=== PATIENT | female | born 1950 | race Caucasian/White ===

== ENCOUNTER 2017-08-01 18:20 | Emergency (ER) | payer MEDICARE, OTHER ==
[2017-08-01 18:26] VITALS: BP 157/78
[2017-08-01] MEDS ORDERED: Albuterol/Ipratropium NEB.SOL* Albuterol 2.5 MG/Ipratropium 0.5 MG 3 ML INH ONE (18:34)
--- NOTE | 2017-08-01 18:34 | UC ---
Respiratory Complaint HPI - HPI Summary HPI Summary: 67 year old female presents with complains of severe cough and wheezing. - History of Current Complaint Chief Complaint: UCRespiratory Stated Complaint: URI Time Seen by Provider: 08/01/17 18:30 Hx Obtained From: Patient Onset/Duration: Sudden Onset Severity Initially: Moderate Severity Currently: Moderate Pain Scale Used: 0-10 Numeric - 5 - Allergies/Home Medications Allergies/Adverse Reactions: Allergies Allergy/AdvReac Type Severity Reaction Status Date / Time No Known Allergies Allergy Verified 08/01/17 18:26 Home Medications: Home Medications Calcium Carbonate-Cholecalcife [Calcium 1000 + D 1000-800 mg-Unit] 1 tab PO DAILY 08/01/17 [History Confirmed 08/01/17] PMH/Surg Hx/FS Hx/Imm Hx Previously Healthy: Yes - Surgical History Surgical History: Yes Surgery Procedure, Year, and Place: TUBAL LIGATION,PARATHYROID - Social History Alcohol Use: None Substance Use Type: None Smoking Status (MU): Former Smoker Have You Smoked in the Last Year: Yes When Did the Patient Quit Smoking/Using Tobacco: 1 month Review of Systems Constitutional: Negative Skin: Negative Eyes: Negative ENT: Negative, Sore Throat, Nasal Discharge, Sinus Congestion, Sinus Pain/ Tenderness Respiratory: Shortness Of Breath, Cough Cardiovascular: Negative Gastrointestinal: Negative Genitourinary: Negative Motor: Negative Neurovascular: Negative Musculoskeletal: Negative Neurological: Negative Psychological: Negative All Other Systems Reviewed And Are Negative: Yes Physical Exam Triage Information Reviewed: Yes Vital Signs: Initial Vital Signs Temp 37.4 C 08/01/17 18:23 Pulse 86 08/01/17 18:23 Resp 18 08/01/17 18:23 BP 157/78 08/01/17 18:23 Pulse Ox 100 08/01/17 18:23 Eye Exam: Normal ENT: Positive: Pharyngeal erythema, Nasal congestion, Nasal drainage Dental Exam: Normal Neck exam: Normal Neck: Positive: 1 Respiratory: Positive: Rhonchi, Wheezing Cardiovascular Exam: Normal Abdominal Exam: Normal Musculoskeletal Exam: Normal Neurological Exam: Normal Psychological Exam: Normal Skin Exam: Normal UC Diagnostic Evaluation - Laboratory O2 Sat by Pulse Oximetry: 100 Respiratory Course/Dx - Differential Dx/Diagnosis Provider Diagnoses: bronchitis Discharge - Discharge Plan Condition: Stable Disposition: HOME Prescriptions: Albuterol HFA INHALER* [Ventolin HFA Inhaler*] 1 puff INH Q6H PRN #1 mdi PRN Reason: Wheezing Azithromyxin OBEY (NF) [Z-Obey (Zithromax) 250 mg tabs #6] 2 tab PO .TODAY, THEN 1 DAILY #6 tab guaiFENesin/CODIEN 100MG-10MG* [Robitussin AC 100Mg-10Mg*] 5 ml PO Q8H PRN #120 ml MDD 15 ML PRN Reason: Cough predniSONE TAB* [Deltasone TAB*] 40 mg PO DAILY #10 tab Patient Education Materials: Acute Bronchitis (ED) Referrals: Anne Villarreal MD [Primary Care Provider] -
[2017-08-01] MEDS ORDERED: predniSONE TAB* 20 MG PO ONE (18:35)
--- NOTE | 2017-08-01 19:41 | RAD ---
Indication: Cough. 2 views of the chest including dual energy PA views demonstrate no mediastinal shift. Heart is normal size and configuration. Lung trevino demonstrate no pleural fluid, pneumonia or pneumothorax. IMPRESSION: No active cardiopulmonary disease is noted.
== END 2017-08-01 19:43 | disposition home or self-care (01) ==
LOC: UCEAST 18:20
DX: J40 Bronchitis, not specified as acute or chronic (principal); Z87.891 Personal history of nicotine dependence
CPT/HCPCS: 71020; 99212; A9270-GY; G0463; J7512

== ENCOUNTER 2017-10-01 13:45 | Inpatient (IN) | payer MEDICARE, OTHER ==
--- NOTE | 2017-10-01 15:10 | RAD ---
INDICATION: Traumatic fracture right hip COMPARISON: September 24, 2017 TECHNIQUE: An AP view of the pelvis and AP views of the hip in neutral and abducted position were obtained FINDINGS: Bones: There is a subtrochanteric fracture of the right femur. The fracture is primarily transverse with comminution. The femurs abducted and rotated Joint spaces: The hip joint spaces are preserved. There is no evidence of dislocation. SI joints/symphysis: The SI joints and symphysis are intact. Other: None IMPRESSION: SUBTROCHANTERIC FRACTURE RIGHT FEMUR
--- NOTE | 2017-10-01 15:12 | RAD ---
INDICATION: Right fracture right femur COMPARISON: Right hip same date TECHNIQUE: AP and lateral views were obtained. FINDINGS: There is a transverse fracture involving the subtrochanteric region of the right femur. There is comminution. There are vertical fracture lines which extend into the intratrochanteric region and proximal right femoral diaphysis. No other fractures are evident. IMPRESSION: PROXIMAL RIGHT FEMORAL FRACTURE DESCRIBED
--- NOTE | 2017-10-01 15:16 | ED ---
Lower Extremity - HPI Summary HPI Summary: 67 female presents to ED BIBA accompanied by daughters with complaints of right hip pain that began after a fall that she sustained just [employer]. Patient states she was taking her dog outside when he got excited and pulled patient down causing the hip pain. Patient states she has been in excruciating pain since unable to move or bear weight. Patient admits to having osteoarthritis. Also has "abnormalities in her blood that PCP is working her up for". PMHx also significant for parathyroidism, HTN and asthma. Otherwise healthy. Describes the pain to be throbbing. Did not hit head, no LOC and no other injuries or complaints at this time. Patient was given 8mg of morphine on the ambulance for pain had some relief. Admits her upper leg feels numb. Not on anticoagulants. Last ate at 9:30am with coffee last drink before 12pm today. - History of Current Complaint Chief Complaint: EDExtremityLower Stated Complaint: FALL, RIGHT HIP PAIN Time Seen by Provider: 10/01/17 14:03 Hx Obtained From: Patient, Family/Heavy Machinery Operator - daughters Hx Last Menstrual Period: post menopausal Onset of Pain: Immediate, Post Accident Onset/Duration: Still Present Severity Initially: Severe Severity Currently: Severe Pain Intensity: 5 Pain Scale Used: 0-10 Numeric Timing: Constant Location: Is Discrete @ - right hip/upper leg Character Of Pain: Sharp, Aching, Throbbing Associated Signs And Symptoms: Negative: Negative Aggravating Factor(s): Standing, Ambulation, Movement Alleviating Factor(s): Rest, Nothing - morphine on ambulanc Able to Bear Weight: No - Allergies/Home Medications Allergies/Adverse Reactions: Allergies Allergy/AdvReac Type Severity Reaction Status Date / Time No Known Allergies Allergy Verified 09/28/17 14:25 Home Medications: Home Medications Albuterol inh POWDER (NF) [Proair Respiclick] 1 puff INH Q4HR PRN 10/01/17 [ History Confirmed 10/01/17] Calcium Carbonate [Calcium 600] 1,200 mg PO DAILY 10/01/17 [History Confirmed ] Cholecalciferol TAB* [Vitamin D TAB*] 1,000 unit PO DAILY 10/01/17 [History Confirmed 10/01/17] DULoxetine CAP* [Cymbalta CAP*] 60 mg PO DAILY 10/01/17 [History Confirmed ] Montelukast Sodium TAB* [Singulair TAB*] 10 mg PO DAILY 10/01/17 [History Confirmed 10/01/17] PMH/Surg Hx/FS Hx/Imm Hx Endocrine/Hematology History: Reports: Hx Thyroid Disease Denies: Hx Diabetes Cardiovascular History: Reports: Hx Hypertension Denies: Hx Pacemaker/ICD Respiratory History: Reports: Hx Asthma, Hx Chronic Obstructive Pulmonary Disease (COPD) GI History: Denies: Hx Ulcer Musculoskeletal History: Reports: Hx Osteoporosis Sensory History: Denies: Hx Hearing Aid Psychiatric History: Reports: Hx Panic Disorder - GETS ANXIETY AT TIMES - Cancer History Hx Chemotherapy: No Hx Radiation Therapy: No - Surgical History Surgery Procedure, Year, and Place: TUBAL LIGATION,PARATHYROID - Immunization History Immunizations Up to Date: Yes Infectious Disease History: No Infectious Disease History: Denies: Hx Hepatitis, Hx Human Immunodeficiency Virus (HIV), Hx of Known/ Suspected MRSA, Hx Shingles, Hx Tuberculosis, Hx Known/Suspected VRE, Hx Known/ Suspected VRSA, Traveled Outside the [place] in Last 30 Days - Family History Known Family History: Positive: None - Social History Alcohol Use: None Substance Use Type: Reports: None Hx Tobacco Use: Yes Smoking Status (MU): Former Smoker Have You Smoked in the Last Year: Yes Review of Systems Constitutional: Negative Cardiovascular: Negative Respiratory: Negative Positive: Arthralgia, Myalgia - right hip , Decreased ROM All Other Systems Reviewed And Are Negative: Yes Physical Exam Triage Information Reviewed: Yes Vital Signs On Initial Exam: Initial Vitals BP 137/73 10/01/17 13:56 Vital Signs Reviewed: Yes Appearance: Positive: Well-Appearing, Well-Nourished, Pain Distress - moderate, severe Skin: Positive: Warm, Skin Color Reflects Adequate Perfusion, Dry. Negative: Cold, Numb, Diaphoretic, Pale, Erythema @ Head/Face: Positive: Normal Head/Face Inspection Eyes: Positive: Conjunctiva Clear ENT: Positive: Pharynx normal Neck: Positive: Supple, Nontender Respiratory/Lung Sounds: Positive: Clear to Auscultation, Breath Sounds Present. Negative: Rales, Rhonchi, Wheezes Cardiovascular: Positive: Normal, RRR, Pulses are Symmetrical in both Upper and Lower Extremities - 2+ pedal left 1+ and faint on right pedal, difficult to find. Negative: Murmur, Rub Musculoskeletal: Positive: Limited @ - right LE due to pain and injury, Abnormal @ - obvious deformity of right hip/LE, Pain @ - right hip/LE, Other - rest of MSK exam normal. Negative: Edema Left, Edema Right Neurological: Positive: Normal, Sensory/Motor Intact, Alert, Oriented to Person Place, Time, NV Bundle Intact Distally, Unable to Assess Gait - [place] Coma Scale Coma Scale Total: 15 Diagnostics - Vital Signs Vital Signs Temp Pulse Resp BP Pulse Ox 10/01/17 14:00 84 141/71 98 10/01/17 13:57 98 F 70 18 137/73 93 10/01/17 13:56 137/73 - Laboratory Result Diagrams: 10/01/17 15:26 10/01/17 15:26 Lab Statement: Any lab studies that have been ordered have been reviewed, and results considered in the medical decision making process. - Radiology femur Xray Interpretation: Positive (See Comments) - PROXIMAL RIGHT FEMORAL FRACTURE DESCRIBED Radiology Interpretation Completed By: Radiologist - and myself hip Xray Interpretation: Positive (See Comments) - SUBTROCHANTERIC FRACTURE RIGHT FEMUR Radiology Interpretation Completed By: Radiologist - and myself chest Xray Interpretation: Positive (See Comments) - MODERATE INTERSTITIAL CONGESTION Radiology Interpretation Completed By: Radiologist - and myself - EKG EKG Cardiac Rate: NL EKG Rhythm: Sinus Rhythm ST Segment: Normal Ectopy: None EKG Interpretation: NSR at 87bpm no STEMI EKG Comparison: No Significant Change Lower Extremity Course/Dx - Course Course Of Treatment: given norflex to help with muscle spasms, patient given 8mg morphine on ambulance and had some relief. complaints of spasms during exam. Possible neurovasc compromise, although does have faint pedal pulse and gross sensation. Labs, xrays and EKG obtained. Xray shows proximal femur subtrochanteric fracture or right LE. Dr Tamayo called at 3:30pm will consult in ED. Hospitalist service Betito VELOZ and Dr Mustafa also consulted who will admit patient to [facility]. All post-op labs obtained. Given pain medication. No other concerns at this time. - Diagnoses Differential Diagnosis/HQI/PQRI: Positive: Fracture (Closed), Sprain, Strain Provider Diagnoses: Fracture of femur, right, closed - Physician Notifications Discussed Care Of Patient With: Dr Tamayo, Dr Mustafa, Betito CHILDREN'S NURSERY ASSISTANT Time Discussed With Above Provider: 15:30 Instructed by Provider To: Admit As Inpatient Discharge - Discharge Plan Condition: Stable Disposition: ADMITTED TO [facility]
[2017-10-01] MEDS ORDERED: Orphenadrine Citrate IV* 30 MG/ML 2 ML VIAL IV ONE (15:18)
[2017-10-01 15:46] LABS: Hematocrit 21 % (35-47); Hemoglobin 6.9 g/dl (12.0-16.0); Mean Corpuscular HGB Conc 33 g/dl (31-36); Mean Corpuscular Hemoglobin 29 pg (27-31); Mean Corpuscular Volume 89 fL (80-97); Mean Platelet Volume 7 um3 (7.4-10.4); Red Blood Count 2.38 10^6/ul (4.0-5.4); Red Cell Distribution Width 19 % (10.5-15); White Blood Count 28.6 10^3/ul (3.5-10.8)
[2017-10-01 15:47] LABS: Comments Flag Yes
[2017-10-01 15:49] LABS: Add Diff/Slide Review? Manual Diff Added
[2017-10-01 15:53] LABS: Albumin 3.3 g/dL (3.2-5.2); BUN/Creatinine Ratio 13.9 (8-20); C Reactive Protein 2.81 mg/L (< 5.00); Calcium 10.1 mg/dL (8.6-10.3); EGFR African American 65.5 (>60); EGFR Non-African American 50.9 (>60); Globulin 6.5 g/dL (2-4); Total Bilirubin 0.4 mg/dL (0.2-1.0); Total Protein 9.8 g/dL (6.4-8.9)
[2017-10-01] MEDS ORDERED: Ondansetron INJ* 2 MG/ML VIAL IV PRN (16:27)
[2017-10-01] MEDS ORDERED: Morphine INJ* 2 MG/ML 1 ML SYRINGE (TWO MG - NEW SYRINGE VERSION) IV PRN (16:27)
[2017-10-01] MEDS ORDERED: Acetaminophen TAB* 325 MG PO PRN (16:27)
[2017-10-01] MEDS ORDERED: Albuterol 2.5 MG/3 ML NEB.SOL* (0.083%) INH PRN (16:32)
[2017-10-01 16:50] LABS: Add Path Review? NO; Hypochromasia 2+; Immature Granulocytes 1 % (0-9); Microcytosis 2+; Neutrophil % 17 % (38-83); Reactive Lymph % 10 % (0-6)
--- NOTE | 2017-10-01 16:57 | RAD ---
INDICATION: Fall. Hip fracture. COMPARISON: Right hip October 01, 2017 TECHNIQUE: Noncontrast axial source images were obtained from the hemidiaphragms to the symphysis pubis. This examination was ordered using a renal stone protocol which is performed without oral or intravenous contrast and therefore has inherent limitations when used to evaluate other intra-abdominal or intrapelvic pathology. Consider conventional contrast enhanced imaging if clinically indicated. Lung bases: The lung bases are clear. Liver: The liver is normal in size. Noncontrast imaging shows no evidence of a hepatic mass or ductal dilatation. Gallbladder: There are no calcified gallstones. There is no evidence of wall thickening or pericholecystic fluid.. Spleen: The spleen is normal in size. The noncontrast CT appearance is normal. Pancreas: Noncontrast imaging shows no pancreatic mass or ductal dilitation. Adrenal glands: No masses are identified. Kidneys/Bladder: There is no evidence of nephrolithiasis or CT evidence of hydronephrosis. Noncontrast imaging shows no evidence of a renal mass. 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 Adenopathy: There is no evidence of intraperitoneal or retroperitoneal adenopathy. Evaluation is limited without oral contrast. Fluid collections: There are no free or localized fluid collections. Vessels: The aorta and iliac vessels are normal in caliber. There are no significant atherosclerotic changes. The IVC appears normal Pelvic organs: The uterus and adnexa appear normal GI tract: Evaluation of the bowel is limited without oral contrast. The stomach, small bowel, and lower GI tract appear grossly normal. There are no obstructive findings. The appendix is visualized and appears normal. Soft tissues: No soft tissue abnormalities of the extraperitoneal abdomen or pelvis are identified. Osseous structures: There is a comminuted intratrochanteric fracture of the right femur. The fracture is transverse and is comminuted. There is mild varus angulation. There are no additional acute osseous findings. IMPRESSION: NONCONTRAST IMAGING SHOWS NO ACUTE INTRA-ABDOMINAL OR INTRA-PELVIC PATHOLOGY. THERE IS A PROXIMAL FEMORAL FRACTURE REPRESENTING A KNOWN FINDING.
--- NOTE | 2017-10-01 17:11 | RAD ---
INDICATION: Short of breath COMPARISON: August 01, 2017 TECHNIQUE: PA and lateral views were obtained. FINDINGS: Bones/Soft Tissues: There are no acute bony findings. Cardiomediastinal: The heart is normal in size. The central pulmonary vessels and interstitium are prominent compatible with interstitial congestion. Lungs: There is no focal consolidation.. Pleura: There are no pleural effusions. Other: None IMPRESSION: MODERATE INTERSTITIAL CONGESTION
--- NOTE | 2017-10-01 17:12 | RAD ---
INDICATION: Intracranial injury COMPARISON: None TECHNIQUE: Noncontrast axial source images were acquired from the skull base to the vertex. FINDINGS: Ventricles/sulci: The ventricles and cisterns are normal in size and configuration for age. Brain parenchyma: There is no focal parenchymal finding, evidence of intracranial mass, or intracranial mass effect. Intracranial hemorrhage:None. Extra-axial spaces: There are no abnormal extra axial fluid collections or evidence of extra-axial mass. Calvarium: There is no calvarial fracture or other calvarial abnormality. Scalp: There is no evidence of scalp or extracalvarial soft tissue abnormality. Paranasal sinuses/mastoid: The paranasal sinuses and mastoid air cells are clear. Other: None. IMPRESSION: NEGATIVE EXAMINATION
[2017-10-01] MEDS ORDERED: HYDROmorphone INJ* 2 MG/ML CARPUJECT SYRINGE IV SLOW PU STA (17:42)
--- NOTE | 2017-10-01 20:55 | CONS ---
CONSULTATION REPORT: DATE OF CONSULT: 10/01/17 HISTORY OF PRESENT ILLNESS: Betzy is an active 67-year-old woman who fell taking her dog out into the yard this morning at about 11:30 a.m. She had an isolated injury, but was unable to bear weight because of severe right thigh and groin pain. She is admitted through the emergency room with a right subtrochanteric femur fracture. She is being evaluated by Medicine as well, but at some point will require internal fixation of this right subtrochanteric hip fracture. Betzy relates a history of significant right hip pain, which proceeded this fall today. In fact, she was evaluated by an oncologist at [facility] 10 days or so ago for the right hip pain and decreased blood count. Evidently, an x-ray was performed of the hip, although I am unable to locate it in the computer today. The family relates that this was normal hip film, just some mild osteopenia and some mild arthritis noted. Her hemoglobin count was around 6 and she received 2 units of transfusion and according to the family has been scheduled for a bone marrow biopsy in the near future to try to workup on myelodysplastic condition. Betzy had a colonoscopy last year. She has a history of some polyps, but these evidently were negative. She has had no history of breast masses or cancer. She is a heavy smoker, quitting 2 months ago after she had a bout of pneumonia and bronchitis. The family relates at the time that her chest x-ray showed a small nodule, which has been "stable previously." She is followed by Dr. Wisdom her regular medical doctor. MEDICATIONS AND ALLERGIES: Her medicines and allergies are outlined in the chart. PHYSICAL EXAM: Her examination reveals her to be alert, oriented, in mild distress with the right hip pain isolated. Her daughter who is a registered nurse at [facility] is at bedside and helpful with the history as well. The patient is edentulous. She has supple neck. She has clear lung trevino, although it is difficult to have her sit up to rolling her [id number] for the exam. She does have an end-systolic murmur, regular rate noted. Her abdomen is soft, nontender. Right lower extremity shows some external rotation. No significant shortening. She has a warm sensate foot and a thready posterior pulse. Significant pain noted with any range of motion of the right knee or hip. RADIOGRAPHS: Her radiograph shows a subtrochanteric fracture which is comminuted, jagged and more or less transverse, had a typical radiographic appearance and may be a pathologic fracture. The hip itself is intact. ASSESSMENT AND PLAN: The patient with active medical issues, pancytopenia, precedent hip pain now with a fall and a subtrochanteric hip fracture, which may be pathologic in nature. This will need to be stabilized, but the medical workup is under way and will involve Oncology as well. [id number]/[facility] #: [id number] [facility]
[2017-10-01 21:00] LABS: Urine Bacteria Absent (Absent); Urine Bilirubin Negative (Negative); Urine Glucose Negative (Negative); Urine Nitrite Negative (Negative)
[2017-10-01] MEDS: Heparin VIAL(*) 5000 UNITS/ML VIAL (FIVE THOUSAND) SUBCUT SCH (22:00)
--- NOTE | 2017-10-01 23:01 | HP ---
CC: Dr. Wisdom; Dr. Alvarado; Dr. Quesada; Dr. Tamayo * HISTORY AND PHYSICAL: DATE OF ADMISSION: 10/01/17 PRIMARY CARE PROVIDER: Dr. Wisdom. CONSULTING ONCOLOGIST: Dr. Alvarado and Dr. Quesada. CONSULTING ORTHOPEDIST: Dr. Tamayo. ATTENDING PROVIDER: Adrian Mustafa MD * (DICTATED BY ANGEL HOLT NP) CHIEF COMPLAINT: Mechanical fall. HISTORY OF PRESENT ILLNESS: Mrs. Junior is a 67-year-old female patient who has a history of COPD, chronic bronchitis, history of hyperparathyroidism, history of depression and history of arthritis. She comes into our ED today, stating that she took her Border Collie an 8-month-old puppy out for a walk this morning to use the bathroom and unfortunately the Border Collie got excited and took off and started to run and pulled the patient down to the ground and she fell and landed on her right hip and immediately knew something was wrong. She did not hit her head. She says that she fell, landed on that hip. Initially, she knew something was wrong, she had extreme amount of pain. She may had been on the ground for 10 to 15 minutes. She was calling out for help. Her neighbor fortunately was coming home for lunch and came to her aide and called 911. There was no chest pain prior to or after the event. She denied having any syncopal episode. She said she purely fell after her dog had brought her down to the ground. She had again take a fall, but there is no evidence of syncope. She does state that on July she had a pneumonia, was treated outpatient and since then she just had not been feeling well, feeling weak, tired, shortness of breath, going upstairs, but no chest pain. She was evaluated by her PCP she says and it was noted that she was anemic and had a leukocytosis and was referred to Dr. Quesada who she had a blood transfusion last week. In addition to this was supposed to have a bone marrow biopsy tomorrow, but today she sustained this fall and came in and was evaluated. It was noted that she had a right hip fracture and we were asked to evaluate for admission. PAST MEDICAL HISTORY: Significant for: 1. Depression. 2. Hyperparathyroidism. 3. Arthritis. 4. COPD. PAST SURGICAL HISTORY: 1. She has had a hand surgery as a child. 2. She had a heart catheterization, no stents. 3. Tubal ligation. 4. Parathyroidectomy. MEDICATIONS: Home meds according to her list that she provided includes: 1. Cymbalta 60 mg p.o. daily. 2. Singulair 10 mg daily. 3. Vitamin D 1000 units p.o. daily. 4. Calcium 1200 mg p.o. daily. 5. [place]-3 one capsule p.o. daily. 6. B12 1000 mcg p.o. daily. 7. She does state that she is on an albuterol nebulizer 4 to 6 times a day as needed. ALLERGIES TO MEDICATIONS: Include no known drug allergies. FAMILY HISTORY: Mother had a history of COPD. Father had cirrhosis. SOCIAL HISTORY: She is smoker. She quit about 2 months ago on July when she was diagnosed with pneumonia. She smoked about a pack a day for about 50 years. She does not drink alcohol. Surrogate decision maker is her daughter, Ruthie. REVIEW OF SYSTEMS: There was no documented fever. She does admit to about a 20 - pound weight loss. Denies having any chills. No rhinorrhea, no sore throat, no thyroid enlargement. Denied any chest pain. There was no orthopnea, no nocturnal dyspnea. There was no abdominal pain. No nausea, no vomiting. No dysuria, no frequency. There was no loss of consciousness, no seizure. No pruritus and no skin ulcerations. Review of 14 systems completed, all others negative. PHYSICAL EXAMINATION GENERAL: At this time, Mrs. Junior is a 67-year-old female patient. She is chronically ill-appearing. She is sitting in the ED stretcher. She does not appear to be in any acute distress. VITAL SIGNS: Blood pressure 134/54, the pulse is 87, respirations are 18, O2 sat 94% on room air, temperature 98. HEENT: Head: Atraumatic and normocephalic. Eyes: EOMs are intact. Sclerae anicteric and not pale. Throat: Oral mucosa appears to be moist. No oropharyngeal erythema. NECK: Supple. HEART: Sounds S1, S2. Regular rate and rhythm. No murmurs, rubs, or gallops. LUNGS: Clear to auscultation bilaterally. No wheezes, rales, or rhonchi. ABDOMEN: Soft, it was flat, nontender. Bowel sounds were present. EXTREMITIES: Distal CSM checks are intact to the right lower extremity. The right lower extremity is shortened and rotated. NEUROLOGIC: She is awake. She is alert. She is oriented x3. Her tongue is midline. Turn Machine Operator are equal. No gross focal deficits. SKIN: The skin is intact. DIAGNOSTIC STUDIES/LAB DATA: WBC 28.6; RBC 2.8; hemoglobin 6.9, her last hemoglobin was 6.6; the hematocrit 21; platelet count 55,000, was 67,000. INR was 1.2. Sodium was 136, potassium was 4, chloride 101, bicarb 26, BUN 15, creatinine 1.08, glucose 115, lactate 0.9, calcium 10, total bili 0.4. AST 15, ALT 6, alk phos 81. CRP at 2.8. Albumin was 3.3. She did have a pelvis x-ray, which revealed subtrochanteric fracture of the right femur. Femur x-ray showed proximal right femoral fracture as described. She did have an EKG obtained today, which showed normal sinus rhythm with a rate of 87. No ST elevations or T-wave inversions were noted. Old medical records were reviewed. ASSESSMENT AND PLAN: Mrs. Junior is a 67-year-old female patient coming into our ER today with complaints of mechanical fall, found to have a hip fracture. She will be admitted under inpatient status for: 1. Right hip fracture. At this point, the patient has been seen by Dr. Tamayo , but we do need Hematology/Oncology input given the fact that she is thrombocytopenic and anemic prior to hip surgery, which is being worked up as outpatient. The plan will be to give her 2 units of blood per Dr. Alvarado and we will probably need to transfuse her as needed throughout the procedure, possible plus or minus platelet transfusion depending on what her platelets do, but again I will have Hematology/Oncology way-in on this and at some point, the bone marrow biopsy will need to be obtained to help further delineate where this anemia and leukocytosis and thrombocytopenia is coming from. I am concerned for a possible myeloproliferative disorder, possible chronic leukocytic leukemia or underlying malignancy, but again Dr. Alvarado and team will be evaluating. In the terms of her risk for surgery, she is moderate to high risk particularly she has a significant chronic obstructive pulmonary disease. At this point, I will get the chest x-ray to evaluate and in addition to this an EKG. If these are stable, then aggressive pulmonary toileting is going to need to be and aggressive p.r.n. nebulizers preop and postoperatively and perioperatively needed. Monitoring respiratory status in addition to this, again transfusing as needed. We are going to start giving her 2 units now to see if we can get her optimize and we will get Hematology input as well and we will continue to follow her closely, but she is at moderate to high risk for the proposed procedure. 2. History of chronic obstructive pulmonary disease. Again, I have ordered her p.r.n. nebs as prescribed. 3. Leukocytosis, again I think this is probably could be from an underlying malignancy or mild proliferative disorder. We will send off cultures, but I do not think she is actively infected. We will monitor. 4. Weight loss. Again, we are getting the input from Hematology. Again, underlying malignancy could be a concern here, but we do not have any active source and we do not have a bone marrow biopsy, so we need to work this up. 5. Depression. Supportive care. 6. Hyperparathyroidism. Continue meds as prescribed. 7. Arthritis. Continue supportive care and meds as prescribed. 8. Hip fracture. Again, Dr. Tamayo had evaluated the patient. There was concern for possible pathologic fracture. A bone biopsy could be obtained during the procedure. In addition to this, I will get a CT of the abdomen and pelvis. Because of the fall and low platelet, she said she did not hit her head , but I am going to make sure there is no underlying bleed with the CT of the brain and we will continue to follow. 9. Code status. She is a full code. 10. DVT prophylaxis. She is high risk. We will place her on heparin subcu. 11. Fluids, electrolytes and nutrition. She can have a regular diet. TIME SPENT: On the admission was 60 minutes, greater than half that time spent [id number] with the patient obtaining my history and physical, the other half time spent going over the plan of care with the patient, implementing the plan of care. I did discuss the plan of care with my attending, Dr. Mustafa; he is in agreement. ANGEL HOLT NP [id number]/[facility] #: [id number] SHONNA
[2017-10-02 05:06] LABS: Hematocrit 25 % (35-47); Hemoglobin 8.4 g/dl (12.0-16.0); Mean Corpuscular HGB Conc 33 g/dl (31-36); Mean Corpuscular Hemoglobin 29 pg (27-31); Mean Corpuscular Volume 88 fL (80-97); Mean Platelet Volume 7 um3 (7.4-10.4); Red Blood Count 2.88 10^6/ul (4.0-5.4); Red Cell Distribution Width 16 % (10.5-15); White Blood Count 25.7 10^3/ul (3.5-10.8)
[2017-10-02 05:07] LABS: Comments Flag Yes
[2017-10-02 05:08] LABS: Calcium 10.1 mg/dL (8.6-10.3); EGFR African American 66.2 (>60); EGFR Non-African American 51.5 (>60); Potassium 4.2 mmol/L (3.5-5.0)
[2017-10-02 05:09] LABS: Add Diff/Slide Review? Manual Diff Added
[2017-10-02] MEDS: Heparin VIAL(*) 5000 UNITS/ML VIAL (FIVE THOUSAND) SUBCUT SCH ×3 (05:52→22:09)
[2017-10-02] MEDS: HYDROcodone/ACETAMIN 5-325 MG* 1 TAB PO PRN ×4 (05:57→22:07)
[2017-10-02 07:22] LABS: Add Path Review? YES; Eosinophils % 2 % (0-6); Hypochromasia 1+; Neutrophil % 17 % (38-83); Reactive Lymph % 19 % (0-6)
[2017-10-02] MEDS ORDERED: Cyclobenzaprine TAB* 10 MG PO PRN (08:17)
[2017-10-02] MEDS ORDERED: Magnesium Hydroxide LIQ* 30 ML UDC PO PRN (08:42)
[2017-10-02] MEDS ORDERED: Polyethylene Glycol 3350* 17 GM PACKET PO PRN (08:42)
--- NOTE | 2017-10-02 08:42 | PN ---
Subjective Date of Service: 10/02/17 Interval History: Patient seen and examined at bedside. Denies fever, chills, shortness of breath , chest discomfort, N/V/D. Pt states that she continues to have right pain but the pain is improving. Family History: Unchanged from Admission Social History: Unchanged from Admission Past Medical History: Unchanged from Admission Objective Active Medications: Acetaminophen (Tylenol Tab*) 650 mg PO Q4H PRN Reason: FEVER/PAIN Hydrocodone Bitart/Acetaminophen ([place] 5-325 Tab*) 1 tab PO Q4H PRN Reason: PAIN Albuterol (Ventolin 2.5 Mg/3 Ml Neb.Nataly*) 2.5 mg INH Q2H PRN Reason: SOB/ WHEEZING Calcium Carbonate (Calcium Carbonate Tab*) 1,250 mg PO DAILY ANGELICA Cholecalciferol (Vitamin D Tab*) 1,000 units PO DAILY ANGELICA Cyanocobalamin (Vitamin B12 Tab*) 1,000 mcg PO DAILY ANGELICA Cyclobenzaprine HCl (Flexeril Tab*) 10 mg PO TID PRN Reason: SPASMS Duloxetine HCl (Cymbalta Cap*) 60 mg PO DAILY ANGELICA Heparin Sodium (Porcine) (Heparin Vial(*)) 5,000 units SUBCUT Q8HR ANGELICA Montelukast Sodium (Singulair Tab*) 10 mg PO DAILY ANGELICA Morphine Sulfate (Morphine Inj (Syringe)*) 2 mg IV Q4H PRN Reason: PAIN - MILD Ondansetron HCl (Zofran Inj*) 4 mg IV Q6H PRN Reason: NAUSEA Pneumococcal Polyvalent Vaccine (Pneumococcal Vac 23-Polyvalent*) 0.5 ml IM .ONCE ONE Stop: 10/02/17 09:01 Vital Signs - 8 hr 10/02/17 10/02/17 10/02/17 02:58 05:57 07:40 Temperature 98.2 F Pulse Rate 81 Respiratory 18 16 16 Rate Blood Pressure 127/68 (mmHg) O2 Sat by Pulse 98 Oximetry 10/02/17 10/02/17 07:47 07:54 Temperature 98.2 F Pulse Rate 83 Respiratory 18 16 Rate Blood Pressure 132/63 (mmHg) O2 Sat by Pulse 99 Oximetry Oxygen Devices in Use Now: Nasal Cannula - 2L Appearance: NAD, laying in bed Ears/Nose/Mouth/Throat: Mucous Membranes Moist Neck: NL Appearance and Movements; NL JVP Respiratory: Symmetrical Chest Expansion and Respiratory Effort, Clear to Auscultation Cardiovascular: NL Sounds; No Murmurs; No JVD, RRR Extremities: No Edema Skin: No Rash or Ulcers Neurological: Alert and Oriented x 3, NL Muscle Strength and Tone Lines/Tubes/Other Access: Clean, Dry and Intact Peripheral IV - site benign Nutrition: Taking PO's Result Diagrams: 10/02/17 04:37 10/02/17 04:37 Assess/Plan/Problems-Billing Assessment: Ms. Junior is a 67 yo female with PMH significant for COPD, arthritis, depression and hyperparathyroidism who presented to the emergency room with complaints of a mechanical fall and was found to have a right hip fracture. - Patient Problems (1) Closed right hip fracture Code(s): S72.001A - FRACTURE OF UNSP PART OF NECK OF RIGHT FEMUR, INIT SNOMED Code(s): 171338582 Comment: - Mechanical fall - Ortho consult, input appreciated. Plan for possible surgery tomorrow - Continue pain management and bowel regimen - According to the RCRI she has 0 points, placing her at a Class I risk and a 0.4% risk of a major cardiac event. She requires no further cardiac work-up at this time. She is at at higher risk due to her underlying leukocytosis, anemia and thrombocytosis. She is medically optimized for surgery and may proceed to the OR. (2) Leukocytosis Code(s): D72.829 - ELEVATED WHITE BLOOD CELL COUNT, UNSPECIFIED SNOMED Code(s) : 650639997 Comment: - Afebrile - Chest xray with no acute findings - UA with no significant findings, culture pending - Blood cultures pending - Suspect this could be from an underlying malignancy or mild proliferative disorder - Heme consult pending (3) Thrombocytopenia Code(s): D69.6 - THROMBOCYTOPENIA, UNSPECIFIED SNOMED Code(s): 219725100 Comment: - Suspect underlying bone marrow disorder - Heme consult pending (4) Anemia Code(s): D64.9 - ANEMIA, UNSPECIFIED SNOMED Code(s): 921391440 Comment: - Received 2 units of PRBCs overnight - Heme consult pending - Recheck CBC in AM (5) COPD (chronic obstructive pulmonary disease) Code(s): J44.9 - CHRONIC OBSTRUCTIVE PULMONARY DISEASE, UNSPECIFIED SNOMED Code(s): 62758812 Comment: - No signs of acute exacerbation at this time - Continue PRN nebs (6) Depression Code(s): F32.9 - MAJOR DEPRESSIVE DISORDER, SINGLE EPISODE, UNSPECIFIED SNOMED Code(s): 42301898 Comment: - Supportive care (7) Hyperparathyroidism Code(s): E21.3 - HYPERPARATHYROIDISM, UNSPECIFIED SNOMED Code(s): 70216377 (8) Arthritis Code(s): M19.90 - UNSPECIFIED OSTEOARTHRITIS, UNSPECIFIED SITE SNOMED Code(s) : 8789663 Comment: - Continue supportive care and pain management (9) DVT prophylaxis Code(s): QZW5700 - SNOMED Code(s): 588571183 Comment: - SQ heparin and SCDs (10) Full code status Code(s): Z78.9 - OTHER SPECIFIED HEALTH STATUS SNOMED Code(s): 487248147 Status and Disposition: Inpatient. Plan for possible surgery tomorrow, suspect Pt will need MILTON.
[2017-10-02] MEDS ORDERED: Pneumococcal *Vac Polyvalent 0.5 ML VIAL IM ONE (09:00)
[2017-10-02] MEDS: Cholecalciferol TAB* 1000 UNITS PO SCH (09:24)
[2017-10-02] MEDS: Montelukast Sodium TAB* 10 MG PO SCH (09:24)
[2017-10-02] MEDS: Calcium Carbonate TAB* 1250 MG (CALCIUM 500 MG) PO SCH (09:24)
[2017-10-02] MEDS: Docusate CAP* 100 MG PO PRN (09:25)
[2017-10-02] MEDS: Cyanocobalamin TAB* 500 MCG PO SCH (09:25)
[2017-10-02] MEDS: DULoxetine DR CAP* 60 MG CAP.DR PO SCH (09:25)
[2017-10-02] MEDS ORDERED: Morphine INJ* 2 MG/ML 1 ML SYRINGE (TWO MG - NEW SYRINGE VERSION) IV PRN (09:27)
[2017-10-02] MEDS ORDERED: HYDROcodone/ACETAMIN 5-325 MG* 1 TAB PO PRN (09:27)
--- NOTE | 2017-10-02 17:59 | PN ---
Progress Note - Progress Note Date of Service: 10/02/17 SOAP: Subjective: [] Patient seen at bedside. SHe is sitting comfortable and pain is well controlled. She denies chest pain, shortness of breath, fever or chills. Objective: [] Vital Signs Temp 98.4 F 10/02/17 15:15 Pulse 85 10/02/17 15:15 Resp 16 10/02/17 17:51 BP 113/51 10/02/17 15:15 Pulse Ox 92 10/02/17 15:15 Intake & Output 10/01/17 10/02/17 10/02/17 18:59 06:59 18:59 Intake Total 1995.2 595 Output Total 525 1250 Balance 1470.2 -655 Weight 150 lb Intake: IV Fluids 113.2 NS (0.9%) 113.2 Oral 1280 595 Packed Cells 602 Output: Urine 525 Burgess 950 Emesis 300 Other: Estimated Void Medium # Voids 1 Laboratory Last Values WBC 25.7 10^3/ul (3.5-10.8) H 10/02/17 04:37 RBC 2.88 10^6/ul (4.0-5.4) L 10/02/17 04:37 Hgb 8.4 g/dl (12.0-16.0) L 10/02/17 04:37 Hct 25 % (35-47) L 10/02/17 04:37 MCV 88 fL (80-97) 10/02/17 04:37 MCH 29 pg (27-31) 10/02/17 04:37 MCHC 33 g/dl (31-36) 10/02/17 04:37 RDW 16 % (10.5-15) H 10/02/17 04:37 Plt Count 40 10^3/ul (150-450) L 10/02/17 04:37 MPV 7 um3 (7.4-10.4) L 10/02/17 04:37 Absolute Neuts (auto) 4.3 10^3/ul (1.5-7.7) 10/02/17 04:37 Absolute Lymphs (auto) 14.1 10^3/ul (1.0-4.8) H 10/02/17 04:37 Absolute Monos (auto) 1.8 10^3/ul (0-0.8) H 10/02/17 04:37 Absolute Eos (auto) 0.5 10^3/ul (0-0.6) 10/02/17 04:37 Absolute Basos (auto) 0 10^3/ul (0-0.2) 10/02/17 04:37 Absolute Nucleated RBC Not Reportable 10/02/17 04:37 Immature Gran % 1 % (0-9) 10/01/17 15:26 Neutrophils % 17 % (38-83) L 10/02/17 04:37 Band Neutrophils % 1 % (0-8) 10/01/17 15:26 Lymphocytes % 55 % (25-47) H 10/02/17 04:37 Reactive Lymphs % 19 % (0-6) H D 10/02/17 04:37 Monocytes % 7 % (0-13) 10/02/17 04:37 Eosinophils % 2 % (0-6) 10/02/17 04:37 Differential Comment Plasma cell 10/02/17 04:37 Normal RBC Morphology Not Reportable 10/02/17 04:37 Hypochromasia 1+ 10/02/17 04:37 Microcytosis 2+ 10/01/17 15:26 Hem Pathologist Commnt 10/02/17 04:37 INR (Anticoag Therapy) 1.18 (0.77-1.02) H 10/02/17 04:37 Sodium 134 mmol/L (133-145) 10/02/17 04:37 Potassium 4.2 mmol/L (3.5-5.0) 10/02/17 04:37 Chloride 100 mmol/L (101-111) L 10/02/17 04:37 Carbon Dioxide 25 mmol/L (22-32) 10/02/17 04:37 Anion Gap 9 mmol/L (2-11) 10/02/17 04:37 BUN 15 mg/dL (6-24) 10/02/17 04:37 Creatinine 1.07 mg/dL (0.51-0.95) H 10/02/17 04:37 Est GFR ( Amer) 66.2 (>60) 10/02/17 04:37 Est GFR (Non-Af Amer) 51.5 (>60) 10/02/17 04:37 BUN/Creatinine Ratio 14.0 (8-20) 10/02/17 04:37 Glucose 115 mg/dL (70-100) H 10/02/17 04:37 Lactic Acid 0.9 mmol/L (0.5-2.0) 10/01/17 15:26 Calcium 10.1 mg/dL (8.6-10.3) 10/02/17 04:37 Total Bilirubin 0.40 mg/dL (0.2-1.0) 10/01/17 15:26 AST 15 U/L (13-39) 10/01/17 15:26 ALT 6 U/L (7-52) L 10/01/17 15:26 Alkaline Phosphatase 81 U/L (34-104) 10/01/17 15:26 Total Creatine Kinase 45 U/L (10-223) 10/01/17 15:26 C-Reactive Protein 2.81 mg/L (< 5.00) 10/01/17 15:26 Total Protein 9.8 g/dL (6.4-8.9) H 10/01/17 15:26 Albumin 3.3 g/dL (3.2-5.2) 10/01/17 15:26 Globulin 6.5 g/dL (2-4) H 10/01/17 15:26 Albumin/Globulin Ratio 0.5 (1-3) L 10/01/17 15:26 Urine Color Yellow 10/01/17 20:00 Urine Appearance Cloudy 10/01/17 20:00 Urine pH 6.0 (5-9) 10/01/17 20:00 Ur Specific [place] 1.016 (1.010-1.030) 10/01/17 20:00 Urine Protein 1+(30 mg/dl) (Negative) H 10/01/17 20:00 Urine Ketones Negative (Negative) 10/01/17 20:00 Urine Blood 1+ (Negative) H 10/01/17 20:00 Urine Nitrate Negative (Negative) 10/01/17 20:00 Urine Bilirubin Negative (Negative) 10/01/17 20:00 Urine Urobilinogen Negative (Negative) 10/01/17 20:00 Ur Leukocyte Esterase Negative (Negative) 10/01/17 20:00 Urine WBC (Auto) Trace(0-5/hpf) (Absent) 10/01/17 20:00 Urine RBC (Auto) 3+(>10/hpf) (Absent) H 10/01/17 20:00 Ur Squamous Epith Cells Present (Absent) H 10/01/17 20:00 Urine Bacteria Absent (Absent) 10/01/17 20:00 Urine Glucose Negative (Negative) 10/01/17 20:00 Monoscreen Cancelled 10/02/17 04:37 Blood Type A Positive 10/01/17 15:26 Antibody Screen Negative 10/01/17 15:26 Crossmatch See Detail 10/01/17 15:26 General: Laying in bed, well appearing, NAD. Calm and cooperative. RLE: Propped up on a pillow for comfort, pain with any ROM. Tender to light palpation over right femur. No skin breakdown, lesions or bruising. Sensation intact distally. DF/PF intact. DP/PT pulse 2+. Brisk capillary refill Assessment: []Right subtrochanteric femur fracture Plan: []Platelets ordered for 10/[address] Clemens To OR for surgical fixation tomorrow 10/03- to be NPO after midnight Continued pain control
--- NOTE | 2017-10-02 22:22 | CONS ---
ORTHOPEDIC CONSULTATION NOTE: DATE OF CONSULT: 10/02/17 ATTENDING PHYSICIAN: Marycruz Clemens MD Thank you for this orthopedic consultation. CHIEF COMPLAINT: Right hip pain. HISTORY OF PRESENT ILLNESS: Ms. Junior is a 67-year-old female with multiple medical comorbidities. She was walking her dog in the a.m. of 10/01/17 when she was pulled to the ground landing on her right hip. She immediately had 10/ 10 pain in the right hip. She was unable to stand or weight bear because of the pain. She called for help and her neighbor called 911. She was brought to [facility] by ambulance. When questioned, the patient notes that she had severe right hip pain 1 week ago. Radiographs were taken and she was told these were negative. She has pertinent medical history of recent anemia and leukocytosis. She saw Dr. Quesada last week, who gave her blood transfusion and ordered a bone marrow biopsy. Discussing this case with Dr. Quesada today, he feels this is myeloma. PAST MEDICAL HISTORY: Depression, hyperparathyroidism, osteoarthritis, COPD, possible myelodysplastic disorder, likely myeloma. PAST SURGICAL HISTORY: Hand surgery; heart catheterization, no stent; tubal ligation; parathyroidectomy. CURRENT MEDICATIONS: 1. Cymbalta 60 mg p.o. daily. 2. Singulair 10 mg daily. 3. Vitamin D 1000 units p.o. daily. 4. Calcium 1200 mg p.o. daily. 5. [place]-3 one capsule p.o. daily. 6. B12 1000 mcg p.o. daily. 7. Albuterol nebulizer 4 to 6 times per day. ALLERGIES: No known drug allergy. No known latex allergy FAMILY HISTORY: Maternal COPD. Paternal cirrhosis. SOCIAL HISTORY: The patient is a smoker, who quit 2 months ago, 15-tnva-vlbs history. No alcohol or recreational drug use. Surrogate decision maker is her daughter, Ruthie, who is a [employer] employee. Normally an independent ambulator. REVIEW OF SYSTEMS: 14 systems were reviewed with the patient today, 20-pound weight loss recently. No fevers or chills. Right hip pain history before the fall, now increased right hip pain. She denies pain in other bones. She denies head trauma, loss of consciousness, dizziness, headache. She denies chest pain. Otherwise, the patient reports review of systems is negative or not relevant. PHYSICAL EXAM: Vitals: Temperature 98.4, pulse of 85, blood pressure 113/51. Gait is not assessed. HEENT: Atraumatic, normocephalic. Pupils are equal and reactive to light. Chest: Unlabored breathing. Abdomen, soft and nontender to palpation, nondistended. Bilateral upper extremities: Some scattered superficial abrasions, but no cellulitis. She can forward flex the shoulders to 90 degrees without pain, 4+/5 machinery engineer strength, 2+ palpable radial pulses. Right lower extremity: The patient's leg is externally rotated on the pillow. Tenderness around the proximal thigh. Distally, she demonstrates dorsiflexion and plantar flexion, 2+palpable DP pulse. Full sensation to light touch in all nerve distributions. No open wounds. Thigh is swollen, but soft and compressible. Left lower extremity, she can flex the hip and knee. She has no bony tenderness to palpation. Skin is intact. Neurovascularly intact. DIAGNOSTIC STUDIES/LAB DATA: Labs today on 10/02/17 show white blood cells of 25.7, hematocrit 25, platelets 40, neutrophil 17, lymphocytes 55, reactive lymphocytes 19. Differential comment on the smears plasma cells. INR 1.18. Sodium 134, potassium 4.2, chloride 100, carbon dioxide 25, BUN 15, creatinine 1.07, glucose 115. Urine positive for protein, blood and squamous cells. Radiographs: Multiple views of the patient's right hip and femur show comminuted subtrochanteric fracture with displacement. Reviewing prior films from 1 week ago, there is some endosteal scalloping likely lytic lesion along the proximal femur in the subtrochanteric region that is difficult to view unless you are looking for it. ASSESSMENT AND PLAN: Ms. Junior is a 67-year-old female who is now status post fall with a right subtrochanteric femur fracture with displacement and comminution. I do believe this is a pathologic fracture although she did have a mechanical fall as well. The patient, her daughter, and I discussed operative and nonoperative treatment options. They would like to proceed with operative fixation of the fracture. I would recommend a cephalomedullary device. I have discussed the case with Dr. Quesada who feels that the patient should have platelets before surgery. I have ordered 2 units of platelets preoperatively. Her current platelets are at 40. We will make her n.p.o. after midnight and plan for 10/03/17 ORIF of the right subtrochanteric femur fracture. I have also spoken with the hospitalist team that feel she is medically optimized to proceed with surgery. I will plan to obtain a biopsy at the time of surgery. Informed consent is obtained from the patient and her family. They understand the risks of surgery include, but are not limited to bleeding, infection, damage to nearby structures , continued pain, need for further surgery, failure of the bone to heal, failure of the hardware, stroke, heart attack, blood clot, and . She wishes to proceed. [id number]/[facility] #: [id number] SHONNA
[2017-10-03 05:28] LABS: Hematocrit 26 % (35-47); Hemoglobin 8.6 g/dl (12.0-16.0); Mean Corpuscular HGB Conc 33 g/dl (31-36); Mean Corpuscular Hemoglobin 29 pg (27-31); Mean Corpuscular Volume 88 fL (80-97); Mean Platelet Volume 7 um3 (7.4-10.4); Red Blood Count 2.92 10^6/ul (4.0-5.4); Red Cell Distribution Width 17 % (10.5-15); White Blood Count 26.2 10^3/ul (3.5-10.8)
[2017-10-03 05:31] LABS: Comments Flag Yes
[2017-10-03 05:32] LABS: Add Diff/Slide Review? Manual Diff Added
[2017-10-03 05:41] LABS: Calcium 10.4 mg/dL (8.6-10.3); EGFR African American 71.6 (>60); EGFR Non-African American 55.6 (>60); Potassium 3.8 mmol/L (3.5-5.0)
[2017-10-03 06:50] LABS: Immature Granulocytes 2 % (0-9); Metamyelocytes % 1 % (0-2); Neutrophil % 21 % (38-83); Reactive Lymph % 16 % (0-6)
[2017-10-03 07:01] LABS: Add Path Review? YES
[2017-10-03] MEDS: Heparin VIAL(*) 5000 UNITS/ML VIAL (FIVE THOUSAND) SUBCUT SCH ×2 (07:09→14:33)
--- NOTE | 2017-10-03 08:14 | PN ---
Progress Note - Progress Note Date of Service: 10/03/17 SOAP: Subjective: []Patient seen at bedside with her daughter present. Her pain is well controlled while she is laying still. Denies chest pain, shortness of breath, nausea, fever or chills. Objective: []General: Laying in bed, well appearing, NAD. Calm and cooperative. RLE: Propped up on a pillow for comfort, pain with any ROM of Right hip or knee. Tender to light palpation over right femur. No skin breakdown, lesions or bruising. Sensation intact distally. DF/PF intact. DP/PT pulse 2+. Brisk capillary refill distally. Vital Signs Temp 98.4 F 10/03/17 07:26 Pulse 79 10/03/17 07:26 Resp 17 10/03/17 07:26 BP 128/54 10/03/17 07:26 Pulse Ox 94 10/03/17 07:26 Intake & Output 10/02/17 10/03/17 10/03/17 18:59 06:59 18:59 Intake Total 595 420 Output Total 1250 550 Balance -655 -130 Intake: Oral 595 420 Output: Burgess 950 550 Emesis 300 Other: Estimated Void Medium # Bowel Movements 0 # Voids 1 Laboratory Last Values WBC 26.2 10^3/ul (3.5-10.8) H 10/03/17 05:07 RBC 2.92 10^6/ul (4.0-5.4) L 10/03/17 05:07 Hgb 8.6 g/dl (12.0-16.0) L 10/03/17 05:07 Hct 26 % (35-47) L 10/03/17 05:07 MCV 88 fL (80-97) 10/03/17 05:07 MCH 29 pg (27-31) 10/03/17 05:07 MCHC 33 g/dl (31-36) 10/03/17 05:07 RDW 17 % (10.5-15) H 10/03/17 05:07 Plt Count 40 10^3/ul (150-450) L 10/03/17 05:07 MPV 7 um3 (7.4-10.4) L 10/03/17 05:07 Absolute Neuts (auto) 10.2 10^3/ul (1.5-7.7) H 10/03/17 05:07 Absolute Lymphs (auto) 13.1 10^3/ul (1.0-4.8) H 10/03/17 05:07 Absolute Monos (auto) 2.9 10^3/ul (0-0.8) H 10/03/17 05:07 Absolute Eos (auto) 0 10^3/ul (0-0.6) 10/03/17 05:07 Absolute Basos (auto) 0 10^3/ul (0-0.2) 10/03/17 05:07 Absolute Nucleated RBC 0.3 10^3/ul 10/03/17 05:07 Immature Gran % 2 % (0-9) 10/03/17 05:07 Neutrophils % 21 % (38-83) L 10/03/17 05:07 Band Neutrophils % 1 % (0-8) 10/03/17 05:07 Lymphocytes % 50 % (25-47) H 10/03/17 05:07 Reactive Lymphs % 16 % (0-6) H 10/03/17 05:07 Monocytes % 11 % (0-13) 10/03/17 05:07 Eosinophils % 2 % (0-6) 10/02/17 04:37 Metamyelocytes % 1 % (0-2) 10/03/17 05:07 Nucleated RBCs/100 WBC 1 (0-0) H 10/03/17 05:07 Differential Comment Plasma cell 10/03/17 05:07 Normal RBC Morphology Not Reportable 10/03/17 05:07 Hypochromasia 1+ 10/02/17 04:37 Microcytosis 2+ 10/01/17 15:26 Hem Pathologist Commnt 10/02/17 04:37 INR (Anticoag Therapy) 1.18 (0.77-1.02) H 10/02/17 04:37 Sodium 131 mmol/L (133-145) L 10/03/17 05:08 Potassium 3.8 mmol/L (3.5-5.0) 10/03/17 05:08 Chloride 96 mmol/L (101-111) L 10/03/17 05:08 Carbon Dioxide 27 mmol/L (22-32) 10/03/17 05:08 Anion Gap 8 mmol/L (2-11) 10/03/17 05:08 BUN 12 mg/dL (6-24) 10/03/17 05:08 Creatinine 1.00 mg/dL (0.51-0.95) H 10/03/17 05:08 Est GFR ( Amer) 71.6 (>60) 10/03/17 05:08 Est GFR (Non-Af Amer) 55.6 (>60) 10/03/17 05:08 BUN/Creatinine Ratio 12.0 (8-20) 10/03/17 05:08 Glucose 103 mg/dL (70-100) H 10/03/17 05:08 Lactic Acid 0.9 mmol/L (0.5-2.0) 10/01/17 15:26 Calcium 10.4 mg/dL (8.6-10.3) H 10/03/17 05:08 Total Bilirubin 0.40 mg/dL (0.2-1.0) 10/01/17 15:26 AST 15 U/L (13-39) 10/01/17 15:26 ALT 6 U/L (7-52) L 10/01/17 15:26 Alkaline Phosphatase 81 U/L (34-104) 10/01/17 15:26 Total Creatine Kinase 45 U/L (10-223) 10/01/17 15:26 C-Reactive Protein 2.81 mg/L (< 5.00) 10/01/17 15:26 Total Protein 9.8 g/dL (6.4-8.9) H 10/01/17 15:26 Albumin 3.3 g/dL (3.2-5.2) 10/01/17 15:26 Globulin 6.5 g/dL (2-4) H 10/01/17 15:26 Albumin/Globulin Ratio 0.5 (1-3) L 10/01/17 15:26 Urine Color Yellow 10/01/17 20:00 Urine Appearance Cloudy 10/01/17 20:00 Urine pH 6.0 (5-9) 10/01/17 20:00 Ur Specific [place] 1.016 (1.010-1.030) 10/01/17 20:00 Urine Protein 1+(30 mg/dl) (Negative) H 10/01/17 20:00 Urine Ketones Negative (Negative) 10/01/17 20:00 Urine Blood 1+ (Negative) H 10/01/17 20:00 Urine Nitrate Negative (Negative) 10/01/17 20:00 Urine Bilirubin Negative (Negative) 10/01/17 20:00 Urine Urobilinogen Negative (Negative) 10/01/17 20:00 Ur Leukocyte Esterase Negative (Negative) 10/01/17 20:00 Urine WBC (Auto) Trace(0-5/hpf) (Absent) 10/01/17 20:00 Urine RBC (Auto) 3+(>10/hpf) (Absent) H 10/01/17 20:00 Ur Squamous Epith Cells Present (Absent) H 10/01/17 20:00 Urine Bacteria Absent (Absent) 10/01/17 20:00 Urine Glucose Negative (Negative) 10/01/17 20:00 Monoscreen Cancelled 10/02/17 04:37 Blood Type A Positive 10/01/17 15:26 Antibody Screen Negative 10/01/17 15:26 Crossmatch See Detail 10/01/17 15:26 Assessment: []Right subtrochanteric femur fracture Plan: []1 unit of platelets given this morning. Platelet count increased from 40 to 65. Will give one additional unit just before surgical procedure. To OR for surgical fixation 10/03- NPO Continued pain control
[2017-10-03] MEDS: DULoxetine DR CAP* 60 MG CAP.DR PO SCH (09:16)
[2017-10-03] MEDS: Montelukast Sodium TAB* 10 MG PO SCH (09:16)
[2017-10-03] MEDS: Cyanocobalamin TAB* 500 MCG PO SCH (09:16)
[2017-10-03] MEDS: Calcium Carbonate TAB* 1250 MG (CALCIUM 500 MG) PO SCH (09:16)
[2017-10-03] MEDS: Cholecalciferol TAB* 1000 UNITS PO SCH (09:16)
--- NOTE | 2017-10-03 09:16 | PN ---
Subjective Date of Service: 10/03/17 Interval History: Patient seen and examined at bedside. Denies fever, chills, shortness of breath , chest discomfort, N/V/D. Pt states that her pain is controlled if she is not moving. Reports her last BM was 2 days ago. Family History: Unchanged from Admission Social History: Unchanged from Admission Past Medical History: Unchanged from Admission Objective Active Medications: Acetaminophen (Tylenol Tab*) 650 mg PO Q4H PRN Reason: FEVER/PAIN Hydrocodone Bitart/Acetaminophen ([place] 5-325 Tab*) 2 tab PO Q4H PRN Reason: PAIN - MODERATE TO SEVERE Hydrocodone Bitart/Acetaminophen ([place] 5-325 Tab*) 1 tab PO Q4H PRN Reason: PAIN - MILD TO MODERATE Albuterol (Ventolin 2.5 Mg/3 Ml Neb.Nataly*) 2.5 mg INH Q2H PRN Reason: SOB/ WHEEZING Calcium Carbonate (Calcium Carbonate Tab*) 1,250 mg PO DAILY ANGELICA Cholecalciferol (Vitamin D Tab*) 1,000 units PO DAILY ANGELICA Cyanocobalamin (Vitamin B12 Tab*) 1,000 mcg PO DAILY ANGELICA Cyclobenzaprine HCl (Flexeril Tab*) 10 mg PO TID PRN Reason: SPASMS Docusate Sodium (Colace Cap*) 100 mg PO BID PRN Reason: CONSTIPATION Duloxetine HCl (Cymbalta Cap*) 60 mg PO DAILY [facility] Heparin Sodium (Porcine) (Heparin Vial(*)) 5,000 units SUBCUT Q8HR ANGELICA Lactated Ringer's (Lactated Ringers 1000 Ml Bag*) 1,000 mls @ 100 mls/hr IV ONCE ONE Stop: 10/03/17 18:14 Magnesium Hydroxide (Milk Of Magnyadira Liq*) 30 ml PO Q6H PRN Reason: CONSTIPATION Montelukast Sodium (Singulair Tab*) 10 mg PO DAILY ANGELICA Morphine Sulfate (Morphine Inj (Syringe)*) 2 mg IV Q4H PRN Reason: PAIN - SEVERE Ondansetron HCl (Zofran Inj*) 4 mg IV Q6H PRN Reason: NAUSEA Polyethylene Glycol/Electrolytes (Miralax*) 17 gm PO DAILY PRN Reason: CONSTIPATION Vital Signs - 8 hr 10/03/17 10/03/17 10/03/17 03:17 04:16 07:26 Temperature 98.4 F 98.4 F Pulse Rate 78 84 79 Respiratory 17 16 17 Rate Blood Pressure 108/52 128/54 (mmHg) O2 Sat by Pulse 91 92 94 Oximetry Oxygen Devices in Use Now: None Appearance: NAD, laying in bed Ears/Nose/Mouth/Throat: Mucous Membranes Moist Respiratory: Symmetrical Chest Expansion and Respiratory Effort, Clear to Auscultation Cardiovascular: NL Sounds; No Murmurs; No JVD, RRR Abdominal: NL Sounds; No Tenderness; No Distention Skin: No Rash or Ulcers Neurological: Alert and Oriented x 3, NL Muscle Strength and Tone Lines/Tubes/Other Access: Clean, Dry and Intact Peripheral IV - site benign Nutrition: Taking PO's Result Diagrams: 10/03/17 05:07 10/03/17 05:08 Microbiology and Other Data: Microbiology 10/01/17 18:30 Aerobic Blood Culture - Preliminary Blood Venous No Growth Day 1 Anaerobic Blood Culture - Preliminary No Growth Day 1 10/01/17 17:35 Aerobic Blood Culture - Preliminary Blood Venous No Growth Day 1 Anaerobic Blood Culture - Preliminary No Growth Day 1 Assess/Plan/Problems-Billing Assessment: Ms. Junior is a 67 yo female with PMH significant for COPD, arthritis, depression and hyperparathyroidism who presented to the emergency room with complaints of a mechanical fall and was found to have a right hip fracture. - Patient Problems (1) Closed right hip fracture Code(s): S72.001A - FRACTURE OF UNSP PART OF NECK OF RIGHT FEMUR, INIT SNOMED Code(s): 709465438 Comment: - Mechanical fall - Ortho consult, input appreciated. Plan for surgery once platelets are 50 - Continue pain management and bowel regimen - According to the RCRI she has 0 points, placing her at a Class I risk and a 0.4% risk of a major cardiac event. She requires no further cardiac work-up at this time. She is at at higher risk due to her underlying leukocytosis, anemia and thrombocytosis. She is medically optimized for surgery and may proceed to the OR. (2) Leukocytosis Code(s): D72.829 - ELEVATED WHITE BLOOD CELL COUNT, UNSPECIFIED SNOMED Code(s) : 537477023 Comment: - Afebrile - Chest xray with no acute findings - UA with no significant findings, culture pending - Blood cultures, no growth day 1 - Suspect this could be from an underlying malignancy or mild proliferative disorder - Heme consult, input appreciated (3) Thrombocytopenia Code(s): D69.6 - THROMBOCYTOPENIA, UNSPECIFIED SNOMED Code(s): 306129838 Comment: - Suspect underlying bone marrow disorder - Heme, input appreciated - Received 1 unit of platelets this AM (4) Anemia Code(s): D64.9 - ANEMIA, UNSPECIFIED SNOMED Code(s): 541679213 Comment: - Received 2 units of PRBCs 10/01 - Heme, input appreciated - Recheck CBC in AM (5) COPD (chronic obstructive pulmonary disease) Code(s): J44.9 - CHRONIC OBSTRUCTIVE PULMONARY DISEASE, UNSPECIFIED SNOMED Code(s): 14548693 Comment: - No signs of acute exacerbation at this time - Continue PRN nebs (6) Depression Code(s): F32.9 - MAJOR DEPRESSIVE DISORDER, SINGLE EPISODE, UNSPECIFIED SNOMED Code(s): 95882134 Comment: - Supportive care (7) Hyperparathyroidism Code(s): E21.3 - HYPERPARATHYROIDISM, UNSPECIFIED SNOMED Code(s): 30598679 (8) Arthritis Code(s): M19.90 - UNSPECIFIED OSTEOARTHRITIS, UNSPECIFIED SITE SNOMED Code(s) : 8338261 Comment: - Continue supportive care and pain management (9) DVT prophylaxis Code(s): PTV0494 - SNOMED Code(s): 345410338 Comment: - SQ heparin and SCDs (10) Full code status Code(s): Z78.9 - OTHER SPECIFIED HEALTH STATUS SNOMED Code(s): 183123498 Status and Disposition: Inpatient. Plan for possible surgery tomorrow, suspect Pt will need MILTON.
[2017-10-03 09:57] LABS: Mean Platelet Volume 7 um3 (7.4-10.4)
[2017-10-03 10:00] LABS: Comments Flag Yes
[2017-10-03] MEDS ORDERED: Buffered Lidocaine 0.9% SYRIN* 5 ML/SYR SYRINGE ONE (12:47)
[2017-10-03] MEDS ORDERED: fentaNYL* 50 MCG/ML 2 ML VIAL (100 MCG VIAL) ONE (13:01)
[2017-10-03] MEDS ORDERED: Midazolam* 1 MG/ML 2 ML VIAL (2 MG) ONE (13:01)
[2017-10-03] MEDS ORDERED: ceFAZolin 2 GM PREMIX (*) 2 GM/50 ML BAG IVPB ONE (13:17)
[2017-10-03] MEDS ORDERED: Bupivacaine 0.25% SDV* 30 ML ONE (14:01)
[2017-10-03] MEDS ORDERED: DiMENhydriNATE IV* 50 MG/ML VIAL IV PUSH PRN (15:28)
[2017-10-03] MEDS ORDERED: fentaNYL* 50 MCG/ML 2 ML VIAL (100 MCG VIAL) IV PRN (15:28)
--- NOTE | 2017-10-03 16:26 | RAD ---
INDICATION: Right femoral nailing COMPARISON: Right hip October 01, 2017 FINDINGS: 103 seconds of fluoroscopy were provided for the orthopedic department. Fluoroscopic spot imaging of the right hip were obtained for operative control and show right femoral nailing . CPT II Codes: 6045F (fluoro time doc)
[2017-10-03] MEDS ORDERED: HYDROmorphone INJ* 1 MG/ML CARPUJECT SYRINGE ONE (17:18)
[2017-10-03] MEDS: HYDROmorphone INJ* 1 MG/ML CARPUJECT SYRINGE IV PRN ×2 (17:20→17:28)
[2017-10-04 05:30] LABS: Hematocrit 21 % (35-47); Hemoglobin 7.3 g/dl (12.0-16.0); Mean Corpuscular HGB Conc 35 g/dl (31-36); Mean Corpuscular Hemoglobin 33 pg (27-31); Mean Corpuscular Volume 92 fL (80-97); Mean Platelet Volume 8 um3 (7.4-10.4); Red Blood Count 2.24 10^6/ul (4.0-5.4); Red Cell Distribution Width 18 % (10.5-15); White Blood Count 26.6 10^3/ul (3.5-10.8)
[2017-10-04 05:35] LABS: Comments Flag Yes
[2017-10-04 05:36] LABS: Add Diff/Slide Review? Manual Diff Added
[2017-10-04 05:50] LABS: BUN/Creatinine Ratio 22.9 (8-20); Calcium 10.2 mg/dL (8.6-10.3); EGFR Non-African American 58.3 (>60); Potassium 4.3 mmol/L (3.5-5.0)
[2017-10-04 06:00] LABS: Immature Granulocytes 1 % (0-9); Metamyelocytes % 1 % (0-2); Neutrophil % 41 % (38-83); Reactive Lymph % 12 % (0-6)
[2017-10-04 06:01] LABS: Hypochromasia 1+
[2017-10-04 06:09] LABS: Add Path Review? YES
[2017-10-04] MEDS: DULoxetine DR CAP* 60 MG CAP.DR PO SCH (08:35)
[2017-10-04] MEDS: Calcium Carbonate TAB* 1250 MG (CALCIUM 500 MG) PO SCH (08:35)
--- NOTE | 2017-10-04 08:35 | PN ---
Subjective Date of Service: 10/04/17 Interval History: Patient seen and examined at bedside. She reports feeling fatigued but does report that her pain is adequately controlled. She is somewhat overwhelmed with all that has been occurring this admission but was able to report understanding of her plan of care at this time. Denies fever/chills, dizziness, CP, SOB. She is hopeful to work with PT today. Discussed need for blood transfusion this morning, given her HH following surgery, as well as her fatigue and pallor. Family History: Unchanged from Admission Social History: Unchanged from Admission Past Medical History: Unchanged from Admission Objective Active Medications: Acetaminophen (Tylenol Tab*) 650 mg PO Q4H PRN PRN Reason: FEVER/PAIN Hydrocodone Bitart/Acetaminophen ([place] 5-325 Tab*) 2 tab PO Q4H PRN PRN Reason: PAIN - MODERATE TO SEVERE Last Admin: 10/02/17 22:07 Dose: 2 tab Hydrocodone Bitart/Acetaminophen ([place] 5-325 Tab*) 1 tab PO Q4H PRN PRN Reason: PAIN - MILD TO MODERATE Last Admin: 10/04/17 05:26 Dose: 1 tab Albuterol (Ventolin 2.5 Mg/3 Ml Neb.Nataly*) 2.5 mg INH Q2H PRN PRN Reason: SOB/WHEEZING Calcium Carbonate (Calcium Carbonate Tab*) 1,250 mg PO DAILY [facility] Last Admin: 10/03/17 09:16 Dose: 1,250 mg Cholecalciferol (Vitamin D Tab*) 1,000 units PO DAILY ANGELICA Last Admin: 10/03/17 09:16 Dose: 1,000 units Cyanocobalamin (Vitamin B12 Tab*) 1,000 mcg PO DAILY ANGELICA Last Admin: 10/03/17 09:16 Dose: 1,000 mcg Cyclobenzaprine HCl (Flexeril Tab*) 10 mg PO TID PRN PRN Reason: SPASMS Last Admin: 10/02/17 13:33 Dose: 10 mg Docusate Sodium (Colace Cap*) 100 mg PO BID PRN PRN Reason: CONSTIPATION Last Admin: 10/02/17 09:25 Dose: 100 mg Duloxetine HCl (Cymbalta Cap*) 60 mg PO DAILY [facility] Last Admin: 10/03/17 09:16 Dose: 60 mg Magnesium Hydroxide (Milk Of Magnesia Liq*) 30 ml PO Q6H PRN PRN Reason: CONSTIPATION Montelukast Sodium (Singulair Tab*) 10 mg PO DAILY ANGELICA Last Admin: 10/03/17 09:16 Dose: 10 mg Morphine Sulfate (Morphine Inj (Syringe)*) 2 mg IV Q4H PRN PRN Reason: PAIN - SEVERE Last Admin: 10/02/17 10:23 Dose: 2 mg Ondansetron HCl (Zofran Inj*) 4 mg IV Q6H PRN PRN Reason: NAUSEA Polyethylene Glycol/Electrolytes (Miralax*) 17 gm PO DAILY PRN PRN Reason: CONSTIPATION Vital Signs - 8 hr 10/04/17 10/04/17 10/04/17 03:51 05:26 07:40 Temperature 98.4 F 96.8 F Pulse Rate 72 69 Respiratory 16 18 16 Rate Blood Pressure 99/45 100/49 (mmHg) O2 Sat by Pulse 94 97 Oximetry 10/04/17 10/04/17 08:00 08:04 Temperature Pulse Rate Respiratory 16 18 Rate Blood Pressure (mmHg) O2 Sat by Pulse Oximetry Oxygen Devices in Use Now: Nasal Cannula Appearance: Older female, lying in bed, in NAD Eyes: No Scleral Icterus Ears/Nose/Mouth/Throat: Clear Oropharnyx, Mucous Membranes Moist Neck: NL Appearance and Movements; NL JVP Respiratory: Symmetrical Chest Expansion and Respiratory Effort, Clear to Auscultation Cardiovascular: NL Sounds; No Murmurs; No JVD, RRR Abdominal: NL Sounds; No Tenderness; No Distention Extremities: No Edema, No Clubbing, Cyanosis, - - Distal sensation/movement intact, 2+ distal pulses, brisk cap refill Skin: No Rash or Ulcers, - - right hip and right lateral leg dressings c/d/i, patient with pallor Neurological: Alert and Oriented x 3, NL Muscle Strength and Tone Lines/Tubes/Other Access: Clean, Dry and Intact Peripheral IV Nutrition: Taking PO's Result Diagrams: 10/04/17 05:00 10/04/17 05:00 Microbiology and Other Data: Microbiology 10/01/17 18:30 Aerobic Blood Culture - Preliminary Blood Venous No Growth Day 1 Anaerobic Blood Culture - Preliminary No Growth Day 1 10/01/17 17:35 Aerobic Blood Culture - Preliminary Blood Venous No Growth Day 1 Anaerobic Blood Culture - Preliminary No Growth Day 1 Assess/Plan/Problems-Billing Assessment: Ms. Junior is a 67 yo female with PMH significant for COPD, arthritis, depression and hyperparathyroidism who presented to the emergency room with complaints of a mechanical fall and was found to have a right hip fracture. - Patient Problems (1) Closed right hip fracture Code(s): S72.001A - FRACTURE OF UNSP PART OF NECK OF RIGHT FEMUR, INIT Comment : - Mechanical fall - Ortho management, POD #1 - Continue pain management and bowel regimen (2) Leukocytosis Code(s): D72.829 - ELEVATED WHITE BLOOD CELL COUNT, UNSPECIFIED Comment: - Afebrile - Chest xray with no acute findings - UA with no significant findings, culture pending - Blood cultures, no growth day 2 - Suspect this could be from an underlying malignancy or mild proliferative disorder - Heme consult, input appreciated (3) Thrombocytopenia Code(s): D69.6 - THROMBOCYTOPENIA, UNSPECIFIED Comment: - Suspect underlying bone marrow disorder - Heme, input appreciated - S/p platelet transfusion 12/ (4) Anemia Code(s): D64.9 - ANEMIA, UNSPECIFIED Comment: - Plan for 2 units today on POD#1 - Heme, input appreciated - Continue to follow CBC (5) COPD (chronic obstructive pulmonary disease) Code(s): J44.9 - CHRONIC OBSTRUCTIVE PULMONARY DISEASE, UNSPECIFIED Comment: - No signs of acute exacerbation at this time - Continue PRN nebs (6) Depression Code(s): F32.9 - MAJOR DEPRESSIVE DISORDER, SINGLE EPISODE, UNSPECIFIED Comment: - Supportive care (7) Hyperparathyroidism Code(s): E21.3 - HYPERPARATHYROIDISM, UNSPECIFIED (8) Arthritis Code(s): M19.90 - UNSPECIFIED OSTEOARTHRITIS, UNSPECIFIED SITE Comment: - Continue supportive care and pain management (9) DVT prophylaxis Comment: Per ortho Lovenox, SCDs (10) Full code status Code(s): Z78.9 - OTHER SPECIFIED HEALTH STATUS Status and Disposition: Inpatient. Heme workup pending, anticipate need for MILTON.
[2017-10-04] MEDS: Montelukast Sodium TAB* 10 MG PO SCH (08:36)
[2017-10-04] MEDS: Cholecalciferol TAB* 1000 UNITS PO SCH (08:36)
[2017-10-04] MEDS: Cyanocobalamin TAB* 500 MCG PO SCH (08:36)
--- NOTE | 2017-10-04 09:39 | PN ---
Progress Note - Progress Note Date of Service: 10/04/17 SOAP: Subjective: []Patient seen at bedside. She is feeling well today with well controlled pain. No chest pain or shortness of breath. Objective: [] Vital Signs Temp 96.8 F 10/04/17 07:40 Pulse 69 10/04/17 07:40 Resp 18 10/04/17 08:04 BP 100/49 10/04/17 07:40 Pulse Ox 97 10/04/17 07:40 Intake & Output 10/03/17 10/04/17 10/04/17 18:59 06:59 18:59 Intake Total 1150 620 Output Total 1000 550 Balance 150 70 Intake: IV Fluids 1150 LR 1100 NS 50ML, Cefazolin 2G 50 Oral 620 Output: Urine 0 Burgess 1000 550 Other: # Bowel Movements 0 Laboratory Last Values WBC 26.6 10^3/ul (3.5-10.8) H 10/04/17 05:00 RBC 2.24 10^6/ul (4.0-5.4) L 10/04/17 05:00 Hgb 7.3 g/dl (12.0-16.0) L 10/04/17 05:00 Hct 21 % (35-47) L 10/04/17 05:00 MCV 92 fL (80-97) 10/04/17 05:00 MCH 33 pg (27-31) H 10/04/17 05:00 MCHC 35 g/dl (31-36) 10/04/17 05:00 RDW 18 % (10.5-15) H 10/04/17 05:00 Plt Count 85 10^3/ul (150-450) L 10/04/17 05:00 MPV 8 um3 (7.4-10.4) 10/04/17 05:00 Absolute Neuts (auto) 14.4 10^3/ul (1.5-7.7) H 10/04/17 05:00 Absolute Lymphs (auto) 10.1 10^3/ul (1.0-4.8) H 10/04/17 05:00 Absolute Monos (auto) 2.1 10^3/ul (0-0.8) H 10/04/17 05:00 Absolute Eos (auto) 0 10^3/ul (0-0.6) 10/04/17 05:00 Absolute Basos (auto) 0 10^3/ul (0-0.2) 10/04/17 05:00 Absolute Nucleated RBC 0 10^3/ul 10/04/17 05:00 Immature Gran % 1 % (0-9) 10/04/17 05:00 Neutrophils % 41 % (38-83) 10/04/17 05:00 Band Neutrophils % 1 % (0-8) 10/03/17 05:07 Lymphocytes % 38 % (25-47) 10/04/17 05:00 Reactive Lymphs % 12 % (0-6) H 10/04/17 05:00 Monocytes % 8 % (0-13) 10/04/17 05:00 Eosinophils % 2 % (0-6) 10/02/17 04:37 Metamyelocytes % 1 % (0-2) 10/04/17 05:00 Nucleated RBCs/100 WBC 1 (0-0) H 10/03/17 05:07 Differential Comment Plasma cell 10/04/17 05:00 Normal RBC Morphology Not Reportable 10/04/17 05:00 Hypochromasia 1+ 10/04/17 05:00 Microcytosis 2+ 10/01/17 15:26 Hem Pathologist Commnt 10/03/17 05:07 INR (Anticoag Therapy) 1.18 (0.77-1.02) H 10/02/17 04:37 Sodium 132 mmol/L (133-145) L 10/04/17 05:00 Potassium 4.3 mmol/L (3.5-5.0) 10/04/17 05:00 Chloride 96 mmol/L (101-111) L 10/04/17 05:00 Carbon Dioxide 28 mmol/L (22-32) 10/04/17 05:00 Anion Gap 8 mmol/L (2-11) 10/04/17 05:00 BUN 22 mg/dL (6-24) 10/04/17 05:00 Creatinine 0.96 mg/dL (0.51-0.95) H 10/04/17 05:00 Est GFR ( Amer) 75.0 (>60) 10/04/17 05:00 Est GFR (Non-Af Amer) 58.3 (>60) 10/04/17 05:00 BUN/Creatinine Ratio 22.9 (8-20) H 10/04/17 05:00 Glucose 130 mg/dL (70-100) H 10/04/17 05:00 Lactic Acid 0.9 mmol/L (0.5-2.0) 10/01/17 15:26 Calcium 10.2 mg/dL (8.6-10.3) 10/04/17 05:00 Total Bilirubin 0.40 mg/dL (0.2-1.0) 10/01/17 15:26 AST 15 U/L (13-39) 10/01/17 15:26 ALT 6 U/L (7-52) L 10/01/17 15:26 Alkaline Phosphatase 81 U/L (34-104) 10/01/17 15:26 Total Creatine Kinase 45 U/L (10-223) 10/01/17 15:26 C-Reactive Protein 2.81 mg/L (< 5.00) 10/01/17 15:26 Total Protein 9.8 g/dL (6.4-8.9) H 10/01/17 15:26 Albumin 3.3 g/dL (3.2-5.2) 10/01/17 15:26 Globulin 6.5 g/dL (2-4) H 10/01/17 15:26 Albumin/Globulin Ratio 0.5 (1-3) L 10/01/17 15:26 Urine Color Yellow 10/01/17 20:00 Urine Appearance Cloudy 10/01/17 20:00 Urine pH 6.0 (5-9) 10/01/17 20:00 Ur Specific [place] 1.016 (1.010-1.030) 10/01/17 20:00 Urine Protein 1+(30 mg/dl) (Negative) H 10/01/17 20:00 Urine Ketones Negative (Negative) 10/01/17 20:00 Urine Blood 1+ (Negative) H 10/01/17 20:00 Urine Nitrate Negative (Negative) 10/01/17 20:00 Urine Bilirubin Negative (Negative) 10/01/17 20:00 Urine Urobilinogen Negative (Negative) 10/01/17 20:00 Ur Leukocyte Esterase Negative (Negative) 10/01/17 20:00 Urine WBC (Auto) Trace(0-5/hpf) (Absent) 10/01/17 20:00 Urine RBC (Auto) 3+(>10/hpf) (Absent) H 10/01/17 20:00 Ur Squamous Epith Cells Present (Absent) H 10/01/17 20:00 Urine Bacteria Absent (Absent) 10/01/17 20:00 Urine Glucose Negative (Negative) 10/01/17 20:00 Monoscreen Cancelled 10/02/17 04:37 Blood Type A Positive 10/04/17 04:56 Antibody Screen Negative 10/04/17 04:56 Crossmatch See Detail 10/04/17 04:56 General: Laying in bed, PT/OT in room to get patient up. Patient is calm, cooperative and well appearing. RLE: Dressing CDI. Sensation intact distally. DF/PF intact. DP/PT pulses 2+. BL LE: calves supple and nontender without erythema or edema. Assessment: []POD 1 S/P Right Gamma Nail 10/03/17 Dr. Clemens Plan: []WBAT PT/OT PE/DVT prophylaxis: Lovenox 40 mg subq daily x [address] Verito Jacobs. Continue as long as PLT remain >50. Check PLT count 2x/week. 1 unit PRBC ordered per hospitalist service.
[2017-10-04 10:38] LABS: Beta 2 Microglobulin 9.09 mcg/mL
[2017-10-04 11:35] LABS: Kappa Free Light Chain 7.76 mg/dL; Kappa/Lambda Free Light Chain 69.9
--- NOTE | 2017-10-04 12:28 | OP ---
OPERATIVE NOTE: DATE OF OPERATION: 10/03/17 DATE OF : 54 ATTENDING SURGEON: Marycruz Clemens MD. HELPER [employer]: THALIA Cervantes. Ms. Eldridge did help throughout the procedure with preparation of leg, wound retraction, manipulation, holding retractors, and wound closure. ANESTHESIOLOGIST: Dr. Rush. ANESTHESIA: General. PRE-OP DIAGNOSIS: Right subtrochanteric femur fracture with comminution and displacement. POST-OP DIAGNOSIS: Right subtrochanteric femur fracture with comminution and displacement. OPERATIVE PROCEDURE: Open reduction and internal fixation of the left subtrochanteric femur fracture . HARDWARE USED: This is a long gamma nail. For the nailing, a 11 x 125 x 360 long gamma nail. For p roximal lag screw, a 10.5 x 100 mm screw. For the distal locking screw, a 5 x 50 distal locking scre w. COMPLICATIONS: None. ESTIMATED BLOOD LOSS: 400 cc. SPECIMEN: Multiple tissue samples from intramedullary femoral reamings were sent to Pathology for ev aluation. BRIEF HISTORY/INDICATION: Ms. Junior is a 67-year-old female, who had 1 week of right hip pain. Rad iographs showed no obvious abnormality. One week ago she did have a fall after she was pulled around by her dog. She immediately had severe right hip pain, was brought to [facility] where sh e was found to have a subtrochanteric femur fracture. Although this is a mechanical fall, I have a s denice suspicion that this is pathologic fracture through a lytic lesion. The patient is currently be ing worked up by Dr. Quesada for chronic anemia, leukocytosis, and possible multiple myeloma. The patient was medically optimized for surgery. She had thrombocytopenia with platelet count of 40, 000 and was given 2 units of platelets preoperatively for optimization. The patient and her family w ished to proceed with operative intervention. Informed consent was obtained from the patient and her family. They understood the risk of surgery included but were not were not limited to bleeding, inf ection, damage to nearby structures, continued pain, need for further surgery, failure of the hardwar e, loss of reduction, failure of the bone to heal, stroke, heart attack, blood clot, and . She wished to proceed. INTRAOPERATIVE FINDINGS: Intraoperatively, the patient was noted to have comminution and displacemen t at the fracture site, which was subtrochanteric. DESCRIPTION OF PROCEDURE: Ms. Junior was identified in the preanesthesia unit. Her right lower extre mity was marked as the correct operative site. Informed consent was signed and placed on the chart. The patient was taken to the operating room and placed under general anesthesia. A Burgess catheter h ad already been placed. She was transferred to the fracture table. Right lower extremity was placed in a traction boot. Qrpsa-[id number] amount of traction was placed as well as reduction and culinary intern al rotation of the leg. Left lower extremity was placed in the lithotomy position with all prominenc es well padded. C-arm views in AP and lateral planes confirmed a satisfactory reduction of the proxi mal femur fracture. The right lower extremity was prepped and draped in the usual sterile fashion. Pr eop time-out was made to correctly identify the patient, side, and site. Appropriate perioperative an tibiotics were given within 1 hour of incision. A 5-cm incision was made proximal to the tip of the greater trochanter. Electrocautery was used to di ssect down to the lateral fascial layer. Lateral fascial layer was incised in line with the skin inc ision. Finger dissection was used to dissect down to the tip of the greater trochanter. AP and late ral C-arm views were used to choose a starting point for the awl at the junction of the anterior and posterior two-thirds of the tip of the greater trochanter. The awl was advanced. Guidewire was plac ed through the cannulated portion of the awl across the fracture site in an intramedullary position. AP and lateral C-arm views confirmed that the guidewire was intramedullary and advanced an appropria te amount distally. Decision was made to use a long nail due to the likely pathologic nature of the fracture. The guidewire was measured at 360 mm. An 11 x 360 x 125 nail was chosen. The awl was removed. Over the guidewire, sequential reaming was performed. Distally, reaming was performed up to 13 mm and pr oximally the opening reamer was 15.5 mm. An 11 x 360 x 125 long gamma nail was advanced over the guid ewire. AP and lateral C-arm views showed satisfactory reduction of the fracture. The nail was advan gabby to a satisfactory amount. The lateral gamma nail guide was used to make a 2-cm incision in the s kin. A 15-blade was used to make the incision that was then carried down through the fascial layer. Mosquitoes were used to dissect down the bone. The lag screw guide was advanced through the soft ti ssue down to the lateral bone. A guidewire was used to find a central position in the femoral head a nd neck. AP and lateral C-arm views confirmed satisfactory placement of the guidewire. The guidewir e was measured to 100 mm in length. The 100-mm lag screw was chosen. Pre-drilling was performed ove r the guidewire. A 100 x 10.5 lag screw was placed over the guidewire. AP and lateral C-arm views s howed satisfactory placement of the screw in the central position in the femoral head and neck. The guidewire and lateral awl were removed. The proximal set screw was locked into place. The later al gamma nail guide was carefully removed. Next, attention was turned to placement of the distal locking screw. A 2-cm incision was made distal ly in the skin and carried down to the lateral fascial layer. A 15-blade was used to incise the late ral fascial layer. Mosquitoes were used to dissect down the bone. Using perfect [place] technique, a distal locking screw was placed across the nail. This was a 50 x 5 distal locking screw. AP and la teral C-arm views confirmed satisfactory placement of the locking screws through the nail. The final x-rays were taken and showed appropriate placement of the hardware and satisfactory reducti on of the fracture. The incisions were copiously irrigated with sterile saline. The fascial layers were closed using int errupted #1 Vicryls. The rest of the incisions were closed in a layered fashion using 0 and 2-0 Vicr yls. Skin was closed using running 3-0 nylon suture. Sterile Xeroform, 4x4s, and paper tape were us ed to cover the incisions. The patient's anesthesia was reversed without difficulty. She was taken t o the PACU in stable condition. Intended weightbearing will be weightbearing as tolerated. Intended DVT prophylaxis will be per the hospitalist's recommendations, likely Lovenox or heparin. [id number]/[facility] #: [id number]
[2017-10-04] MEDS ORDERED: Enoxaparin(*) 40 MG/0.4 ML SYR SUBCUT SCH (17:00)
[2017-10-04] MEDS: HYDROcodone/ACETAMIN 5-325 MG* 1 TAB PO PRN ×2 (17:25→22:21)
[2017-10-04] MEDS: Docusate CAP* 100 MG PO PRN (22:21)
[2017-10-05 05:47] LABS: Hematocrit 25 % (35-47); Hemoglobin 8.5 g/dl (12.0-16.0); Mean Corpuscular HGB Conc 34 g/dl (31-36); Mean Corpuscular Hemoglobin 30 pg (27-31); Mean Corpuscular Volume 89 fL (80-97); Mean Platelet Volume 8 um3 (7.4-10.4); Red Blood Count 2.82 10^6/ul (4.0-5.4); Red Cell Distribution Width 17 % (10.5-15); White Blood Count 36.1 10^3/ul (3.5-10.8)
[2017-10-05 05:52] LABS: Comments Flag Yes
[2017-10-05 05:53] LABS: Add Diff/Slide Review? Manual Diff Added
[2017-10-05 06:18] LABS: Eosinophils % 1 % (0-6); Immature Granulocytes 1 % (0-9); Metamyelocytes % 1 % (0-2); Neutrophil % 18 % (38-83); Reactive Lymph % 24 % (0-6)
[2017-10-05 06:20] LABS: Add Path Review? YES
[2017-10-05 08:05] VITALS: BP 115/55
--- NOTE | 2017-10-05 08:40 | PN ---
Progress Note - Progress Note Date of Service: 10/05/17 SOAP: Subjective: 67 y/o female s/p ORIF of subtroch femur fracture by Dr. Clemens. Daughter at bedside, no questions, pain controlled, vss. Objective: GEneral- well appearing, nad ao, sitting in bed comfortably -MSK-right hip incisions c/i/, small amount of bleeding noted mid incision, no ecchymosis, no erythema, no induration, thigh soft, PF/ DF intact, PT 2+, SITLA neg homans Vital Signs Temp 98.0 F 10/05/17 07:37 Pulse 72 10/05/17 07:37 Resp 18 10/05/17 09:42 BP 115/55 10/05/17 07:37 Pulse Ox 96 10/05/17 07:37 Intake & Output 10/04/17 10/05/17 10/05/17 18:59 06:59 18:59 Intake Total 1083 800 Output Total 250 825 450 Balance 833 -25 -450 Intake: Oral 478 800 Packed Cells 605 Output: Burgess 250 825 450 Other: # Bowel Movements 0 Assessment: Stable 67 y/o female s/p ORIF of subtroch femur fracture by Dr. Clemens Plan: - Path- + for plasmacytoma, Dr. Alvarado following - Transfer to [facility] this afternoon - Continue current pain regimen - Follow up with Dr. Clemens within 10 days for incision check Active Medications Generic Name Dose Route Start Last Admin Trade Name Freq PRN Reason Stop Dose Admin Acetaminophen 650 mg 10/01/17 16:27 Tylenol Tab* PO Q4H PRN FEVER/PAIN Hydrocodone Bitart/Acetaminophen 2 tab 10/02/17 09:26 10/05/17 09:42 [place] 5-325 Tab* PO 2 tab Q4H PRN Administration PAIN - MODERATE TO SEVERE Hydrocodone Bitart/Acetaminophen 1 tab 10/02/17 09:27 10/04/17 05:26 [place] 5-325 Tab* PO 1 tab Q4H PRN Administration PAIN - MILD TO MODERATE Albuterol 2.5 mg 10/01/17 16:32 Ventolin 2.5 Mg/3 Ml Neb.Nataly* INH Q2H PRN SOB/WHEEZING Calcium Carbonate 1,250 mg 10/02/17 09:00 10/05/17 09:42 Calcium Carbonate Tab* PO 1,250 mg DAILY ANGELICA Administration Cholecalciferol 1,000 units 10/02/17 09:00 10/05/17 09:42 Vitamin D Tab* PO 1,000 units DAILY ANGELICA Administration Cyanocobalamin 1,000 mcg 10/02/17 09:00 10/05/17 09:42 Vitamin B12 Tab* PO 1,000 mcg DAILY ANGELICA Administration Cyclobenzaprine HCl 10 mg 10/02/17 08:17 10/02/17 13:33 Flexeril Tab* PO 10 mg TID PRN Administration SPASMS Docusate Sodium 100 mg 10/05/17 11:00 10/05/17 11:12 Colace Cap* PO 100 mg BID ANGELICA Administration Duloxetine HCl 60 mg 10/02/17 09:00 10/05/17 09:42 Cymbalta Cap* PO 60 mg DAILY ANGELICA Administration Enoxaparin Sodium 40 mg 10/04/17 17:00 10/04/17 17:16 Lovenox(*) SUBCUT 11/03/17 17:00 40 mg Q24H ANGELICA Administration Magnesium Hydroxide 30 ml 10/02/17 08:42 10/05/17 09:42 Milk Of Magnesia Liq* PO 30 ml Q6H PRN Administration CONSTIPATION Montelukast Sodium 10 mg 10/02/17 09:00 10/05/17 09:42 Singulair Tab* PO 10 mg DAILY ANGELICA Administration Morphine Sulfate 2 mg 10/02/17 09:27 10/02/17 10:23 Morphine Inj (Syringe)* IV 2 mg Q4H PRN Administration PAIN - SEVERE Ondansetron HCl 4 mg 10/01/17 16:27 Zofran Inj* IV Q6H PRN NAUSEA Polyethylene Glycol/Electrolytes 17 gm 10/05/17 11:00 10/05/17 11:13 Miralax* PO 17 gm DAILY ANGELICA Administration Senna 2 tab 10/05/17 21:00 Senokot Tab* PO BEDTIME ANGELICA
[2017-10-05] MEDS: DULoxetine DR CAP* 60 MG CAP.DR PO SCH (09:42)
[2017-10-05] MEDS: Cyanocobalamin TAB* 500 MCG PO SCH (09:42)
[2017-10-05] MEDS: Calcium Carbonate TAB* 1250 MG (CALCIUM 500 MG) PO SCH (09:42)
[2017-10-05] MEDS: Cholecalciferol TAB* 1000 UNITS PO SCH (09:42)
[2017-10-05] MEDS: Montelukast Sodium TAB* 10 MG PO SCH (09:42)
[2017-10-05] MEDS: HYDROcodone/ACETAMIN 5-325 MG* 1 TAB PO PRN (09:42)
--- NOTE | 2017-10-05 10:18 | PN ---
Progress Note - Progress Note Date of Service: 10/05/17 SOAP: Subjective: []Doing better. Slipped and broke hip. Right hip pinned. Had seen Dr. Quesada in clinic for monoclonal protein. Pain is controlled, no acute distress. Acetaminophen (Tylenol Tab*) 650 mg PO Q4H PRN PRN Reason: FEVER/PAIN Hydrocodone Bitart/Acetaminophen ([place] 5-325 Tab*) 2 tab PO Q4H PRN PRN Reason: PAIN - MODERATE TO SEVERE Last Admin: 10/05/17 09:42 Dose: 2 tab Hydrocodone Bitart/Acetaminophen ([place] 5-325 Tab*) 1 tab PO Q4H PRN PRN Reason: PAIN - MILD TO MODERATE Last Admin: 10/04/17 05:26 Dose: 1 tab Albuterol (Ventolin 2.5 Mg/3 Ml Neb.Nataly*) 2.5 mg INH Q2H PRN PRN Reason: SOB/WHEEZING Calcium Carbonate (Calcium Carbonate Tab*) 1,250 mg PO DAILY [facility] Last Admin: 10/05/17 09:42 Dose: 1,250 mg Cholecalciferol (Vitamin D Tab*) 1,000 units PO DAILY [facility] Last Admin: 10/05/17 09:42 Dose: 1,000 units Cyanocobalamin (Vitamin B12 Tab*) 1,000 mcg PO DAILY [facility] Last Admin: 10/05/17 09:42 Dose: 1,000 mcg Cyclobenzaprine HCl (Flexeril Tab*) 10 mg PO TID PRN PRN Reason: SPASMS Last Admin: 10/02/17 13:33 Dose: 10 mg Docusate Sodium (Colace Cap*) 100 mg PO BID PRN PRN Reason: CONSTIPATION Last Admin: 10/04/17 22:21 Dose: 100 mg Duloxetine HCl (Cymbalta Cap*) 60 mg PO DAILY [facility] Last Admin: 10/05/17 09:42 Dose: 60 mg Enoxaparin Sodium (Lovenox(*)) 40 mg SUBCUT Q24H [facility] Stop: 11/03/17 17:00 Last Admin: 10/04/17 17:16 Dose: 40 mg Magnesium Hydroxide (Milk Of Magnesia Liq*) 30 ml PO Q6H PRN PRN Reason: CONSTIPATION Last Admin: 10/05/17 09:42 Dose: 30 ml Montelukast Sodium (Singulair Tab*) 10 mg PO DAILY ANGELICA Last Admin: 10/05/17 09:42 Dose: 10 mg Morphine Sulfate (Morphine Inj (Syringe)*) 2 mg IV Q4H PRN PRN Reason: PAIN - SEVERE Last Admin: 10/02/17 10:23 Dose: 2 mg Ondansetron HCl (Zofran Inj*) 4 mg IV Q6H PRN PRN Reason: NAUSEA Polyethylene Glycol/Electrolytes (Miralax*) 17 gm PO DAILY PRN PRN Reason: CONSTIPATION Objective: [] Vital Signs Temp Pulse Resp BP Pulse Ox 98.0 F 72 18 115/55 96 10/05/17 07:37 10/05/17 07:37 10/05/17 09:42 10/05/17 07:37 10/05/17 07:37 HEENT - mucosa moist, no LAD CTA RRR S1S2 No spleen and no liver, +BS Ext - did not remove bandage, good pulses Laboratory Results - last 24 hr 10/03/17 10/04/17 10/04/17 05:08 04:56 05:00 WBC RBC Hgb Hct MCV MCH MCHC RDW Plt Count MPV Absolute Neuts (auto) Absolute Lymphs (auto) Absolute Monos (auto) Absolute Eos (auto) Absolute Basos (auto) Absolute Nucleated RBC Immature Gran % Neutrophils % Lymphocytes % Reactive Lymphs % Monocytes % Eosinophils % Metamyelocytes % Nucleated RBCs/100 WBC Differential Comment Normal RBC Morphology Hem Pathologist Commnt Oqup-[id number] 9.09 H IgG 171 L IgA 5120 H IgM 9 L Cowan Light Chain 7.76 H Lambda Light Chain 0.1110 L Cowan/Lambda Ratio 69.9 H Monoscreen Blood Type A Positive Antibody Screen Negative Crossmatch See Detail 10/05/17 05:36 WBC 36.1 H RBC 2.82 L Hgb 8.5 L Hct 25 L MCV 89 MCH 30 MCHC 34 RDW 17 H Plt Count 76 L MPV 8 Absolute Neuts (auto) 15.5 H Absolute Lymphs (auto) 17.3 H Absolute Monos (auto) 2.9 H Absolute Eos (auto) 0.4 Absolute Basos (auto) 0 Absolute Nucleated RBC 0.4 Immature Gran % 1 Neutrophils % 18 L Lymphocytes % 48 H Reactive Lymphs % 24 H D Monocytes % 8 Eosinophils % 1 Metamyelocytes % 1 Nucleated RBCs/100 WBC 1 H Differential Comment Plasma cell Normal RBC Morphology Not Reportable Hem Pathologist Commnt Pxiv-[id number] IgG IgA IgM Cowan Light Chain Lambda Light Chain Cowan/Lambda Ratio Monoscreen Cancelled Blood Type Antibody Screen Crossmatch Assessment: []67 year old with IgA kappa muliple myeloma with pathologic fracture now pinned. She has increased Ca adjusted for albumin and a high B2M, both high risk features. She will need therapy very soon. Plan: []1. Will discuss case with Dr. Quesada, possible Zometa in hiospital, will have to wait to stat definitive therapy until healed from surgery, 2-3 weeks. 2. Transfuse for Hgb < 8.0, Plts < 10,000 3. Ok to have flu vaccine if not given. 4. Will follow through hospital stay.
--- NOTE | 2017-10-05 10:22 | PN ---
Subjective Date of Service: 10/05/17 Interval History: Patient seen and examined at bedside. Patient reports that she feels better today after transfusion. Pain controlled and making good progress with physical therapy. Family History: Unchanged from Admission Social History: Unchanged from Admission Past Medical History: Unchanged from Admission Objective Active Medications: Acetaminophen (Tylenol Tab*) 650 mg PO Q4H PRN Hydrocodone Bitart/Acetaminophen ([place] 5-325 Tab*) 2 tab PO Q4H PRN Hydrocodone Bitart/Acetaminophen ([place] 5-325 Tab*) 1 tab PO Q4H PRN Albuterol (Ventolin 2.5 Mg/3 Ml Neb.Nataly*) 2.5 mg INH Q2H PRN Calcium Carbonate (Calcium Carbonate Tab*) 1,250 mg PO DAILY ANGELICA Cholecalciferol (Vitamin D Tab*) 1,000 units PO DAILY ANGELICA Cyanocobalamin (Vitamin B12 Tab*) 1,000 mcg PO DAILY ANGELICA Cyclobenzaprine HCl (Flexeril Tab*) 10 mg PO TID PRN Docusate Sodium (Colace Cap*) 100 mg PO BID PRN Duloxetine HCl (Cymbalta Cap*) 60 mg PO DAILY ANGELICA Enoxaparin Sodium (Lovenox(*)) 40 mg SUBCUT Q24H ANGELICA Magnesium Hydroxide (Milk Of Magnesia Liq*) 30 ml PO Q6H PRN Montelukast Sodium (Singulair Tab*) 10 mg PO DAILY ANGELICA Morphine Sulfate (Morphine Inj (Syringe)*) 2 mg IV Q4H PRN Ondansetron HCl (Zofran Inj*) 4 mg IV Q6H PRN Polyethylene Glycol/Electrolytes (Miralax*) 17 gm PO DAILY PRN Vital Signs Temp Pulse Resp BP Pulse Ox 98.0 F 72 18 115/55 96 10/05/17 07:37 10/05/17 07:37 10/05/17 09:42 10/05/17 07:37 10/05/17 07:37 Oxygen Devices in Use Now: None Appearance: sitting up in bed, NAD Eyes: No Scleral Icterus, PERRLA Ears/Nose/Mouth/Throat: NL Teeth, Lips, Gums Neck: NL Appearance and Movements; NL JVP Respiratory: Symmetrical Chest Expansion and Respiratory Effort, Clear to Auscultation Cardiovascular: NL Sounds; No Murmurs; No JVD, RRR Abdominal: NL Sounds; No Tenderness; No Distention Extremities: No Edema Skin: - - hip incision C/D/I Neurological: Alert and Oriented x 3, NL Muscle Strength and Tone Lines/Tubes/Other Access: Clean, Dry and Intact Peripheral IV Nutrition: Taking PO's Result Diagrams: 10/05/17 05:36 10/04/17 05:00 Microbiology and Other Data: . Assess/Plan/Problems-Billing Ms. Junior is a 67 yo female with PMH significant for COPD, arthritis, depression and hyperparathyroidism who presented to the emergency room with complaints of a mechanical fall and was found to have a right hip fracture. - Patient Problems (1) Closed right hip fracture Comment: s/p mechanical fall. POD #2. Appreciate Ortho input. Continue PT/OT and pain control. D/c martinez. (2) Leukocytosis Comment: Patient remains afebrile. Thus far no growth on cultures. Suspect myeloproliferative disorder now confirmed on pathology. Will ask for heme input regarding further care/treatment. (3) Anemia Comment: Hb to 8.5 after transfusion of 2 PRBC on 10/04. Recheck in AM. (4) Thrombocytopenia Comment: Platelets stable after transfusion on 10/03. Appreciate heme input. (5) Arthritis Comment: Continue supportive care and pain management (6) COPD (chronic obstructive pulmonary disease) Comment: No signs of acute exacerbation at this time. Continue PRN nebs (7) Depression Comment: Supportive care (8) DVT prophylaxis Comment: Lovenox, SCDs (9) Full code status Status and Disposition: Inpatient. PMRU eval pending.
[2017-10-05] MEDS ORDERED: Docusate CAP* 100 MG PO SCH (11:00)
[2017-10-05] MEDS ORDERED: Polyethylene Glycol 3350* 17 GM PACKET PO SCH (11:00)
--- NOTE | 2017-10-05 13:38 | RAD ---
INDICATION: Traumatic fracture right hip status post operative reduction and internal fixation. COMPARISON: Comparison is made with a prior study from October 01, 2017. TECHNIQUE: An AP view of the pelvis and frontal and lateral views of the right hip were obtained. FINDINGS: There is a slightly comminuted subtrochanteric fracture of the proximal right femur. The patient is status post operative reduction and internal fixation. Note is made of a femoral head nail and intramedullary enrike spanning the fracture fragments. The distal fragment is displaced slightly medial approximately 1 cortical diameter and there is mild angulation at the fracture site. IMPRESSION: STATUS POST OPERATIVE REDUCTION INTERNAL FIXATION OF A SUBTROCHANTERIC FRACTURE OF THE RIGHT FEMUR.
--- NOTE | 2017-10-05 15:33 | RAD ---
INDICATION: Traumatic subtrochanteric fracture of the right femur. COMPARISON: Comparison is made with a prior study from October 01, 2017. TECHNIQUE: 2 views of the right femur were obtained. FINDINGS: The patient is status post operative reduction internal fixation of a subtrochanteric fracture of the right femur. There is been placement of a femoral head nail and intramedullary enrike spanning the fracture fragments. The distal fragment is displaced approximately 1 cortical diameter medial and posterior. There is angulation at the fracture site with apex lateral which appears improved. IMPRESSION: STATUS POST OPERATIVE REDUCTION INTERNAL FIXATION OF A SUBTROCHANTERIC FRACTURE OF THE RIGHT FEMUR.
[2017-10-05] MEDS ORDERED: Senna TAB PO SCH (21:00)
--- NOTE | 2017-10-06 02:25 | DS ---
CC: Dr. Wisdom; Dr. Quesada; Dr. Tamayo * DISCHARGE SUMMARY: DATE OF ADMISSION: 10/01/17 DATE OF DISCHARGE: 10/05/17 PRIMARY CARE PROVIDER: Dr. Wisdom. CONSULTATIONS WHILE IN THE HOSPITAL: 1. Dr. Quesada. 2. Dr. Tamayo. ATTENDING PHYSICIAN: Dr. Elaine Leigh * (report dictated by Tracy Castellanos NP) PRIMARY DIAGNOSES: 1. Right hip fracture. 2. IgA kappa multiple myeloma. SECONDARY DIAGNOSES: 1. Chronic obstructive pulmonary disease. 2. Hyperparathyroidism. 3. Depression. STUDIES WHILE IN THE HOSPITAL: 1. 10/01/17: CT scan of abdomen and pelvis, non-contrast imaging show no acute intraabdominal or intrapelvic pathology. There is proximal femoral fracture representing a known finding. 2. 10/01/17: Right femur x-ray, proximal right femoral fracture as described. 3. Hip right, 2 views, and pelvis, 10/01/17: Subtrochanteric fracture, right femur. 4. 10/01/17: Chest x-ray portal, moderate interstitial congestion. 5. Hip right and OR, 10/03/17, or fluoroscopy: Fluoroscopic imaging of the right hip were obtained for operative control and show right femoral nailing. 6. CT brain without contrast, 10/01/17: Negative examination. 7. Femur x-ray, 10/05/17, and hip and pelvis x-ray, September 2017, femur reads status post right open reduction internal fixation of the subtrochanteric fracture of the right femur. OPERATIVE PROCEDURES WHILE IN THE HOSPITAL: 10/03/17, open reduction internal fixation of the right subtrochanteric femur fracture with a gamma nail. MEDICATIONS AT THE TIME OF DISCHARGE: New medications: 1. Tylenol 650 mg oral every 4 hours as needed. 2. Colace 100 mg oral twice daily. 3. Lovenox 40 mg subcu daily. 4. [place] 5/325 one or two tablets every 4 hours as needed. 5. Milk of mag 30 mL every 6 hours as needed. 6. MiraLAX 17 g oral daily. 7. Senna 2 tablets oral at bedtime. The following medications are all the medications the patient came in on: 1. Vitamin B12 1000 mcg oral daily. 2. Fish oil 1 capsule oral daily. 3. Singulair 10 mg oral daily. 4. Cymbalta 60 mg oral daily. 5. Vitamin D 1000 units oral daily. 6. Calcium 1200 mg oral daily. 7. Albuterol/ProAir RespiClick 1 puff inhaled every 4 hours as needed. HISTORY OF PRESENT ILLNESS AND HOSPITAL COURSE: Ms. Junior is a 67-year-old female with history of COPD, bronchitis, hyperparathyroidism, who presented to the emergency department on 10/01/17 after a mechanical fall. In the emergency room, she was found to have an right intertrochanteric fracture. On a side note , the patient had been recently evaluated by her PCP as she had been feeling weak and tired, almost found to be anemic as well as have a significant leukocytosis and had been referred to Dr. Quesada. The patient had just had a blood transfusion last week. In the emergency room, the patient had a leukocytosis of 28,000, hemoglobin of 6.9, and platelet count of 55. The patient was admitted to the medical floor for optimization and was seen in consultation by Orthopedic Surgery. Please refer to Dr. Tamayo's dictation for details. The patient was transfused 2 units prior to surgery and 1 unit afterwards. In addition, the patient received platelets for a platelet count that dipped down to 40,000. Once the patient was optimized, she went to the operating room on under the direction of Dr. Marycruz Clemens. Please refer to her dictation for details. 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 It is likely that although the patient did have mechanical fall, the fracture was a pathologic fracture. Postoperatively, the patient's platelet count remained stable at 76,000 on the day of discharge. The patient's leukocytosis remained stable, but did drop up to 36,000. The patient had no signs or symptoms of infection or fever as well as a negative urinalysis and negative blood cultures on admission. Likely, the leukocytosis is from her underlying hematological process. The patient was followed by Hematology and on the day of discharge, Hematology recommended transfusion for hemoglobin less than 8 and platelets less than 10, 000. Per Hematology, the patient will need therapy quite soon and may decide to start Zometa while she is in the hospital, they will follow along while she is in rehab. Postoperatively, the patient did require an additional transfusion for hemoglobin of 7.3. On the day of discharge, her hemoglobin was up to 8.5. At this point, she was progressing with PT and occupational therapy and was offered a bed on the physical medicine and rehab unit. Today, she was stable for discharge there. Vitals are as follows: Temperature 98, heart rate 72, respiratory rate 16, blood pressure 115/55, oxygen saturation 96%. DISCHARGE PLAN: The patient is discharged on a regular diet. The patient is weightbearing as tolerated. She should have daily CBCs, be transfused if hemoglobin is less than 8, platelets less than 10,000. Lovenox should continue under the direction of Orthopedic Surgery and she should follow up with Dr. Clemens within 10 to 14 days. In addition, she should have regular followup with Dr. Quesada once she is discharged as well as her primary care provider. I have reviewed all the instructions with the patient, she is agreeable with her discharge plan. This is a summarized report of a complex medical history and hospital stay. For more details, please see the entire medical record. TIME SPENT: Time for this discharge was 60 minutes and 30 minutes was spent with the patient discussing medications at discharge and followup instructions. CONDITION ON DISCHARGE: Stable. TRACY CASTELLANOS NP [id number]/[facility] #: [id number] SHONNA
== END 2017-10-05 13:20 | DRG 481 ==
LOC: ED 13:45 → SSU 16:20
PROVIDERS: ADMIT Internal Medicine; ATTEND Hospitalist
PROC: 30233R1 Transfusion of Nonautologous Platelets into Peripheral Vein, Percutaneous Approach (ICD-10-PCS; principal; 2017-10-01)
PROC: 30233N1 Transfusion of Nonautologous Red Blood Cells into Peripheral Vein, Percutaneous Approach (ICD-10-PCS; 2017-10-01)
PROC: 0QS604Z Reposition Right Upper Femur with Internal Fixation Device, Open Approach (ICD-10-PCS; 2017-10-03)
DX: M84.451A Pathological fracture, right femur, initial encounter for fracture (principal); D61.818 Other pancytopenia; C90.30 Solitary plasmacytoma not having achieved remission; D69.6 Thrombocytopenia, unspecified; J44.9 Chronic obstructive pulmonary disease, unspecified; W18.39XA Other fall on same level, initial encounter; F32.9 Major depressive disorder, single episode, unspecified; E89.2 Postprocedural hypoparathyroidism; M19.90 Unspecified osteoarthritis, unspecified site; D64.9 Anemia, unspecified; D72.829 Elevated white blood cell count, unspecified; R63.4 Abnormal weight loss; I10 Essential (primary) hypertension; M81.0 Age-related osteoporosis without current pathological fracture; F41.0 Panic disorder [episodic paroxysmal anxiety]; R40.2412 Glasgow coma scale score 13-15, at arrival to emergency department; M85.80 Other specified disorders of bone density and structure, unspecified site; K21.9 Gastro-esophageal reflux disease without esophagitis; Z79.01 Long term (current) use of anticoagulants; Z98.51 Tubal ligation status; Z82.5 Family history of asthma and other chronic lower respiratory diseases; Z83.79 Family history of other diseases of the digestive system; Z87.891 Personal history of nicotine dependence; Z87.01 Personal history of pneumonia (recurrent); Z68.29 Body mass index [BMI] 29.0-29.9, adult; Y92.89 Other specified places as the place of occurrence of the external cause
CPT/HCPCS: 36415; 36430; 70450; 71010; 74176; 80048; 80053; 81003; 81015; 82232; 82550; 82784; 83605; 83883; 85025; 85049; 85060; 85610; 86140; 86850; 86900; 86901; 86922; 87040; 88307; 93005; 94760; A9270-GY; C1713; C1776; J0690; J1170; J1644; J1650; J2250; J2270; J2360; J3010; P9035; P9040

== ENCOUNTER 2017-10-05 10:58 | Inpatient (IN) | payer MEDICARE, OTHER ==
[2017-10-05] MEDS ORDERED: Bisacodyl SUPP* 10 MG SUPP PR PRN (11:50)
[2017-10-05] MEDS ORDERED: Acetaminophen TAB* 325 MG PO PRN (11:50)
[2017-10-05] MEDS ORDERED: Magnesium Hydroxide LIQ* 30 ML UDC PO PRN (11:50)
[2017-10-05] MEDS ORDERED: Albuterol 2.5 MG/3 ML NEB.SOL* (0.083%) INH PRN (12:00)
[2017-10-05] MEDS ORDERED: Cyclobenzaprine TAB* 10 MG PO PRN (12:02)
--- OUTSIDE RECORDS SUMMARY | 2017-10-05 13:28 | XMS REPORT ---
:1950 External Reference #:[id number] [facility] Address [address] [address] Phone [phone] Care Team Providers Name Role Phone Anne Wisdom MD Care Team Information Order Checker Packer Processer Unavailable Payers Type Date Identification Numbers Payment Provider Subscriber Medicare Primary Effective: Policy Number: Medicare Betzy Junior 2016 [id number] Group Name: [facility] [address] PayID: [id number] [place] [address] Medigap Part B Policy Number: [id number] Aejanina Junior Group Number: [id number] [address] PayID: [id number] [place] [address] Problems Date Description Provider Status Onset: 11/06/2014 Generalized anxiety disorder Anne Wisdom MD Active Onset: 11/06/2014 Neck pain Anne Wisdom MD Active Family History Date Family Member(s) Problem(s) Comments Father Liver Disease from cirrhiosis Father CAD Mother CAD Mother due to Cancer, Kidney () Mother COPD Mother CHF Mother Hypertension First Daughter Cancer, Breast Social History Type Date Description Comments Education Highest Level Completed 12th grade Marital Status Marital Status years 1-10 10 Lives With patient lives alone Pets 2 cats Pets 1 dog Occupation fdc Occupation Retired Cigarette Use Current Cigarette Smoker 1 Pack Smoking for 40 years Daily ETOH Use Rarely consumes alcohol Recreational Drug Use Denies Drug Use Daily Caffeine Drinks on average 7-8 cups of coffee a day Daily Caffeine consumes chocolate occasionally Allergies, Adverse Reactions, Alerts Date Description Reaction Status Severity Comments 05/06/2012 Budeprion active Rash 09/11/2005 NKDA inactive Medications Medication Date Status Form Strength Qnty SIG Indications Ordering Provider Fluconazole 09/10 Active Tablets 150mg 2tabs 1 by mouth N76.0 x1 may Anne repeat in 1 MD [place] week Albuterol Sulfate 08/22 Active Nebulizer (2.5mg/3M 1Box 1 vial in J41.1 L) 0.083% neb. q4hr Jillian as needed LONDON Singh MS [employer] Ipratropium 08/22 Active Solution 0.02% 62.5u via J41.1 nits nebulizer Jillian treatment 2 LONDON Singh MS times a day [employer] Famotidine 08/15 Active Tablets 20mg 30tab (pepcid)caridad K21.9 s e one Jillian tablet by LONDON Singh MS mouth twice [employer]NAGER a day as needed heartburn Duloxetine HCL 03/[address] 60mg 30cap 1 by mouth F41.1 Part s every day Jillian Singh RN MS [employer]PER[employer] MANAGER Proair HFA 11/06 Active Aerosol 108(90Bas 8.500 2 P Up To J45.20 e) gm qid prn Anne mcg/Act MD [place] Montelukast 06/09 Active Tablets 10mg 30tab 1 by mouth J45.20 [place], s every day Jillian Singh RN MS [employer]PERATIONS MANAGER Vitamin B-12 07/08 Active Tablets 1000mcg 90tab 1 po qod E53.8 s Anne Hyatt MD [place]-3 03/15 Active Capsules 1000mg 1 po qod E78.0 [facility] Anne Hyatt MD Vitamin D 09/25 Active Capsules 1000Unit 90cap 2 PO qd E55.9 s Anne Hyatt MD Augmented 02/13 Hx Ointment 0.05% 45gm to aff L24.7 christy, Betamethasone area-bilat Anne Dipropionate - forearmflaco Hyatt MD 08/22 twice a day Omeprazole 08/15 Hx Capsules 20mg [address] every day Anne - prjv Hyatt MD 08/15 Zofran 07/25 Hx Tablets 4mg 30tab 1 tab as A08.4 s needed Anne - every 6 M,MD 08/15 hours for nausea/vomi ting. Protonix 07/[address] 40mg 14tab [address] [facility] Anne - weeks MD [place] 08/15 Duloxetine HCL 03/[address] 30mg 7caps 1 by mouth Artis Part every day Anne Hyatt MD 04/04 Omeprazole 02/17 Hx Capsules 40mg 30cap 1 by mouth K21.[address] s prn Anne Hyatt MD 08/15 Ibuprofen 02/17 Hx Tablets 200mg 1 by mouth M54.2 Artis three a day Anne - as needed MD [place] 02/17 to use sparingly for breakthru pain Clarithromycin 08/20 Hx Tablets 500mg 20tab 1 by mouth J20.9 Artis s twice a day Anne Hyatt MD 02/17 Hydroxyzine HCL 08/20 Hx Tablets 10mg 60tab take one to F41.1 Artis s two tablets Anne - by mouth MD [place] 04/04 three times a day as needed for anxiety/sle ep Naproxen Sodium 03/09 Hx Tablets 550mg 60tab 1/2 by M54.2 Artis s mouth twice Anne - a day as MD [place] 08/22 needed Prednisone 11/06 Hx Tablets 20mg 6tabs 2 every in 466.0 Artis the morning Anne - x 3 d MD [place] 11/06 Valacyclovir HCL 07/28 Hx Tablets 1gm 30tab 2 tabs (2g) 054.9 Artis s by mouth Anne - twice a day MD [place] 08/22 x 1 day prn cold sores Escitalopram 06/09 Hx Tablets 10mg 30tab 1 by mouth 300.02 Artis, s every day Anne Hyatt MD 11/06 Metaxalone 11/25 Hx Tablets 800mg 30tab take 1/2 to M54.2 Artis s 1 tablet by Anne - mouth three MD [place] 02/17 times a day as needed Ibuprofen 07/08 Hx Tablets 600mg 60tab take one 723.1 s tablet by Anne - mouth three MD [place] 03/09 times daily as needed Clarithromycin 10/25 Hx Tablets 500mg 20tab 1 po bid x 487.8 s 10 d Anne Hyatt MD 11/18 Work Note 10/[address] [facility] from work Anne - 2/, 11/19, MD [place] 05/27 Budeprion XL 03/19 Hx Tablets ER 300mg 30tab [address] Anne Hyatt MD 05/06 Wellbutrin XL 03/19 Hx Tablets ER 150mg 7tabs 1 po am x 7 305.1 [facility] 24HR d Anne Hyatt MD 05/06 Meloxicam 11/21 Hx Tablets 15mg 30tab take 1/2 - 786.50 [facility] s 1 tablet Anne - everyday as MD [place] 12/18 needed Cyclobenzaprine 11/21 Hx Tablets 10mg 30tab take 1/2 to 786.50 [facility], s 1 tablet Anne - qhs MD [place] 05/06 Lidoderm 11/21 Hx Patches 5% 30uni apply as 786.50 [facility] ts directed Anne - 1-3 patches MD [place] 12/18 on x 12 hrs Robitussin ac 09/19 Hx 120ml 10 ml qid 487.8 prn Anne Hyatt MD 11/21 Clarithromycin 09/19 Hx Tablets 500mg 28tab 1 po bid x 487.8 s 14 d Anne Hyatt MD 09/19 Bactrim DS 09/19 Hx Tablets 800-160mg 14tab 1 po bid s Anne Hyatt MD 11/21 Omeprazole 03/15 Hx Capsules 20mg 30cap [address] flaco Hyatt MD 11/21 Proair HFA 03/15 Hx Aerosol 108(90Bas 1Can 2 P Up To 493.10 e) mcg/ac qid prn Anne Hyatt MD 11/06 No Work 12/13 Hx D/T 12/13-12/16/10. 486 Illness May return Jillian - next C, RN MS 12/23 scheduled day to full duty. Azithromycin 12/13 Hx Tablets 250mg 6tabs 2 tabs day 486 one and 1 Jillian - tab daily C, RN MS 12/23 till gone Robitussin ac 12/13 Hx 100un 1-2 tsp 486 its qid prn Jillian - cough C, RN MS 12/23 Amoxicillin 02/24 Hx Capsules 500mg 20cap 1 po q 12h s x 10 days Mustapha, - N.P. 03/23 Work Note 02/17 Hx no work 02/17/09 Mustapha, - N.P. 03/23 medical reasons No Work 12/10 Hx D/T 12/10- 461.0 Illness 9. May Jillian - return next C, RN MS 02/17 scheduled day. Azithromycin 12/10 Hx Tablets 250mg 6tabs 2 tabs day 461.0 one and 1 Jillian - tab daily C, RN MS 12/20 till gone Vitamin D 10/01 Hx Capsules [id number] 8caps 1 PO QWK X 8 WKS Anne Hyatt MD 03/23 Proair HFA 09/25 Hx Aerosol 108mcg/Ac 1Can 2 P Up To 786.09 t qid prjv Hyatt MD 03/15 Sertraline HCL 09/25 Hx Tablets 50mg 90tab 1 PO qd 300.02 flaco Hyatt MD 09/21 Nexium 03/27 Hx Capsules 40mg 90cap [address] qd [address] flaco Hyatt MD 09/21 Bactrim DS 01/27 Hx Tablets 800-160 20tab 1 Tab bid 461.0 s Till Gone Jillian - X10 Day LONDON Singh MS 03/27 Noct Ox 03/15 Hx on ra with jeniffer Singh, LONDON MS 09/25 Chantix 11/13 Hx .5mg 11uni 1 PO qam X 305.1 Macachristy ts 3D Then 1 Anne - PO bid X 4D MD [place] 07/02 Then Quit And Start The 1 MG Tabs Chantix 11/13 Hx 1mg 60uni 1 PO bid 305.1 Maca ts Anne Hyatt MD 01/27 Omeprazole 06/22 Hx Capsules 20mg 60cap 1 po bid 530.11 Maca s Anne Hyatt MD 11/13 Omeprazole 04/09 Hx Capsules 40mg 90cap 1 po qd 530.11 Maca s Anne Hyatt MD 06/22 Amitriptiline 09/11 Hx 10mg 30uni 1-3 po qhs 780.52 christy ts prn Anne Hyatt MD 06/22 Tussionex 01/05 Hx Syrup 10mg;8 100un 1 tsp q 487.8 mg/5 ML its 12hrs Jillian Singh RN MS 09/11 Ketek 01/05 Hx Tablets 400mg 14tab 2 tabs qd 487.8 Harriett s till gone Jillian Singh RN MS 09/11 Entex Pse 01/05 Hx Tablets 600mg;120 20tab one tab qam 487.8 mg s for sinus Jillian - congestion LONDON Singh MS 09/11 prn Medications Administered in Office Medication Date Status Form Strength Qnty SIG Indications Ordering Provider B-12 Injection Administered Injection Artis 002 Anne Hyatt MD B-12 Injection Administered Injection Artis 002 Anne Hyatt MD B-12 Injection Administered Injection Artsi 002 Anne Hyatt MD B-12 Injection Administered Injection Artis 002 Anne Hyatt MD B-12 Injection Administered Injection Artis 002 Anne Hyatt MD B-12 Injection Administered Injection Artis 002 Anne Hyatt MD B-12 Injection Administered Injection Claritza Wisdom MD Immunizations CPT Code Status Date Vaccine Lot # [id number] Given 07/19/2017 Influenza Vac, 3 Yrs & Older, Quadrivalent, Split, [place] Use 54681 Given 04/23/2017 Zoster (Zostavax) 54272 Given 02/13/2017 Prevnar 13 Pneumococal Conjugate Vaccine [id number] 71562 Given 07/19/2016 Influenza Vac, 3 Yrs & Older, Quadrivalent, [id number] Split, [place] Use 11838 Given 07/15/2016 Influenza Vac, 3 Yrs & Older, Quadrivalent, Split, Im Use Q2038 Given 07/15/2015 Fluzone Trivalent Immunization [id number] Q2038 Given 07/24/2014 Fluzone Trivalent Immunization [id number] 88471 Given 02/04/2014 Pneumococcal 23 Immunization Adult Or [id number] Immunosuppressed Patient Q2038 Given 07/08/2013 Fluzone Trivalent Immunization [id number] 45679 Given 03/15/2011 Pneumococcal 23 Immunization Adult [place] [id number] Immunosuppressed Patient 15292 Given 09/21/2009 Tdap (Adacel) Ages 7 And Above Only 18063 Given Unknown Fluzone Highdose Age 65 And Over Preservative & Antibiotic Free Vital Signs Date Vital Result Comment 09/10/2017 Body Temperature 99.0 F Weight 151.00 lb Heart Rate 76 /min BP Systolic 122 mmHg BP Diastolic 76 mmHg Height 63.75 inches 5'3.75" O2 % BldC Oximetry 99 % BMI (Body Mass Index) 26.1 kg/m2 08/22/2017 Weight 151.38 lb Heart Rate 105 /min BP Systolic 128 mmHg BP Diastolic 69 mmHg Height 63.75 inches 5'3.75" BMI (Body Mass Index) 26.2 kg/m2 02/13/2017 Weight 165.00 lb Heart Rate 64 /min BP Systolic 110 mmHg BP Diastolic 60 mmHg Height 63.75 inches 5'3.75" BMI (Body Mass Index) 28.5 kg/m2 08/15/2016 Weight 159.00 lb Heart Rate 68 /min BP Systolic 120 mmHg BP Diastolic 70 mmHg Height 63.75 inches 5'3.75" BMI (Body Mass Index) 27.5 kg/m2 07/25/2016 Body Temperature 97.8 F Weight 159.12 lb Heart Rate 72 /min BP Systolic 132 mmHg BP Diastolic 81 mmHg Height 63.75 inches 5'3.75" BMI (Body Mass Index) 27.5 kg/m2 04/04/2016 Weight 158.00 lb Heart Rate 68 /min BP Systolic 138 mmHg BP Diastolic 68 mmHg Height 63.75 inches 5'3.75" BMI (Body Mass Index) 27.3 kg/m2 02/18/2016 Weight 164.00 lb Heart Rate 76 /min BP Systolic 130 mmHg BP Diastolic 74 mmHg Height 63.75 inches 5'3.75" BMI (Body Mass Index) 28.4 kg/m2 08/20/2015 Body Temperature 98.8 F Weight 157.00 lb Heart Rate 64 /min BP Systolic 120 mmHg BP Diastolic 84 mmHg Height 63.75 inches 5'3.75" BMI (Body Mass Index) 27.2 kg/m2 03/09/2015 Weight 164.00 lb Heart Rate 64 /min BP Systolic 110 mmHg BP Diastolic 76 mmHg Height 63.75 inches 5'3.75" BMI (Body Mass Index) 28.4 kg/m2 11/06/2014 Weight 162.00 lb Heart Rate 80 /min BP Systolic 126 mmHg BP Diastolic 80 mmHg Height 63.75 inches 5'3.75" BMI (Body Mass Index) 28.0 kg/m2 07/28/2014 Body Temperature 97.7 F Weight 159.00 lb Heart Rate 82 /min BP Systolic 114 mmHg BP Diastolic 82 mmHg Height 63.75 inches 5'3.75" BMI (Body Mass Index) 27.5 kg/m2 07/07/2014 Weight 161.00 lb Heart Rate 69 /min BP Systolic 136 mmHg BP Diastolic 85 mmHg Height 63.75 inches 5'3.75" BMI (Body Mass Index) 27.8 kg/m2 06/09/2014 Weight 160.00 lb Heart Rate 84 /min BP Systolic 130 mmHg BP Diastolic 76 mmHg Height 63.75 inches 5'3.75" BMI (Body Mass Index) 27.7 kg/m2 12/19/2013 Weight 160.00 lb Heart Rate 76 /min BP Systolic 132 mmHg BP Diastolic 78 mmHg Height 63.75 inches 5'3.75" BMI (Body Mass Index) 27.7 kg/m2 11/25/2013 Weight 160.00 lb Heart Rate 64 /min BP Systolic 140 mmHg BP Diastolic 70 mmHg Height 63.75 inches 5'3.75" BMI (Body Mass Index) 27.7 kg/m2 07/08/2013 Weight 157.00 lb Heart Rate 64 /min BP Systolic 126 mmHg BP Diastolic 66 mmHg Height 63.75 inches 5'3.75" BMI (Body Mass Index) 27.2 kg/m2 05/27/2013 Weight 156.00 lb Heart Rate 64 /min BP Systolic 132 mmHg BP Diastolic 68 mmHg Height 63.75 inches 5'3.75" BMI (Body Mass Index) 27.0 kg/m2 11/18/2012 Body Temperature 99.6 F Weight 158.00 lb Heart Rate 64 /min BP Systolic 140 mmHg BP Diastolic 78 mmHg Height 63.75 inches 5'3.75" BMI (Body Mass Index) 27.3 kg/m2 10/25/2012 Body Temperature 97.2 F Weight 152.00 lb Heart Rate 60 /min BP Systolic 138 mmHg BP Diastolic 74 mmHg Height 63.75 inches 5'3.75" BMI (Body Mass Index) 26.3 kg/m2 05/06/2012 Weight 151.00 lb Heart Rate 76 /min BP Systolic 120 mmHg BP Diastolic 64 mmHg Height 63.75 inches 5'3.75" BMI (Body Mass Index) 26.1 kg/m2 03/19/2012 Weight 151.00 lb Heart Rate 60 /min BP Systolic 136 mmHg BP Diastolic 80 mmHg Height 63.75 inches 5'3.75" BMI (Body Mass Index) 26.1 kg/m2 12/19/2011 Weight 154.00 lb Heart Rate 68 /min BP Systolic 136 mmHg BP Diastolic 72 mmHg Height 63.75 inches 5'3.75" BMI (Body Mass Index) 26.6 kg/m2 11/21/2011 Weight 153.00 lb Heart Rate 60 /min BP Systolic 136 mmHg BP Diastolic 78 mmHg Height 63.75 inches 5'3.75" BMI (Body Mass Index) 26.5 kg/m2 09/19/2011 Body Temperature 98.5 F Weight 157.00 lb Heart Rate 60 /min BP Systolic 140 mmHg BP Diastolic 76 mmHg Height 63.75 inches 5'3.75" BMI (Body Mass Index) 27.2 kg/m2 03/15/2011 Weight 159.00 lb Heart Rate 64 /min BP Systolic 130 mmHg BP Diastolic 80 mmHg Height 63.5 inches 5'3.50"With Shoes BMI (Body Mass Index) 27.7 kg/m2 12/13/2010 Body Temperature 98.5 F Weight 161.00 lb Heart Rate 95 /min BP Systolic 134 mmHg BP Diastolic 84 mmHg 09/21/2009 Weight 159.00 lb Heart Rate 76 /min BP Systolic 138 mmHg BP Diastolic 74 mmHg Height 62.5 inches 5'2.50" BMI (Body Mass Index) 28.6 kg/m2 Urine Dipstick - Blood NEGATIVE Urine Dipstick - Protein NEGATIVE Urine Dipstick - Glucose NEGATIVE 03/23/2009 Weight 159.00 lb Heart Rate 64 /min BP Systolic 110 mmHg BP Diastolic 64 mmHg 02/24/2009 Body Temperature 97.5 F Weight 160.00 lb Heart Rate 60 /min BP Systolic 132 mmHg BP Diastolic 80 mmHg 02/17/2009 Body Temperature 97.3 F Weight 158.00 lb Heart Rate 71 /min BP Systolic 150 mmHg BP Diastolic 84 mmHg Height 63.5 inches 5'3.50" O2 % BldC Oximetry 98 % BMI (Body Mass Index) 27.5 kg/m2 12/10/2008 Body Temperature 96.3 F Weight 153.00 lb Heart Rate 69 /min BP Systolic 164 mmHg BP Diastolic 85 mmHg 11/24/2008 Body Temperature 98.3 F Weight 156.00 lb Heart Rate 64 /min BP Systolic 110 mmHg BP Diastolic 66 mmHg 09/25/2008 Weight 162.00 lb Heart Rate 76 /min BP Systolic 128 mmHg BP Diastolic 80 mmHg Height 62.75 inches 5'2.75"With Shoes BMI (Body Mass Index) 28.9 kg/m2 03/27/2008 Weight 160.00 lb Heart Rate 64 /min BP Systolic 135 mmHg BP Diastolic 82 mmHg Height 62.75 inches 5'2.75"With Shoes BMI (Body Mass Index) 28.6 kg/m2 Urine Dipstick - Blood NEGATIVE Urine Dipstick - Protein NEGATIVE Urine Dipstick - Glucose NEGATIVE 01/28/2008 Weight 164.00 lb Heart Rate 72 /min BP Systolic 140 mmHg BP Diastolic 82 mmHg Height 63.75 inches 5'3.75"With Shoes BMI (Body Mass Index) 28.4 kg/m2 07/02/2007 Weight 161.00 lb Heart Rate 58 /min BP Systolic 137 mmHg BP Diastolic 77 mmHg Height 63.75 inches 5'3.75"With Shoes BMI (Body Mass Index) 27.8 kg/m2 03/15/2007 Weight 156.00 lb Heart Rate 68 /min BP Systolic 140 mmHg BP Diastolic 78 mmHg Height 63.75 inches 5'3.75"With Shoes BMI (Body Mass Index) 27.0 kg/m2 Urine Dipstick - Blood NEGATIVE Urine Dipstick - Protein NEGATIVE Urine Dipstick - Glucose NEGATIVE 11/13/2006 Weight 155.00 lb Heart Rate 64 /min BP Systolic 130 mmHg BP Diastolic 70 mmHg Height 62.5 inches 5'2.50" BMI (Body Mass Index) 27.9 kg/m2 06/22/2006 Weight 141.00 lb Heart Rate 72 /min BP Systolic 128 mmHg BP Diastolic 72 mmHg Height 62.5 inches 5'2.50" BMI (Body Mass Index) 25.4 kg/m2 04/09/2006 Weight 153.00 lb Heart Rate 64 /min BP Systolic 120 mmHg BP Diastolic 74 mmHg Height 62.5 inches 5'2.50" BMI (Body Mass Index) 27.5 kg/m2 Urine Dipstick - Blood NEGATIVE Urine Dipstick - Protein NEGATIVE Urine Dipstick - Glucose NEGATIVE 09/11/2005 Weight 155.00 lb Heart Rate 71 /min BP Systolic 132 mmHg BP Diastolic 79 mmHg 01/05/2005 Body Temperature 99.5 F Weight 152.00 lb Heart Rate 103 /min BP Systolic 130 mmHg BP Diastolic 86 mmHg Results Test Date Test Result H/L Range Note Laboratory test 09/10/2017 Ferritin <pending> finding Laboratory test 09/10/2017 Vit D 25Oh <pending> finding Order 08/23/2017 Nebulizer For Home <pending> Use Manual Differential 08/22/2017 Neutrophils 18 % Low 35-75 1 Band 0 % 0-11 1 Lymphocytes 73 % High 16-52 1 Monocytes 9 % High 0-8 1 Eosinophils 0 % 0-5 1 Basophils 0 % 0-4 1 Metamyelocyte 0 % 0-0 1 Promyelocyte 0 % 1 Abnormal Cells 0 % 1 Abs Neutrophils# 3.4 K/ul 1.8-7.7 1 Abs Lymphocytes# 13.7 K/ul High 1.2-4.8 1 Abs Monocytes# 1.7 K/ul High 0.0-0.8 1 Platelet Estimate NORMAL Normal 1 RBC Morphology NORMAL Normal 1 Comprehensive Met Panel-FCMG 08/22/2017 Sodium 139 mmol/L 135-146 1, 2 Potassium 4.8 mmol/L 3.5-5.2 1 Chloride# 100 mmol/L 97-110 1, 3 Carbon Dioxide 28 mmol/L 24-34 1 Glucose 78 mg/dL 70-105 1 Creatinine 0.9 mg/dL 0.5-1.4 1 Calcium 9.9 mg/dL 8.5-10.2 1 Total Protein 8.5 g/dL High 6.0-8.0 1 Albumin 3.8 g/dL 3.6-4.9 1 Globulin 4.7 g/dL High 2.0-3.5 1 A/G Ratio 0.8 Ratio Low 1.0-2.2 1 Total Bilirubin 0.4 mg/dL 0.1-1.3 1 Alkaline Phosphatase 88 U/L 24-140 1 Alt 8 U/L 3-42 1 Ast 10 U/L 8-42 1 Shannan Egfr >60 >60 1, 4 Non Shannan Egfr >60 >60 1, 5 Anion Gap 11 mmol/L 7-16 1, 6 BUN 15 mg/dL 6-26 1 Laboratory test finding 08/22/2017 TSH 2.37 uIU/mL 0.35-4.94 1 CBC With Auto Diff 08/22/2017 WBC 18.8 K/uL High 4.1-11.0 1 RBC 2.59 M/uL Low 4.00-5.40 1 Hemoglobin 8.1 Results veri <SEE NOTE> gm/dL Low 12.0-16.0 1, 7 Hematocrit 24.5 % Low 36.0-47.0 1 MCV 94.6 fL 80.0-97.0 1 MCH 31.2 pg 27.0-32.0 1 MCHC 33.0 g/dL 32.0-36.0 1 RDW 17.8 % High 11.5-14.5 1 PLT Count 147 K/ul 140-400 1 MPV 8.0 FL 7.1-10.7 1 Laboratory test finding 08/15/2016 [facility] Pap SEE NOTE 8 CBC With Auto Diff 08/15/2016 WBC 7.7 K/uL 4.1-11.0 9 RBC 4.55 M/uL 4.00-5.40 9 Hemoglobin 13.5 gm/dL 12.0-16.0 9 Hematocrit 39.8 % 36.0-47.0 9 MCV 87.5 fL 80.0-97.0 9 MCH 29.7 pg 27.0-32.0 9 MCHC 33.9 g/dL 32.0-36.0 9 RDW 13.4 % 11.5-14.5 9 PLT Count 233 K/ul 140-400 9 Neutrophil 41.1 % 35.0-75.0 9 Lymphocyte 48.8 % 16.0-52.0 9 Monocyte 7.5 % 2.0-10.0 9 Eosinophil 1.5 % 0.0-5.0 9 Basophil 1.1 % 0.0-4.0 9 Abs Neutrophils 3.1 K/uL 2.1-8.0 9 Abs Lymphocytes 3.7 K/uL 0.8-5.5 9 Abs Monocytes 0.6 K/uL 0.1-1.0 9 Abs Eosinophils 0.1 K/uL 0.0-0.5 9 Abs Basophils 0.1 K/uL 0.0-0.3 9 Comprehensive Metabolic (CMP) 08/15/2016 Sodium 135 mmol/L 134-142 9 Potassium 4.3 mmol/L 3.5-5.2 9 Chloride 102 mmol/L 97-109 9 Carbon Dioxide 28 mmol/L 24-34 9 Glucose 99 mg/dL 70-105 9 BUN 6 mg/dL 6-26 9 Creatinine 0.7 mg/dL 0.5-1.4 9 Calcium 9.8 mg/dL 8.5-10.2 9 Total Protein 6.6 g/dL 6.0-8.0 9 Albumin 4.3 g/dL 3.6-4.9 9 Globulin 2.3 g/dL 2.0-3.5 9 A/G Ratio 1.9 Ratio 1.0-2.2 9 Total Bilirubin 0.5 mg/dL 0.1-1.3 9 Alkaline Phosphatase 79 U/L 24-140 9 Alt 18 U/L 3-42 9 Ast 15 U/L 8-42 9 Anion Gap 9 mmol/L 6-14 9 Shannan Egfr >60 >60 9, 10 Non Shannan Egfr >60 >60 9, 11 Lipid 08/15/2016 Cholesterol 212 mg/dL High 50-199 9 Triglycerides 127 mg/dL 30-200 9 HDL 59 mg/dL 35-85 9, 12 Chol/ HDL Ratio 3.6 ratio Low 3.7-5.6 9 VLDL 25 mg/dL 2-29 9 LDL (Calc) 128 mg/dL High 20-99 9, 13 Laboratory test finding 08/15/2016 TSH 2.20 uIU/mL 0.35-4.94 9 Vit D,25 Hydroxy 33 ng/mL 31-100 9 PTH,Intact W/ CA -RL 02/18/2016 PTH, Intact @ 20.1 pg/mL (12-65) 9 Calcium @ 9.6 mg/dL (8.4-10.2) 9, 14 Laboratory test finding 02/18/2016 TSH 1.59 uIU/mL 0.35-4.94 9 Free T4 1.07 ng/dL 0.70-1.48 9 Lipid 02/18/2016 Cholesterol 211 mg/dL High 50-199 9 Triglycerides 130 mg/dL 30-200 9 HDL 49 mg/dL 35-85 9, 15 Chol/ HDL Ratio 4.3 ratio 3.7-5.6 9 VLDL 26 mg/dL 2-29 9 LDL (Calc) 136 mg/dL High 20-99 9, 16 Comprehensive Metabolic (CMP) 02/18/2016 Sodium 140 mmol/L 134-142 9 Potassium 4.8 mmol/L 3.5-5.2 9 Chloride 104 mmol/L 97-109 9 Carbon Dioxide 30 mmol/L 24-34 9 Glucose 87 mg/dL 70-105 9 BUN 9 mg/dL 6-26 9 Creatinine 0.7 mg/dL 0.5-1.4 9 Calcium 9.7 mg/dL 8.5-10.2 9 Total Protein 6.4 g/dL 6.0-8.0 9 Albumin 4.3 g/dL 3.6-4.9 9 Globulin 2.1 g/dL 2.0-3.5 9 A/G Ratio 2.0 Ratio 1.0-2.2 9 Total Bilirubin 0.6 mg/dL 0.1-1.3 9 Alkaline Phosphatase 75 U/L 24-140 9 Alt 14 U/L 3-42 9 Ast 15 U/L 8-42 9 Anion Gap 11 mmol/L 6-14 9 Shannan Egfr >60 >60 9, 17 Non Shannan Egfr >60 >60 9, 18 CBC With Auto Diff 02/18/2016 WBC 8.8 K/uL 4.1-11.0 9 RBC 4.67 M/uL 4.00-5.40 9 Hemoglobin 13.7 gm/dL 12.0-16.0 9 Hematocrit 41.1 % 36.0-47.0 9 MCV 88.0 fL 80.0-97.0 9 MCH 29.3 pg 27.0-32.0 9 MCHC 33.3 g/dL 32.0-36.0 9 RDW 12.9 % 11.5-14.5 9 PLT Count 224 K/ul 140-400 9 Neutrophil 36.6 % 35.0-75.0 9 Lymphocyte 57.1 % High 16.0-52.0 9 Monocyte 4.1 % 2.0-10.0 9 Eosinophil 1.5 % 0.0-5.0 9 Basophil 0.7 % 0.0-4.0 9 Abs Neutrophils 3.2 K/uL 2.1-8.0 9 Abs Lymphocytes 5.1 K/uL 0.8-5.5 9 Abs Monocytes 0.4 K/uL 0.1-1.0 9 Abs Eosinophils 0.1 K/uL 0.0-0.5 9 Abs Basophils 0.1 K/uL 0.0-0.3 9 Laboratory test finding 02/18/2016 CPK 62 U/L 12-199 9 Esr 9 mm/hr 0-20 9 Vit D,25 Hydroxy 33 ng/mL 31-100 9 Comprehensive Metabolic (CMP) 08/20/2015 Sodium 140 mmol/L 134-142 Potassium 4.8 mmol/L 3.5-5.2 Chloride 104 mmol/L 97-109 Carbon Dioxide 27 mmol/L 24-34 Glucose 84 mg/dL 70-105 BUN 6 mg/dL 6-26 Creatinine 0.8 mg/dL 0.5-1.4 Calcium 9.9 mg/dL 8.5-10.2 Total Protein 6.7 g/dL 6.0-8.0 Albumin 4.4 g/dL 3.6-4.9 Globulin 2.3 g/dL 2.0-3.5 A/G Ratio 1.9 Ratio 1.0-2.2 Total Bilirubin 0.5 mg/dL 0.1-1.3 Alkaline Phosphatase 85 U/L 24-140 Alt 12 U/L 3-42 Ast 14 U/L 8-42 Anion Gap 14 mmol/L 6-14 Shannan Egfr >60 >60 19 Non Shannan Egfr >60 >60 20 Lipid 08/20/2015 Cholesterol 186 mg/dL 50-199 Triglycerides 143 mg/dL 30-200 HDL 51 mg/dL 35-85 21 Chol/ HDL Ratio 3.6 ratio Low 3.7-5.6 VLDL 29 mg/dL 2-29 LDL (Calc) 106 mg/dL High 20-99 22 Laboratory test finding 08/20/2015 Vit D,25 Hydroxy 49 ng/mL 31-100 Vitamin B12 496 pg/mL 180-914 CBC With Auto Diff 08/20/2015 WBC 11.5 K/uL High 4.1-11.0 RBC 4.82 M/uL 4.00-5.40 Hemoglobin 14.2 gm/dL 12.0-16.0 Hematocrit 42.9 % 36.0-47.0 MCV 89.0 fL 80.0-97.0 MCH 29.5 pg 27.0-32.0 MCHC 33.1 g/dL 32.0-36.0 RDW 13.2 % 11.5-14.5 PLT Count 200 K/ul 140-400 Neutrophil 47.3 % 35.0-75.0 Lymphocyte 45.0 % 16.0-52.0 Monocyte 5.9 % 2.0-10.0 Eosinophil 0.8 % 0.0-5.0 Basophil 1.0 % 0.0-4.0 Abs Neutrophils 5.4 K/uL 2.1-8.0 Abs Lymphocytes 5.2 K/uL 0.8-5.5 Abmon 0.7 K/uL 0.1-1.0 Abs Eosinophils 0.1 K/uL 0.0-0.5 Abs Basophils 0.1 K/uL 0.0-0.3 Laboratory test finding 08/20/2015 [facility] Pap SEE NOTE 23 Laboratory test finding 03/09/2015 Esr 5 mm/hr 0-20 9 Vit D,25 Hydroxy 35 ng/mL 31-100 9 CBC With Auto Diff 03/09/2015 WBC 7.6 K/uL 4.1-11.0 9 RBC 4.88 M/uL 4.00-5.40 9 Hemoglobin 14.3 gm/dL 12.0-16.0 9 Hematocrit 42.6 % 36.0-47.0 9 MCV 87.4 fL 80.0-97.0 9 MCH 29.3 pg 27.0-32.0 9 MCHC 33.6 g/dL 32.0-36.0 9 RDW 13.1 % 11.5-14.5 9 PLT Count 206 K/ul 140-400 9 Neutrophil 38.0 % 35.0-75.0 9 Lymphocyte 54.3 % High 16.0-52.0 9 Monocyte 4.9 % 2.0-10.0 9 Eosinophil 1.8 % 0.0-5.0 9 Basophil 1.0 % 0.0-4.0 9 Abs Neutrophils 2.9 K/uL 2.1-8.0 9 Abs Lymphocytes 4.1 K/uL 0.8-5.5 9 Abmon 0.4 K/uL 0.1-1.0 9 Abs Eosinophils 0.1 K/uL 0.0-0.5 9 Abs Basophils 0.1 K/uL 0.0-0.3 9 Protime 03/09/2015 PT 10.2 s (9.2-11.9) 9 Inr 0.96 9, 24 PT+PTT -RL 03/09/2015 Aptt 24.9 s (22.0-32.6) 9, 25 Laboratory test finding 11/06/2014 Vit D,25 Hydroxy 42 ng/mL 31-100 9 Vitamin B12 587 pg/mL 180-914 9 CBC With Auto Diff 11/06/2014 WBC 7.7 K/uL 4.1-11.0 9 RBC 4.97 M/uL 4.00-5.40 9 Hemoglobin 14.4 gm/dL 12.0-16.0 9 Hematocrit 43.2 % 36.0-47.0 9 MCV 86.8 fL 80.0-97.0 9 MCH 29.0 pg 27.0-32.0 9 MCHC 33.4 g/dL 32.0-36.0 9 RDW 12.5 % 11.5-14.5 9 PLT Count 211 K/ul 140-400 9 Neutrophil 39.6 % 35.0-75.0 9 Lymphocyte 51.0 % 16.0-52.0 9 Monocyte 6.8 % 2.0-10.0 9 Eosinophil 1.8 % 0.0-5.0 9 Basophil 0.8 % 0.0-4.0 9 Abs Neutrophils 3.1 K/uL 2.1-8.0 9 Abs Lymphocytes 3.9 K/uL 0.8-5.5 9 Abmon 0.5 K/uL 0.1-1.0 9 Abs Eosinophils 0.1 K/uL 0.0-0.5 9 Abs Basophils 0.1 K/uL 0.0-0.3 9 Lipid Treatment 11/06/2014 Cholesterol 197 mg/dL 50-199 9 Triglycerides 150 mg/dL 30-200 9 HDL 48 mg/dL 35-85 9, 26 Chol/ HDL Ratio 4.1 ratio 3.7-5.6 9 VLDL 30 mg/dL High 2-29 9 LDL (Calc) 119 mg/dL High 20-99 9, 27 Alt 12 U/L 3-42 9 Ast 13 U/L 8-42 9 Laboratory test finding 07/07/2014 [facility] Pap SEE NOTE 28, 29 Quant Immunoglob -RL 11/25/2013 Igg @ 513 mg/dL Low (700-1600) 30 Iga @ 58 mg/dL Low (71-374) 30 Igm @ 54 mg/dL (40-248) 30, 31 Laboratory test finding 11/25/2013 Hepatitis C AB NEGATIVE (Neg) 30, 32 HIV Combo By [facility] 11/25/2013 HIV Combo [facility] Negative 30 Comprehensive Metabolic (CMP) 11/25/2013 Sodium 140 mmol/L 134-142 30 Potassium 5.0 Testing perf <SEE NOTE> mmol/L 3.5-5.2 30, 33 Chloride 106 mmol/L 97-109 30 Carbon Dioxide 32 mmol/L 24-34 30 Glucose 88 mg/dL 70-105 30 BUN 11 mg/dL 6-26 30 Creatinine 0.7 mg/dL 0.5-1.4 30 Calcium 10.0 mg/dL 8.5-10.2 30 Total Protein 6.5 g/dL 6.0-8.0 30 Albumin 4.4 g/dL 3.6-4.9 30 Globulin 2.1 g/dL 2.0-3.5 30 A/G Ratio 2.1 Ratio 1.0-2.2 30 Total Bilirubin 0.5 mg/dL 0.1-1.3 30 Alkaline Phosphatase 68 U/L 24-140 30 Alt 13 U/L 3-42 30 Ast 14 U/L 8-42 30 Anion Gap 7 mmol/L 6-14 30, 34 Shannan Egfr >60 >60 30, 35 Non Shannan Egfr >60 >60 30, 36 CBC With Auto Diff 11/25/2013 WBC 9.8 K/uL 4.1-11.0 30 RBC 4.79 M/uL 4.00-5.40 30 Hemoglobin 14.6 gm/dL 12.0-16.0 30 Hematocrit 42.3 % 36.0-47.0 30 MCV 88.2 fL 80.0-97.0 30 MCH 30.4 pg 27.0-32.0 30 MCHC 34.5 g/dL 32.0-36.0 30 RDW 13.2 % 11.5-14.5 30 PLT Count 221 K/ul 140-400 30 Laboratory test finding 11/25/2013 Vitamin B12 701 pg/mL 180-914 30 Lipid 11/25/2013 Cholesterol 199 mg/dL 50-199 30 Triglycerides 96 mg/dL 30-200 30 HDL 50 mg/dL 35-85 30, 37 Chol/ HDL Ratio 4.0 ratio 3.7-5.6 30 VLDL 19 mg/dL 2-29 30 LDL (Calc) 130 mg/dL High 20-99 30, 38 Manual Differential 11/25/2013 Neutrophils 40 % 35-75 30 Lymphocytes 50 % 16-52 30 Monocytes 8 % 0-8 30 Eosinophils 2 % 0-5 30 Basophils 0 % 0-4 30 Platelet Estimate Normal Normal 30 RBC Morphology Normal Normal 30 Abs Neutrophils# 3.9 K/ul 1.8-7.7 30 Abs Lymphocytes# 4.9 K/ul High 1.2-4.8 30 Abs Monocytes# 0.8 K/ul 0.0-0.8 30 Abs Eosinophils# 0.2 K/ul 0.0-0.5 30 Abs Basophils# 0.0 K/ul 0.0-0.3 30 Quant Immunoglob -RL 07/24/2013 Igg @ 550 mg/dL Low (700-1600) 39 Iga @ 57 mg/dL Low (71-374) 39 Igm @ 55 mg/dL (40-248) 39, 40 CBC With Auto Diff 07/24/2013 WBC 9.6 K/uL 4.1-11.0 39 RBC 4.79 M/uL 4.00-5.40 39 Hemoglobin 14.4 gm/dL 12.0-16.0 39 Hematocrit 41.5 % 36.0-47.0 39 MCV 86.7 fL 80.0-97.0 39 MCH 30.0 pg 27.0-32.0 39 MCHC 34.6 g/dL 32.0-36.0 39 RDW 13.2 % 11.5-14.5 39 PLT Count 207 K/ul 140-400 39 Manual Differential 07/24/2013 Neutrophils 34 % Low 35-75 39 Lymphocytes 51 % 16-52 39 Atypical Lymphs 6 High 0-5 39 Monocytes 6 % 0-8 39 Eosinophils 3 % 0-5 39 Basophils 0 % 0-4 39 Platelet Estimate Normal Normal 39 RBC Morphology Normal Normal 39 Abs Neutrophils# 3.3 K/ul 1.8-7.7 39 Abs Lymphocytes# 4.9 K/ul High 1.2-4.8 39 Abs Monocytes# 0.6 K/ul 0.0-0.8 39 Abs Eosinophils# 0.3 K/ul 0.0-0.5 39 Abs Basophils# 0.0 K/ul 0.0-0.3 39 Abs Atypical Lymphocytes# 0.6 K/ul High 0.0-0.5 39 CBC With Auto Diff 07/08/2013 WBC 14.6 K/uL High 4.1-11.0 41 RBC 4.80 M/uL 4.00-5.40 41 Hemoglobin 14.2 gm/dL 12.0-16.0 41 Hematocrit 41.8 % 36.0-47.0 41 MCV 87.2 fL 80.0-97.0 41 MCH 29.5 pg 27.0-32.0 41 MCHC 33.9 g/dL 32.0-36.0 41 RDW 13.0 % 11.5-14.5 41 PLT Count 244 K/ul 140-400 41 Comprehensive Metabolic (CMP) 07/08/2013 Sodium 142 mmol/L 134-142 41 Potassium 4.4 mmol/L 3.5-5.2 41 Chloride 101 mmol/L 97-109 41 Carbon Dioxide 33 mmol/L 24-34 41 Glucose 85 mg/dL 70-105 41 BUN 12 mg/dL 6-26 41 Creatinine 0.8 mg/dL 0.5-1.4 41 Calcium 10.0 mg/dL 8.5-10.2 41 Total Protein 6.6 g/dL 6.0-8.0 41 Albumin 4.5 g/dL 3.6-4.9 41 Globulin 2.1 g/dL 2.0-3.5 41 A/G Ratio 2.1 Ratio 1.0-2.2 41 Total Bilirubin 0.3 mg/dL 0.1-1.3 41 Alkaline Phosphatase 67 U/L 24-140 41 Alt 13 U/L 3-42 41 Ast 15 U/L 8-42 41 Anion Gap 12 mmol/L 6-14 41 Shannan Egfr >60 >60 41, 42 Non Shannan Egfr >60 >60 41, 43 Laboratory test finding 07/08/2013 Vitamin B12 885 pg/mL 180-914 41 Esr 3 mm/hr 0-20 41 Manual Differential 07/08/2013 Neutrophils 40 % 35-75 41 Lymphocytes 51 % 16-52 41 Atypical Lymphs 1 0-5 41 Monocytes 6 % 0-8 41 Eosinophils 2 % 0-5 41 Basophils 0 % 0-4 41 Platelet Estimate Normal Normal 41 RBC Morphology Normal Normal 41 Abs Neutrophils# 5.8 K/ul 1.8-7.7 41 Abs Lymphocytes# 7.4 K/ul High 1.2-4.8 41 Abs Monocytes# 0.9 K/ul High 0.0-0.8 41 Abs Eosinophils# 0.3 K/ul 0.0-0.5 41 Abs Basophils# 0.0 K/ul 0.0-0.3 41 Abs Atypical Lymphocytes# 0.1 K/ul 0.0-0.5 41 Quant Immunoglob -RL 07/08/2013 Igg @ 477 mg/dL Low (700-1600) 41 Iga @ 60 mg/dL Low (71-374) 41 Igm @ 60 mg/dL (40-248) 41, 44 Laboratory test finding 07/08/2013 Lyme Igm/Igg AB NEGATIVE (Neg) 41, 45 [facility] Pap SEE NOTE 41, 46 CBC With Auto Diff 05/27/2013 WBC 10.0 K/uL 4.1-11.0 41 RBC 4.78 M/uL 4.00-5.40 41 Hemoglobin 14.2 gm/dL 12.0-16.0 41 Hematocrit 41.4 % 36.0-47.0 41 MCV 86.6 fL 80.0-97.0 41 MCH 29.7 pg 27.0-32.0 41 MCHC 34.3 g/dL 32.0-36.0 41 RDW 12.9 % 11.5-14.5 41 PLT Count 220 K/ul 140-400 41 Comprehensive Metabolic (CMP) 05/27/2013 Sodium 139 mmol/L 134-142 41 Potassium 4.2 mmol/L 3.5-5.2 41 Chloride 106 mmol/L 97-109 41 Carbon Dioxide 28 mmol/L 24-34 41 Glucose 86 mg/dL 70-105 41 BUN 11 mg/dL 6-26 41 Creatinine 0.8 mg/dL 0.5-1.4 41 Calcium 10.1 mg/dL 8.5-10.2 41 Total Protein 6.4 g/dL 6.0-8.0 41 Albumin 4.6 g/dL 3.6-4.9 41 Globulin 1.8 g/dL Low 2.0-3.5 41 A/G Ratio 2.6 Ratio High 1.0-2.2 41 Total Bilirubin 0.7 mg/dL 0.1-1.3 41 Alkaline Phosphatase 63 U/L 24-140 41 Alt 14 U/L 3-42 41 Ast 16 U/L 8-42 41 Anion Gap 9 mmol/L 6-14 41 Shannan Egfr >60 >60 41, 47 Non Shannan Egfr >60 >60 41, 48 Lipid 05/27/2013 Cholesterol 194 mg/dL 50-199 41 Triglycerides 95 mg/dL 30-200 41 HDL 55 mg/dL 35-85 41, 49 Chol/ HDL Ratio 3.5 ratio Low 3.7-5.6 41 VLDL 19 mg/dL 2-29 41 LDL (Calc) 120 mg/dL 20-129 41, 50 Laboratory test finding 05/27/2013 Vit D,25 Hydroxy 53 ng/mL 31-100 41 TSH 1.88 uIU/mL 0.34-5.60 41 Manual Differential 05/27/2013 Neutrophils 28 % Low 35-75 41 Band 2 % 0-11 41 Lymphocytes 62 % High 16-52 41 Atypical Lymphs 4 0-5 41 Monocytes 2 % 0-8 41 Eosinophils 2 % 0-5 41 Basophils 0 % 0-4 41 Platelet Estimate Normal Normal 41 RBC Morphology Normal Normal 41 Abs Neutrophils# 2.8 K/ul 1.8-7.7 41 Abs Lymphocytes# 6.2 K/ul High 1.2-4.8 41 Abs Monocytes# 0.2 K/ul 0.0-0.8 41 Abs Eosinophils# 0.2 K/ul 0.0-0.5 41 Abs Basophils# 0.0 K/ul 0.0-0.3 41 Abs BandCells# 0.2 K/ul 0.0-1.2 41 Abs Atypical Lymphocytes# 0.4 K/ul 0.0-0.5 41 PTH,Intact W/ CA -RL 05/27/2013 PTH, Intact @ 27.4 pg/mL (12-65) 41 Calcium @ 9.9 mg/dL (8.4-10.2) 41, 51 CBC With Auto Diff 05/06/2012 WBC 9.6 K/uL 4.1-11.0 41 RBC 4.47 M/uL 4.00-5.40 41 Hemoglobin 13.3 gm/dL 12.0-16.0 41 Hematocrit 39.1 % 36.0-47.0 41 MCV 87.4 fL 80.0-97.0 41 MCH 29.7 pg 27.0-32.0 41 MCHC 33.9 g/dL 32.0-36.0 41 RDW 12.9 % 11.5-14.5 41 PLT Count 216 K/ul 140-400 41 Manual Differential 05/06/2012 Neutrophils 51 % 35-75 41 Lymphocytes 43 % 16-52 41 Monocytes 5 % 2-10 41 Eosinophils 0 % 0-5 41 Basophils 1 % 0-4 41 Platelet Estimate Normal Normal 41 RBC Morphology Normal Normal 41 Abs Neutrophils# 4.9 K/ul 2.1-8.0 41 Abs Lymphocytes# 4.1 K/ul 0.8-5.5 41 Abs Monocytes# 0.5 K/ul 0.1-1.0 41 Abs Eosinophils# 0.0 K/ul 0.0-0.5 41 Abs Basophils# 0.1 K/ul 0.0-0.3 41 Ebv Evaluation 03/25/2012 Ebv Vca Igg @ POSITIVE (Neg) 52 Ebv Vca Igm @ NEGATIVE (Neg) Ebv Early Ag Igg @ NEGATIVE (Neg) Ebv Nuclear Ag Igg @ POSITIVE (Neg) 53 Laboratory test finding 03/19/2012 [facility] Pap SEE NOTE 54 CBC With Auto Diff 03/19/2012 WBC 9.8 K/uL 4.1-11.0 41 RBC 4.91 M/uL 4.00-5.40 41 Hemoglobin 14.7 gm/dL 12.0-16.0 41 Hematocrit 43.4 % 36.0-47.0 41 MCV 88.4 fL 80.0-97.0 41 MCH 30.0 pg 27.0-32.0 41 MCHC 34.0 g/dL 32.0-36.0 41 RDW 13.1 % 11.5-14.5 41 PLT Count 220 K/ul 140-400 41 Comprehensive Metabolic (CMP) 03/19/2012 Sodium 141 mmol/L 134-142 41 Potassium 4.4 mmol/L 3.5-5.2 41 Chloride 101 mmol/L 97-109 41 Carbon Dioxide 30 mmol/L 24-34 41 Glucose 87 mg/dL 70-105 41 BUN 8 mg/dL 6-26 41 Creatinine 0.7 mg/dL 0.5-1.4 41 Calcium 10.2 mg/dL 8.5-10.2 41 Total Protein 7.1 g/dL 6.0-8.0 41 Albumin 4.9 g/dL 3.6-4.9 41 Globulin 2.2 g/dL 2.0-3.5 41 A/G Ratio 2.2 Ratio 1.0-2.2 41 Total Bilirubin 0.5 mg/dL 0.1-1.3 41 Alkaline Phosphatase 60 U/L 24-140 41 Alt 12 U/L 3-42 41 Ast 14 U/L 8-42 41 Anion Gap 14 mmol/L 6-14 41 Shannan Egfr >60 >60 41, 55 Non Shannan Egfr >60 >60 41, 56 Manual Differential 03/19/2012 Neutrophils 43 % 35-75 41 Band 1 % 0-6 41 Lymphocytes 37 % 16-52 41 Atypical Lymphs 12 High 0-10 41 Monocytes 5 % 2-10 41 Eosinophils 2 % 0-5 41 Basophils 0 % 0-4 41 Platelet Estimate Normal Normal 41 RBC Morphology Normal Normal 41 Abs Neutrophils# 4.2 K/ul 2.1-8.0 41 Abs Lymphocytes# 3.6 K/ul 0.8-5.5 41 Abs Monocytes# 0.5 K/ul 0.1-1.0 41 Abs Eosinophils# 0.2 K/ul 0.0-0.5 41 Abs Basophils# 0.0 K/ul 0.0-0.3 41 Abs BandCells# 0.1 K/ul High 0.0-0.0 41 Abs Atypical Lymphocytes# 1.2 K/ul High 0.0-0.0 41 Laboratory test finding 03/19/2012 TSH 1.87 uIU/mL 0.34-5.60 41 Free T4 0.64 ng/dL 0.50-1.60 41 Vit D,25 Hydroxy 52 ng/mL 31-100 41 Ferritin 25.5 ng/ml 11.0-306.0 41 Vitamin B12 490 pg/mL 180-914 41 Esr 3 mm/hr 0-20 41 Laboratory test finding 12/19/2011 [facility] SEE NOTE 57 CBC With Auto Diff 09/19/2011 WBC 11.0 K/uL 4.1-11.0 41 RBC 4.91 M/uL 4.00-5.40 41 Hemoglobin 15.3 gm/dL 12.0-16.0 41 Hematocrit 43.8 % 36.0-47.0 41 MCV 89.3 fL 80.0-97.0 41 MCH 31.1 pg 27.0-32.0 41 MCHC 34.8 g/dL 32.0-36.0 41 RDW 12.6 % 11.5-14.5 41 PLT Count 301 K/ul 140-400 41 Neutrophil 50.6 % 35.0-75.0 41 Lymphocyte 43.4 % 16.0-52.0 41 Monocyte 4.3 % 2.0-10.0 41 Eosinophil 1.1 % 0.0-5.0 41 Basophil 0.6 % 0.0-4.0 41 Abs Neutrophils 5.6 K/uL 2.1-8.0 41 Abs Lymphocytes 4.8 K/uL 0.8-5.5 41 Abs Monocytes 0.5 K/uL 0.1-1.0 41 Abs Eosinophils 0.1 K/uL 0.0-0.5 41 Abs Basophils 0.1 K/uL 0.0-0.3 41 Laboratory test finding 09/19/2011 Vit D,25 Hydroxy 45 ng/mL 31-100 41 PTH,Intact W/ CA -RL 09/19/2011 PTH, Intact @ 40.6 pg/mL (12-65) 41, 58 Calcium @ 10.0 mg/dL (8.4-10.2) 41, 59 Laboratory test finding 03/15/2011 Vit D,25 Hydroxy 35 ng/mL 31-100 41 TSH 2.04 uIU/mL 0.34-5.60 41 Lipid 03/15/2011 Cholesterol 199 mg/dL 50-199 41 Triglycerides 139 mg/dL 10-150 41 HDL 49 mg/dL 35-85 41, 60 Chol/ HDL Ratio 4.1 ratio 3.7-5.6 41 VLDL 28 mg/dL 2-29 41 LDL (Calc) 122 mg/dL 20-129 41, 61 Comprehensive Metabolic (CMP) 03/15/2011 Sodium 142 mmol/L 135-144 41 Potassium 4.3 mmol/L 3.6-5.2 41 Chloride 107 mmol/L 97-110 41 Carbon Dioxide 30 mmol/L 23-32 41 Glucose 86 mg/dL 70-105 41 BUN 9 mg/dL 6-22 41 Creatinine 0.7 mg/dL 0.5-1.3 41 Calcium 10.2 mg/dL 8.6-10.2 41 BUN/CR 13 ratio 12-20 41 Total Protein 6.5 g/dL 5.8-7.8 41 Albumin 4.5 g/dL 3.5-4.8 41 Globulin 2.0 g/dL 2.0-3.5 41 A/G Ratio 2.3 Ratio High 1.0-2.2 41 Total Bilirubin 0.9 mg/dL 0.3-1.2 41 Alkaline Phosphatase 71 U/L 24-140 41 Alt 15 U/L 5-45 41 Ast 17 U/L 12-40 41 Anion Gap 9 mmol/L 8-16 41 Non Shannan Egfr >60 >60 41, 62 Shannan Egfr >60 >60 41, 63 CBC With Auto Diff 03/15/2011 WBC 8.3 K/uL 4.1-11.0 41 RBC 4.62 M/uL 4.00-5.40 41 Hemoglobin 14.2 gm/dL 12.0-16.0 41 Hematocrit 40.7 % 36.0-47.0 41 MCV 88.2 fL 80.0-97.0 41 MCH 30.7 pg 27.0-32.0 41 MCHC 34.8 g/dL 32.0-36.0 41 RDW 12.8 % 11.5-14.5 41 PLT Count 215 K/ul 140-400 41 Neutrophil 47.9 % 35.0-75.0 41 Lymphocyte 45.3 % 16.0-52.0 41 Monocyte 4.4 % 2.0-10.0 41 Eosinophil 1.9 % 0.0-5.0 41 Basophil 0.5 % 0.0-4.0 41 Abs Neutrophils 4.0 K/uL 2.1-8.0 41 Abs Lymphocytes 3.8 K/uL 0.8-5.5 41 Abs Monocytes 0.4 K/uL 0.1-1.0 41 Abs Eosinophils 0.2 K/uL 0.0-0.5 41 Abs Basophils 0.0 K/uL 0.0-0.3 41 Laboratory test finding 03/15/2011 [facility] Pap SEE NOTE 64 CBC With Auto Diff 12/13/2010 WBC 7.4 K/uL 4.1-11.0 65 RBC 4.84 M/uL 4.00-5.40 65 HGB 14.7 gm/dL 12.0-16.0 65 HCT 43.1 % 36.0-47.0 65 MCV 89.0 fL 80.0-97.0 65 MCH 30.4 pg 27.0-32.0 65 MCHC 34.2 g/dL 32.0-36.0 65 RDW 12.9 % 11.5-14.5 65 PLT 220 K/ul 140-400 65 NE% 50.1 % 35.0-75.0 65 Ly% 40.7 % 16.0-52.0 65 Mo% 6.8 % 2.0-10.0 65 Eo% 1.9 % 0.0-5.0 65 Ba% 0.5 % 0.0-4.0 65 NE# 3.7 K/uL 2.1-8.0 65 Ly# 3.0 K/uL 0.8-5.5 65 Mo# 0.5 K/uL 0.1-1.0 65 Eo# 0.1 K/uL 0.0-0.5 65 Ba# 0.0 K/uL 0.0-0.3 65 Basic (BMP) 12/13/2010 Na 140 mmol/L 135-144 65 K 5.3 No visible h <SEE NOTE> mmol/L High 3.6-5.2 65, 66 CL 104 mmol/L 97-110 65 Co2 27 mmol/L 23-32 65 Glu 99 mg/dL 70-105 65 BUN 9 mg/dL 6-22 65 Creat 0.7 mg/dL 0.5-1.3 65 CA 9.9 mg/dL 8.6-10.2 65 Anion Gap 14 mmol/L 8-16 65 BUN/CR 13 ratio 12-20 65 NAAeGFR >60 >60 65, 67 AAeGFR >60 >60 65, 68 Laboratory test finding 09/21/2009 [facility] Pap - LA (SEE NOTE) 69 CBC With Auto Diff 09/21/2009 WBC 9.3 K/ul 4.0-10.9 70 RBC 4.60 M/ul 4.20-5.40 70 Hemoglobin 13.8 GM/dl 12.5-16.0 70 Hematocrit 41.2 % 36.0-47.0 70 MCV 89.6 FL 80.0-97.0 70 MCH 30.0 pg 27.0-31.0 70 MCHC 33.4 g/dL 32.0-36.0 70 RDW 12.5 % 11.5-14.5 70 Platelet Count 282 K/ul 140-440 70 Neutrophils 47.7 % Low 50-70 70 Lymphocytes 42.4 % 20-44 70 Monocytes 6.7 % 2-9 70 Eosinophil 2.6 % 0-4 70 Basophil 0.6 % 0-2 70 Absolute Neutrophils 4.4 K/ul 2.05-7.63 70 Absolute Lymphocytes 3.9 K/ul 0.8-4.8 70 Absolute Monocytes 0.6 K/ul 0.1-1.0 70 Absolute Eosinophils 0.2 K/ul 0.1-0.5 70 Absolute Basophils 0.1 K/ul 0.0-0.3 70 Hematology Comment (Comm2) N/A 70 CMP 09/21/2009 Sodium 142 mmol/L 135-144 70 Potassium 4.3 mmol/L 3.6-5.2 70, 71 Chloride 107 mmol/L 97-110 70 Carbon Dioxide 30 mmol/L 23-32 70 Glucose 87 mg/dL 70-105 70 BUN 17 mg/dL 6-22 70 Creatinine 0.9 mg/dL 0.5-1.3 70 BUN/CR 19 Ratio 70 Calcium 10.2 mg/dL 8.6-10.2 70 Total Protein 6.0 g/dL 5.8-7.8 70 Albumin 4.0 g/dL 3.5-4.8 70 Globulin 2.0 g/dL 2.0-3.5 70 A/G Ratio 2.0 Ratio 1.0-2.2 70 Total Bilirubin 0.4 mg/dL 0.3-1.2 70 Alkaline Phosphatase 78 U/L 24-140 70 Alt 16 U/L 5-45 70 Ast 20 U/L 12-40 70 Anion Gap 9 mmol/L 8-16 70 GFR Calculation > 60 mL/min 60-175 70, 72 GFR For > 60 mL/min 60-175 70, 73 Lipid Panel 09/21/2009 Cholesterol 190 mg/dL 50-199 70 Triglycerides 105 mg/dL 10-150 70 HDL 52 mg/dL 35-85 70, 74 Chol/HDL Ratio 3.7 Ratio 3.7-5.6 70, 75 VLDL 21 mg/dL 2-29 70 LDL (Calc) 117 mg/dL 20-129 70, 76 Laboratory test finding 09/21/2009 TSH 2.08 uIU/ml 0.34-5.60 70 Esr 5 MM/HR 0-20 70 Vitamin D, 25 Hydroxy 49 ng/mL 31-100 70 CBC With Auto Diff 02/17/2009 WBC 8.3 K/ul 4.0-10.9 77 RBC 4.93 M/ul 4.20-5.40 77 Hemoglobin 15.0 GM/dl 12.5-16.0 77 Hematocrit 43.3 % 36.0-47.0 77 MCV 87.8 FL 80.0-97.0 77 MCH 30.4 pg 27.0-31.0 77 MCHC 34.7 g/dL 32.0-36.0 77 RDW 13.1 % 11.5-14.5 77 Platelet Count 315 K/ul 140-440 77 Neutrophils 48.7 % Low 50-70 77 Lymphocytes 41.5 % 20-44 77 Monocytes 6.3 % 2-9 77 Eosinophil 2.5 % 0-4 77 Basophil 1.0 % 0-2 77 Absolute Neutrophils 4.0 K/ul 2.05-7.63 77 Absolute Lymphocytes 3.4 K/ul 0.8-4.8 77 Absolute Monocytes 0.5 K/ul 0.1-1.0 77 Absolute Eosinophils 0.2 K/ul 0.1-0.5 77 Absolute Basophils 0.1 K/ul 0.0-0.3 77 Hematology Comment (Comm2) N/A 77 Laboratory test finding 02/17/2009 TSH 1.90 uIU/ml 0.34-5.60 77 CMP 02/17/2009 Sodium 141 mmol/L 135-144 77 Potassium 4.9 mmol/L 3.6-5.2 77 Chloride 104 mmol/L 97-110 77 Carbon Dioxide 26 mmol/L 23-33 77 Glucose 91 mg/dL 70-105 77 BUN 8 mg/dL 6-22 77 Creatinine 0.8 mg/dL 0.5-1.3 77 BUN/CR 10 Ratio Low 12.0-20.0 77 Calcium 9.9 mg/dL 8.6-10.2 77 Total Protein 6.6 g/dL 5.8-7.8 77 Albumin 4.3 g/dL 3.5-4.8 77 Globulin 2.3 g/dL 2.0-3.5 77 A/G Ratio 1.9 Ratio 1.0-2.2 77 Total Bilirubin 0.7 mg/dL 0.3-1.2 77 Alkaline Phosphatase 72 U/L 24-140 77 Alt 23 U/L 4-45 77 Ast 23 U/L 12-40 77 Anion Gap 16 mmol/L 8-16 77 GFR Calculation > 60 mL/min 60-175 77, 78 GFR For > 60 mL/min 60-175 77, 79 CMP 11/24/2008 Sodium 142 mmol/L 135-144 80 Potassium 4.6 mmol/L 3.6-5.2 80, 81 Chloride 106 mmol/L 97-110 80 Carbon Dioxide 29 mmol/L 23-33 80 Glucose 83 mg/dL 70-105 80 BUN 11 mg/dL 6-22 80 Creatinine 0.9 mg/dL 0.5-1.3 80 BUN/CR 12 Ratio 12.0-20.0 80 Calcium 10.1 mg/dL 8.6-10.2 80 Total Protein 5.9 g/dL 5.8-7.8 80 Albumin 3.8 g/dL 3.5-4.8 80 Globulin 2.1 g/dL 2.0-3.5 80 A/G Ratio 1.8 Ratio 1.0-2.2 80 Total Bilirubin 0.4 mg/dL 0.3-1.2 80 Alkaline Phosphatase 69 U/L 24-140 80 Alt 14 U/L 4-45 80 Ast 19 U/L 12-40 80 Anion Gap 12 mmol/L 8-16 80 GFR Calculation > 60 mL/min 80, 82 GFR For > 60 mL/min 80, 83 Laboratory test finding 11/24/2008 Vitamin D, 25 Hydroxy 44 ng/mL 31-100 80 Laboratory test finding 09/25/2008 Vitamin D, 25 Hydroxy 22 ng/mL Low 31- 100 TSH 1.56 uIU/ml 0.34-5.60 Lipid TX Panel 03/27/2008 Ast 21 U/L 12-40 84 Alt 19 U/L 4-45 84 Cholesterol 206 mg/dL High 50-199 84 Triglycerides 166 mg/dL High 10-150 84 HDL 44 mg/dL 35-85 84 LDL (Calc) 129 mg/dL 20-129 84 Chol/HDL Ratio 4.7 Ratio 84 VLDL 33 mg/dL 84 CBC With Auto Diff 03/27/2008 WBC 7.7 K/ul 4.0-10.9 84 RBC 4.68 M/ul 4.20-5.40 84 Hemoglobin 14.1 GM/dl 12.5-16.0 84 Hematocrit 41.4 % 36.0-47.0 84 MCV 88.4 FL 80.0-97.0 84 MCH 30.2 pg 27.0-31.0 84 MCHC 34.1 g/dL 32.0-36.0 84 RDW 12.3 % 11.5-14.5 84 Platelet Count 297 K/ul 140-440 84 Neutrophils 50.4 % 50-70 84 Lymphocytes 37.8 % 20-44 84 Monocytes 8.6 % 2-9 84 Eosinophil 2.6 % 0-4 84 Basophil 0.6 % 0-2 84 Absolute Neutrophils 3.9 K/ul 2.05-7.63 84 Absolute Lymphocytes 2.9 K/ul 0.8-4.8 84 Absolute Monocytes 0.7 K/ul 0.1-1.0 84 Absolute Eosinophils 0.2 K/ul 0.1-0.5 84 Absolute Basophils 0.0 K/ul Low 0.1-0.3 84 CBC With Auto Diff 01/28/2008 WBC 8.0 K/ul 4.0-10.9 RBC 4.58 M/ul 4.20-5.40 Hemoglobin 13.8 GM/dl 12.5-16.0 Hematocrit 39.7 % 36.0-47.0 MCV 86.8 FL 80.0-97.0 MCH 30.2 pg 27.0-31.0 MCHC 34.8 g/dL 32.0-36.0 RDW 11.6 % 11.5-14.5 Platelet Count 328 K/ul 140-440 Neutrophils 51.8 % 50-70 Lymphocytes 38.0 % 20-44 Monocytes 6.9 % 2-9 Eosinophil 2.6 % 0-4 Basophil 0.7 % 0-2 Absolute Neutrophils 4.1 K/ul 2.05-7.63 Absolute Lymphocytes 3.0 K/ul 0.8-4.8 Absolute Monocytes 0.6 K/ul 0.1-1.0 Absolute Eosinophils 0.2 K/ul 0.1-0.5 Absolute Basophils 0.1 K/ul 0.1-0.3 CMP 01/28/2008 Sodium 144 mmol/L 135-144 Potassium 5.7 mmol/L High 3.6-5.2 Chloride 109 mmol/L 97-110 Carbon Dioxide 30 mmol/L 23-33 Glucose 82 mg/dL 70-105 BUN 7 mg/dL 6-22 Creatinine 0.8 mg/dL 0.5-1.3 BUN/CR 9 Ratio Low 12.0-20.0 Calcium 10.2 mg/dL 8.6-10.2 Total Protein 6.3 g/dL 5.8-7.8 Albumin 4.2 g/dL 3.5-4.8 Globulin 2.1 g/dL 2.0-3.5 A/G Ratio 2.0 Ratio 1.0-2.2 Total Bilirubin 0.7 mg/dL 0.3-1.2 Alkaline Phosphatase 63 U/L 24-140 Alt 21 U/L 4-45 Ast 23 U/L 12-40 Anion Gap 11 mmol/L 8-16 GFR Calculation > 60 mL/min 85 GFR For > 60 mL/min 86 Laboratory test finding 01/28/2008 TSH 1.93 uIU/ml 0.34-5.60 Vitamin D, 25 Hydroxy 26 ng/mL 19-58 Lipid Panel 03/15/2007 Cholesterol 218 mg/dL High 50-199 84 Triglycerides 95 mg/dL 10-150 84 HDL 55 mg/dL 35-85 84 Chol/HDL Ratio 4.0 Ratio 84 VLDL 19 mg/dL 84 LDL (Calc) 144 mg/dL High 20-129 84 CBC With Auto Diff 03/15/2007 WBC 8.7 K/ul 4.0-10.9 84 RBC 5.00 M/ul 4.20-5.40 84 Hemoglobin 15.2 GM/dl 12.5-16.0 84 Hematocrit 44.5 % 36.0-47.0 84 MCV 89.0 FL 80.0-97.0 84 MCH 30.4 pg 27.0-31.0 84 MCHC 34.1 g/dL 32.0-36.0 84 RDW 12.0 % 11.5-14.5 84 Platelet Count 373 K/ul 140-440 84 Neutrophils 66.1 % 50-70 84 Lymphocytes 23.4 % 20-44 84 Monocytes 7.8 % 2-9 84 Eosinophil 2.5 % 0-4 84 Basophil 0.2 % 0-2 84 Absolute Neutrophils 5.8 K/ul 2.05-7.63 84 Absolute Lymphocytes 2.0 K/ul 0.8-4.8 84 Absolute Monocytes 0.7 K/ul 0.1-1.0 84 Absolute Eosinophils 0.2 K/ul 0.1-0.5 84 Absolute Basophils 0.0 K/ul Low 0.1-0.3 84 CMP 03/15/2007 Sodium 142 mmol/L 135-144 84 Potassium 4.9 mmol/L 3.6-5.2 84 Chloride 106 mmol/L 97-110 84 Carbon Dioxide 29 mmol/L 23-33 84 Glucose 86 mg/dL 70-105 84 BUN 11 mg/dL 6-22 84 Creatinine 0.8 mg/dL 0.5-1.3 84 BUN/CR 14 Ratio 12.0-20.0 84 Calcium 9.9 mg/dL 8.6-10.2 84 Total Protein 6.5 g/dL 5.8-7.8 84 Albumin 4.3 g/dL 3.5-4.8 84 Globulin 2.2 g/dL 2.0-3.5 84 A/G Ratio 2.0 Ratio 1.0-2.2 84 Total Bilirubin 0.9 mg/dL 0.3-1.2 84 Alkaline Phosphatase 75 U/L 24-140 84 Alt 17 U/L 4-45 84 Ast 22 U/L 12-40 84 Anion Gap 12 mmol/L 8-16 84 GFR Calculation > 60 mL/min 84, 87 GFR For > 60 mL/min 84, 88 Iron Panel 03/15/2007 Iron, Total 132 g/dL 28-170 84 Transferrin 323 mg/dL 192-382 84 Tibc (Calc) 452 g/dL 261-478 84 % Saturation (Calc) 29.2 % 13.0-45.0 84 Laboratory test finding 03/15/2007 TSH 1.16 uIU/ml 0.34-5.60 84 CBC With Auto Diff 06/22/2006 WBC 8.0 K/ul 4.0-10.9 84 RBC 4.27 M/ul 4.20-5.40 84 Hemoglobin 13.8 GM/dl 12.5-16.0 84 Hematocrit 38.7 % 36.0-47.0 84 MCV 90.8 FL 80.0-97.0 84 MCH 32.3 pg High 27.0-31.0 84 MCHC 35.6 g/dL 32.0-36.0 84 RDW 12.1 % 11.5-14.5 84 Platelet Count 342 K/ul 140-440 84 Neutrophils 59.6 % 50-70 84 Lymphocytes 29.7 % 20-44 84 Monocytes 7.2 % 2-9 84 Eosinophil 2.6 % 0-4 84 Basophil 0.9 % 0-2 84 Absolute Neutrophils 4.7 K/ul 2.05-7.63 84 Absolute Lymphocytes 2.4 K/ul 0.8-4.8 84 Absolute Monocytes 0.6 K/ul 0.1-1.0 84 Absolute Eosinophils 0.2 K/ul 0.1-0.5 84 Absolute Basophils 0.1 K/ul 0.1-0.3 84 CMP 06/22/2006 Sodium 140 mmol/L 135-144 84 Potassium 4.9 mmol/L 3.6-5.2 84 Chloride 106 mmol/L 97-110 84 Carbon Dioxide 27 mmol/L 23-33 84 Glucose 74 mg/dL 70-105 84 BUN 14 mg/dL 6-22 84 Creatinine 0.9 mg/dL 0.5-1.3 84 BUN/CR 16 Ratio 12.0-20.0 84 Calcium 9.7 mg/dL 8.6-10.2 84 Total Protein 6.2 g/dL 5.8-7.8 84 Albumin 4.0 g/dL 3.5-4.8 84 Globulin 2.2 g/dL 2.0-3.5 84 A/G Ratio 1.8 Ratio 1.0-2.2 84 Total Bilirubin 0.9 mg/dL 0.3-1.2 84 Alkaline Phosphatase 78 U/L 24-140 84 Alt 25 U/L 4-45 84 Ast 23 U/L 12-40 84 Anion Gap 12 mmol/L 8-16 84 GFR White Male 93 84 GFR White Female 69 84 GFR Black Male 113 84 GFR Black Female 83 84 GFR Guidelines 0 84, 89 Laboratory test finding 06/22/2006 Esr 7 MM/HR 0-20 84 Lipid Panel 06/22/2006 Cholesterol 212 mg/dL High 50-199 84 Triglycerides 51 mg/dL 10-150 84 HDL 61 mg/dL 35-85 84 Chol/HDL Ratio 3.5 Ratio 84 VLDL 10 mg/dL 84 LDL (Calc) 141 mg/dL High 20-129 84 Laboratory test finding 06/22/2006 TSH 1.44 uIU/ml 0.50-6.00 84 Vitamin D, 25 Hydroxy 92 ng/mL High 19-58 84 Laboratory test finding 09/11/2005 Calcium, Ionized - 5.6 mg/dL 4.5-5.6 [facility] Laboratory test finding 02/13/2005 Calcium, Ionized - 5.7 mg/dL High 4.5- 5.6 [facility] Laboratory test finding 02/13/2005 TSH 2.20 uIU/ml 0.50-6.00 Chlamydia + GC Group 10/27/2003 GC By Dna Probe NEGATIVE Negative Gonorrhea, Dna Probe Chlamydia by Dna Probe NEGATIVE Negative Lipid Panel 10/27/2003 Cholesterol 183 mg/dL 50-199 Triglycerides 174 mg/dL 30-200 HDL 45 mg/dL 35-85 Chol/HDL Ratio 4.1 Ratio VLDL 35 mg/dL LDL (Calc) 103 mg/dL 20-129 CMP 10/27/2003 Sodium 141 mmol/L 135-145 Potassium 4.1 mmol/L 3.4-5.3 Chloride 103 mmol/L 98-111 Carbon Dioxide 30 mmol/L 22-33 Glucose 93 mg/dL 70-105 BUN 14 mg/dL 6-26 Creatinine 1.1 mg/dL 0.5-1.5 BUN/CR 13 Ratio 12.0-20.0 Calcium 10.0 mg/dL 8.6-10.3 Total Protein 7.1 g/dL 6.2-8.3 Albumin 4.3 g/dL 3.5-5.0 Globulin 2.8 g/dL 2.7-4.3 A/G Ratio 1.5 Ratio 1.0-2.2 Total Bilirubin 0.6 mg/dL 0.1-1.3 Ast 23 U/L 8-42 Alt 20 U/L 3-42 Alkaline Phosphatase 95 U/L 24-108 Anion Gap 12 mmol/L 10-20 Laboratory test finding 10/27/2003 TSH 2.05 uIU/ml 0.50-6.00 Vitamin B12 869 pg/mL 230-1050 Folate 16.3 ng/ml High 3.0-16.0 CBC 10/27/2003 WBC 8.2 K/ul 4.1-10.9 RBC 5.00 M/ul 4.20-6.30 Hemoglobin 14.8 GM/dl 12.5-15.0 Hematocrit 44.6 % 37.0-51.0 MCV 89.2 FL 80.0-97.0 MCH 29.6 pg 26.0-32.0 MCHC 33.2 g/dL 31.0-36.0 RDW 11.2 % Low 11.5-14.5 Platelet Count 331 K/ul 140-440 Neutrophils 54.4 % 50-70 Lymphocytes 30.4 % 20-44 Monocytes 8.1 % 2-9 Eosinophil 6.0 % High 0-4 Basophil 1.1 % 0-2 Absolute Neutrophils 4.4 K/ul 2.05-7.63 Absolute Lymphocytes 2.5 K/ul 0.8-4.8 Absolute Monocytes 0.7 K/ul 0.1-1.0 Absolute Eosinophils 0.5 K/ul 0.1-0.5 Absolute Basophils 0.1 K/ul 0.1-0.3 Laboratory test finding 10/27/2003 Rapid Plasma Reagin NON-REACTIVE (RPR) Laboratory test finding 04/08/2002 TSH 1.28 uIU/ml 0.50-6.00 90 Folate 10.077 ng/ml 3.0-16.0 91 CBC 04/08/2002 WBC 6.6 K/ul 4.1-10.9 RBC 4.85 M/ul 4.2-6.3 Hemoglobin 14.8 GM/dl 12.0-16.0 Hematocrit 43.4 % 37.0-51.0 MCV 89.5 FL 80-97 MCH 30.5 pg 26.0-32.0 MCHC 34.0 g/dL 31.0-36.0 RDW 11.8 % 11.5-14.5 Platelet Count 234 K/ul 140-440 Neutrophils 52.1 % 50-70 Lymphocytes 31.3 % 20-44 Monocytes 9.0 % 2-9 Eosinophil 6.9 % High 0-4 Basophil 0.7 % 0-2 Absolute Neutrophils 3.4 K/ul 2.05-7.63 Absolute Lymphocytes 2.1 K/ul 0.8-4.8 Absolute Monocytes 0.6 K/ul 0.1-1.0 Absolute Eosinophils 0.5 K/ul 0.1-0.5 Absolute Basophils 0.0 K/ul Low 0.1-0.3 Laboratory test finding 11/14/2001 Vitamin B12 152 pg/mL Low 270-730 Folate 6.4 ng/ml 2.9-13.5 Laboratory test finding 11/13/2001 Esr 1 MM/HR 0-20 92 TSH 1.73 uIU/ml 0.47-6.90 93 Jaimee Screen NEGATIVE 94 CBC 11/13/2001 WBC 6.9 K/ul 4.1-10.9 RBC 4.99 M/ul 4.2-6.3 Hemoglobin 15.2 GM/dl 12.0-16.0 Hematocrit 45.2 % 37.0-51.0 MCV 90.6 FL 80-97 MCH 30.5 pg 26.0-32.0 MCHC 33.6 g/dL 31.0-36.0 RDW 11.8 % 11.5-14.5 Platelet Count 307 K/ul 140-440 Neutrophils 52.7 % 50-70 Lymphocytes 28.3 % 20-44 Monocytes 10.6 % High 2-9 Eosinophil 6.4 % High 0-4 Basophil 2.0 % 0-2 Absolute Neutrophils 3.7 K/ul 2.05-7.63 Absolute Lymphocytes 2.0 K/ul 0.8-4.8 Absolute Monocytes 0.7 K/ul 0.1-1.0 Absolute Eosinophils 0.4 K/ul 0.1-0.5 Absolute Basophils 0.1 K/ul 0.1-0.3 1 Default Test Order (No Match) DO NOT RELEASE PLT COUNT BEFORE A SCAN IS DONE PERFORM MANUAL DIFF 2 Updated reference range on new analyzer 3 Updated reference range on new analyzer 4 Concerning GFR Guidelines for Americans: Normal function or mild renal disease, if clinically at risk: >/=60 mL/min Moderately decreased: 30-59 Severely decreased: 15-29 Renal failure: <15 5 Concerning GFR Guidelines: Normal function or mild renal disease, if clinically at risk: >/=60 mL/min Moderately decreased: 30-59 Severely decreased: 15-29 Renal failure: <15 Glomerular Filtration Rate (GFR) is estimated based on the MDRD equation, which assumes a steady state for creatinine as recommended by the National Kidney Disease Education Program in conjunction with the National Institutes of Health and the National Kidney Foundation. Clinical conditions in which it may be necessary to measure GFR by using clearance methods include extremes of age and body size, severe malnutrition or obesity, diseases of skeletal muscle, paraplegia or quadriplegia, vegetarian diet, rapidly changing kidney function, and calculation of the dose of potentially toxic drugs that are excreted by the kidneys. 6 Updated reference range on new analyzer 7 8.1 Results verified by repeat analysis 8 [employer]. [facility] [place] [address] CYTOLOGY REPORT Source of Specimen(s): SurePath Vaginal/ Cervical/ Endocervical Pap Smear - One Vial Date of Last Menstrual Period: None Provided Other Clinical Conditions: REFLEX TO HPV ASSAY IF RESULTS OF THIS PAP ARE ASCUS Specimen Adequacy Satisfactory for evaluation Presence of endocervical/transformation zone component General Categorization Negative for intraepithelial lesion or malignancy Interpretation NEGATIVE FOR INTRAEPITHELIAL LESION OR MALIGNANCY Reported: 08/17/2016 09:33 Electronically Signed Out By Evelin LAWTON(ASCP) lisbeth ICD9 Code: Z01.411 Unless otherwise specified, testing performed by [facility] [place] [address] [place] [address] 9 This sample is drawn by:RIKY. 10 Concerning GFR Guidelines for Americans: Normal function or mild renal disease, if clinically at risk: >/=60 mL/min Moderately decreased: 30-59 Severely decreased: 15-29 Renal failure: <15 11 Concerning GFR Guidelines: Normal function or mild renal disease, if clinically at risk: >/=60 mL/min Moderately decreased: 30-59 Severely decreased: 15-29 Renal failure: <15 Glomerular Filtration Rate (GFR) is estimated based on the MDRD equation, which assumes a steady state for creatinine as recommended by the National Kidney Disease Education Program in conjunction with the National Institutes of Health and the National Kidney Foundation. Clinical conditions in which it may be necessary to measure GFR by using clearance methods include extremes of age and body size, severe malnutrition or obesity, diseases of skeletal muscle, paraplegia or quadriplegia, vegetarian diet, rapidly changing kidney function, and calculation of the dose of potentially toxic drugs that are excreted by the kidneys. 12 Per NCEP ATP III Guidelines: Results lower than 40 mg/dL are suggestive of increased risk for coronary artery disease. Results > or=to 60 mg/dL are considered a negative risk factor. 13 Per NCEP ATP III Guidelines: Normal Population <130 Patients with medical conditions: CHD/DM Optimal: <100 Borderline high: 130-159 High: 160-189 Very high: >189 14 Unless otherwise specified, testing performed by [facility] [place] [email or web address] [facility] [place] [address] 15 Per NCEP ATP III Guidelines: Results lower than 40 mg/dL are suggestive of increased risk for coronary artery disease. Results > or=to 60 mg/dL are considered a negative risk factor. 16 Per NCEP ATP III Guidelines: Normal Population <130 Patients with medical conditions: CHD/DM Optimal: <100 Borderline high: 130-159 High: 160-189 Very high: >189 17 Concerning GFR Guidelines for Americans: Normal function or mild renal disease, if clinically at risk: >/=60 mL/min Moderately decreased: 30-59 Severely decreased: 15-29 Renal failure: <15 18 Concerning GFR Guidelines: Normal function or mild renal disease, if clinically at risk: >/=60 mL/min Moderately decreased: 30-59 Severely decreased: 15-29 Renal failure: <15 Glomerular Filtration Rate (GFR) is estimated based on the MDRD equation, which assumes a steady state for creatinine as recommended by the National Kidney Disease Education Program in conjunction with the National Institutes of Health and the National Kidney Foundation. Clinical conditions in which it may be necessary to measure GFR by using clearance methods include extremes of age and body size, severe malnutrition or obesity, diseases of skeletal muscle, paraplegia or quadriplegia, vegetarian diet, rapidly changing kidney function, and calculation of the dose of potentially toxic drugs that are excreted by the kidneys. 19 Concerning GFR Guidelines for Americans: Normal function or mild renal disease, if clinically at risk: >/=60 mL/min Moderately decreased: 30-59 Severely decreased: 15-29 Renal failure: <15 20 Concerning GFR Guidelines: Normal function or mild renal disease, if clinically at risk: >/=60 mL/min Moderately decreased: 30-59 Severely decreased: 15-29 Renal failure: <15 Glomerular Filtration Rate (GFR) is estimated based on the MDRD equation, which assumes a steady state for creatinine as recommended by the National Kidney Disease Education Program in conjunction with the National Institutes of Health and the National Kidney Foundation. Clinical conditions in which it may be necessary to measure GFR by using clearance methods include extremes of age and body size, severe malnutrition or obesity, diseases of skeletal muscle, paraplegia or quadriplegia, vegetarian diet, rapidly changing kidney function, and calculation of the dose of potentially toxic drugs that are excreted by the kidneys. 21 Per NCEP ATP III Guidelines: Results lower than 40 mg/dL are suggestive of increased risk for coronary artery disease. Results > or=to 60 mg/dL are considered a negative risk factor. 22 Per NCEP ATP III Guidelines: Normal Population <130 Patients with medical conditions: CHD/DM Optimal: <100 Borderline high: 130-159 High: 160-189 Very high: >189 23 LABORATORY [facility], [facility]. [address] [place] [address] GYNECOLOGIC CYTOLOGY REPORT Accession Number: [id number] Source of Specimen(s): A: SurePath Vaginal/ Cervical/ Endocervical Pap Smear - One Vial Clinical Diagnosis and History: Date of Last Menstrual Period: None Provided Other Clinical Conditions: REFLEX TO HPV ASSAY IF RESULTS OF THIS PAP ARE ASCUS Specimen Adequacy Satisfactory for evaluation Presence of endocervical/transformation zone cannot be assessed due to atrophic changes. It may be difficult to distinguish squamous metaplastic cells from parabasal type cells in specimens showing atrophy due to a variety of hormonal changes including menopause, post changes and progestational agents. General Categorization Negative for intraepithelial lesion or malignancy Interpretation NEGATIVE FOR INTRAEPITHELIAL LESION OR MALIGNANCY Reported: 08/24/2015 Electronically Signed Out By Bela LAWTON([facility]) [facility] dol Unless otherwise specified, testing performed by [employer] [facility] [place] [address] 24 SUGGESTED THERAPEUTIC RANGES USING INR FOR STABILIZED ANTICOAGULATED PATIENTS: STANDARD DOSE THERAPY INR 2.0-3.0 DVT, PE, PREVENT DVT OR EMBOLISM HIGH DOSE THERAPY INR 2.5-3.5 PREVENT EMBOLISM FROM MECHANICAL HEART VALVE Unless otherwise specified, testing performed by [employer] [facility] [place] [address] 25 Unless otherwise specified, testing performed by [employer] [facility] [place] [address] 26 Per NCEP ATP III Guidelines: Results lower than 40 mg/dL are suggestive of increased risk for coronary artery disease. Results > or=to 60 mg/dL are considered a negative risk factor. 27 Per NCEP ATP III Guidelines: Normal Population <130 Patients with medical conditions: CHD/DM Optimal: <100 Borderline high: 130-159 High: 160-189 Very high: >189 28 This sample is drawn by:BR [employer] 29 [email or web address]. [facility] [place] [address] GYNECOLOGIC CYTOLOGY REPORT Accession Number: [id number] Source of Specimen(s): A: SurePath Vaginal/ Cervical/ Endocervical Pap Smear - One Vial Clinical Diagnosis and History: Date of Last Menstrual Period: None Provided Specimen Adequacy Unsatisfactory for evaluation General Categorization Unsatisfactory Interpretation Scant cellularity Recommendations Recommend routine screening as clinically indicated. Reported: 07/09/2014 Electronically Signed Out By Evelin LAWTON(ASC) Industrial Machinery Mechanic: Evelin Herrera OR([facility]) DSS [facility] dss QC Reviewed: Y Unless otherwise specified, testing performed by [employer] [facility] [place] [address] 30 This sample is drawn by:RIKY. 31 Unless otherwise specified, testing performed by [employer] [address] [place] [id number] 32 NOT INFECTED WITH HCV, UNLESS RECENT INFECTION IS SUSPECTED OR OTHER EVIDENCE EXISTS TO INDICATE HCV INFECTION. Unless otherwise specified, testing performed by [employer] [address] [place] [address] 33 5.0 Testing performed on aliquot tube. Result amended from (No visible hemolysis.) (11/25/2013 6:02 PM) to (Testing performed on aliquot tube.) by TJB Result amended from (5.5) (11/25/2013 6:02 PM) to (5.0) by TJB 34 Calculated result amended automatically from (7) (11/25/2013 7:04 PM) to (7) Calculated result amended automatically from (8) (11/25/2013 6:02 PM) to (7) 35 Concerning GFR Guidelines for Americans: Normal function or mild renal disease, if clinically at risk: >/=60 mL/min Moderately decreased: 30-59 Severely decreased: 15-29 Renal failure: <15 36 Concerning GFR Guidelines: Normal function or mild renal disease, if clinically at risk: >/=60 mL/min Moderately decreased: 30-59 Severely decreased: 15-29 Renal failure: <15 Glomerular Filtration Rate (GFR) is estimated based on the MDRD equation, which assumes a steady state for creatinine as recommended by the National Kidney Disease Education Program in conjunction with the National Institutes of Health and the National Kidney Foundation. Clinical conditions in which it may be necessary to measure GFR by using clearance methods include extremes of age and body size, severe malnutrition or obesity, diseases of skeletal muscle, paraplegia or quadriplegia, vegetarian diet, rapidly changing kidney function, and calculation of the dose of potentially toxic drugs that are excreted by the kidneys. 37 Per NCEP ATP III Guidelines: Results lower than 40 mg/dL are suggestive of increased risk for coronary artery disease. Results > or=to 60 mg/dL are considered a negative risk factor. 38 Per NCEP ATP III Guidelines: Normal Population <130 Patients with medical conditions: CHD/DM Optimal: <100 Borderline high: 130-159 High: 160-189 Very high: >189 39 This sample is drawn by:DANNA 40 Unless otherwise specified, testing performed by [employer] [address] [address] 41 This sample is drawn by:RIKY. 42 Concerning GFR Guidelines for Americans: Normal function or mild renal disease, if clinically at risk: >/=60 mL/min Moderately decreased: 30-59 Severely decreased: 15-29 Renal failure: <15 43 Concerning GFR Guidelines: Normal function or mild renal disease, if clinically at risk: >/=60 mL/min Moderately decreased: 30-59 Severely decreased: 15-29 Renal failure: <15 Glomerular Filtration Rate (GFR) is estimated based on the MDRD equation, which assumes a steady state for creatinine as recommended by the National Kidney Disease Education Program in conjunction with the National Institutes of Health and the National Kidney Foundation. Clinical conditions in which it may be necessary to measure GFR by using clearance methods include extremes of age and body size, severe malnutrition or obesity, diseases of skeletal muscle, paraplegia or quadriplegia, vegetarian diet, rapidly changing kidney function, and calculation of the dose of potentially toxic drugs that are excreted by the kidneys. 44 Unless otherwise specified, testing performed by [employer] [address] [address] 45 NEW CHEMILUMINESCENT IMMUNOASSAY METHOD IN USE 09/03/12 PROVIDES ENHANCED SPECIFICITY THROUGH USE OF RECOMBINANT VLsE ANTIGEN. A Negative serologic test for Lyme Disease indicates no serologic evidence of infection with B burgdorferi at the time this specimen was collected. A repeat specimen should be collected in 2 to 4 weeks if clinically indicated. Unless otherwise specified, testing performed by [employer] [address] [place] [id number] 46 [email or web address] [facility] [employer] [facility]. [address] [place] [address] GYNECOLOGIC CYTOLOGY REPORT Accession Number: [id number] Source of Specimen(s): A: SurePath Vaginal/ Cervical/ Endocervical Pap Smear - One Vial Clinical Diagnosis and History: Date of Last Menstrual Period: None Provided Other Clinical Conditions: REFLEX TO DIGENE HPV ASSAY IF RESULTS OF THIS PAP ARE ASCUS Specimen Adequacy Satisfactory for evaluation Presence of endocervical/transformation zone component General Categorization Negative for intraepithelial lesion or malignancy Interpretation NEGATIVE FOR INTRAEPITHELIAL LESION OR MALIGNANCY Reported: 07/10/2013 Electronically Signed Out By Evelin LAWTON(ASCP) [facility], PJose LCJose L lisbeth Unless otherwise specified, testing performed by [employer] [facility] [place] [address] 47 Concerning GFR Guidelines for Americans: Normal function or mild renal disease, if clinically at risk: >/=60 mL/min Moderately decreased: 30-59 Severely decreased: 15-29 Renal failure: <15 48 Concerning GFR Guidelines: Normal function or mild renal disease, if clinically at risk: >/=60 mL/min Moderately decreased: 30-59 Severely decreased: 15-29 Renal failure: <15 Glomerular Filtration Rate (GFR) is estimated based on the MDRD equation, which assumes a steady state for creatinine as recommended by the National Kidney Disease Education Program in conjunction with the National Institutes of Health and the National Kidney Foundation. Clinical conditions in which it may be necessary to measure GFR by using clearance methods include extremes of age and body size, severe malnutrition or obesity, diseases of skeletal muscle, paraplegia or quadriplegia, vegetarian diet, rapidly changing kidney function, and calculation of the dose of potentially toxic drugs that are excreted by the kidneys. 49 Per NCEP ATP III Guidelines: Results lower than 40 mg/dL are suggestive of increased risk for coronary artery disease. Results > or=to 60 mg/dL are considered a negative risk factor. 50 Per NCEP ATP III Guidelines: Normal Population <130 Patients with medical conditions: CHD/DM Optimal: <100 Borderline high: 130-159 High: 160-189 Very high: >189 51 Unless otherwise specified, testing performed by [employer] [facility] [place] [address] 52 May indicate a current or previous infection. 53 May indicate a current or previous infection. Unless otherwise specified, testing performed by [facility] [facility] [place] [address] 54 [email or web address] [facility]. [facility] [place] [address] GYNECOLOGIC CYTOLOGY REPORT Accession Number: [id number] Source of Specimen(s): A: SurePath Vaginal/ Cervical/ Endocervical Pap Smear - One Vial Clinical Diagnosis and History: Date of Last Menstrual Period: None Provided Other Clinical Conditions: REFLEX TO DIGENE HPV ASSAY IF RESULTS OF THIS PAP ARE ASCUS Specimen Adequacy Satisfactory for evaluation Presence of endocervical/transformation zone component General Categorization Negative for intraepithelial lesion or malignancy Interpretation NEGATIVE FOR INTRAEPITHELIAL LESION OR MALIGNANCY Acute inflammatory cells Reported: 03/21/2012 Electronically Signed Out By Monica LAWTON(ASCP) [facility] Unless otherwise specified, testing [place] [address] 55 Concerning GFR Guidelines for Americans: Normal function or mild renal disease, if clinically at risk: >/=60 mL/min Moderately decreased: 30-59 Severely decreased: 15-29 Renal failure: <15 56 Concerning GFR Guidelines: Normal function or mild renal disease, if clinically at risk: >/=60 mL/min Moderately decreased: 30-59 Severely decreased: 15-29 Renal failure: <15 Glomerular Filtration Rate (GFR) is estimated based on the MDRD equation, which assumes a steady state for creatinine as recommended by the National Kidney Disease Education Program in conjunction with the National Institutes of Health and the National Kidney Foundation. Clinical conditions in which it may be necessary to measure GFR by using clearance methods include extremes of age and body size, severe malnutrition or obesity, diseases of skeletal muscle, paraplegia or quadriplegia, vegetarian diet, rapidly changing kidney function, and calculation of the dose of potentially toxic drugs that are excreted by the kidneys. 57 Laboratory [facility] [place] [address] Surgical Pathology Report Specimen(s) Received A: Right neck B: Lower left neck C: Upper left neck Clinical Diagnosis and History Gross Description Specimen A received in formalin labeled "right neck" is a 0.2 x 0.2 x 0.1 cm wrinkled harkins, polypoid skin fragment. The specimen is inked and totally submitted in one cassette. Specimen B received in formalin labeled "left lower neck" is a 0.3 x 0.3 x 0.1 cm irregular, dark brown skin fragment. The specimen is inked and totally submitted in one cassette. Specimen C received in formalin labeled "upper left neck" is a 0.3 x 0.2 x 0.2 cm. Inked and totally submitted in one cassette. (The measurements of the specimens may be less than those in vivo due to tissue shrinkage during histologic fixation and processing.) paw dme/mwg Diagnosis A) SKIN, RIGHT NECK: Compound nevus, transected at the base of excision. B) SKIN, LOWER LEFT NECK: Seborrheic keratosis with melanin pigmentation. C) SKIN, UPPER LEFT NECK: Polypoid intradermal nevus, focally transected at the base of excision. Technical component processed at [facility], Histopathology, [address] [place] [address], [facility]. Diagnosis and reporting performed at [facility], [address] [place] [address]. Reported: 12/21/2011 14:07 Electronically Signed Out By Jerrod Mcfarlane MD paw ICD9 Codes 216.9 Unless otherwise specified, testing performed by [employer] [facility] [place] [address] 58 NOTE: New reporting units and reference range effective 2010 59 Unless otherwise specified, testing performed by [employer] [facility] [place] [address] 60 Per NCEP ATP III Guidelines: Results lower than 40 mg/dL are suggestive of increased risk for coronary artery disease. Results > or=to 60 mg/dL are considered a negative risk factor. 61 Per NCEP ATP III Guidelines: Optimal: <100 Near optimal: 100-129 Borderline high: 130-159 High: 160-189 Very high: >189 62 Concerning GFR Guidelines: Normal function or mild renal disease, if clinically at risk: >/=60 mL/min Moderately decreased: 30-59 Severely decreased: 15-29 Renal failure: <15 Glomerular Filtration Rate (GFR) is estimated based on the MDRD equation, which assumes a steady state for creatinine as recommended by the National Kidney Disease Education Program in conjunction with the National Institutes of Health and the National Kidney Foundation. Clinical conditions in which it may be necessary to measure GFR by using clearance methods include extremes of age and body size, severe malnutrition or obesity, diseases of skeletal muscle, paraplegia or quadriplegia, vegetarian diet, rapidly changing kidney function, and calculation of the dose of potentially toxic drugs that are excreted by the kidneys. 63 Concerning GFR Guidelines for Americans: Normal function or mild renal disease, if clinically at risk: >/=60 mL/min Moderately decreased: 30-59 Severely decreased: 15-29 Renal failure: <15 64 [email or web address] [facility]. [address] [place] [address] GYNECOLOGIC CYTOLOGY REPORT Accession Number: [id number] Source of Specimen(s): A: SurePath Vaginal/ Cervical/ Endocervical Pap Smear - One Vial Clinical Diagnosis and History: Date of Last Menstrual Period: None Provided Other Clinical Conditions: REFLEX TO DIGENE HPV ASSAY IF RESULTS OF THIS PAP ARE ASCUS Specimen Adequacy Satisfactory for evaluation Presence of endocervical/transformation zone component General Categorization Negative for intraepithelial lesion or malignancy Interpretation NEGATIVE FOR INTRAEPITHELIAL LESION OR MALIGNANCY Acute inflammatory cells Reported: 03/17/2011 Electronically Signed Out By Monica LAWTON(ASCP) [facility] Unless otherwise specified, testing performed by [employer] [employer] [facility] [address] [address] 65 This sample is drawn by:DANNA 66 5.3 No visible hemolysis. 67 Concerning GFR Guidelines: Normal function or mild renal disease, if clinically at risk: >/=60 mL/min Moderately decreased: 30-59 Severely decreased: 15-29 Renal failure: <15 Glomerular Filtration Rate (GFR) is estimated based on the MDRD equation, which assumes a steady state for creatinine as recommended by the National Kidney Disease Education Program in conjunction with the National Institutes of Health and the National Kidney Foundation. Clinical conditions in which it may be necessary to measure GFR by using clearance methods include extremes of age and body size, severe malnutrition or obesity, diseases of skeletal muscle, paraplegia or quadriplegia, vegetarian diet, rapidly changing kidney function, and calculation of the dose of potentially toxic drugs that are excreted by the kidneys. 68 Concerning GFR Guidelines for Americans: Normal function or mild renal disease, if clinically at risk: >/=60 mL/min Moderately decreased: 30-59 Severely decreased: 15-29 Renal failure: <15 69 LABORATORY [employer] [facility]. [address] [place] [address] GYNECOLOGIC CYTOLOGY REPORT Accession Number: [id number] Source of Specimen(s): A: SurePath Vaginal/ Cervical/ Endocervical Pap Smear - One Vial Clinical Diagnosis and History: Date of Last Menstrual Period: None Provided Other Clinical Conditions: REFLEX TO DIGENE HPV ASSAY IF RESULTS OF THIS PAP ARE ASCUS Specimen Adequacy Satisfactory for evaluation Presence of endocervical/transformation zone component General Categorization Negative for intraepithelial lesion or malignancy Interpretation NEGATIVE FOR INTRAEPITHELIAL LESION OR MALIGNANCY Reported: 09/23/2009 Electronically Signed Out By Evelin LAWTON(ASCP) [facility] At [facility], Veronica bob ICD9 Code: V72.31 Unless otherwise specified, testing performed by [facility] [address] [address] 70 This sample is drawn by:RIKY. 71 The difference between the most recent result of 4.9 and the current result of 4.3 exceeds the absolute delta value of 0.5 as defined for this test. 72 Concerning GFR GUIDELINES: Normal Function or Mild Renal Disease, if clinically at risk: >/=60mL/min Moderately decreased: 30-59 Severely decreased: 15-29 Renal Failure: <15 Glomerular Filtration Rate (GFR) is estimated based on the MDRD equation, which assumes a steady state for creatinine as recommended by the National Kidney Disease Education Program in conjunction with the National Institutes of Health and the National Kidney Foundation. Clinical conditions in which it may be necessary to measure GFR by using clearance methods include extremes of age and body size, severe malnutrition or obesity, diseases of skeletal muscle, paraplegia or quadriplegia, vegetarian diet, rapidly changing kidney function, and calculation of the dose of potentially toxic drugs that are excreted by the kidneys. 73 Concerning GFR GUIDELINES: Normal Function or Mild Renal Disease, if clinically at risk: >/=60mL/min Moderately decreased: 30-59 Severely decreased: 15-29 Renal Failure: <15 74 PER NCEP ATP III GUIDELINES: RESULTS LOWER THAN 40 MG/DL ARE SUGGESTIVE OF INCREASED RISK FOR CORONARY ARTERY DISEASE. RESULTS > OR=TO 60 MG/DL ARE CONSIDERED A NEGATIVE RISK FACTOR. 75 INTERPRETATION OF CHOL-HDL RATIO CHD RISK FEMALE MALE VERY HIGH >8.3 >14.3 HIGH 5.6 - 8.3 6.7 - 14.3 AVERAGE 3.7 - 5.6 4.0 - 6.7 BELOW AVERAGE 2.5 - 3.7 2.7 - 4.0 PROTECTED <2.5 <2.7 76 PER NCEP ATP III GUIDELINES: OPTIMAL: <100 NEAR OPTIMAL: 100 - 129 BORDERLINE HIGH: 130 - 159 HIGH: 160 - 189 VERY HIGH: >189 77 This sample is drawn by:DEBORA SANTOS 78 Concerning GFR GUIDELINES: Normal Function or Mild Renal Disease, if clinically at risk: >/=60mL/min Moderately decreased: 30-59 Severely decreased: 15-29 Renal Failure: <15 Glomerular Filtration Rate (GFR) is estimated based on the MDRD equation, which assumes a steady state for creatinine as recommended by the National Kidney Disease Education Program in conjunction with the National Institutes of Health and the National Kidney Foundation. Clinical conditions in which it may be necessary to measure GFR by using clearance methods include extremes of age and body size, severe malnutrition or obesity, diseases of skeletal muscle, paraplegia or quadriplegia, vegetarian diet, rapidly changing kidney function, and calculation of the dose of potentially toxic drugs that are excreted by the kidneys. 79 Concerning GFR GUIDELINES: Normal Function or Mild Renal Disease, if clinically at risk: >/=60mL/min Moderately decreased: 30-59 Severely decreased: 15-29 Renal Failure: <15 80 This sample is drawn by:RIKY 81 The difference between the most recent result of 5.7 and the current result of 4.6 exceeds the absolute delta value of 0.5 as defined for this test. 82 Concerning GFR GUIDELINES: Normal Function or Mild Renal Disease, if clinically at risk: >/=60mL/min Moderately decreased: 30-59 Severely decreased: 15-29 Renal Failure: <15 Glomerular Filtration Rate (GFR) is estimated based on the MDRD equation, which assumes a steady state for creatinine as recommended by the National Kidney Disease Education Program in conjunction with the National Institutes of Health and the National Kidney Foundation. Clinical conditions in which it may be necessary to measure GFR by using clearance methods include extremes of age and body size, severe malnutrition or obesity, diseases of skeletal muscle, paraplegia or quadriplegia, vegetarian diet, rapidly changing kidney function, and calculation of the dose of potentially toxic drugs that are excreted by the kidneys. 83 Concerning GFR GUIDELINES: Normal Function or Mild Renal Disease, if clinically at risk: >/=60mL/min Moderately decreased: 30-59 Severely decreased: 15-29 Renal Failure: <15 84 FASTING 85 Concerning GFR GUIDELINES: Normal Function or Mild Renal Disease, if clinically at risk: >/=60mL/min Moderately decreased: 30-59 Severely decreased: 15-29 Renal Failure: <15 Glomerular Filtration Rate (GFR) is estimated based on the MDRD equation, which assumes a steady state for creatinine as recommended by the National Kidney Disease Education Program in conjunction with the National Institutes of Health and the National Kidney Foundation. Clinical conditions in which it may be necessary to measure GFR by using clearance methods include extremes of age and body size, severe malnutrition or obesity, diseases of skeletal muscle, paraplegia or quadriplegia, vegetarian diet, rapidly changing kidney function, and calculation of the dose of potentially toxic drugs that are excreted by the kidneys. 86 Concerning GFR GUIDELINES: Normal Function or Mild Renal Disease, if clinically at risk: >/=60mL/min Moderately decreased: 30-59 Severely decreased: 15-29 Renal Failure: <15 87 Concerning GFR GUIDELINES: Normal Function or Mild Renal Disease, if clinically at risk: >/=60mL/min Moderately decreased: 30-59 Severely decreased: 15-29 Renal Failure: <15 Glomerular Filtration Rate (GFR) is estimated based on the MDRD equation, which assumes a steady state for creatinine as recommended by the National Kidney Disease Education Program in conjunction with the National Institutes of Health and the National Kidney Foundation. Clinical conditions in which it may be necessary to measure GFR by using clearance methods include extremes of age and body size, severe malnutrition or obesity, diseases of skeletal muscle, paraplegia or quadriplegia, vegetarian diet, rapidly changing kidney function, and calculation of the dose of potentially toxic drugs that are excreted by the kidneys. 88 Concerning GFR GUIDELINES: Normal Function or Mild Renal Disease, if clinically at risk: >/=60mL/min Moderately decreased: 30-59 Severely decreased: 15-29 Renal Failure: <15 89 Normal Function or Mild Renal Disease, if clinically at risk: >/=60 mL/ min Moderately decreased: 30-59 Severely decreased: 15-29 Renal Failure: <15 Glomerular Filtration Rate (GFR) is estimated based on the MDRD equation, which assumes a steady state for creatinine as recommended by the National Kidney Disease Education Program in conjunction with the National Institutes of Health and the National Kidney Foundation. Clinical conditions in which it may be necessary to measure GFR by using clearance methods include extremes of age and body size, severe malnutrition or obesity, diseases of skeletal muscle, paraplegia or quadriplegia, vegetarian diet, rapidly changing kidney function, and calculation of the dose of potentially toxic drugs that are excreted by the kidneys. 90 New Method as of 03/06/02 using Third Generation TSH methodolgy New Method as of 03/04/02 using Tosoh Nexia analyzer. New Method as of 03/06/02 using Third Generation TSH methodolgy 91 New method as of 03/08/02 using Tosoh Nexia analyzer 92 PENDING 93 PENDING 94 PENDING Procedures Date CPT Code Description Status 09/03/2017 Mammogram Completed 08/30/2016 Mammogram Completed 08/15/2016 93897 Electrocardiogram Complete Completed 08/24/2015 Mammogram Completed 08/20/2015 70327 Electrocardiogram Complete Completed 08/12/2015 Colonoscopy Completed 08/13/2014 Mammogram Completed 07/07/2014 87313 Electrocardiogram Complete Completed 07/08/2013 27144 Electrocardiogram Complete Completed 06/04/2013 Mammogram Completed 04/03/2012 Mammogram Completed 03/19/2012 45669 Electrocardiogram Complete Completed 12/19/2011 37924 Excise Benign Lesion .6-1CM Completed Scalp/Neck/Hands/Feet/Genitalia 12/19/2011 71380 Shave Skin Lesion <.6CM Completed Scalp/Neck/Hands/Feet/Genitalia 12/19/2011 34643 Shave Skin Lesion <.6CM Completed Scalp/Neck/Hands/Feet/Genitalia 12/19/2011 13949 Shave Skin Lesion <.6CM Completed Scalp/Neck/Hands/Feet/Genitalia 12/19/2011 58059 Excise Benign Lesion .6-1CM Completed Scalp/Neck/Hands/Feet/Genitalia 12/19/2011 15173 Excise Benign Lesion .6-1CM Completed Scalp/Neck/Hands/Feet/Genitalia 03/27/2011 Bone Mineral Density Test Completed 03/27/2011 Mammogram Completed 03/15/2011 21884 Electrocardiogram Complete Completed 10/22/2009 Mammogram Completed 09/21/2009 59479 Electrocardiogram Complete Completed 02/17/2009 39415 Spirometry /PFT W/O Bronchodialator Completed 02/17/2009 15915 Measure Blood Oxygen Level Single Determination Completed 09/25/2008 66433 Spirometry /PFT W/O Bronchodialator Completed 03/23/2008 30725 ECG Monitor/Report W/O Superimposition Scanning Completed 03/23/2008 10161 ECG Monitor/Report W/O Superimposition Scanning Completed 03/15/2007 29085 Electrocardiogram Complete Completed 03/15/2007 70484 ECHO Complete W/O Spectral Or Color Doppler Completed 03/15/2007 84696 Doppler Echocardiography Complete Completed 03/15/2007 26313 Doppler Color Flow Velocity Mapping Completed 04/09/2006 23563 Electrocardiogram Complete Completed 05/15/2005 Colonoscopy Completed 02/13/2005 86438 Electrocardiogram Complete Completed 10/27/2003 65894 Electrocardiogram Complete Completed 10/20/2003 61140 Airway Inhalation Treatment Completed 09/08/2002 79672 Deleted Code Use 69826 Completed 02/06/2002 12257 Allergy Injection Multiple Completed 01/24/2002 09603 Deleted Code Use 58255 Completed 04/10/2000 39883 Electrocardiogram Complete Completed Encounters Type Date Location Provider CPT E/M Dx Office Visit 08/22/2017 8:40a Jillian Salas, RN [facility] [employer] [facility] 29449 F41.1 R05 K21.9 J41.1 Office Visit 02/13/2017 9:15a Anne Li MD G0402 Z00.01 F41.1 M54.2 J45.20 K21.9 M85.9 E55.9 R91.1 D84.8 Z12.31 Z12.11 Z12.2 Z87.891 L24.7 Office Visit 08/15/2016 8:30[place] [address] Z01.411 F41.1 M54.2 J45.20 K21.9 Z12.2 Z12.31 M85.9 E55.9 R53.83 I65.23 Office Visit 07/25/2016 3:00[place] [address] A08.4 Office Visit 04/04/2016 11:45[place] [address] F41.1 Z12.2 K21.9 R91.1 D84.8 Office Visit 02/18/2016 9:30[place] [address] F41.1 M54.2 D84.8 R91.1 J45.20 Z12.2 K21.9 T43.615A M79.1 E78.0 E21.0 E55.9 Office Visit 08/20/2015 11:15[place] [address] Z01.419 M54.2 J20.9 D84.8 J45.20 R91.1 Z12.31 I65.23 F41.1 E55.9 E53.8 F17.210 Office Visit 03/09/2015 8:00[place] [address] 723.1 719.40 279.3 518.89 493.10 V12.72 786.59 287.2 268.9 Office Visit 11/06/2014 9:00[place] [address] 300.02 279.3 518.89 723.1 V76.51 466.0 305.1 272.0 268.9 493.10 054.9 266.2 Office Visit 07/28/2014 2:20[place] [address] 054.9 Office Visit 07/07/2014 2:00[place] [address] V72.31 300.02 493.10 279.3 723.1 433.10 V76.51 V76.10 V73.89 733.90 V12.72 V76.0 Office Visit 06/09/2014 2:45[place] [address] 300.02 279.3 723.1 493.10 305.1 272.0 268.9 266.2 275.1 Office Visit 12/19/2013 10:15[place] [address] 723.1 433.10 435.2 279.3 305.1 Office Visit 11/25/2013 9:30[place] [address] 780.4 288.60 790.6 266.2 723.1 435.1 305.1 V73.89 272.0 Office Visit 07/08/2013 1:15[place] [address] V72.31 790.6 288.61 V76.51 V04.81 266.2 723.1 719.40 625.9 Office Visit 05/27/2013 2:15[place] [address] 723.1 719.41 268.9 305.1 530.11 V76.10 252.00 780.79 272.0 Office Visit 11/18/2012 2:15[place] [address] 487.8 595.0 Office Visit 10/25/2012 9:45[place] [address] 466.0 Office Visit 05/06/2012 2:15[place] [address] 780.79 786.51 075 796.2 Office Visit 03/19/2012 2:00p Anne Li MD 27315MD V72.31 780.79 268.9 530.11 305.1 V76.10 733.09 V76.51 786.51 Office Visit 12/19/2011 1:15[place] [address] 216.4 216.9 786.2 786.50 701.9 Office Visit 11/21/2011 2:00[place] [address] 786.2 786.50 Office Visit 09/19/2011 1:00[place] [address] 530.11 268.9 252.00 305.1 466.0 786.2 Office Visit 03/15/2011 10:30[place] [address] V72.31 268.9 252.00 305.1 530.11 300.02 V76.10 V03.82 V76.51 733.09 272.0 719.49 Office Visit 12/13/2010 2:30p Jillian Salas, RN [facility] [employer] 00979 486 786.2 305.1 272.0 Office Visit 09/21/2009 2:[place] [address] V72.31 268.9 530.11 272.0 305.1 300.02 V06.1 V76.10 719.40 V76.51 733.09 719.49 Office Visit 03/23/2009 1:30[place] [address] 300.02 305.1 530.11 Office Visit 02/24/2009 12:00p Mustapha Hayward, N.P. 79476 465.9 Office Visit 02/17/2009 1:45p Mustapha Hayward, N.P. 54898 789.9 786.2 Office Visit 12/10/2008 1:30p Jillian Salas RN [facility] 51080 461.0 788.41 Office Visit 11/24/2008 1:[place] [address] 300.02 786.09 268.9 465.9 305.1 530.11 Office Visit 09/25/2008 1:00[place] [address] 719.49 268.9 530.11 786.09 305.1 300.02 Office Visit 03/27/2008 1:00[place] [address] V72.31 427.89 272.0 305.1 786.09 V76.10 V76.51 V82.81 530.11 Office Visit 01/28/2008 1:30p Jillian Salas RN [facility] 16149 305.1 461.0 780.79 786.59 272.0 Office Visit 07/02/2007 2:[place] [address] 305.1 272.0 Office Visit 03/15/2007 8:30[place] [address] V72.31 794.31 252.00 305.1 424.0 780.79 272.0 V76.51 V76.10 Office Visit 11/13/2006 2:00[place] [address] 305.1 530.11 272.0 Office Visit 06/22/2006 1:30[place] [address] 530.11 305.1 780.79 Office Visit 04/09/2006 3:00[place] [address] 252.00 723.1 V70.0 V76.10 530.11 780.79 733.90 Office Visit 09/11/2005 4:45[place] [address] 252.00 723.1 780.52 Office Visit 02/13/2005 12:00[place] [address] 783.1 252.00 V72.31 275.42 Office Visit 01/05/2005 11:20a [facility] 97390 466.0 305.1 786.50 Office Visit 10/27/2003 1:10p [facility] 76310 780.79 V72.3 V74.5 V70.0 Office Visit 10/20/2003 11:10a [facility] 03582 466.0 461.0 Office Visit 07/21/2002 2:00[place] [address] 266.2 627.2 281.0 305.1 Office Visit 06/09/2002 3:50[place] [address] 627.2 733.00 266.2 305.1 Office Visit 04/08/2002 11:40[place] [address] 780.79 627.2 218.9 723.1 Office Visit 12/31/2001 1:00[place] [address] 281.0 723.1 Office Visit 12/13/2001 1:40[place] [address] 723.1 Office Visit 11/12/2001 11:20[place] [address] Office Visit 09/13/2001 1:20[place] [address] Office Visit 09/10/2001 1:30[place] [address] Office Visit 09/03/2001 1:00[place] [address] Office Visit 07/23/2001 2:00[place] [address] Office Visit 06/18/2001 1:00[place] [address] Office Visit 08/24/2000 3:30[place] [address] 218.9 Office Visit 07/04/2000 1:00p Romero Mosquera M.D. 44356 733.90 Office Visit 06/06/2000 1:20p Romero Mosquera M.D. 15615 252.0 Office Visit 04/10/2000 1:50[place] [address] 252.0 Plan of Care Future Appointment(s):02/20/2018 9:00 am - Jillian Lorenzana RN [facility] [employer] at [id number]/10/2017 - Anne Wisdom,MDD64.9 Anemia, qkpumlsxvdyA43.01 Acute cystitis with hematuriaNew Labs:Urine PeuitbhW58.11 Encounter for screening for malignant neoplasm of wepqkY59.9 Gastro-esophageal reflux disease without gnltgpqafkpO37.0 Acute vaginitisNew Medication:Fluconazole 150 mgNew Labs: QxuxqdN07.210 Nicotine dependence, cigarettes, [id number] Cough
--- NOTE | 2017-10-05 14:49 | RAD ---
INDICATION: Right ankle injury COMPARISON: None TECHNIQUE: AP, lateral, and oblique views were obtained. FINDINGS: The bony structures, joint spaces, and soft tissues are normal for age. IMPRESSION: NO ACUTE BONY FINDINGS.
--- NOTE | 2017-10-05 17:52 | HP ---
CC: Dr. Wisdom; Dr. Quesada; Dr. Clemens REHABILITATION ADMISSION NOTE: DATE OF ADMISSION: 10/05/17 PRIMARY CARE PROVIDER: Dr. Wisdom. ONCOLOGIST: Dr. Quesada. ORTHOPEDIST: Dr. Clemens. REASON FOR ADMISSION: Pathologic right hip fracture and multiple myeloma. HISTORY OF PRESENT ILLNESS: This is a 67-year-old woman who on 10/01/17 was pulled by her dog, which set her off balance. She fell on her right side and immediately knew that she hurt her right hip. When she was brought to the emergency room where she was found to have a right subtrochanteric fracture. She was noted to have leukocytosis, anemia and thrombocytopenia. She had already been under evaluation by Dr. Quesada for this and was due to have a bone marrow biopsy the following day. She was seen by Dr. Clemens, who felt that this appeared to be a pathologic fracture. She had prior imaging of her hip, which appeared to show a lytic lesion in the area of the fracture. She was taken to the OR on 10/03/17 after platelet and blood transfusions for ORIF of the right hip. Her precautions are weightbearing as tolerated to the right lower extremity and she has been put on Lovenox for DVT prophylaxis. Pathological testing was done and she appears to have a IgA kappa multiple myeloma. Dr. Alvarado will be signing out to Dr. Quesada, her primary oncologist. Plans are to transfuse her if her hemoglobin goes less than 8 or if the platelets are less than 10,000. She did receive a transfusion yesterday for hemoglobin 7.3 and today it is 8.5. Platelets are 76,000. Prior to admission, she was independent with all mobility and ADLs. With physical therapy, she has required a moderate amount of assistance x2 for bed mobility and transfers. With occupational therapy, she has required total assist for lower body dressing and toileting. Her Burgess catheter was removed this morning and she has not urinated yet. She has been able to eat and drink and she is tolerating pain medications with good effect. PAST MEDICAL HISTORY: COPD, hyperparathyroidism status post parathyroidectomy, depression, arthritis, recent pneumonia over the summer after which she started using nebulizers intermittently, IgA kappa multiple myeloma new diagnosis. PAST SURGICAL HISTORY: History of heart catheterization without any interventions, status post hand surgery as a child, status post tubal ligation. MEDICATIONS: 1. Cymbalta 60 mg daily. 2. Singulair 10 mg daily. 3. Vitamin D 1000 units daily. 4. Calcium carbonate 1250 mg daily. 5. Vitamin B12 1000 mcg daily. 6. Albuterol nebulizers p.r.n. 7. Tylenol p.r.n. 8. Alba 5/325 mg 1 to 2 tablets q.4 hours p.r.n. pain. 9. Flexeril 10 mg t.i.d. p.r.n. muscle spasm. 10. Colace 100 mg b.i.d. 11. Lovenox 40 mg subcutaneously q.24 hours. 12. Milk of magnesia p.r.n. 13. MiraLAX p.r.n. 14. Senna 2 tablets at bedtime. ALLERGIES: No known drug allergies. FAMILY HISTORY: Mother; COPD, kidney cancer, and heart disease. Father; cirrhosis. SOCIAL HISTORY: She lives alone. She has a 2-level home with 11 steps between levels and 2 to 4 steps to enter. She plans to live on 1 level. She quit smoking about 2 months ago after a 11-vivo-efas history. No alcohol. 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 Her healthcare proxy is her daughter Ruthie, phone number is [phone]. REVIEW OF SYSTEMS: See history of present illness and past medical history. Remaining 13-system review was completed. No other significant findings. PHYSICAL EXAMINATION GENERAL: Well developed, well nourished, appearing stated age. VITAL SIGNS: Temperature 98.0, heart rate 72, respirations 16, oxygenation 96% on room air, blood pressure 115/55. HEENT: Normocephalic, atraumatic. Oropharynx clear. She has moist mucous membranes. She has dentures above and below. NECK: Supple. No lymphadenopathy. LUNGS: Clear to auscultation bilaterally. HEART: Regular rate and rhythm. ABDOMEN: Active bowel sounds. Soft, nontender, nondistended. EXTREMITIES: No clubbing, cyanosis or edema. Her dressing is clean, dry, and intact at the right hip. MUSCULOSKELETAL: She has functional range of motion of all her major joints with limited testing of the right hip and knee during her surgery. Tender to palpation at the medial malleolus. NEUROLOGIC: Upper and lower extremity motor 5/5 bilaterally with limited testing of the right hip and knee due to her surgery. She does feel that she has weakness around her right ankle, but it does seem quite strong on manual muscle testing. She acknowledges some ankle pain since her surgery. MENTAL STATUS: No acute distress. Alert and oriented x3. LABORATORY DATA: Labs today, her hemoglobin is 8.5, hematocrit 25, white blood cell count of 36,000, platelets are 76,000. IMPRESSION: A 67-year-old woman with pathologic right hip fracture and new diagnosis of IgA kappa multiple myeloma. She will be admitted to [facility], so that she can return to independent living. PLAN: 1. Right hip fracture. Continue with dressing changes and weightbearing as tolerated. We will continue with Alba for pain control. She will follow up with Dr. Clemens. 2. IgA kappa multiple myeloma. Hematology/Oncology ongoing consultation and follow along with labs. She is to be transfused if her hemoglobin goes less than 8 or platelets less than 10,000. 3. DVT prophylaxis. Continue with Lovenox. She will need to learn how to do self- injection. 4. Chronic obstructive pulmonary disease. Continue with albuterol p.r.n. Incentive spirometer. 5. Right ankle pain. I do not see that this has been imaged during her stay. I will order right ankle x-ray. 6. Depression. Continue Cymbalta. 7. Impaired mobility. She will be seen by Physical Therapy for bed mobility, transfer and gait training as well as stair training using rolling walker. 8. Impaired self-care. She will be seen by Occupational Therapy for ADL and IADL training with equipment evaluation. 9. Advanced directives. She is a full code. Her daughter Ruthie is her healthcare proxy, phone number [phone]. 10. Estimated length of stay, 2 to 3 weeks. The patient will be discussed in the interdisciplinary plan of care meeting tomorrow. [id number]/[facility] #: [id number] SHONNA
[2017-10-05] MEDS: Enoxaparin(*) 40 MG/0.4 ML SYR SUBCUT SCH (18:07)
[2017-10-05] MEDS: Docusate CAP* 100 MG PO SCH (20:28)
[2017-10-05] MEDS: Senna TAB PO SCH (20:28)
[2017-10-06] MEDS: HYDROcodone/ACETAMIN 5-325 MG* 1 TAB PO PRN ×4 (03:40→20:04)
[2017-10-06 07:17] LABS: Hemoglobin 8.8 g/dl (12.0-16.0); Red Cell Distribution Width 17 % (10.5-15)
[2017-10-06 07:20] LABS: Hematocrit 26 % (35-47); Mean Corpuscular HGB Conc 34 g/dl (31-36); Mean Corpuscular Hemoglobin 30 pg (27-31); Mean Corpuscular Volume 88 fL (80-97); Mean Platelet Volume 8 um3 (7.4-10.4); Platelet Count 71 10^3/ul (150-450); Red Blood Count 2.92 10^6/ul (4.0-5.4); White Blood Count 31.3 10^3/ul (3.5-10.8)
[2017-10-06 07:32] LABS: EGFR Non-African American 62.8 (>60)
[2017-10-06 08:37] LABS: Monocytes % 6 % (0-13)
[2017-10-06 08:38] LABS: ABS Lymphocytes 19.1 10^3/ul (1.0-4.8); ABS Neutrophils 9.1 10^3/ul (1.5-7.7)
[2017-10-06 08:39] LABS: ABS Basophils 0 10^3/ul (0-0.2); ABS Monocytes 1.9 10^3/ul (0-0.8); ABS Nucleated RBC 0.03 10^3/ul
[2017-10-06 08:40] LABS: ABS Eosinophils 1.2 10^3/ul (0-0.6)
[2017-10-06] MEDS: Calcium Carbonate TAB* 1250 MG (CALCIUM 500 MG) PO SCH (09:24)
[2017-10-06] MEDS: Docusate CAP* 100 MG PO SCH ×2 (09:24→20:04)
[2017-10-06] MEDS: Montelukast Sodium TAB* 10 MG PO SCH (09:24)
[2017-10-06] MEDS: DULoxetine DR CAP* 30 MG CAP.DR PO SCH (09:25)
[2017-10-06] MEDS: Cyanocobalamin TAB* 500 MCG PO SCH (09:25)
[2017-10-06] MEDS: Cholecalciferol TAB* 1000 UNITS PO SCH (09:25)
[2017-10-06] MEDS: Polyethylene Glycol 3350* 17 GM PACKET PO SCH (09:35)
--- NOTE | 2017-10-06 12:20 | PN ---
Progress Note - Progress Note Date of Service: 10/06/17 Note: No new concerns overnight. Nursing notes reviewed. I reviewed evaluations verbally with PT and OT. No chest pain, shortness of breath or abdominal pain. Acetaminophen (Tylenol Tab*) 650 mg PO Q6H PRN PRN Reason: FEVER > 101 Hydrocodone Bitart/Acetaminophen ([place] 5-325 Tab*) 1 tab PO Q4H PRN PRN Reason: PAIN Last Admin: 10/06/17 03:40 Dose: 1 tab Hydrocodone Bitart/Acetaminophen ([place] 5-325 Tab*) 2 tab PO Q4H PRN PRN Reason: PAIN Last Admin: 10/06/17 09:40 Dose: 2 tab Al Hydrox/Mg Hydrox/Simethicone (Maalox Plus*) 30 ml PO Q6H PRN PRN Reason: INDIGESTION Albuterol (Ventolin 2.5 Mg/3 Ml Neb.Nataly*) 2.5 mg INH Q2H PRN PRN Reason: SOB/WHEEZING Bisacodyl (Dulcolax Supp*) 10 mg [place] DAILY PRN PRN Reason: CONSTIPATION Calcium Carbonate (Calcium Carbonate Tab*) 1,250 mg PO DAILY [facility] Last Admin: 10/06/17 09:24 Dose: 1,250 mg Cholecalciferol (Vitamin D Tab*) 1,000 units PO DAILY [facility] Last Admin: 10/06/17 09:25 Dose: 1,000 units Cyanocobalamin (Vitamin B12 Tab*) 1,000 mcg PO DAILY [facility] Last Admin: 10/06/17 09:25 Dose: 1,000 mcg Cyclobenzaprine HCl (Flexeril Tab*) 10 mg PO TID PRN PRN Reason: muscle spasm Last Admin: 10/05/17 20:28 Dose: 10 mg Docusate Sodium (Colace Cap*) 100 mg PO BID [facility] Last Admin: 10/06/17 09:24 Dose: 100 mg Duloxetine HCl (Cymbalta Cap*) 60 mg PO DAILY [facility] Last Admin: 10/06/17 09:25 Dose: 60 mg Enoxaparin Sodium (Lovenox(*)) 40 mg SUBCUT Q24H [facility] Last Admin: 10/05/17 18:07 Dose: 40 mg Magnesium Hydroxide (Milk Of Magnesia Liq*) 30 ml PO Q6H PRN PRN Reason: CONSTIPATION Montelukast Sodium (Singulair Tab*) 10 mg PO DAILY [facility] Last Admin: 10/06/17 09:24 Dose: 10 mg Polyethylene Glycol/Electrolytes (Miralax*) 17 gm PO DAILY [facility] Last Admin: 10/06/17 09:35 Dose: 17 gm Senna (Senokot Tab*) 2 tab PO BEDTIME [facility] Last Admin: 10/05/17 20:28 Dose: 2 tab Vital Signs 10/05/17 10/05/17 10/05/17 14:00 14:07 14:24 Temperature 97.8 F 97.8 F Pulse Rate 67 73 Respiratory 15 15 Rate Blood Pressure 112/54 112/54 (mmHg) O2 Sat by Pulse 94 94 94 Oximetry 10/05/17 10/05/17 10/05/17 15:47 20:28 22:17 Temperature 97.6 F Pulse Rate 73 Respiratory 20 18 16 Rate Blood Pressure 105/52 (mmHg) O2 Sat by Pulse 94 Oximetry 10/06/17 10/06/17 10/06/17 00:01 03:40 05:52 Temperature 98.5 F 98.5 F Pulse Rate 81 69 Respiratory 18 20 16 Rate Blood Pressure 124/60 110/56 (mmHg) O2 Sat by Pulse 95 95 Oximetry 10/06/17 10/06/17 10/06/17 08:00 09:40 10:31 Temperature Pulse Rate Respiratory 18 18 18 Rate Blood Pressure (mmHg) O2 Sat by Pulse 95 Oximetry PE: GEN: no acute distress. alert and appropriate. LUNGS: clear to auscultation bilaterally. CV: regular rate and rhythm ABD: +bs, soft, non-tender, non-distended. EXT: no edema Laboratory Results - last 24 hr 10/06/17 10/06/17 07:10 07:10 WBC 31.3 H RBC 2.92 L Hgb 8.8 L Hct 26 L MCV 88 MCH 30 MCHC 34 RDW 17 H Plt Count 71 L MPV 8 Absolute Neuts (auto) 9.1 H Absolute Lymphs (auto) 19.1 H Absolute Monos (auto) 1.9 H Absolute Eos (auto) 1.2 H Absolute Basos (auto) 0 Absolute Nucleated RBC 0.03 Neutrophils % 29 L Lymphocytes % 32 Reactive Lymphs % 29 H Monocytes % 6 Eosinophils % 4 Nucleated RBCs/100 WBC 1 H Differential Comment Plasma cell Normal RBC Morphology Not Reportable Sodium 133 Potassium 4.3 Chloride 97 L Carbon Dioxide 27 Anion Gap 9 BUN 24 Creatinine 0.90 Est GFR ( Amer) 80.8 Est GFR (Non-Af Amer) 62.8 BUN/Creatinine Ratio 26.7 H Glucose 101 H Calcium 9.8 Total Bilirubin 0.70 AST 17 ALT 8 Alkaline Phosphatase 73 Total Protein 8.2 Albumin 2.6 L Globulin 5.6 H Albumin/Globulin Ratio 0.5 L Monoscreen Cancelled X-ray right ankle 10/05/17 - no fracture IMPRESSION/PLAN: 67yo woman with new diagnosis of IgA kappa multiple myeloma and right hip fracture, pathologic after fall. #Right hip fracture s/p ORIF: f/u with Dr. Clemens. WBAT. [place] for pain. #Multiple myeloma: Oncology f/u with Dr. Quesada. Unclear if will start any medication while on rehab. Per Dr. Alvarado transfuse for Hgb<8 or Plts<10K. #COPD: IS and prn albuterol nebs #Right ankle pain: x-ray negative for fracture on 10/05/17. Local care as needed. #Depression: cymbalta #DVT ppx: sc lovenox. She will do self-injections at home. Teach prior to d/c. #continue PT/OT for modified independent goals. IPOC today. #Advanced directives: full code. hcp is daughter Ruthie [phone] #Estimated d/c 10/19/17.
--- NOTE | 2017-10-06 12:25 | PMRUTEAM ---
PMRU: Goals Current Status: Nursing: Current Status Skin Deviations [Bilateral Arm Other ] Skin Deviations [Right Hip] Incision Skin Deviation Description [ Small red patches around bilateral IV sites Bilateral Arm] Skin Deviation Description [ drsg in place Right Hip] Physical Therapy: Current Status Bed Mobility Assistance min A Transfer Moblility Assistance min A Ambulation Assistance min A few steps Ambulation Assistive Devices Rolling Walker OCCUPATIONAL THERAPY CURRENT STATUS: supervision upper body dressing; mod A lower body dressing; bath min A; toilet min A; functional transfer mod A. Rec Therapy: Current Status Summary of Assessment and Pt. was open to conversation - states she enjoys Clinical Impression her life and engages in leisure activities as much as she can. Pt. had leisure activities in her room and was open to continued leisure visits. Treatment Goals Pt. will engage in leisure activities while on the unit. Treatment Plan Provide RT services and encourage involvement. Social Work: Current Status Discharge Plan return home with home care svs and family support Potential for Family Training pt's family are involved and supportive Anticipated Discharge Home Destination Discharge With home care svs and family support Goals: Social Work: Goals Discharge Plan return home with home care svs and family support Potential for Family Training pt's family are involved and supportive Anticipated Discharge Home Destination Discharge With home care svs and family support PHYSICAL THERAPY INITIAL GOALS: Independent bed mobility, transfers with a walker, ambulation 150ft with a walker and 5 stairs with 2 rails. OCCUPATIONAL THERAPY INITIAL GOALS: modified independent dressing, bathing, toileting with adaptive equipment and rolling walker. Modified independent simple meal prep. Care Plan: See nursing notes. Medicine Note: Length of Stay: [2 weeks] Anticipated Discharge Destination: Home Tentative Discharge Date: [10/19/17] Discharged to: [home]
[2017-10-06] MEDS: Enoxaparin(*) 40 MG/0.4 ML SYR SUBCUT SCH (16:57)
[2017-10-06] MEDS: Senna TAB PO SCH (20:03)
[2017-10-07] MEDS: HYDROcodone/ACETAMIN 5-325 MG* 1 TAB PO PRN ×5 (04:34→21:29)
[2017-10-07] MEDS: Cyanocobalamin TAB* 500 MCG PO SCH (08:34)
[2017-10-07] MEDS: Montelukast Sodium TAB* 10 MG PO SCH (08:35)
[2017-10-07] MEDS: DULoxetine DR CAP* 30 MG CAP.DR PO SCH (08:35)
[2017-10-07] MEDS: Calcium Carbonate TAB* 1250 MG (CALCIUM 500 MG) PO SCH (08:35)
[2017-10-07] MEDS: Cholecalciferol TAB* 1000 UNITS PO SCH (08:35)
[2017-10-07] MEDS: Docusate CAP* 100 MG PO SCH ×2 (08:35→21:29)
[2017-10-07] MEDS: Polyethylene Glycol 3350* 17 GM PACKET PO SCH (08:44)
--- NOTE | 2017-10-07 10:44 | PN ---
Progress Note - Progress Note Date of Service: 10/07/17 Note: No new issues overnight. Nursing and therapy note reviewed. No chest pain, shortness of breath or abdominal pain. Right medial ankle still sensitive to touch. It does not bother much with wt bearing however. Acetaminophen (Tylenol Tab*) 650 mg PO Q6H PRN PRN Reason: FEVER > 101 Hydrocodone Bitart/Acetaminophen ([place] 5-325 Tab*) 1 tab PO Q4H PRN PRN Reason: PAIN Last Admin: 10/06/17 20:04 Dose: 1 tab Hydrocodone Bitart/Acetaminophen ([place] 5-325 Tab*) 2 tab PO Q4H PRN PRN Reason: PAIN Last Admin: 10/07/17 08:35 Dose: 2 tab Al Hydrox/Mg Hydrox/Simethicone (Maalox Plus*) 30 ml PO Q6H PRN PRN Reason: INDIGESTION Albuterol (Ventolin 2.5 Mg/3 Ml Neb.Nataly*) 2.5 mg INH Q2H PRN PRN Reason: SOB/WHEEZING Bisacodyl (Dulcolax Supp*) 10 mg [place] DAILY PRN PRN Reason: CONSTIPATION Calcium Carbonate (Calcium Carbonate Tab*) 1,250 mg PO DAILY [facility] Last Admin: 10/07/17 08:35 Dose: 1,250 mg Cholecalciferol (Vitamin D Tab*) 1,000 units PO DAILY [facility] Last Admin: 10/07/17 08:35 Dose: 1,000 units Cyanocobalamin (Vitamin B12 Tab*) 1,000 mcg PO DAILY [facility] Last Admin: 10/07/17 08:34 Dose: 1,000 mcg Cyclobenzaprine HCl (Flexeril Tab*) 10 mg PO TID PRN PRN Reason: muscle spasm Last Admin: 10/05/17 20:28 Dose: 10 mg Docusate Sodium (Colace Cap*) 100 mg PO BID [facility] Last Admin: 10/07/17 08:35 Dose: 100 mg Duloxetine HCl (Cymbalta Cap*) 60 mg PO DAILY [facility] Last Admin: 10/07/17 08:35 Dose: 60 mg Enoxaparin Sodium (Lovenox(*)) 40 mg SUBCUT Q24H [facility] Last Admin: 10/06/17 16:57 Dose: 40 mg Magnesium Hydroxide (Milk Of Magnesia Liq*) 30 ml PO Q6H PRN PRN Reason: CONSTIPATION Last Admin: 10/06/17 14:08 Dose: 30 ml Montelukast Sodium (Singulair Tab*) 10 mg PO DAILY [facility] Last Admin: 10/07/17 08:35 Dose: 10 mg Polyethylene Glycol/Electrolytes (Miralax*) 17 gm PO DAILY [facility] Last Admin: 10/07/17 08:44 Dose: Not Given Senna (Senokot Tab*) 2 tab PO BEDTIME [facility] Last Admin: 10/06/17 20:03 Dose: 2 tab Vital Signs 10/06/17 10/06/17 10/06/17 15:07 15:08 15:09 Temperature Pulse Rate Respiratory 18 18 18 Rate Blood Pressure (mmHg) O2 Sat by Pulse Oximetry 10/06/17 10/06/17 10/06/17 15:53 17:32 18:08 Temperature 98.0 F Pulse Rate 78 Respiratory 16 18 18 Rate Blood Pressure 112/54 (mmHg) O2 Sat by Pulse 94 Oximetry 10/06/17 10/06/17 10/06/17 20:04 21:59 23:44 Temperature 98.2 F Pulse Rate 77 Respiratory 16 16 18 Rate Blood Pressure 115/58 (mmHg) O2 Sat by Pulse 97 Oximetry 10/07/17 10/07/17 10/07/17 04:34 04:46 06:25 Temperature 97.9 F Pulse Rate 76 Respiratory 18 18 16 Rate Blood Pressure 112/58 (mmHg) O2 Sat by Pulse 95 Oximetry 10/07/17 10/07/17 08:00 08:35 Temperature Pulse Rate Respiratory 16 Rate Blood Pressure (mmHg) O2 Sat by Pulse 95 Oximetry PE: GEN: no acute distress. alert and appropriate. LUNGS: clear to auscultation bilaterally. CV: regular rate and rhythm ABD: +bs, soft, non-tender, non-distended. EXT: no edema. sensitive to touch at right medial malleolus, but no pain with ankle ROM. No erythema or swelling. X-ray right ankle 10/05/17 - no fracture IMPRESSION/PLAN: 67yo woman with new diagnosis of IgA kappa multiple myeloma and right hip fracture, pathologic after fall. #Right hip fracture s/p ORIF: f/u with Dr. Clemens. WBAT. [place] for pain. #Multiple myeloma: Oncology f/u with Dr. Quesada. Unclear if will start any medication while on rehab. Per Dr. Alvarado transfuse for Hgb<8 or Plts<10K. #COPD: IS and prn albuterol nebs #Right ankle pain: x-ray negative for fracture on 10/05/17. Possibly bruised during fall. Does not look like gout. Local supportive care as needed. #Depression: cymbalta #DVT ppx: sc lovenox. She will do self-injections at home. Teach prior to d/c. #continue PT/OT for modified independent goals. IPOC today. #Advanced directives: full code. hcp is daughter Ruthie [phone] #Estimated d/c 10/19/17.
[2017-10-07] MEDS: Enoxaparin(*) 40 MG/0.4 ML SYR SUBCUT SCH (16:33)
[2017-10-07] MEDS: Senna TAB PO SCH (21:30)
[2017-10-08 06:25] LABS: Hematocrit 24 % (35-47); Mean Corpuscular HGB Conc 33 g/dl (31-36); Mean Corpuscular Hemoglobin 30 pg (27-31); Mean Corpuscular Volume 90 fL (80-97); Mean Platelet Volume 7 um3 (7.4-10.4); Platelet Count 65 10^3/ul (150-450); Red Blood Count 2.71 10^6/ul (4.0-5.4); Red Cell Distribution Width 17 % (10.5-15); White Blood Count 40.1 10^3/ul (3.5-10.8)
[2017-10-08 06:31] LABS: EGFR Non-African American 66.2 (>60)
[2017-10-08 07:01] LABS: Monocytes % 2 % (0-13)
[2017-10-08 07:06] LABS: ABS Basophils 0 10^3/ul (0-0.2); ABS Lymphocytes 34.5 10^3/ul (1.0-4.8); ABS Monocytes 0.8 10^3/ul (0-0.8); ABS Neutrophils 4.4 10^3/ul (1.5-7.7); ABS Nucleated RBC 0 10^3/ul
[2017-10-08 07:07] LABS: ABS Eosinophils 0.4 10^3/ul (0-0.6)
[2017-10-08] MEDS: DULoxetine DR CAP* 30 MG CAP.DR PO SCH (09:10)
[2017-10-08] MEDS: Montelukast Sodium TAB* 10 MG PO SCH (09:10)
[2017-10-08] MEDS: HYDROcodone/ACETAMIN 5-325 MG* 1 TAB PO PRN ×2 (09:10→21:07)
[2017-10-08] MEDS: Cyanocobalamin TAB* 500 MCG PO SCH (09:10)
[2017-10-08] MEDS: Calcium Carbonate TAB* 1250 MG (CALCIUM 500 MG) PO SCH (09:10)
[2017-10-08] MEDS: Cholecalciferol TAB* 1000 UNITS PO SCH (09:10)
[2017-10-08] MEDS: Docusate CAP* 100 MG PO SCH ×2 (09:10→21:07)
[2017-10-08] MEDS: Polyethylene Glycol 3350* 17 GM PACKET PO SCH (09:11)
--- NOTE | 2017-10-08 09:23 | PN ---
Progress Note - Progress Note Date of Service: 10/08/17 Note: No new issues overnight. Nursing and therapy note reviewed. No chest pain, shortness of breath or abdominal pain. Right medial ankle still sensitive to touch. It does not bother much with wt bearing however. Acetaminophen (Tylenol Tab*) 650 mg PO Q6H PRN PRN Reason: FEVER > 101 Hydrocodone Bitart/Acetaminophen ([place] 5-325 Tab*) 1 tab PO Q4H PRN PRN Reason: PAIN Last Admin: 10/06/17 20:04 Dose: 1 tab Hydrocodone Bitart/Acetaminophen ([place] 5-325 Tab*) 2 tab PO Q4H PRN PRN Reason: PAIN Last Admin: 10/08/17 09:10 Dose: 2 tab Al Hydrox/Mg Hydrox/Simethicone (Maalox Plus*) 30 ml PO Q6H PRN PRN Reason: INDIGESTION Albuterol (Ventolin 2.5 Mg/3 Ml Neb.Nataly*) 2.5 mg INH Q2H PRN PRN Reason: SOB/WHEEZING Bisacodyl (Dulcolax Supp*) 10 mg [place] DAILY PRN PRN Reason: CONSTIPATION Calcium Carbonate (Calcium Carbonate Tab*) 1,250 mg PO DAILY [facility] Last Admin: 10/08/17 09:10 Dose: 1,250 mg Cholecalciferol (Vitamin D Tab*) 1,000 units PO DAILY [facility] Last Admin: 10/08/17 09:10 Dose: 1,000 units Cyanocobalamin (Vitamin B12 Tab*) 1,000 mcg PO DAILY [facility] Last Admin: 10/08/17 09:10 Dose: 1,000 mcg Cyclobenzaprine HCl (Flexeril Tab*) 10 mg PO TID PRN PRN Reason: muscle spasm Last Admin: 10/05/17 20:28 Dose: 10 mg Docusate Sodium (Colace Cap*) 100 mg PO BID [facility] Last Admin: 10/08/17 09:10 Dose: 100 mg Duloxetine HCl (Cymbalta Cap*) 60 mg PO DAILY [facility] Last Admin: 10/08/17 09:10 Dose: 60 mg Enoxaparin Sodium (Lovenox(*)) 40 mg SUBCUT Q24H [facility] Last Admin: 10/07/17 16:33 Dose: 40 mg Magnesium Hydroxide (Milk Of Magnesia Liq*) 30 ml PO Q6H PRN PRN Reason: CONSTIPATION Last Admin: 10/06/17 14:08 Dose: 30 ml Montelukast Sodium (Singulair Tab*) 10 mg PO DAILY [facility] Last Admin: 10/08/17 09:10 Dose: 10 mg Polyethylene Glycol/Electrolytes (Miralax*) 17 gm PO DAILY [facility] Last Admin: 10/08/17 09:11 Dose: 17 gm Senna (Senokot Tab*) 2 tab PO BEDTIME [facility] Last Admin: 10/07/17 21:30 Dose: 2 tab Vital Signs 10/07/17 10/07/17 10/07/17 12:27 12:29 14:10 Temperature Pulse Rate Respiratory 16 16 16 Rate Blood Pressure (mmHg) O2 Sat by Pulse Oximetry 10/07/17 10/07/17 10/07/17 15:24 16:32 21:29 Temperature 97.7 F Pulse Rate 79 Respiratory 16 16 18 Rate Blood Pressure 123/50 (mmHg) O2 Sat by Pulse 96 Oximetry 10/07/17 10/07/17 10/08/17 21:30 23:15 06:26 Temperature 98.1 F Pulse Rate 75 Respiratory 16 16 18 Rate Blood Pressure 111/52 (mmHg) O2 Sat by Pulse 96 Oximetry 10/08/17 09:10 Temperature Pulse Rate Respiratory 18 Rate Blood Pressure (mmHg) O2 Sat by Pulse Oximetry PE: GEN: no acute distress. alert and appropriate. LUNGS: clear to auscultation bilaterally. CV: regular rate and rhythm ABD: +bs, soft, non-tender, non-distended. EXT: no edema. Right hip dressing c/d/i. Laboratory Results - last 24 hr 10/08/17 10/08/17 06:08 06:08 WBC 40.1 H RBC 2.71 L Hgb 8.0 L Hct 24 L MCV 90 MCH 30 MCHC 33 RDW 17 H Plt Count 65 L MPV 7 L Absolute Neuts (auto) 4.4 Absolute Lymphs (auto) 34.5 H Absolute Monos (auto) 0.8 Absolute Eos (auto) 0.4 Absolute Basos (auto) 0 Absolute Nucleated RBC 0 Neutrophils % 11 L Lymphocytes % 49 H Reactive Lymphs % 37 H D Monocytes % 2 Eosinophils % 1 Differential Comment Plasma cell Normal RBC Morphology Not Reportable Hypochromasia 1+ Sodium 132 L Potassium 4.2 Chloride 96 L Carbon Dioxide 30 Anion Gap 6 BUN 19 Creatinine 0.86 Est GFR ( Amer) 85.2 Est GFR (Non-Af Amer) 66.2 BUN/Creatinine Ratio 22.1 H Glucose 131 H Calcium 9.8 Total Bilirubin 0.50 AST 36 ALT 27 Alkaline Phosphatase 95 Total Protein 8.0 Albumin 2.5 L Globulin 5.5 H Albumin/Globulin Ratio 0.5 L Monoscreen Cancelled X-ray right ankle 10/05/17 - no fracture IMPRESSION/PLAN: 67yo woman with new diagnosis of IgA kappa multiple myeloma and right hip fracture, pathologic after fall. #Right hip fracture s/p ORIF: f/u with Dr. Clemens. WBAT. [place] for pain. #Multiple myeloma: Oncology f/u with Dr. Quesada. I reviewed labs with him this morning. He will see her tomorrow. Repeat labs Sunday. Unclear if will start any medication while on rehab. Per Dr. Alvarado transfuse for Hgb<8 or Plts< 10K. #COPD: IS and prn albuterol nebs #Right ankle pain: x-ray negative for fracture on 10/05/17. Possibly bruised during fall. Local supportive care as needed. #Depression: cymbalta #DVT ppx: sc lovenox. She will do self-injections at home. Teach prior to d/c. #continue PT/OT for modified independent goals. #Advanced directives: full code. hcp is daughter Ruthie [phone] #Estimated d/c 10/19/17.
[2017-10-08] MEDS: Enoxaparin(*) 40 MG/0.4 ML SYR SUBCUT SCH (17:17)
[2017-10-08] MEDS: Senna TAB PO SCH (21:07)
[2017-10-09] MEDS: HYDROcodone/ACETAMIN 5-325 MG* 1 TAB PO PRN ×4 (03:14→17:34)
[2017-10-09] MEDS: Cholecalciferol TAB* 1000 UNITS PO SCH (08:16)
[2017-10-09] MEDS: DULoxetine DR CAP* 30 MG CAP.DR PO SCH (08:16)
[2017-10-09] MEDS: Docusate CAP* 100 MG PO SCH ×2 (08:16→19:51)
[2017-10-09] MEDS: Cyanocobalamin TAB* 500 MCG PO SCH (08:16)
[2017-10-09] MEDS: Polyethylene Glycol 3350* 17 GM PACKET PO SCH (08:16)
[2017-10-09] MEDS: Montelukast Sodium TAB* 10 MG PO SCH (08:16)
[2017-10-09] MEDS: Calcium Carbonate TAB* 1250 MG (CALCIUM 500 MG) PO SCH (08:16)
--- NOTE | 2017-10-09 10:01 | PN ---
Progress Note - Progress Note Date of Service: 10/09/17 Note: No new issues overnight. Nursing and therapy notes reviewed. No chest pain, shortness of breath or abdominal pain. Right medial ankle still sensitive to touch. It does not bother much with wt bearing however. Today also notes some right knee clicking and discomfort. Acetaminophen (Tylenol Tab*) 650 mg PO Q6H PRN PRN Reason: FEVER > 101 Hydrocodone Bitart/Acetaminophen ([place] 5-325 Tab*) 1 tab PO Q4H PRN PRN Reason: PAIN Last Admin: 10/08/17 21:07 Dose: 1 tab Hydrocodone Bitart/Acetaminophen ([place] 5-325 Tab*) 2 tab PO Q4H PRN PRN Reason: PAIN Last Admin: 10/09/17 08:17 Dose: 2 tab Al Hydrox/Mg Hydrox/Simethicone (Maalox Plus*) 30 ml PO Q6H PRN PRN Reason: INDIGESTION Albuterol (Ventolin 2.5 Mg/3 Ml Neb.Nataly*) 2.5 mg INH Q2H PRN PRN Reason: SOB/WHEEZING Bisacodyl (Dulcolax Supp*) 10 mg [place] DAILY PRN PRN Reason: CONSTIPATION Calcium Carbonate (Calcium Carbonate Tab*) 1,250 mg PO DAILY [facility] Last Admin: 10/09/17 08:16 Dose: 1,250 mg Cholecalciferol (Vitamin D Tab*) 1,000 units PO DAILY [facility] Last Admin: 10/09/17 08:16 Dose: 1,000 units Cyanocobalamin (Vitamin B12 Tab*) 1,000 mcg PO DAILY [facility] Last Admin: 10/09/17 08:16 Dose: 1,000 mcg Cyclobenzaprine HCl (Flexeril Tab*) 10 mg PO TID PRN PRN Reason: muscle spasm Last Admin: 10/05/17 20:28 Dose: 10 mg Docusate Sodium (Colace Cap*) 100 mg PO BID [facility] Last Admin: 10/09/17 08:16 Dose: 100 mg Duloxetine HCl (Cymbalta Cap*) 60 mg PO DAILY [facility] Last Admin: 10/09/17 08:16 Dose: 60 mg Enoxaparin Sodium (Lovenox(*)) 40 mg SUBCUT Q24H [facility] Last Admin: 10/08/17 17:17 Dose: 40 mg Magnesium Hydroxide (Milk Of Magnesia Liq*) 30 ml PO Q6H PRN PRN Reason: CONSTIPATION Last Admin: 10/06/17 14:08 Dose: 30 ml Montelukast Sodium (Singulair Tab*) 10 mg PO DAILY [facility] Last Admin: 10/09/17 08:16 Dose: 10 mg Polyethylene Glycol/Electrolytes (Miralax*) 17 gm PO DAILY [facility] Last Admin: 10/09/17 08:16 Dose: 17 gm Senna (Senokot Tab*) 2 tab PO BEDTIME [facility] Last Admin: 10/08/17 21:07 Dose: 2 tab Vital Signs 10/08/17 10/08/17 10/08/17 10:42 15:46 16:11 Temperature 98.3 F Pulse Rate 77 Respiratory 16 22 Rate Blood Pressure 118/57 (mmHg) O2 Sat by Pulse 94 94 Oximetry 10/08/17 10/08/17 10/09/17 21:07 23:07 03:14 Temperature Pulse Rate Respiratory 18 18 18 Rate Blood Pressure (mmHg) O2 Sat by Pulse Oximetry 10/09/17 10/09/17 10/09/17 05:13 05:14 08:17 Temperature 97.5 F Pulse Rate 75 Respiratory 18 18 18 Rate Blood Pressure 108/45 (mmHg) O2 Sat by Pulse 97 Oximetry 10/09/17 08:29 Temperature Pulse Rate Respiratory Rate Blood Pressure (mmHg) O2 Sat by Pulse 97 Oximetry PE: GEN: no acute distress. alert and appropriate. LUNGS: clear to auscultation bilaterally. CV: regular rate and rhythm ABD: +bs, soft, non-tender, non-distended. EXT: Right thigh, leg and foot edema. Right hip dressing c/d/i. X-ray right ankle 10/05/17 - no fracture IMPRESSION/PLAN: 67yo woman with new diagnosis of IgA kappa multiple myeloma and right hip fracture, pathologic after fall. #Right hip fracture s/p ORIF: f/u with Dr. Clemens. WBAT. [place] for pain. #Right leg edema: Venous dopper RLE. #Right knee discomfort: X-ray right knee. #Multiple myeloma: Oncology f/u with Dr. Quesada. Repeat labs Sunday. Unclear if will start any medication while on rehab. Per Dr. Alvarado transfuse for Hgb<8 or Plts<10K. #COPD: IS and prn albuterol nebs #Right ankle pain: x-ray negative for fracture on 10/05/17. Possibly bruised during fall. Local supportive care as needed. #Depression: cymbalta #DVT ppx: sc lovenox. She will do self-injections at home. Teach prior to d/c. #continue PT/OT for modified independent goals. #Advanced directives: full code. hcp is daughter Ruthie [phone] #Estimated d/c 10/19/17.
--- NOTE | 2017-10-09 11:59 | RAD ---
Indication: Right knee pain. 2 views of the right knee demonstrates no fracture. Intramedullary enrike is in place in the femur. No joint effusion is noted. IMPRESSION: Intramedullary enrike in the right femur. No fracture is noted.
--- NOTE | 2017-10-09 12:28 | PMRUTEAM ---
PMRU: Goals Current Status: Nursing: Current Status Skin Deviations [R lateral Incision thigh and knee] Skin Deviations [Bilateral Arm Other ] Skin Deviations [Right Hip] Incision Skin Deviation Description [R drsgs intact lateral thigh and knee] Skin Deviation Description [ Small red patches around bilateral IV sites Bilateral Arm] Skin Deviation Description [ drsgs intact Right Hip] Physical Therapy: Current Status Bed Mobility Assistance Supervision,Min Assist Transfer Moblility Assistance Supervision Transfer/Bed Mobility Rolling Walker Recommended Devices Transfer Mobility Comment Pt. able to sit to stand and SPT with 2 w/w S x 1. Ambulation Assistance Supervision Ambulation Assistive Devices Rolling Walker Number of Feet Patient 20 Ambulated Ambulation Comment Antalgic step to type gait. Stairs Assistance Not Tested Occupational Therapy: Current Status Upper Body Dressing Supervision Lower Body Dressing Contact Guard Assist Bathing Contact Guard Assist Toileting Contact Guard Assist Toilet Transfer Contact Guard Assist Shower Transfer Contact Guard Assist Eating Ind with Adaptive Equip Rec Therapy: Current Status Summary of Assessment and RT assessment complete and pt. is aware of RT Clinical Impression services. Pt. has been pleasant, cooperative, and engaged in leisure visits. Treatment Goals Pt. will engage in leisure activities while on the unit. Treatment Plan Provide RT services and encourage involvement. Social Work: Current Status Discharge Plan return home with home care svs and family support Potential for Family Training pt's family are involved and supportive Anticipated Discharge Home Destination Discharge With home care svs and family support Goals: Physical Therapy: Initial Goals Bed Mobility Assistance Independent Transfer Mobility Assistance Independent Transfer/Bed Mobility Rolling Walker Recommended Devices Ambulation Independent Ambulation Recommended Devices Rolling Walker Ambulation Distance 150 Stairs Assistance Independent Stair Recommended Devices Two Rails Number of Stairs 5 Occupational Therapy: Initial Goals Goals to be Completed in (Days 14 days ) Upper Body Bathing Routine Modified Independent with Lower Body Bathing Routine Modified Independent with Upper Body Dressing Routine Independent Lower Body Dressing Routine Modified Independent with Toilet Hygeine and Clothing Modified Independent with Management Routine Toilet Transfer Routine Modified Independent with Tub Transfer Routine Modified Independent with Functional Transfers for ADL Modified Independent with Grooming Routine Independent Feeding Routine Independent Light Housekeeping Tasks Modified Independent with Social Work: Goals Discharge Plan return home with home care svs and family support Potential for Family Training pt's family are involved and supportive Anticipated Discharge Home Destination Discharge With home care svs and family support Care Plan: Care Plan DVT Prophylaxis- Improve/Maintain Start: 10/06/17 18:07 Freq: QSHIFT Status: Active Target: Protocol: Activity Type Activity Date Activity User E-Sign Co-Sign Detail Recorded Client Recorded Date Recorded By Document 10/09/17 10:27 [id number] [email or web address] 10/09/17 10:27 [id number] 10/09/17 10:27 PMRU Outcome: DVT Prophylaxis Outcome/Goals Remains Free of DVT Free of complications from current DVT TEDS Stockings on Every AM, Off at HS Progression Toward Outcome/Goals Progressing Discharge Planning - Improve/Maintain Start: 10/06/17 18:07 Freq: QSHIFT Status: Active Target: Protocol: Activity Type Activity Date Activity User E-Sign Co-Sign Detail Recorded Client Recorded Date Recorded By Document 10/09/17 10:27 [id number] 10/09/17 10:27 [id number] 10/09/17 10:27 PMRU Outcome: Discharge Planning Identify Patient Needs yes Update Patient Family No Outcome/Goals Demonstrates Understanding of Discharge Plan Progression Toward Outcome/Goals Progressing Education-Improve/Maintain Start: 10/06/17 18:07 Freq: QSHIFT Status: Active Target: Protocol: Activity Type Activity Date Activity User E-Sign Co-Sign Detail Recorded Client Recorded Date Recorded By Document 10/09/17 10:27 [id number] [email or web address] 10/09/17 10:27 [id number] 10/09/17 10:27 PMRU Outcome: Education Outcome/Goals Demonstrate/ Verbalize Understanding of Written Discharge Instructions Demonstrates Skills Progression Toward Outcome/Goals Progressing Mobility- Improve/Maintain Start: 10/06/17 17:23 Freq: QSHIFT Status: Active Target: Protocol: Activity Type Activity Date Activity User E-Sign Co-Sign Detail Recorded Client Recorded Date Recorded By Document 10/06/17 17:23 [id number] [id number] 10/06/17 17:25 [id number] 10/06/17 17:23 PMRU Outcome: Mobility Physical Therapy Evaluation and Yes Treatment Activity OOB with Assistance Yes WBAT Yes Device Yes Assistance Yes Patient to be seen 5x/wk for 60-120 min/ Therex day for: Mobility Training Gait Training Balance Outcome/Goals Maintain/ Achieve Baseline Mobility Status Improve Mobility Status Demonstrates Proper Use of Assistive Devices Free from Complications of Immobility Bed Mobility Yes: independent Transfers Yes: independent with rolling walker Gait x ft Yes: independent with rolling walker 150' Up/Down Stairs Yes: independent with 2 rails up /down 5 stairs. Pain/Comfort- Improve/Maintain Start: 10/06/17 18:07 Freq: QSHIFT Status: Active Target: Protocol: Activity Type Activity Date Activity User E-Sign Co-Sign Detail Recorded Client Recorded Date Recorded By Document 10/09/17 10:27 [id number] 10/09/17 10:27 [id number] 10/09/17 10:27 PMRU Outcome: Pain/Comfort Outcome/Goals Demonstrates Knowledge and Use of Available Comfort Measures Achieves Acceptable Comfort/Pain Level as Determined by Patient/Condit Maintain Comfort Level Allowing Patient to Fully Participate in Rehab Progression Toward Outcome/Goals Progressing Outcome/Goals Met Comment [place] given with good effect Safety- Improve/Maintain Start: 10/06/17 18:07 Freq: QSHIFT Status: Active Target: Protocol: Activity Type Activity Date Activity User E-Sign Co-Sign Detail Recorded Client Recorded Date Recorded By Document 10/09/17 10:27 [id number] 10/09/17 10:27 [id number] 10/09/17 10:27 PMRU Outcome: Safety Outcome/Goals Remain Free of Injury or Harm Cooperates with Safety Measures for Least Restrictive Environment Prevent Falls/ Injury Progression Toward Outcome/Goals Progressing Skin- Improve/Maintain Start: 10/06/17 18:07 Freq: QSHIFT Status: Active Target: Protocol: Activity Type Activity Date Activity User E-Sign Co-Sign Detail Recorded Client Recorded Date Recorded By Document 10/09/17 10:27 [id number] 10/09/17 10:27 [id number] 10/09/17 10:27 PMRU Outcome: Skin Skin Risk Level Medium Skin Orders Dressing Change Outcome/Goals Maintain/ Improve Skin Intergrity Surgical Incisions Healing Progression Toward Outcome/Goals Progressing Medicine Note: Length of Stay: [5 days] Anticipated Discharge Destination: Home Tentative Discharge Date: [10/14/18] Discharged to: [home]
--- NOTE | 2017-10-09 12:32 | RAD ---
INDICATION: Post RIGHT hip surgery. RIGHT lower extremity distal thigh and calf pain and edema. COMPARISON: No relevant prior exams available on the [facility] PACS for comparison. TECHNIQUE: Quispe scale, color Doppler, and spectral analysis of the deep veins of the RIGHT lower extremity. Vessel compression, phasicity, and augmentation assessed. REPORT: The RIGHT common femoral, great saphenous, profunda femoral, femoral, popliteal, peroneal, and posterior tibial veins are patent. Subcutaneous edema most prominent at the distal thigh and calf. No loculated soft tissue plane fluid collection evident. Patency of the LEFT common femoral vein documented. IMPRESSION: No evidence for RIGHT lower extremity deep venous thrombosis.
[2017-10-09] MEDS: Enoxaparin(*) 40 MG/0.4 ML SYR SUBCUT SCH (17:16)
[2017-10-09] MEDS: Senna TAB PO SCH (19:51)
[2017-10-10] MEDS: HYDROcodone/ACETAMIN 5-325 MG* 1 TAB PO PRN ×3 (00:11→17:25)
[2017-10-10 07:53] LABS: Hematocrit 24 % (35-47); Hemoglobin 8.1 g/dl (12.0-16.0); Mean Corpuscular HGB Conc 34 g/dl (31-36); Mean Corpuscular Hemoglobin 30 pg (27-31); Mean Corpuscular Volume 90 fL (80-97); Mean Platelet Volume 7 um3 (7.4-10.4); Platelet Count 72 10^3/ul (150-450); Red Blood Count 2.68 10^6/ul (4.0-5.4); Red Cell Distribution Width 17 % (10.5-15); White Blood Count 50.7 10^3/ul (3.5-10.8)
[2017-10-10 08:10] LABS: EGFR Non-African American 56.3 (>60)
[2017-10-10] MEDS: Polyethylene Glycol 3350* 17 GM PACKET PO SCH (08:15)
[2017-10-10] MEDS: Cyanocobalamin TAB* 500 MCG PO SCH (08:16)
[2017-10-10] MEDS: Cholecalciferol TAB* 1000 UNITS PO SCH (08:16)
[2017-10-10] MEDS: Calcium Carbonate TAB* 1250 MG (CALCIUM 500 MG) PO SCH (08:16)
[2017-10-10] MEDS: DULoxetine DR CAP* 30 MG CAP.DR PO SCH (08:16)
[2017-10-10] MEDS: Montelukast Sodium TAB* 10 MG PO SCH (08:16)
[2017-10-10] MEDS: Docusate CAP* 100 MG PO SCH ×2 (08:16→19:40)
[2017-10-10 08:21] LABS: Monocytes % 5 % (0-13)
[2017-10-10 08:26] LABS: ABS Basophils 0 10^3/ul (0-0.2); ABS Eosinophils 0 10^3/ul (0-0.6); ABS Lymphocytes 45.1 10^3/ul (1.0-4.8); ABS Monocytes 2.5 10^3/ul (0-0.8); ABS Nucleated RBC 0 10^3/ul
[2017-10-10] MEDS ORDERED: Zoledronic Acid* 4 MG in NS 0.9% 100 ML* 95 ML IVPB ONE (12:30)
[2017-10-10] MEDS: Enoxaparin(*) 40 MG/0.4 ML SYR SUBCUT SCH (17:23)
--- NOTE | 2017-10-10 19:38 | PN ---
Progress Note - Progress Note Date of Service: 10/10/17 Note: Betzy visited. Therapy notes read and reviewed. High serum calcium. Discussed with Dr. Jacobs who ordered Zometa for the patient. Dr. Jacobs will try to see the patient tomorrow. Current Medications Acetaminophen (Tylenol Tab*) 650 mg PO Q6H PRN PRN Reason: FEVER > 101 Hydrocodone Bitart/Acetaminophen ([place] 5-325 Tab*) 1 tab PO Q4H PRN PRN Reason: PAIN Last Admin: 10/09/17 17:34 Dose: 1 tab Hydrocodone Bitart/Acetaminophen ([place] 5-325 Tab*) 2 tab PO Q4H PRN PRN Reason: PAIN Last Admin: 10/10/17 17:25 Dose: 2 tab Al Hydrox/Mg Hydrox/Simethicone (Maalox Plus*) 30 ml PO Q6H PRN PRN Reason: INDIGESTION Albuterol (Ventolin 2.5 Mg/3 Ml Neb.Nataly*) 2.5 mg INH Q2H PRN PRN Reason: SOB/WHEEZING Bisacodyl (Dulcolax Supp*) 10 mg [place] DAILY PRN PRN Reason: CONSTIPATION Cholecalciferol (Vitamin D Tab*) 1,000 units PO DAILY [facility] Last Admin: 10/10/17 08:16 Dose: 1,000 units Cyanocobalamin (Vitamin B12 Tab*) 1,000 mcg PO DAILY [facility] Last Admin: 10/10/17 08:16 Dose: 1,000 mcg Cyclobenzaprine HCl (Flexeril Tab*) 10 mg PO TID PRN PRN Reason: muscle spasm Last Admin: 10/05/17 20:28 Dose: 10 mg Docusate Sodium (Colace Cap*) 100 mg PO BID [facility] Last Admin: 10/10/17 08:16 Dose: 100 mg Duloxetine HCl (Cymbalta Cap*) 60 mg PO DAILY [facility] Last Admin: 10/10/17 08:16 Dose: 60 mg Enoxaparin Sodium (Lovenox(*)) 40 mg SUBCUT Q24H [facility] Last Admin: 10/10/17 17:23 Dose: 40 mg Magnesium Hydroxide (Milk Of Magnesia Liq*) 30 ml PO Q6H PRN PRN Reason: CONSTIPATION Last Admin: 10/06/17 14:08 Dose: 30 ml Montelukast Sodium (Singulair Tab*) 10 mg PO DAILY [facility] Last Admin: 10/10/17 08:16 Dose: 10 mg Polyethylene Glycol/Electrolytes (Miralax*) 17 gm PO DAILY [facility] Last Admin: 10/10/17 08:15 Dose: 17 gm Senna (Senokot Tab*) 2 tab PO BEDTIME [facility] Last Admin: 10/09/17 19:51 Dose: 2 tab Laboratory Results - last 24 hr 10/10/17 10/10/17 07:42 07:42 WBC 50.7 H RBC 2.68 L Hgb 8.1 L Hct 24 L MCV 90 MCH 30 MCHC 34 RDW 17 H Plt Count 72 L MPV 7 L Absolute Neuts (auto) 3.0 Absolute Lymphs (auto) 45.1 H Absolute Monos (auto) 2.5 H Absolute Eos (auto) 0 Absolute Basos (auto) 0 Absolute Nucleated RBC 0 Neutrophils % 6 L Lymphocytes % 51 H Reactive Lymphs % 38 H Monocytes % 5 Differential Comment Plasma cell Normal RBC Morphology Not Reportable Hypochromasia 1+ Sodium 133 Potassium 4.4 Chloride 96 L Carbon Dioxide 30 Anion Gap 7 BUN 15 Creatinine 0.99 H Est GFR ( Amer) 72.4 Est GFR (Non-Af Amer) 56.3 BUN/Creatinine Ratio 15.2 Glucose 104 H Calcium 11.3 H Total Bilirubin 0.60 AST 33 ALT 33 Alkaline Phosphatase 86 Total Protein 8.8 Albumin 2.7 L Globulin 6.1 H Albumin/Globulin Ratio 0.4 L Monoscreen Cancelled Vital Signs Temp Pulse Resp BP Pulse Ox 97.7 F 84 18 107/52 96 10/10/17 15:27 10/10/17 15:27 10/10/17 17:25 10/10/17 15:27 10/10/17 15:46 EXAM: LUNGS: Clear HEART: Reg rhythm ABDOMEN: Soft EXTREMITIES: Ankle puffer tender to palpation. I suspect blood from hip has migrated down. X-ray negative ASSESSMENT/PLAN: 1. Right hip fracture s/p ORIF: f/u with Dr. Clemens. WBAT. PT/OT. 2. Right knee discomfort: X-ray right knee neg. Likely referred from hip 3. Multiple myeloma: Oncology f/u with Dr. Quesada/Reynaldo. Per Dr. Alvarado transfuse for Hgb<8 or Plts<10K. 4. COPD: IS and prn albuterol nebs 5. Right ankle pain: x-ray negative for fracture on 10/05/17. Possibly blood migrating to ankle. 6. Depression: cymbalta 7. DVT ppx: sc lovenox. She will do self-injections at home. Teach prior to d/c. 8. Analgesia: [place] 9. Hypercalcemia: Zometa 10. Advanced directives: full code. HCP is daughter Ruthie
[2017-10-10] MEDS: Senna TAB PO SCH (19:41)
[2017-10-11] MEDS: Al Hydrox/Mg Hydrox/Simet LIQ* 30 ML UDC PO PRN (04:15)
[2017-10-11] MEDS ORDERED: Ondansetron ODT TAB* 4 MG PO PRN (09:01)
[2017-10-11] MEDS: HYDROcodone/ACETAMIN 5-325 MG* 1 TAB PO PRN ×4 (09:01→21:02)
[2017-10-11] MEDS ORDERED: Ondansetron ODT TAB* 4 MG ONE (09:11)
[2017-10-11 09:27] LABS: EGFR Non-African American 48.8 (>60)
[2017-10-11] MEDS: DULoxetine DR CAP* 30 MG CAP.DR PO SCH (09:46)
[2017-10-11] MEDS: Polyethylene Glycol 3350* 17 GM PACKET PO SCH (09:47)
[2017-10-11] MEDS: Montelukast Sodium TAB* 10 MG PO SCH (09:47)
[2017-10-11] MEDS: Docusate CAP* 100 MG PO SCH ×2 (09:47→21:01)
[2017-10-11] MEDS: Cholecalciferol TAB* 1000 UNITS PO SCH (09:47)
[2017-10-11] MEDS: Cyanocobalamin TAB* 500 MCG PO SCH (09:47)
[2017-10-11] MEDS: Enoxaparin(*) 40 MG/0.4 ML SYR SUBCUT SCH (16:50)
--- NOTE | 2017-10-11 18:11 | PN ---
Progress Note - Progress Note Date of Service: 10/11/17 Note: Betzy visited. Therapy notes read and reviewed. She got Zometa yesterday and had significant nausea today. I ordered Zofran which helped. Calcium level better today though still a little high. Current Medications Acetaminophen (Tylenol Tab*) 650 mg PO Q6H PRN PRN Reason: FEVER > 101 Last Admin: 10/11/17 06:09 Dose: 650 mg Hydrocodone Bitart/Acetaminophen ([place] 5-325 Tab*) 1 tab PO Q4H PRN PRN Reason: PAIN Last Admin: 10/11/17 16:51 Dose: 1 tab Hydrocodone Bitart/Acetaminophen ([place] 5-325 Tab*) 2 tab PO Q4H PRN PRN Reason: PAIN Last Admin: 10/11/17 13:22 Dose: 2 tab Al Hydrox/Mg Hydrox/Simethicone (Maalox Plus*) 30 ml PO Q6H PRN PRN Reason: INDIGESTION Last Admin: 10/11/17 04:15 Dose: 30 ml Albuterol (Ventolin 2.5 Mg/3 Ml Neb.Nataly*) 2.5 mg INH Q2H PRN PRN Reason: SOB/WHEEZING Bisacodyl (Dulcolax Supp*) 10 mg [place] DAILY PRN PRN Reason: CONSTIPATION Cholecalciferol (Vitamin D Tab*) 1,000 units PO DAILY [facility] Last Admin: 10/11/17 09:47 Dose: 1,000 units Cyanocobalamin (Vitamin B12 Tab*) 1,000 mcg PO DAILY [facility] Last Admin: 10/11/17 09:47 Dose: 1,000 mcg Cyclobenzaprine HCl (Flexeril Tab*) 10 mg PO TID PRN PRN Reason: muscle spasm Last Admin: 10/05/17 20:28 Dose: 10 mg Docusate Sodium (Colace Cap*) 100 mg PO BID [facility] Last Admin: 10/11/17 09:47 Dose: 100 mg Duloxetine HCl (Cymbalta Cap*) 60 mg PO DAILY [facility] Last Admin: 10/11/17 09:46 Dose: 60 mg Enoxaparin Sodium (Lovenox(*)) 40 mg SUBCUT Q24H [facility] Last Admin: 10/11/17 16:50 Dose: 40 mg Magnesium Hydroxide (Milk Of Magnesia Liq*) 30 ml PO Q6H PRN PRN Reason: CONSTIPATION Last Admin: 10/06/17 14:08 Dose: 30 ml Montelukast Sodium (Singulair Tab*) 10 mg PO DAILY [facility] Last Admin: 10/11/17 09:47 Dose: 10 mg Ondansetron HCl (Zofran Odt Tab*) 4 mg PO Q6H PRN PRN Reason: NAUSEA/VOMITING Last Admin: 10/11/17 09:12 Dose: 4 mg Polyethylene Glycol/Electrolytes (Miralax*) 17 gm PO DAILY [facility] Last Admin: 10/11/17 09:47 Dose: 17 gm Senna (Senokot Tab*) 2 tab PO BEDTIME [facility] Last Admin: 10/10/17 19:41 Dose: 2 tab Laboratory Results - last 24 hr 10/10/17 10/11/17 07:42 09:04 Hem Pathologist Commnt Sodium 133 Potassium 4.1 Chloride 98 L Carbon Dioxide 24 Anion Gap 11 BUN 15 Creatinine 1.12 H Est GFR ( Amer) 62.8 Est GFR (Non-Af Amer) 48.8 BUN/Creatinine Ratio 13.4 Glucose 111 H Calcium 10.7 H Monoscreen Cancelled Vital Signs Temp Pulse Resp BP Pulse Ox 98.5 F 80 18 103/49 95 10/11/17 16:15 10/11/17 16:15 10/11/17 16:51 10/11/17 16:15 10/11/17 16:15 EXAM: LUNGS: Clear HEART: Reg rhythm ABDOMEN: Soft EXTREMITIES: Ankle less tender. Right thigh swollen ASSESSMENT/PLAN: 1. Right hip fracture s/p ORIF: f/u with Dr. Clemens. WBAT. PT/OT. 2. Right knee discomfort: X-ray right knee neg. Likely referred from hip 3. Multiple myeloma: Oncology f/u with Dr. Quesada/Reynadlo. Per Dr. Alvarado transfuse for Hgb<8 or Plts<10K. 4. COPD: IS and prn albuterol nebs 5. Right ankle pain: x-ray negative for fracture on 10/05/17. Possibly blood migrating to ankle. Appears to be improving 6. Depression: cymbalta 7. DVT ppx: sc lovenox. She will do self-injections at home. Teach prior to d/c. 8. Analgesia: [place] 9. Hypercalcemia: Zometa yesterday. Calcium still a little high 10. Advanced directives: full code. HCP is daughter Ruthie
[2017-10-11] MEDS: Senna TAB PO SCH (21:02)
[2017-10-12] MEDS: HYDROcodone/ACETAMIN 5-325 MG* 1 TAB PO PRN ×2 (08:08→15:34)
[2017-10-12] MEDS: DULoxetine DR CAP* 30 MG CAP.DR PO SCH (08:08)
[2017-10-12] MEDS: Cholecalciferol TAB* 1000 UNITS PO SCH (08:08)
[2017-10-12] MEDS: Docusate CAP* 100 MG PO SCH ×2 (08:08→20:48)
[2017-10-12] MEDS: Montelukast Sodium TAB* 10 MG PO SCH (08:08)
[2017-10-12] MEDS: Cyanocobalamin TAB* 500 MCG PO SCH (08:08)
[2017-10-12] MEDS: Polyethylene Glycol 3350* 17 GM PACKET PO SCH (08:08)
[2017-10-12] MEDS ORDERED: Dexamethasone IV* 4 MG/ML 1 ML (4 MG) IV SLOW PU SCH (11:00)
[2017-10-12] MEDS: Dexamethasone IV* 40 MG in NS 0.9% 50 ML* 50 ML IVPB SCH (11:14)
--- NOTE | 2017-10-12 12:22 | PN ---
Progress Note - Progress Note Date of Service: 10/12/17 Note: Dr. Quesada in today to meet with patient and daughter. Will be starting 4 days of steroids today. Nursing and therapy notes reviewed. No chest pain, shortness of breath or abdominal pain. Had mild low grade temperature this morning and low BP without symptoms, which later was rechecked and normal. She is eating and drinking well now. Does not feel ill. Acetaminophen (Tylenol Tab*) 650 mg PO Q6H PRN PRN Reason: FEVER > 101 Last Admin: 10/11/17 06:09 Dose: 650 mg Hydrocodone Bitart/Acetaminophen ([place] 5-325 Tab*) 1 tab PO Q4H PRN PRN Reason: PAIN Last Admin: 10/11/17 21:02 Dose: 1 tab Hydrocodone Bitart/Acetaminophen ([place] 5-325 Tab*) 2 tab PO Q4H PRN PRN Reason: PAIN Last Admin: 10/12/17 08:08 Dose: 2 tab Al Hydrox/Mg Hydrox/Simethicone (Maalox Plus*) 30 ml PO Q6H PRN PRN Reason: INDIGESTION Last Admin: 10/11/17 04:15 Dose: 30 ml Albuterol (Ventolin 2.5 Mg/3 Ml Neb.Nataly*) 2.5 mg INH Q2H PRN PRN Reason: SOB/WHEEZING Bisacodyl (Dulcolax Supp*) 10 mg [place] DAILY PRN PRN Reason: CONSTIPATION Cholecalciferol (Vitamin D Tab*) 1,000 units PO DAILY [facility] Last Admin: 10/12/17 08:08 Dose: 1,000 units Cyanocobalamin (Vitamin B12 Tab*) 1,000 mcg PO DAILY [facility] Last Admin: 10/12/17 08:08 Dose: 1,000 mcg Cyclobenzaprine HCl (Flexeril Tab*) 10 mg PO TID PRN PRN Reason: muscle spasm Last Admin: 10/05/17 20:28 Dose: 10 mg Docusate Sodium (Colace Cap*) 100 mg PO BID [facility] Last Admin: 10/12/17 08:08 Dose: 100 mg Duloxetine HCl (Cymbalta Cap*) 60 mg PO DAILY [facility] Last Admin: 10/12/17 08:08 Dose: 60 mg Enoxaparin Sodium (Lovenox(*)) 40 mg SUBCUT Q24H [facility] Last Admin: 10/11/17 16:50 Dose: 40 mg Dexamethasone Sodium Phosphate (40 mg/ Sodium Chloride) 60 mls @ 120 mls/hr IVPB DAILY [facility] Stop: 10/15/17 09:29 Last Admin: 10/12/17 11:14 Dose: 120 mls/hr Magnesium Hydroxide (Milk Of Magnesia Liq*) 30 ml PO Q6H PRN PRN Reason: CONSTIPATION Last Admin: 10/06/17 14:08 Dose: 30 ml Montelukast Sodium (Singulair Tab*) 10 mg PO DAILY [facility] Last Admin: 10/12/17 08:08 Dose: 10 mg Ondansetron HCl (Zofran Odt Tab*) 4 mg PO Q6H PRN PRN Reason: NAUSEA/VOMITING Last Admin: 10/11/17 09:12 Dose: 4 mg Polyethylene Glycol/Electrolytes (Miralax*) 17 gm PO DAILY [facility] Last Admin: 10/12/17 08:08 Dose: 17 gm Senna (Senokot Tab*) 2 tab PO BEDTIME [facility] Last Admin: 10/11/17 21:02 Dose: 2 tab Vital Signs 10/11/17 10/11/17 10/11/17 13:22 15:49 16:14 Temperature Pulse Rate 84 Respiratory 18 20 Rate Blood Pressure (mmHg) O2 Sat by Pulse 95 Oximetry 10/11/17 10/11/17 10/11/17 16:15 16:51 19:17 Temperature 98.5 F Pulse Rate 80 Respiratory 18 18 16 Rate Blood Pressure 103/49 (mmHg) O2 Sat by Pulse 95 Oximetry 10/11/17 10/11/17 10/12/17 21:02 23:00 05:50 Temperature Pulse Rate Respiratory 18 16 Rate Blood Pressure (mmHg) O2 Sat by Pulse 96 Oximetry 10/12/17 10/12/17 10/12/17 05:51 06:50 06:54 Temperature 100.8 F 100.3 F 99.8 F Pulse Rate 88 90 90 Respiratory 18 18 18 Rate Blood Pressure 91/44 88/34 88/47 (mmHg) O2 Sat by Pulse 96 96 96 Oximetry 10/12/17 10/12/17 10/12/17 06:59 08:00 08:08 Temperature Pulse Rate Respiratory 18 18 Rate Blood Pressure 102/58 (mmHg) O2 Sat by Pulse 96 Oximetry 10/12/17 10/12/17 10:14 10:20 Temperature 97.3 F Pulse Rate 78 Respiratory 18 Rate Blood Pressure 106/54 (mmHg) O2 Sat by Pulse 96 Oximetry PE: GEN: no acute distress. alert and appropriate. LUNGS: clear to auscultation bilaterally. CV: regular rate and rhythm ABD: +bs, soft, non-tender, non-distended. EXT: Right thigh, leg and foot edema. Laboratory Results - last 24 hr 10/12/17 07:30 Sodium 131 L Potassium 4.2 Chloride 96 L Carbon Dioxide 25 Anion Gap 10 BUN 17 Creatinine 1.18 H Est GFR ( Amer) 59.1 Est GFR (Non-Af Amer) 46.0 BUN/Creatinine Ratio 14.4 Glucose 101 H Calcium 9.7 X-ray right ankle 10/05/17 - no fracture 10/09/17 Right lower extremity venous Doppler was negative for DVT. 10/09/17 X-ray right knee was negative for fracture. IMPRESSION/PLAN: 67yo woman with new diagnosis of IgA kappa multiple myeloma and right hip fracture, pathologic after fall. #Right hip fracture s/p ORIF: f/u with Dr. Clemens. WBAT. [place] for pain. #Right leg edema: Venous dopper RLE negative 10/09. #Right knee discomfort: X-ray right knee negative 10/09. #Multiple myeloma: Oncology f/u with Dr. Quesada next week. He ordered labs for Sunday and then will check next week again. Receiving 4 days of 40mg decadron. First 3 doses IV in hospital and last dose will be po at home. Transfuse for Hgb<8 or Plts<10K. s/p treatment for hypercalcemia. #COPD: IS and prn albuterol nebs #Right ankle pain: x-ray negative for fracture on 10/05/17. Possibly bruised during fall. Local supportive care as needed. #Depression: cymbalta #DVT ppx: sc lovenox. She will do self-injections at home. Teach prior to d/c. #continue PT/OT for modified independent goals. #Advanced directives: full code. hcp is daughter Ruthie [phone] #Estimated d/c 10/19/17.
[2017-10-12] MEDS: Al Hydrox/Mg Hydrox/Simet LIQ* 30 ML UDC PO PRN (15:34)
[2017-10-12] MEDS: Enoxaparin(*) 40 MG/0.4 ML SYR SUBCUT SCH (16:41)
[2017-10-12] MEDS: Senna TAB PO SCH (20:48)
[2017-10-13] MEDS: Montelukast Sodium TAB* 10 MG PO SCH (08:45)
[2017-10-13] MEDS: Cholecalciferol TAB* 1000 UNITS PO SCH (08:45)
[2017-10-13] MEDS: Docusate CAP* 100 MG PO SCH ×2 (08:45→19:56)
[2017-10-13] MEDS: DULoxetine DR CAP* 30 MG CAP.DR PO SCH (08:45)
[2017-10-13] MEDS: Cyanocobalamin TAB* 500 MCG PO SCH (08:45)
[2017-10-13] MEDS: Polyethylene Glycol 3350* 17 GM PACKET PO SCH (08:45)
[2017-10-13] MEDS: Dexamethasone IV* 40 MG in NS 0.9% 50 ML* 50 ML IVPB SCH (10:29)
--- NOTE | 2017-10-13 12:37 | PN ---
Progress Note - Progress Note Date of Service: 10/13/17 Note: Has received 2 doses of steroids so far and tolerating. Radiology informed us they do not have time do to the myeloma bone survey prior to discharge and suggest this get done as an out patient. Nursing and therapy notes reviewed. She was able to inject her own lovenox last night. No chest pain, shortness of breath or abdominal pain. She has been trying to eliminate pain medications. Acetaminophen (Tylenol Tab*) 650 mg PO Q6H PRN PRN Reason: FEVER > 101 Last Admin: 10/11/17 06:09 Dose: 650 mg Hydrocodone Bitart/Acetaminophen ([place] 5-325 Tab*) 1 tab PO Q4H PRN PRN Reason: PAIN Last Admin: 10/12/17 15:34 Dose: 1 tab Hydrocodone Bitart/Acetaminophen ([place] 5-325 Tab*) 2 tab PO Q4H PRN PRN Reason: PAIN Last Admin: 10/12/17 08:08 Dose: 2 tab Al Hydrox/Mg Hydrox/Simethicone (Maalox Plus*) 30 ml PO Q6H PRN PRN Reason: INDIGESTION Last Admin: 10/12/17 15:34 Dose: 30 ml Albuterol (Ventolin 2.5 Mg/3 Ml Neb.Nataly*) 2.5 mg INH Q2H PRN PRN Reason: SOB/WHEEZING Bisacodyl (Dulcolax Supp*) 10 mg [place] DAILY PRN PRN Reason: CONSTIPATION Cholecalciferol (Vitamin D Tab*) 1,000 units PO DAILY [facility] Last Admin: 10/13/17 08:45 Dose: 1,000 units Cyanocobalamin (Vitamin B12 Tab*) 1,000 mcg PO DAILY [facility] Last Admin: 10/13/17 08:45 Dose: 1,000 mcg Dexamethasone (Decadron Tab*) 40 mg PO ONCE ONE Stop: 10/15/17 10:13 Docusate Sodium (Colace Cap*) 100 mg PO BID [facility] Last Admin: 10/13/17 08:45 Dose: 100 mg Duloxetine HCl (Cymbalta Cap*) 60 mg PO DAILY [facility] Last Admin: 10/13/17 08:45 Dose: 60 mg Enoxaparin Sodium (Lovenox(*)) 40 mg SUBCUT Q24H [facility] Last Admin: 10/12/17 16:41 Dose: 40 mg Dexamethasone Sodium Phosphate (40 mg/ Sodium Chloride) 60 mls @ 120 mls/hr IVPB DAILY [facility] Stop: 10/15/17 09:29 Last Admin: 10/13/17 10:29 Dose: 120 mls/hr Magnesium Hydroxide (Milk Of Magnyadira Liq*) 30 ml PO Q6H PRN PRN Reason: CONSTIPATION Last Admin: 10/06/17 14:08 Dose: 30 ml Montelukast Sodium (Singulair Tab*) 10 mg PO DAILY [facility] Last Admin: 10/13/17 08:45 Dose: 10 mg Ondansetron HCl (Zofran Odt Tab*) 4 mg PO Q6H PRN PRN Reason: NAUSEA/VOMITING Last Admin: 10/11/17 09:12 Dose: 4 mg Polyethylene Glycol/Electrolytes (Miralax*) 17 gm PO DAILY [facility] Last Admin: 10/13/17 08:45 Dose: 17 gm Senna (Senokot Tab*) 2 tab PO BEDTIME [facility] Last Admin: 10/12/17 20:48 Dose: 2 tab Vital Signs 10/12/17 10/12/17 10/12/17 15:34 15:37 15:51 Temperature 97.9 F Pulse Rate 75 Respiratory 18 18 18 Rate Blood Pressure 109/58 (mmHg) O2 Sat by Pulse 96 98 Oximetry 10/12/17 10/13/17 10/13/17 18:10 05:28 08:59 Temperature 97.7 F Pulse Rate 88 Respiratory 16 18 Rate Blood Pressure 122/66 (mmHg) O2 Sat by Pulse 98 98 Oximetry PE: GEN: no acute distress. alert and appropriate. LUNGS: clear to auscultation bilaterally. CV: regular rate and rhythm ABD: +bs, soft, non-tender, non-distended. EXT: Right thigh, leg and foot edema unchanged. X-ray right ankle 10/05/17 - no fracture 10/09/17 Right lower extremity venous Doppler was negative for DVT. 10/09/17 X-ray right knee was negative for fracture. IMPRESSION/PLAN: 67yo woman with new diagnosis of IgA kappa multiple myeloma and right hip fracture, pathologic after fall. #Right hip fracture s/p ORIF: f/u with Dr. Clemens. WBAT. [place] for pain. #Right leg edema: Venous dopper RLE negative 10/09. #Right knee discomfort: X-ray right knee negative 10/09. #Multiple myeloma: Oncology f/u with Dr. Quesada next week. He ordered labs for Sunday and then will check next week again. Receiving 4 days of 40mg decadron. First 3 doses IV in hospital and last dose will be po at home. Myeloma bone survey as an outpatient next week. Transfuse for Hgb<8 or Plts<10K. s/p treatment for hypercalcemia. #COPD: IS and prn albuterol nebs #Right ankle pain: x-ray negative for fracture on 10/05/17. Possibly bruised during fall. Local supportive care as needed. #Depression: cymbalta #DVT ppx: sc lovenox. She will do self-injections at home. Teaching done. #continue PT/OT for modified independent goals. #Advanced directives: full code. hcp is daughter Ruthie [phone] #Estimated d/c tomorrow 10/13.
[2017-10-13] MEDS: Enoxaparin(*) 40 MG/0.4 ML SYR SUBCUT SCH (16:51)
[2017-10-13] MEDS: Senna TAB PO SCH (19:56)
[2017-10-14] MEDS: HYDROcodone/ACETAMIN 5-325 MG* 1 TAB PO PRN (05:22)
[2017-10-14] MEDS: Al Hydrox/Mg Hydrox/Simet LIQ* 30 ML UDC PO PRN (05:26)
[2017-10-14 06:11] VITALS: BP 149/63
[2017-10-14 07:17] LABS: Hematocrit 20 % (35-47); Mean Corpuscular HGB Conc 33 g/dl (31-36); Mean Corpuscular Hemoglobin 29 pg (27-31); Mean Corpuscular Volume 90 fL (80-97); Mean Platelet Volume 8 um3 (7.4-10.4); Platelet Count 57 10^3/ul (150-450); Red Blood Count 2.18 10^6/ul (4.0-5.4); Red Cell Distribution Width 18 % (10.5-15); White Blood Count 57.2 10^3/ul (3.5-10.8)
[2017-10-14 07:18] LABS: Hemoglobin 6.4 g/dl (12.0-16.0)
[2017-10-14] MEDS: Docusate CAP* 100 MG PO SCH (07:20)
[2017-10-14 08:05] LABS: Monocytes % 5 % (0-13)
[2017-10-14 08:07] LABS: ABS Basophils 0 10^3/ul (0-0.2); ABS Eosinophils 0 10^3/ul (0-0.6); ABS Lymphocytes 45.2 10^3/ul (1.0-4.8); ABS Monocytes 2.9 10^3/ul (0-0.8); ABS Neutrophils 9.1 10^3/ul (1.5-7.7)
[2017-10-14 08:08] LABS: ABS Nucleated RBC 0 10^3/ul
[2017-10-14 08:11] LABS: EGFR Non-African American 58.3 (>60)
[2017-10-14] MEDS: Montelukast Sodium TAB* 10 MG PO SCH (08:31)
[2017-10-14] MEDS: Cholecalciferol TAB* 1000 UNITS PO SCH (08:31)
[2017-10-14] MEDS: DULoxetine DR CAP* 30 MG CAP.DR PO SCH (08:31)
[2017-10-14] MEDS: Polyethylene Glycol 3350* 17 GM PACKET PO SCH (08:32)
[2017-10-14] MEDS: Cyanocobalamin TAB* 500 MCG PO SCH (08:32)
[2017-10-14] MEDS: Dexamethasone IV* 40 MG in NS 0.9% 50 ML* 50 ML IVPB SCH (09:24)
--- NOTE | 2017-10-14 10:41 | PN ---
Progress Note - Progress Note Date of Service: 10/14/17 Note: This morning had Hgb 6.4. Discussed with Dr. Jacobs and receiving 1u prbcs prior to discharge and will have f/u labs this week in their office. Has received 3 doses of steroids IV and will take the last dose orally tomorrow. She is a little fatigued today, but knows the transfusion will help with that. Nursing and therapy notes reviewed. She was able to inject her own lovenox again last night. No chest pain, shortness of breath or abdominal pain. She only took 1 norco in the last 24hr but feels she probably should have taken one at bedtime since her leg was throbbing. Acetaminophen (Tylenol Tab*) 650 mg PO Q6H PRN PRN Reason: FEVER > 101 Last Admin: 10/11/17 06:09 Dose: 650 mg Hydrocodone Bitart/Acetaminophen ([place] 5-325 Tab*) 1 tab PO Q4H PRN PRN Reason: PAIN Last Admin: 10/14/17 05:22 Dose: 1 tab Hydrocodone Bitart/Acetaminophen ([place] 5-325 Tab*) 2 tab PO Q4H PRN PRN Reason: PAIN Last Admin: 10/12/17 08:08 Dose: 2 tab Al Hydrox/Mg Hydrox/Simethicone (Maalox Plus*) 30 ml PO Q6H PRN PRN Reason: INDIGESTION Last Admin: 10/14/17 05:26 Dose: 30 ml Albuterol (Ventolin 2.5 Mg/3 Ml Neb.Nataly*) 2.5 mg INH Q2H PRN PRN Reason: SOB/WHEEZING Bisacodyl (Dulcolax Supp*) 10 mg ID DAILY PRN PRN Reason: CONSTIPATION Cholecalciferol (Vitamin D Tab*) 1,000 units PO DAILY [facility] Last Admin: 10/14/17 08:31 Dose: 1,000 units Cyanocobalamin (Vitamin B12 Tab*) 1,000 mcg PO DAILY [facility] Last Admin: 10/14/17 08:32 Dose: 1,000 mcg Dexamethasone (Decadron Tab*) 40 mg PO .SEE COMMENTS ONE Stop: 10/15/17 09:01 Docusate Sodium (Colace Cap*) 100 mg PO BID [facility] Last Admin: 10/14/17 07:20 Dose: Not Given Duloxetine HCl (Cymbalta Cap*) 60 mg PO DAILY [facility] Last Admin: 10/14/17 08:31 Dose: 60 mg Enoxaparin Sodium (Lovenox(*)) 40 mg SUBCUT Q24H [facility] Last Admin: 10/13/17 16:51 Dose: 40 mg Dexamethasone Sodium Phosphate (40 mg/ Sodium Chloride) 60 mls @ 120 mls/hr IVPB DAILY [facility] Stop: 10/15/17 08:59 Last Admin: 10/14/17 09:24 Dose: 120 mls/hr Magnesium Hydroxide (Milk Of Magnesia Liq*) 30 ml PO Q6H PRN PRN Reason: CONSTIPATION Last Admin: 10/06/17 14:08 Dose: 30 ml Montelukast Sodium (Singulair Tab*) 10 mg PO DAILY [facility] Last Admin: 10/14/17 08:31 Dose: 10 mg Ondansetron HCl (Zofran Odt Tab*) 4 mg PO Q6H PRN PRN Reason: NAUSEA/VOMITING Last Admin: 10/11/17 09:12 Dose: 4 mg Polyethylene Glycol/Electrolytes (Miralax*) 17 gm PO DAILY [facility] Last Admin: 10/14/17 08:32 Dose: Not Given Senna (Senokot Tab*) 2 tab PO BEDTIME [facility] Last Admin: 10/13/17 19:56 Dose: Not Given Vital Signs 10/13/17 10/13/17 10/14/17 15:52 16:30 05:22 Temperature 98.9 F Pulse Rate 81 Respiratory 18 16 20 Rate Blood Pressure 121/65 (mmHg) O2 Sat by Pulse 98 99 Oximetry 10/14/17 10/14/17 05:32 07:28 Temperature 98.1 F Pulse Rate 84 Respiratory 18 18 Rate Blood Pressure 149/63 (mmHg) O2 Sat by Pulse 99 Oximetry PE: GEN: no acute distress. alert and appropriate. LUNGS: clear to auscultation bilaterally. CV: regular rate and rhythm ABD: +bs, soft, non-tender, non-distended. EXT: Right thigh, leg and foot edema unchanged. SKIN: Sutures to right leg are intact and skin below is well-healed. Open to air. Laboratory Results - last 24 hr 10/14/17 10/14/17 10/14/17 06:51 06:52 06:52 WBC 57.2 H RBC 2.18 L Hgb 6.4 L* Hct 20 L MCV 90 MCH 29 MCHC 33 RDW 18 H Plt Count 57 L MPV 8 Neut % (Auto) Lymph % (Auto) [place] % (Auto) Eos % (Auto) Baso % (Auto) Absolute Neuts (auto) 9.1 H Absolute Lymphs (auto) 45.2 H Absolute Monos (auto) 2.9 H Absolute Eos (auto) 0 Absolute Basos (auto) 0 Absolute Nucleated RBC 0 Neutrophils % 16 L Lymphocytes % 37 Reactive Lymphs % 42 H Monocytes % 5 Nucleated RBC % Differential Comment Plasma cell Normal RBC Morphology Not Reportable Polychromasia 1+ Hypochromasia 2+ Sodium 132 L Potassium 3.7 Chloride 98 L Carbon Dioxide 24 Anion Gap 10 BUN 22 Creatinine 0.96 H Est GFR ( Amer) 75.0 Est GFR (Non-Af Amer) 58.3 BUN/Creatinine Ratio 22.9 H Glucose 123 H Calcium 8.8 Monoscreen Cancelled Blood Type A Positive Antibody Screen Negative Crossmatch See Detail X-ray right ankle 10/05/17 - no fracture 10/09/17 Right lower extremity venous Doppler was negative for DVT. 10/09/17 X-ray right knee was negative for fracture. PROCEDURE: Sutures removed from 3 areas in right leg and steri-strips placed. No complications. IMPRESSION/PLAN: 67yo woman with new diagnosis of IgA kappa multiple myeloma and right hip fracture, pathologic after fall. #Right hip fracture s/p ORIF: f/u with Dr. Clemens. WBAT. [place] for pain. #Right leg edema: Venous dopper RLE negative 10/09. #Right knee discomfort: X-ray right knee negative 10/09. #Multiple myeloma with anemia and thrombocytopenia: Oncology f/u with Dr. Quesada next week. Received 3 out of 4 days of 40mg decadron. First 3 doses IV in hospital and last dose will be po at home. Myeloma bone survey as an outpatient next week. s/p treatment for hypercalcemia. #COPD: IS and prn albuterol nebs #Right ankle pain: x-ray negative for fracture on 10/05/17. #Depression: cymbalta #DVT ppx: sc lovenox. She will do self-injections at home. Teaching done. #Advanced directives: full code. hcp is daughter Ruthie [phone] #Discharge home today. Oncology agrees with plan.
--- NOTE | 2017-10-15 06:14 | DS ---
CC: Dr. Wisdom; Dr. Quesada; Dr. Clemens * REHABILITATION DISCHARGE SUMMARY: DATE OF ADMISSION: 10/05/17 DATE OF DISCHARGE: 10/14/17 PRIMARY CARE PROVIDER: Dr. Wisdom. ONCOLOGIST: Dr. Quesada. ORTHOPEDIC SURGEON: Dr. Clemens REASON FOR ADMISSION: Pathologic right hip fracture and multiple myeloma. HISTORY OF PRESENT ILLNESS: For full details of her acute hospitalization leading up to her admission, please see the note dictated by myself on 10/05/17. HOSPITAL COURSE: During her time on the [facility], she did notice some ankle sensitivity. Ankle x-ray on 10/05/17 showed no fracture. She was noted to have right lower extremity swelling. Venous Doppler on 10/09/17 was negative for DVT and x-ray of the right knee due to some soreness on 10/09/17 was negative for fracture or any other findings. Her pain was well controlled with [place] and prior to the day of discharge, she had decreased her dose to 1 to 2 pills per day. She will be weaning off of this medication as tolerated. Her sutures were removed on the day of discharge. She will have a follow up with Dr. Clemens in 1 to 2 weeks. She continues with weightbearing as tolerated precautions for the right hip. She was seen by Dr. Quesada for followup in Oncology for her new diagnosis of multiple myeloma and comorbid anemia and thrombocytopenia. He started her on Decadron and she received 40 mg IV for 3 days with the fourth dose of Decadron at home orally. On the day of discharge, labs revealed that her hemoglobin had dropped to 6.4. The oncologist was contacted and ordered 1 unit of packed red blood cells and felt that she was safe to be discharged to home. Followup labs will be with Oncology this coming week and she is to follow up with Dr. Quesada this week. Her calcium level got up to 11.3 on 10/10/17. For this Oncology ordered a dose of zoledronic acid 4 mg. Her calcium level normalized. After that dose, she did experience nausea and dry heaving for the next 24 hours which resolved. She has continued using incentive spirometer and her p.r.n.inhaler for COPD. This has not been an issue. For DVT prophylaxis, she can use subcutaneous Lovenox and will do self- injections at home to complete a 4 week course. She has demonstrated the ability to do this herself. During her time in the [facility], she presented to Physical Therapy and at the time of discharge is independent with bed mobility, transfers with a rolling walker, and ambulating up to 350 feet with a rolling walker. She can climb stairs with 2 rails independently. She also participated well in Occupational Therapy and at the time of discharge is independent eating. She can bathe independently with a walker and shower chair. She can dress independently sitting with a sock aid. She can toilet and do toilet transfers independently with a walker. She requires supervision for home management and cooking. Her family came in for training and can assist her as needed. DISCHARGE MEDICATIONS: 1. Decadron 40 mg once on 10/15/17. 2. Enoxaparin 40 mg subcutaneously q. 24 hours for 17 more days. 3. [place] 5/325 one tablet q. 4 hours p.r.n. pain, wean off as tolerated. 4. Vitamin B12 1000 mcg daily. 5. Daisy-3 fatty acid 1 capsule daily. 6. Singulair 10 mg daily. 7. Duloxetine 60 mg daily. 8. Vitamin D 1000 units daily. 9. Calcium carbonate 1200 mg daily. 10. Albuterol inhaler 1 puff q. 4 hours p.r.n. 11. Tylenol 650 mg q. 4 hours p.r.n. 12. Docusate 100 mg b.i.d. p.r.n. constipation. 13. MiraLAX 17 g daily p.r.n. constipation. 14. Senna 2 tablets q.h.s. p.r.n. constipation. DISCHARGE CONDITION: Stable. DISCHARGE DISPOSITION: Home with family support. FOLLOWUP: 1. A referral has been sent to the [facility] for detention physical therapy and home health aide. 2. She is to see Dr. Quesada this week. She will be having a myeloma bone survey as an outpatient this week as well since there were not adequate staff to have this completed while she was on the rehabilitation unit. She has been given a order so that she can have this done. Labs will be per Oncology. 3. Follow up with Dr. Clemens in 1 to 2 weeks. 4. Follow up with Dr. Wisdom in 1 month. DISCHARGE DIAGNOSES: 1. Right hip fracture, pathologic. 2. Chronic obstructive pulmonary disease. 3. Hyperparathyroidism. 4. Depression. 5. IgA kappa multiple myeloma. 6. Anemia, secondary to multiple myeloma. 7. Thrombocytopenia, secondary to multiple myeloma. [id number]/[facility] #: [id number] [facility]
[2017-10-15] MEDS ORDERED: Dexamethasone TAB* 4 MG PO ONE (09:00)
[2017-10-15] MEDS ORDERED: Dexamethasone TAB* 0.75 MG PO ONE (09:36)
== END 2017-10-14 13:00 | disposition home health service (06) | DRG 560 ==
LOC: PMRU 13:20
PROVIDERS: ADMIT Physical Medicine & Rehabilitation; ATTEND Physical Medicine & Rehabilitation
PROC: F07Z5ZZ Bed Mobility Treatment (ICD-10-PCS; 2017-10-05)
PROC: F07Z9ZZ Gait Training/Functional Ambulation Treatment (ICD-10-PCS; 2017-10-05)
PROC: F07Z8ZZ Transfer Training Treatment (ICD-10-PCS; 2017-10-05)
PROC: F08Z0ZZ Bathing/Showering Techniques Treatment (ICD-10-PCS; 2017-10-05)
PROC: F08Z1ZZ Dressing Techniques Treatment (ICD-10-PCS; 2017-10-05)
PROC: F08Z3ZZ Feeding/Eating Treatment (ICD-10-PCS; 2017-10-05)
PROC: 30233N1 Transfusion of Nonautologous Red Blood Cells into Peripheral Vein, Percutaneous Approach (ICD-10-PCS; principal; 2017-10-14)
DX: M84.551D Pathological fracture in neoplastic disease, right femur, subsequent encounter for fracture with routine healing (principal); C90.00 Multiple myeloma not having achieved remission; C90.10 Plasma cell leukemia not having achieved remission; D69.59 Other secondary thrombocytopenia; D64.81 Anemia due to antineoplastic chemotherapy; E83.52 Hypercalcemia; J44.9 Chronic obstructive pulmonary disease, unspecified; E21.3 Hyperparathyroidism, unspecified; F32.9 Major depressive disorder, single episode, unspecified; M19.90 Unspecified osteoarthritis, unspecified site; Z79.1 Long term (current) use of non-steroidal anti-inflammatories (NSAID); Z79.899 Other long term (current) drug therapy; Z82.5 Family history of asthma and other chronic lower respiratory diseases; Z80.51 Family history of malignant neoplasm of kidney; Z82.49 Family history of ischemic heart disease and other diseases of the circulatory system; Z87.891 Personal history of nicotine dependence; M25.571 Pain in right ankle and joints of right foot; R60.0 Localized edema; M25.561 Pain in right knee
CPT/HCPCS: 36415; 80048; 80053; 85025; 85060; 86850; 86900; 86901; 86922; 88271; 88291; 99232; A9270-GY; J1100; J1650; J3489; P9040

== ENCOUNTER 2017-10-28 12:57 | Inpatient (IN) | payer MEDICARE, OTHER ==
[2017-10-28] MEDS ORDERED: Vancomycin(*) 1,000 MG in NS 0.9% 250 ML* 250 ML IVPB ONE (15:00)
[2017-10-28 15:42] LABS: INR 1.25 (0.77-1.02)
[2017-10-28 15:51] LABS: EGFR Non-African American 62.8 (>60)
[2017-10-28 15:54] LABS: Hematocrit 22 % (35-47); Hemoglobin 7.2 g/dl (12.0-16.0); Mean Corpuscular HGB Conc 32 g/dl (31-36); Mean Corpuscular Hemoglobin 29 pg (27-31); Mean Corpuscular Volume 91 fL (80-97); Mean Platelet Volume 7 um3 (7.4-10.4); Platelet Count 65 10^3/ul (150-450); Red Blood Count 2.44 10^6/ul (4.0-5.4); Red Cell Distribution Width 19 % (10.5-15); White Blood Count 50.9 10^3/ul (3.5-10.8)
[2017-10-28 15:55] LABS: ABS Nucleated RBC 0.1 10^3/ul; Eosinophil % 0.4 % (0-6); Lymphocyte % 16.8 % (25-47); Nucleated Red Blood Cells % 0.1
--- NOTE | 2017-10-28 16:19 | RAD ---
Indication: Sepsis. Single frontal view of the chest performed at 1556 hours was reviewed. Comparison is made with previous exam dated October 23, 2017. Cardiomegaly is noted. Mild interstitial edema consistent with vascular congestion is noted. No pleural fluid is identified. IMPRESSION: CARDIOMEGALY WITH INTERSTITIAL EDEMA CONSISTENT WITH VASCULAR CONGESTION.
[2017-10-28] MEDS ORDERED: Ondansetron INJ* 2 MG/ML VIAL IV ONE (16:49)
[2017-10-28] MEDS ORDERED: Morphine INJ* 4 MG/ML 1 ML CARPUJECT IV ONE (16:49)
[2017-10-28] MEDS ORDERED: Ondansetron INJ* 2 MG/ML VIAL ONE (16:52)
[2017-10-28] MEDS ORDERED: Morphine INJ* 4 MG/ML 1 ML CARPUJECT ONE (16:52)
[2017-10-28] MEDS ORDERED: HYDROcodone/ACETAMIN 5-325 MG* 1 TAB ONE (17:02)
[2017-10-28] MEDS ORDERED: HYDROcodone/ACETAMIN 5-325 MG* 1 TAB PO ONE (17:04)
[2017-10-28 17:12] LABS: Monocytes % 6 % (0-13)
[2017-10-28] MEDS ORDERED: Furosemide IV* 10 MG/ML 2 ML VIAL (20 MG) IV ONE (18:05)
[2017-10-28] MEDS ORDERED: Albuterol HFA INHALER* 8 gm MDI INH PRN (18:07)
--- NOTE | 2017-10-28 18:14 | RAD ---
Indication: Bilateral leg edema. Duplex Doppler sonography of the deep venous system of both lower extremities was performed. Bilaterally the common femoral veins, proximal greater saphenous veins, proximal deep femoral veins, femoral veins, popliteal veins, posterior tibial veins and peroneal veins appear patent and compressible. IMPRESSION: NO EVIDENCE OF DEEP VENOUS THROMBOSIS OF EITHER LOWER EXTREMITY IS PRESENT.
--- NOTE | 2017-10-28 18:40 | ED ---
Kaci Shepherd Abhishek, scribed for Waylon Michele MD on 10/28/17 at 1539 . Lower Extremity - HPI Summary HPI Summary: This patient is a 67 year old F presenting to [facility] accompanied by female with a chief complaint of edema in both LE since one week ago (10/21/17). Pt states that the bilateral edema has been gradually increasing since onset. At onset, only RLE was swollen, but no redness was present. Pt presented the edema of the RLE to her physician on Sunday. The patient rates the pain 4/10 in severity. Symptoms aggravated by nothing. Symptoms alleviated by nothing. Patient currently reports redness (only RLE) and rash (both LE). Patient denies fever. Pt describe the LE pain as if somebodies ripping the skin off. Pertinent PMHx includes broke recently. Currently both LE show edema, however, on Sunday, only the right leg was swollen. Pt currently has pneumonia and is on Levaquin. Petechial rash on the legs on Sunday. There is a reported broken rib on the left side and pneumonia in the left lower lobe based on a chest x-ray was taken last week. - History of Current Complaint Chief Complaint: EDExtremityLower Stated Complaint: SWOLLEN LEGS Time Seen by Provider: 10/28/17 13:54 Hx Obtained From: Patient Hx Last Menstrual Period: post menopausal Onset of Pain: Days - since 10/21/17 Onset/Duration: Weeks - one week ago (10/21/17) Severity Initially: Moderate Severity Currently: Moderate Pain Intensity: 4 Pain Scale Used: 0-10 Numeric Timing: Constant Location: Is Diffuse - bilateral LE Associated Signs And Symptoms: Positive: Swelling - bilaterally, Redness - right LE, Other - petechial rash bilaterally Aggravating Factor(s): Nothing Alleviating Factor(s): Nothing - Allergies/Home Medications Allergies/Adverse Reactions: Allergies Allergy/AdvReac Type Severity Reaction Status Date / Time No Known Allergies Allergy Verified 10/28/17 13:31 Home Medications: Home Medications Levofloxacin 500 mg PO DAILY 10/28/17 [History Confirmed 10/28/17] PMH/Surg Hx/FS Hx/Imm Hx Endocrine/Hematology History: Reports: Hx Thyroid Disease, Hx Anemia Denies: Hx Diabetes Cardiovascular History: Reports: Hx Hypertension, Other Cardiovascular Problems/ Disorders - cath without stents Denies: Hx Pacemaker/ICD Respiratory History: Reports: Hx Asthma, Hx Chronic Obstructive Pulmonary Disease (COPD) GI History: Denies: Hx Ulcer Musculoskeletal History: Reports: Hx Arthritis, Hx Osteoporosis Sensory History: Reports: Hx Contacts or Glasses Denies: Hx Hearing Aid, Hx Hearing Problem Opthamlomology History: Reports: Hx Contacts or Glasses Psychiatric History: Reports: Hx Anxiety, Hx Depression, Hx Panic Disorder - GETS ANXIETY AT TIMES - Cancer History Hx Chemotherapy: No Hx Radiation Therapy: No - Surgical History Surgery Procedure, Year, and Place: TUBAL LIGATION,PARATHYROID, L HAND SURGERY IN DEPARTMENT HEAD, CARDIAC CATH WITHOUT STENTS Hx Anesthesia Reactions: No Infectious Disease History: No Infectious Disease History: Denies: Hx Hepatitis, Hx Human Immunodeficiency Virus (HIV), Hx of Known/ Suspected MRSA, Hx Shingles, Hx Tuberculosis, Hx Known/Suspected VRE, Hx Known/ Suspected VRSA, Traveled Outside the in Last 30 Days - Family History Family History: COPD and Kidney cancer - Social History Alcohol Use: None Substance Use Type: Reports: None Hx Tobacco Use: Yes Smoking Status (MU): Former Smoker Type: Cigarettes Length of Time of Smoking/Using Tobacco: 45-50 years Have You Smoked in the Last Year: Yes Review of Systems Negative: Fever Eyes: Negative ENT: Negative Cardiovascular: Negative Respiratory: Negative Gastrointestinal: Negative Genitourinary: Negative Positive: Edema - bilaterally, Other - LE pain Skin: Other - redness on the RLE Positive: Rash - petechial rash bilaterally Neurological: Negative Psychological: Normal All Other Systems Reviewed And Are Negative: Yes Physical Exam - Summary Physical Exam Summary: Appearance: The patient is well-nourished in no acute distress and in no acute pain. Skin: Right sided cellulitis up to mid-thigh posterior medially HEENT: ~The head is normocephalic and atraumatic. The pupils are equal and reactive. The conjunctivae are clear and without drainage. ~Nares are patent and without drainage. ~Mouth reveals moist mucous membranes and the throat is without erythema and exudate. ~The external ears are intact. The ear canals are patent and without drainage. The tympanic membranes are intact. Neck: the neck is supple with full range of motion and non-tender. There are no carotid bruits. ~There is no neck vein distension. Respiratory: Chest is non-tender. Crackles in the right lower lung field Cardiovascular: Heart is regular rate and rhythm. ~There is no murmur or rub auscultated. ~~There is no peripheral edema and pulses are symmetrical and equal. Abdomen: The abdomen is soft and non-tender. ~There are normal bowel sounds heard in all four quadrants and there is no organomegaly palpated. Musculoskeletal: There is no back tenderness noted. ~Extremities are non-tender with full range of motion. ~There is good capillary refill. Bilateral pitting edema right LE more than the left LE Neurological: Patient is alert and oriented to person, place and time. ~The patient has symmetrical motor strength in all four extremities. ~Cranial nerves are grossly intact. Deep tendon reflexes are symmetrical and equal in all four extremities. Psychiatric: The patient has an appropriate affect and does not exhibit any anxiety or depression. Triage Information Reviewed: Yes Vital Signs On Initial Exam: Initial Vitals Temp Pulse Resp BP Pulse Ox 99.4 F 85 16 128/60 98 10/28/17 13:31 10/28/17 13:31 10/28/17 13:31 10/28/17 13:31 10/28/17 13:31 Vital Signs Reviewed: Yes - [place] Coma Scale Coma Scale Total: 15 Diagnostics - Vital Signs Vital Signs Temp Pulse Resp BP Pulse Ox 10/28/17 13:31 99.4 F 85 16 128/60 98 - Laboratory Lab Results: Lab Results 10/28/17 10/28/17 10/28/17 Range/Units 15:26 15:26 15:26 WBC 50.9 H (3.5-10.8) 10^3/ul RBC 2.44 L (4.0-5.4) 10^6/ul Hgb 7.2 L (12.0-16.0) g/dl Hct 22 L (35-47) % MCV 91 (80-97) fL MCH 29 (27-31) pg MCHC 32 (31-36) g/dl RDW 19 H (10.5-15) % Plt Count 65 L (150-450) 10^3/ul MPV 7 L (7.4-10.4) um3 Neut % (Auto) 12.8 L (38-83) % Lymph % (Auto) 16.8 L (25-47) % Mcdonough % (Auto) 70.0 H (1-9) % Eos % (Auto) 0.4 (0-6) % Baso % (Auto) 0 (0-2) % Absolute Neuts (auto) 6.5 (1.5-7.7) 10^3/ul Absolute Lymphs (auto) 8.6 H (1.0-4.8) 10^3/ul Absolute Monos (auto) 35.6 H (0-0.8) 10^3/ul Absolute Eos (auto) 0.2 (0-0.6) 10^3/ul Absolute Basos (auto) 0 (0-0.2) 10^3/ul Absolute Nucleated RBC 0.1 10^3/ul Immature Gran % 4 (0-9) % Neutrophils % 2 L (38-83) % Band Neutrophils % 4 (0-8) % Lymphocytes % 36 (25-47) % Reactive Lymphs % 52 H D (0-6) % Monocytes % 6 (0-13) % Eosinophils % 0 (0-6) % Basophils % 0 (0-2) % Nucleated RBC % 0.1 Abs Neuts (Manual) 1.0 L (1.5-7.7) 10^3/ul Abs Lymphs (Manual) 18.3 H (1.0-4.8) 10^3/ul Abs Monocytes (Manual) 3.1 H (0-0.8) 10^3/ul Absolute Eos (Manual) 0 (0-0.6) 10^3/ul Abs Basophils (Manual) 0 (0-0.2) 10^3/ul Normal RBC Morphology Not Reportable Hypochromasia 2+ Anisocytosis 2+ Hem Pathologist Commnt Pending INR (Anticoag Therapy) 1.25 H (0.77-1.02) Sodium 134 (133-145) mmol/L Potassium 4.2 (3.5-5.0) mmol/L Chloride 102 (101-111) mmol/L Carbon Dioxide 22 (22-32) mmol/L Anion Gap 10 (2-11) mmol/L BUN 7 (6-24) mg/dL Creatinine 0.90 (0.51-0.95) mg/dL Est GFR ( Amer) 80.8 (>60) Est GFR (Non-Af Amer) 62.8 (>60) BUN/Creatinine Ratio 7.8 L (8-20) Glucose 87 (70-100) mg/dL Lactic Acid (0.5-2.0) mmol/L Calcium 8.5 L (8.6-10.3) mg/dL Total Bilirubin 0.50 (0.2-1.0) mg/dL AST 15 (13-39) U/L ALT 9 (7-52) U/L Alkaline Phosphatase 123 H (34-104) U/L Troponin I 0.01 (<0.04) ng/mL C-Reactive Protein 3.85 (< 5.00) mg/L B-Natriuretic Peptide ( - 100) pg/mL Total Protein 9.1 H (6.4-8.9) g/dL Albumin 2.6 L (3.2-5.2) g/dL Globulin 6.5 H (2-4) g/dL Albumin/Globulin Ratio 0.4 L (1-3) Monoscreen Cancelled 10/28/17 10/28/17 Range/Units 15:26 15:26 WBC (3.5-10.8) 10^3/ul RBC (4.0-5.4) 10^6/ul Hgb (12.0-16.0) g/dl Hct (35-47) % MCV (80-97) fL MCH (27-31) pg MCHC (31-36) g/dl RDW (10.5-15) % Plt Count (150-450) 10^3/ul MPV (7.4-10.4) um3 Neut % (Auto) (38-83) % Lymph % (Auto) (25-47) % Mcdonough % (Auto) (1-9) % Eos % (Auto) (0-6) % Baso % (Auto) (0-2) % Absolute Neuts (auto) (1.5-7.7) 10^3/ul Absolute Lymphs (auto) (1.0-4.8) 10^3/ul Absolute Monos (auto) (0-0.8) 10^3/ul Absolute Eos (auto) (0-0.6) 10^3/ul Absolute Basos (auto) (0-0.2) 10^3/ul Absolute Nucleated RBC 10^3/ul Immature Gran % (0-9) % Neutrophils % (38-83) % Band Neutrophils % (0-8) % Lymphocytes % (25-47) % Reactive Lymphs % (0-6) % Monocytes % (0-13) % Eosinophils % (0-6) % Basophils % (0-2) % Nucleated RBC % Abs Neuts (Manual) (1.5-7.7) 10^3/ul Abs Lymphs (Manual) (1.0-4.8) 10^3/ul Abs Monocytes (Manual) (0-0.8) 10^3/ul Absolute Eos (Manual) (0-0.6) 10^3/ul Abs Basophils (Manual) (0-0.2) 10^3/ul Normal RBC Morphology Hypochromasia Anisocytosis Hem Pathologist Commnt INR (Anticoag Therapy) (0.77-1.02) Sodium (133-145) mmol/L Potassium (3.5-5.0) mmol/L Chloride (101-111) mmol/L Carbon Dioxide (22-32) mmol/L Anion Gap (2-11) mmol/L BUN (6-24) mg/dL Creatinine (0.51-0.95) mg/dL Est GFR ( Amer) (>60) Est GFR (Non-Af Amer) (>60) BUN/Creatinine Ratio (8-20) Glucose (70-100) mg/dL Lactic Acid 1.0 (0.5-2.0) mmol/L Calcium (8.6-10.3) mg/dL Total Bilirubin (0.2-1.0) mg/dL AST (13-39) U/L ALT (7-52) U/L Alkaline Phosphatase (34-104) U/L Troponin I (<0.04) ng/mL C-Reactive Protein (< 5.00) mg/L B-Natriuretic Peptide 589 H ( - 100) pg/mL Total Protein (6.4-8.9) g/dL Albumin (3.2-5.2) g/dL Globulin (2-4) g/dL Albumin/Globulin Ratio (1-3) Monoscreen Result Diagrams: 10/28/17 15:26 10/28/17 15:26 Lab Statement: Any lab studies that have been ordered have been reviewed, and results considered in the medical decision making process. - Radiology Chest X-ray Radiology Interpretation Completed By: Radiologist - CXR reveals, per radiologist, CARDIOMEGALY WITH INTERSTITIAL EDEMA CONSISTENT WITH VASCULAR CONGESTION. ED physician has reviewed this radiology report and agrees. Lower Extremity Course/Dx - Course Course Of Treatment: Ms. Junior presented C/O right leg pain today and had an obvious cellulitis. She has had swelling in that leg since surgery for a right hip fracture 4 weeks ago. A couple days ago she started getting left leg swelling also and some exertional SOB reported by her daughter but denied by the patient. She had some crackles in her lung as well as significant peripheral edema so she was initially given only vancomycin and fluids were held. Her CXR did show some mild vascular congestion and her BNP was mildly elevated also. Her labs are remarkably abnormal but generally consistent with the past. I spoke with Dr. Quesada about them and he reviewed emily. He recommended admission for her cellulitis. - Diagnoses Provider Diagnoses: Cellulitis Discharge - Discharge Plan Condition: Stable Disposition: ADMITTED TO [facility] Referrals: Anne Villarreal MD [Primary Care Provider] - The documentation as recorded by the Kaci hardy Abhishek accurately reflects the service I personally performed and the decisions made by me, Waylon Michele MD.
[2017-10-28] MEDS ORDERED: Enoxaparin(*) 40 MG/0.4 ML SYR SUBCUT SCH (19:00)
[2017-10-28] MEDS ORDERED: Vancomycin per Pharmacy* NOTE FOLLOW UP SCH (19:00)
[2017-10-28 19:35] LABS: Urine Appearance Clear; Urine Blood 1+ (Negative); Urine Color Yellow; Urine Ketones Negative (Negative); Urine Protein Negative (Negative); Urine Specific Gravity 1.008 (1.010-1.030); Urine Urobilinogen Negative (Negative)
[2017-10-28] MEDS: Levofloxacin TAB* 500 MG PO SCH (20:05)
[2017-10-28] MEDS: Enoxaparin(*) 40 MG/0.4 ML SYR SUBCUT SCH (20:05)
--- NOTE | 2017-10-28 23:11 | HP ---
HISTORY AND PHYSICAL: DATE OF ADMISSION: 10/28/17 TIME OF EVALUATION: 5:30 p.m. PRIMARY CARE PHYSICIAN: Dr. Wisdom. ONCOLOGIST: Dr. Quesada. CHIEF COMPLAINT: Leg swelling and redness. HISTORY OF PRESENT ILLNESS: This is a 67-year-old female who is currently being worked up for multiple myeloma/plasma cell leukemia by Oncology and she was recently discharged with a pathologic right hip fracture, who presents today with three days of bilateral lower extremity swelling and one day of right lower extremity redness. Since her discharge from [facility] [place] a hip fracture and a [facility] stay, she has been doing very well at home. She has home nursing and home physical therapy and ambulates with a walker. She notes occasional swelling since the surgery in the right leg, which is the leg that the hip had been broken on, but never in the left leg. Then three days ago, she and her family noticed worsening bilateral lower extremity swelling, but far worse in the right. Then today she woke up and noticed erythema in the leg accompanied by severe 10/10 pain. She does elevate her legs when she is at home. She has not been having any fevers, chills, nausea, vomiting, diarrhea, dysuria, or any other systemic symptoms. She does note that she has gained 6 pounds since she got home from [facility] several weeks ago. Of note, she is currently being treated with Levaquin for community-acquired pneumonia as an outpatient, today is her last day of Levaquin. Regarding her oncologic workup, she is currently following with Dr. Quesada. 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 She has not undergone any therapy yet except Decadron during her hospitalization and she received blood transfusions during the hospitalization for the hip fracture and also required a blood transfusion last week as an outpatient. She does note shortness of breath and dyspnea on exertion since she was diagnosed with anemia in relation to the plasma cell dyscrasia. She and her daughter states that she is able to get round her house comfortably without shortness of breath; however, she is much more limited over the past month than she had been from a respiratory standpoint. PAST MEDICAL HISTORY: COPD; hyperparathyroidism, status post parathyroidectomy ; depression; osteoarthritis; and multiple myeloma/plasma cell leukemia. PAST SURGICAL HISTORY: Parathyroidectomy and right hip arthroplasty in the setting of pathologic fracture. MEDICATIONS: Current home medications: 1. Albuterol q.4 p.r.n. 2. Calcium carbonate 1200 mg daily. 3. Cholecalciferol 1000 units daily. 4. Cyanocobalamin 1000 mcg daily. 5. Duloxetine 60 mg daily. 6. Lovenox 40 mg subcutaneous daily. 7. [place] 1 to 2 tabs q.4 p.r.n. pain. 8. Levaquin 500 mg daily. 9. Singulair 10 mg daily. FAMILY HISTORY: Positive for renal cell carcinoma, cirrhosis, and breast cancer. SOCIAL HISTORY: She lives alone and is retired. She is a former smoker and quit several months ago. REVIEW OF SYSTEMS: Positive for weight gain. Negative for chest pain, shortness of breath, orthopnea, fevers, diarrhea, constipation, nausea or vomiting. PHYSICAL EXAMINATION GENERAL: She is an alert, well-appearing pleasant woman in no distress. VITAL SIGNS: Temperature 99.4 degrees, heart rate 85, respirations 16, pulse ox 96% on room air, and blood pressure 128/60. HEENT: Pupils are equal, round and reactive to light. Mucosa is moist with no pharyngeal exudates or erythema. NECK: JVP is 12 cm. LUNGS: Some scattered expiratory rhonchi are heard. CHEST: Regular rate and rhythm. PMI is nondisplaced. A systolic murmur is heard throughout. ABDOMEN: Soft, nontender, and nondistended. No guarding. No rebound. Negative Elliott's sign. EXTREMITIES: 3+ pitting lower extremity edema from the thighs to the toes. The right is markedly larger than the left and the right leg has erythema from the ankle to the knee that is exquisitely tender to the touch. SKIN: The skin on both legs is tight and shiny. The skin is intact. DIAGNOSTIC STUDIES/LAB DATA: White blood cells 50.9 from 35 on 10/23/17, hemoglobin 7.2 from 6.9 on 10/23/17, platelets 65 from 94 on 10/23/17, creatinine 0.9. BNP 589. Albumin 2.6, total protein 9.1. Chest x-ray today shows vascular congestion. A Doppler report of the lower extremities shows no DVT in either extremity. ASSESSMENT AND PLAN: This is a 67-year-old female who is currently being worked up by Oncology for plasma cell dyscrasia, who presents three weeks after a pathologic right hip fracture, requiring arthroplasty with bilateral lower extremity edema of sudden onset and right lower extremity erythema and pain. 1. Bilateral lower extremity swelling. 2. Her renal function is intact. Her LFTs are fairly unremarkable with the exception of a mildly elevated alkaline phosphatase and we do not have an echocardiogram on record. I would like to repeat the echocardiogram tomorrow to evaluate for a cardiac etiology or volume overload. Her albumin is low at 2.6. So, her lower extremity edema may be related to low oncotic pressures; however, the rapidity of the swelling is unusual for hypoalbuminemia. Still this is a possibility if the remainder of the workup is negative. I am starting diuresis with Lasix 20 mg IV daily as she is not toxic appearing and I think will benefit from diuresis. Check daily weights and restrict fluids. 3. Right lower extremity cellulitis. I believe this is superimposed on top of this sudden onset of lower extremity swelling. Lower extremity Dopplers were negative for DVT in the emergency department. She received a dose of vancomycin in the ED. I am going to continue this and check blood cultures. She will need pain control and request continuation of her home [place]. 4. Leukocytosis. This has been chronic and was as high as 57 on October 14. I am not sure if this is a reflection of cellulitis, but may rather be a reflection of the bone marrow process that is occurring. 5. Anemia. Her hemoglobin is stable from baseline. We will transfuse if her hemoglobin drops below 7. 6. Thrombocytopenia. Again, this appear stable from her baseline and she has no evidence of bleeding. 7. Coagulopathy. Her INR is 1.25; however, this is because she is taking home prophylactic Lovenox. It is unclear why this is the case, but I do not believe her elevated INR is a reflection of impaired liver function. I will continue DVT prophylaxis while she is in the hospital. 8. 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 She is still in the process of being worked up for this and has not yet had a bone marrow biopsy. I will discuss this case with Oncology. 9. Chronic obstructive pulmonary disease. Continue home medications, p.r.n. albuterol. 10. Hyperparathyroidism, status post parathyroidectomy. She is on daily calcium replacement. Her calcium today is 8.5, but corrected calcium is 9.6. This is still in the normal range. 11. Gamma gap. This again is related to her plasma cell dyscrasia. 12. Community-acquired pneumonia. Today is her last day of Levaquin. 13. Diet: Full unrestricted diet. 14. DVT prophylaxis: Lovenox 40 daily. TIME SPENT: Greater than 60 minutes was spent on this dictation. [id number]/[facility] #: [id number] MTDD
[2017-10-29] MEDS ORDERED: Vancomycin(*) 1,000 MG in NS 0.9% 250 ML* 250 ML IVPB SCH (04:00)
[2017-10-29 07:01] LABS: EGFR Non-African American 57.6 (>60)
[2017-10-29 07:08] LABS: Hemoglobin 6.9 g/dl (12.0-16.0); Red Blood Count 2.34 10^6/ul (4.0-5.4); White Blood Count 44.6 10^3/ul (3.5-10.8)
[2017-10-29 07:09] LABS: Hematocrit 21 % (35-47); Mean Corpuscular HGB Conc 33 g/dl (31-36); Mean Corpuscular Hemoglobin 29 pg (27-31); Mean Corpuscular Volume 90 fL (80-97); Mean Platelet Volume 7 um3 (7.4-10.4); Platelet Count 56 10^3/ul (150-450); Red Cell Distribution Width 18 % (10.5-15)
[2017-10-29] MEDS: HYDROcodone/ACETAMIN 5-325 MG* 1 TAB PO PRN ×2 (08:49→16:07)
[2017-10-29] MEDS: Calcium Carbonate TAB* 1250 MG (CALCIUM 500 MG) PO SCH (08:49)
[2017-10-29] MEDS: DULoxetine DR CAP* 60 MG CAP.DR PO SCH (08:49)
[2017-10-29] MEDS: Levofloxacin TAB* 500 MG PO SCH (08:49)
[2017-10-29] MEDS: Cholecalciferol TAB* 1000 UNITS PO SCH (08:50)
[2017-10-29] MEDS: Cyanocobalamin TAB* 500 MCG PO SCH (08:50)
[2017-10-29] MEDS: Montelukast Sodium TAB* 10 MG PO SCH (08:54)
[2017-10-29 11:46] LABS: Monocytes % 4 % (0-13)
[2017-10-29 11:54] LABS: ABS Lymphocytes 40.14 10^3/ul (1.0-4.8); ABS Monocytes 1.78 10^3/ul (0-0.8); ABS Neutrophils 2.23 10^3/ul (1.5-7.7)
[2017-10-29] MEDS: Clindamycin CAP* 150 MG PO SCH ×2 (13:48→20:45)
--- NOTE | 2017-10-29 16:46 | ECHO ---
Patient: AFRICA SEGUNDO [facility] Rec#: [id number] : 1950 Date: 10/29/2017 Age: 67y Height: 152.4 cm / 60.0 in Weight: 69.85 kg / 153.9 lbs Sex: F BSA: 1.67 Room#: [facility] Admit Date#: 10/28/2017 Type: Inpatient Referring: Padmini Donovan MD Reading: Abhijit Orosco MD Crime Scene Photographer: Katlyn Monge SCOTT CC: Anne Wisdom MD Transthoracic Echocardiogram Indication: CHF/ Edema BP: 126/66 HR: 104 Rhythm: Tachycardia Findings History: Multiple Myeloma,SOB,PALMER,plasma cell dyscrasia,COPD,depression, systolic murmur,edema. Technical Comments: The study quality is good. Completed at 1630. Left Ventricle: The left ventricular chamber size is normal. The estimated ejection fraction is 55-60%. Mild increase in LVOT velocity to 1.8 mps at rest and 2.1 mps with valsalva; consider mild dynamic LVOT obstruction. Normal left ventricular diastolic filling is observed. Left Atrium: The left atrium is moderately dilated. Right Ventricle: The right ventricular cavity size is normal. The right ventricular global systolic function is normal. Right Atrium: The right atrium is moderately dilated. Aortic Valve: The aortic valve is trileaflet. There is no evidence of aortic valve thickening. There is no evidence of aortic regurgitation. There is no evidence of aortic stenosis. Mitral Valve: The mitral valve leaflets are moderately thickened. There is mild to moderate mitral regurgitation. There is no evidence of mitral stenosis. Tricuspid Valve: The tricuspid valve leaflets are normal. There is moderate tricuspid regurgitation. There is evidence of moderate to severe pulmonary hypertension. There is no tricuspid stenosis. Pulmonic Valve: The pulmonic valve appears normal. There is no evidence of pulmonic regurgitation. There is no pulmonic stenosis. Pericardium: The pericardium appears normal. Aorta: There is no dilatation of the ascending aorta. There is no dilatation of the aortic arch. There is no dilation of the aortic root. Pulmonary Artery: The main pulmonary artery appears normal. Venous: The inferior vena cava is dilated. There is less than 50% respiratory change in the inferior vena cava dimension. Summary: There was not any prior study for comparison. Conclusions The left ventricular chamber size is normal. The estimated ejection fraction is 55-60%. Mild increase in LVOT velocity to 1.8 mps at rest and 2.1 mps with valsalva; consider mild dynamic LVOT obstruction. The left atrium is moderately dilated. The right atrium is moderately dilated. The mitral valve leaflets are moderately thickened. There is mild to moderate mitral regurgitation. There is moderate tricuspid regurgitation. Measurements Name Value Normal Range RVIDd (AP) 2D 3.2 cm (0.9 - 2.6) RVDdMajor (2D) 3.6 cm (2.2 - 4.4) RAd ISD 4CH 6 cm (3.4 - 4.9) RA (A4C)W 4.3 cm (2.9 - 4.6) IVSd (2D) 0.9 cm (0.6 - 1) LVPWd (2D) 1 cm (0.6 - 1) LVIDd (2D) 5 cm (3.6 - 5.4) LVIDs (2D) 3.7 cm - LV FS (2D) 26 % (25 - 45) Aortic Annulus 1.8 cm (1.4 - 2.6) Ao root diameter (2D) 3.2 cm (2.1 - 3.5) Ascending Ao 2.9 cm (2.1 - 3.4) Aortic arch 2.3 cm (1.8 - 3.4) Descending Ao 0.6 cm - LA dimension (AP) 2D 4.6 cm (2.3 - 3.8) LAd ISD 4CH 5.5 cm (2.9 - 5.3) LA ISD 4CH W 4.4 cm (2.5 - 4.5) Name Value Normal Range LA ESV SP 4CH (A/L) 68 ml - LA ESV SP 2CH (A/L) 81 ml - LA ESV BP (A/L) 77 ml - LA ESV BP (A/L) index 46.13 ml/m2 - LA ESV SP 4CH (MOD) 64 ml - LA ESV SP 2CH (MOD) 77 ml - Name Value Normal Range MV E-wave Vmax 1.4 m/sec - MV deceleration time 170 msec - MV A-wave Vmax 1.1 m/sec - MV E:A ratio 1.28 ratio - LV septal e' Vmax 0.09 m/sec - LV lateral e' Vmax 0.12 m/sec - LV E:e' septal ratio 15.56 ratio - LV E:e' lateral ratio 11.67 ratio - Name Value Normal Range AV Vmax 1.9 m/sec - AV VTI 36.2 cm - AV peak gradient 15.05 mmHg - AV mean gradient 6.68 mmHg - LVOT Vmax 1.8 m/sec - LVOT VTI 33.9 cm - LVOT peak gradient 12.87 mmHg - LVOT mean gradient 5.68 mmHg - Name Value Normal Range MR Vmax 5.8 m/sec - MR VTI 169 cm - Name Value Normal Range TR Vmax 3.5 m/sec - TR peak gradient 49 mmHg - RAP 15 mmHg - RVSP 64 mmHg - IVC diameter 2.3 cm - Name Value Normal Range PV Vmax 0.9 m/sec - PV peak gradient 3.17 mmHg -
--- NOTE | 2017-10-29 18:18 | PN ---
Subjective Date of Service: 10/29/17 Interval History: Patient seen and examined. States swelling and redness greatly improved on both legs. States pain is less. Denies SOB, no chest pain, no cough. States right hip /incisional pain is at baseline. Denies fevers or chills. Overall feeling better than yesterday. Objective Active Medications: Hydrocodone Bitart/Acetaminophen ([place] 5-325 Tab*) 1 tab PO Q4H PRN PRN Reason: PAIN - MILD TO MODERATE Last Admin: 10/29/17 08:49 Dose: 1 tab Hydrocodone Bitart/Acetaminophen ([place] 5-325 Tab*) 2 tab PO Q4H PRN PRN Reason: PAIN - MODERATE TO SEVERE Last Admin: 10/29/17 16:07 Dose: 2 tab Albuterol (Ventolin Hfa Inhaler*) 1 puff INH Q4HR PRN PRN Reason: SOB/WHEEZING Calcium Carbonate (Calcium Carbonate Tab*) 1,250 mg PO DAILY [facility] Last Admin: 10/29/17 08:49 Dose: 1,250 mg Cholecalciferol (Vitamin D Tab*) 1,000 units PO DAILY [facility] Last Admin: 10/29/17 08:50 Dose: 1,000 units Clindamycin HCl (Cleocin Cap*) 150 mg PO TID [facility] Last Admin: 10/29/17 13:48 Dose: 150 mg Cyanocobalamin (Vitamin B12 Tab*) 1,000 mcg PO DAILY [facility] Last Admin: 10/29/17 08:50 Dose: 1,000 mcg Duloxetine HCl (Cymbalta Cap*) 60 mg PO DAILY [facility] Last Admin: 10/29/17 08:49 Dose: 60 mg Enoxaparin Sodium (Lovenox(*)) 40 mg SUBCUT Q24H [facility] Last Admin: 10/28/17 20:05 Dose: 40 mg Montelukast Sodium (Singulair Tab*) 10 mg PO DAILY [facility] Last Admin: 10/29/17 08:54 Dose: 10 mg Vital Signs - 8 hr 10/29/17 10/29/17 10/29/17 10:52 12:37 15:32 Temperature 97.3 F 97.4 F Pulse Rate 81 99 Respiratory 16 16 20 Rate Blood Pressure 120/58 136/75 (mmHg) O2 Sat by Pulse 98 98 Oximetry 10/29/17 10/29/17 16:07 17:45 Temperature Pulse Rate Respiratory 16 16 Rate Blood Pressure (mmHg) O2 Sat by Pulse Oximetry Oxygen Devices in Use Now: None Eyes: No Scleral Icterus, PERRLA Ears/Nose/Mouth/Throat: NL Teeth, Lips, Gums, Clear Oropharnyx Neck: NL Appearance and Movements; NL JVP, Trachea Midline Respiratory: Symmetrical Chest Expansion and Respiratory Effort, Clear to Auscultation Cardiovascular: NL Sounds; No Murmurs; No JVD, RRR Abdominal: NL Sounds; No Tenderness; No Distention Extremities: No Clubbing, Cyanosis - Bilateral LE edema right > left with improvment from admission, - Skin: No Rash or Ulcers Neurological: Alert and Oriented x 3, NL Sensation Nutrition: Taking PO's Result Diagrams: 10/29/17 06:21 10/29/17 06:21 Additional Lab and Data: Lab Results 10/28/17 10/28/17 10/28/17 Range/Units 15:26 15:26 15:26 WBC 50.9 H (3.5-10.8) 10^3/ul RBC 2.44 L (4.0-5.4) 10^6/ul Hgb 7.2 L (12.0-16.0) g/dl Hct 22 L (35-47) % MCV 91 (80-97) fL MCH 29 (27-31) pg MCHC 32 (31-36) g/dl RDW 19 H (10.5-15) % Plt Count 65 L (150-450) 10^3/ul MPV 7 L (7.4-10.4) um3 Neut % (Auto) 12.8 L (38-83) % Lymph % (Auto) 16.8 L (25-47) % [place] % (Auto) 70.0 H (1-9) % Eos % (Auto) 0.4 (0-6) % Baso % (Auto) 0 (0-2) % Absolute Neuts (auto) 6.5 (1.5-7.7) 10^3/ul Absolute Lymphs (auto) 8.6 H (1.0-4.8) 10^3/ul Absolute Monos (auto) 35.6 H (0-0.8) 10^3/ul Absolute Eos (auto) 0.2 (0-0.6) 10^3/ul Absolute Basos (auto) 0 (0-0.2) 10^3/ul Absolute Nucleated RBC 0.1 10^3/ul Immature Gran % 4 (0-9) % Neutrophils % 2 L (38-83) % Band Neutrophils % 4 (0-8) % Lymphocytes % 36 (25-47) % Reactive Lymphs % 52 H D (0-6) % Monocytes % 6 (0-13) % Eosinophils % 0 (0-6) % Basophils % 0 (0-2) % Nucleated RBC % 0.1 Abs Neuts (Manual) 1.0 L (1.5-7.7) 10^3/ul Abs Lymphs (Manual) 18.3 H (1.0-4.8) 10^3/ul Abs Monocytes (Manual) 3.1 H (0-0.8) 10^3/ul Absolute Eos (Manual) 0 (0-0.6) 10^3/ul Abs Basophils (Manual) 0 (0-0.2) 10^3/ul Normal RBC Morphology Not Reportable Hypochromasia 2+ Anisocytosis 2+ Hem Pathologist Commnt Pending INR (Anticoag Therapy) 1.25 H (0.77-1.02) Sodium 134 (133-145) mmol/L Potassium 4.2 (3.5-5.0) mmol/L Chloride 102 (101-111) mmol/L Carbon Dioxide 22 (22-32) mmol/L Anion Gap 10 (2-11) mmol/L BUN 7 (6-24) mg/dL Creatinine 0.90 (0.51-0.95) mg/dL Est GFR ( Amer) 80.8 (>60) Est GFR (Non-Af Amer) 62.8 (>60) BUN/Creatinine Ratio 7.8 L (8-20) Glucose 87 (70-100) mg/dL Lactic Acid (0.5-2.0) mmol/L Calcium 8.5 L (8.6-10.3) mg/dL Total Bilirubin 0.50 (0.2-1.0) mg/dL AST 15 (13-39) U/L ALT 9 (7-52) U/L Alkaline Phosphatase 123 H (34-104) U/L Troponin I 0.01 (<0.04) ng/mL C-Reactive Protein 3.85 (< 5.00) mg/L B-Natriuretic Peptide ( - 100) pg/mL Total Protein 9.1 H (6.4-8.9) g/dL Albumin 2.6 L (3.2-5.2) g/dL Globulin 6.5 H (2-4) g/dL Albumin/Globulin Ratio 0.4 L (1-3) Monoscreen Cancelled 10/28/17 10/28/17 Range/Units 15:26 15:26 WBC (3.5-10.8) 10^3/ul RBC (4.0-5.4) 10^6/ul Hgb (12.0-16.0) g/dl Hct (35-47) % MCV (80-97) fL MCH (27-31) pg MCHC (31-36) g/dl RDW (10.5-15) % Plt Count (150-450) 10^3/ul MPV (7.4-10.4) um3 Neut % (Auto) (38-83) % Lymph % (Auto) (25-47) % [place] % (Auto) (1-9) % Eos % (Auto) (0-6) % Baso % (Auto) (0-2) % Absolute Neuts (auto) (1.5-7.7) 10^3/ul Absolute Lymphs (auto) (1.0-4.8) 10^3/ul Absolute Monos (auto) (0-0.8) 10^3/ul Absolute Eos (auto) (0-0.6) 10^3/ul Absolute Basos (auto) (0-0.2) 10^3/ul Absolute Nucleated RBC 10^3/ul Immature Gran % (0-9) % Neutrophils % (38-83) % Band Neutrophils % (0-8) % Lymphocytes % (25-47) % Reactive Lymphs % (0-6) % Monocytes % (0-13) % Eosinophils % (0-6) % Basophils % (0-2) % Nucleated RBC % Abs Neuts (Manual) (1.5-7.7) 10^3/ul Abs Lymphs (Manual) (1.0-4.8) 10^3/ul Abs Monocytes (Manual) (0-0.8) 10^3/ul Absolute Eos (Manual) (0-0.6) 10^3/ul Abs Basophils (Manual) (0-0.2) 10^3/ul Normal RBC Morphology Hypochromasia Anisocytosis Hem Pathologist Commnt INR (Anticoag Therapy) (0.77-1.02) Sodium (133-145) mmol/L Potassium (3.5-5.0) mmol/L Chloride (101-111) mmol/L Carbon Dioxide (22-32) mmol/L Anion Gap (2-11) mmol/L BUN (6-24) mg/dL Creatinine (0.51-0.95) mg/dL Est GFR ( Amer) (>60) Est GFR (Non-Af Amer) (>60) BUN/Creatinine Ratio (8-20) Glucose (70-100) mg/dL Lactic Acid 1.0 (0.5-2.0) mmol/L Calcium (8.6-10.3) mg/dL Total Bilirubin (0.2-1.0) mg/dL AST (13-39) U/L ALT (7-52) U/L Alkaline Phosphatase (34-104) U/L Troponin I (<0.04) ng/mL C-Reactive Protein (< 5.00) mg/L B-Natriuretic Peptide 589 H ( - 100) pg/mL Total Protein (6.4-8.9) g/dL Albumin (3.2-5.2) g/dL Globulin (2-4) g/dL Albumin/Globulin Ratio (1-3) Monoscreen Diagnostic Imaging: Patient: AFRICA SEGUNDO J [facility] Rec#: [id number] : 1950 Date: 10/29/2017 Age: 67y Height: 152.4 cm / 60.0 in Weight: 69.85 kg / 153.9 lbs Sex: F BSA: 1.67 Room#: 418-1 Admit Date#: 10/28/2017 Type: Inpatient Referring: Padmini Donovan MD Reading: Abhijit Orosco MD H[employer]head Mat Assembler: Katlyn Monge RDCS CC: Anne Wisdom MD Transthoracic Echocardiogram Indication: CHF/ Edema BP: 126/66 HR: 104 Rhythm: Tachycardia Findings History: Multiple Myeloma,SOB,PALMER,plasma cell dyscrasia,COPD,depression, systolic murmur,edema. Technical Comments: The study quality is good. Completed at 1630. Left Ventricle: The left ventricular chamber size is normal. The estimated ejection fraction is 55-60%. Mild increase in LVOT velocity to 1.8 mps at rest and 2.1 mps with valsalva; consider mild dynamic LVOT obstruction. Normal left ventricular diastolic filling is observed. Left Atrium: The left atrium is moderately dilated. Right Ventricle: The right ventricular cavity size is normal. The right ventricular global systolic function is normal. Right Atrium: The right atrium is moderately dilated. Aortic Valve: The aortic valve is trileaflet. There is no evidence of aortic valve thickening. There is no evidence of aortic regurgitation. There is no evidence of aortic stenosis. Mitral Valve: The mitral valve leaflets are moderately thickened. There is mild to moderate mitral regurgitation. There is no evidence of mitral stenosis. Tricuspid Valve: The tricuspid valve leaflets are normal. There is moderate tricuspid regurgitation. There is evidence of moderate to severe pulmonary hypertension. There is no tricuspid stenosis. Pulmonic Valve: The pulmonic valve appears normal. There is no evidence of pulmonic regurgitation. There is no pulmonic stenosis. Pericardium: The pericardium appears normal. Aorta: There is no dilatation of the ascending aorta. There is no dilatation of the aortic arch. There is no dilation of the aortic root. Pulmonary Artery: The main pulmonary artery appears normal. Venous: The inferior vena cava is dilated. There is less than 50% respiratory change in the inferior vena cava dimension. Summary: There was not any prior study for comparison. Conclusions The left ventricular chamber size is normal. The estimated ejection fraction is 55-60%. Mild increase in LVOT velocity to 1.8 mps at rest and 2.1 mps with valsalva; consider mild dynamic LVOT obstruction. The left atrium is moderately dilated. The right atrium is moderately dilated. The mitral valve leaflets are moderately thickened. There is mild to moderate mitral regurgitation. There is moderate tricuspid regurgitation. US DOPPLER Patient Name: AFRICA SEGUNDO Medical Record#: [id number] Ordering Physician: Waylon Michele MD Acct.#: [id number] : 1950 Age: 67 Sex: F Location: EMERGENCY DEPARTMENT Exam Date: 10/28/17 170 ADM Status: REG ER Order Information: VL LOWER EXT VEINS BILATERAL Accession Number: [id number] CPT: 81569 Indication: Bilateral leg edema. Duplex Doppler sonography of the deep venous system of both lower extremities was performed. Bilaterally the common femoral veins, proximal greater saphenous veins, proximal deep femoral veins, femoral veins, popliteal veins, posterior tibial veins and peroneal veins appear patent and compressible. IMPRESSION: NO EVIDENCE OF DEEP VENOUS THROMBOSIS OF EITHER LOWER EXTREMITY IS PRESENT. <Electronically signed by Tiarra Vides MD in OV> 10/28/171810 Dictated By: Tiarra Vides MD Dictated Date/Time: 10/28/171810 Transcribed Date/Time: 10/28/171810 Copy to: CC:Anne Wisdom MD; Waylon Michele MD Imaging - [facility] Imaging - [facility] [address] [address] ph [phone]) ph ([phone]) ph ([phone]) 1 of 1 Assess/Plan/Problems-Billing Assessment: This is a 67 year old female with hx of bone marrow disease and recent right hip ORIF that presents with bilateral LE edema, with LE cellulitis and fluid/ volume overload. - Patient Problems (1) Cellulitis Code(s): L03.90 - CELLULITIS, UNSPECIFIED SNOMED Code(s): 532841473 Comment: - Received vanco and clinda - Dr. Pham consulted - US doppler negative for DVT (2) Edema extremities Code(s): R60.0 - LOCALIZED EDEMA SNOMED Code(s): 984128730 Comment: - Right LE with increasing dependent edema likely 2/2 recent surgery - Negative for DVT - PARKER to evaluate LV function in setting of volume overload - Diuresed with lasix IV in ER, appears euvolemic today - Will order compression stockings, as patient states she was wearing these at home with good effect and less pain in legs (3) Closed right hip fracture Code(s): S72.001A - FRACTURE OF UNSP PART OF NECK OF RIGHT FEMUR, INIT SNOMED Code(s): 568944988 Comment: - S/P mecha fall and ORIF in September - Stable (4) Leukocytosis Code(s): D72.829 - ELEVATED WHITE BLOOD CELL COUNT, UNSPECIFIED SNOMED Code(s) : 503422682 Comment: - MM with plasma cell disease, unclear, working with oncology - Appreciate recs from heme-onc (5) Multiple myeloma Code(s): C90.00 - MULTIPLE MYELOMA NOT HAVING ACHIEVED REMISSION SNOMED Code(s ): 214350532 Comment: - Continued work up with heme-onc (6) COPD (chronic obstructive pulmonary disease) Code(s): J44.9 - CHRONIC OBSTRUCTIVE PULMONARY DISEASE, UNSPECIFIED SNOMED Code(s): 83068306 Comment: - Continue home meds, no exac noted (7) Thrombocytopenia Code(s): D69.6 - THROMBOCYTOPENIA, UNSPECIFIED SNOMED Code(s): 630944697 Comment: - Follow PLTs - 2/2 MM and underlying disorder (8) Hyperparathyroidism Code(s): E21.3 - HYPERPARATHYROIDISM, UNSPECIFIED SNOMED Code(s): 63837285 Comment: - s/p parathyroidectomy - Daily calcium replacement Status and Disposition: Remain inpatient. Counseling and/or Coordination of Care Minutes: coordinated with patient and staff
[2017-10-29] MEDS: Enoxaparin(*) 40 MG/0.4 ML SYR SUBCUT SCH (19:28)
--- NOTE | 2017-10-29 21:29 | CONS ---
CONSULTATION REPORT: DATE OF CONSULTATION: 10/29/17 REQUESTING PROVIDER: Paty Munguia NP CONSULTING SERVICE: Infectious Disease. REASON FOR CONSULTATION: Right leg cellulitis. IMPRESSION: 1. Right leg edema, erythema, which is rapidly improving in the setting of recent pathologic right hip fracture status post open reduction and internal fixation. The incision from that procedure is healed and without tenderness, fluctuance, or open area or drainage. 2. Plasma cell dyscrasia, recent plasmacytoma and right hip fracture. 3. Leukocytosis with an absolute atypical lymphocytosis, abnormal SPEP. 4. Chronic obstructive pulmonary disease. RECOMMENDATIONS: Stop vancomycin. We will start clindamycin 300 mg by mouth 3 times a day given rapid improvement for another 5 days. I emphasized keeping her legs elevated as well. HISTORY OF PRESENT ILLNESS: This is a 67-year-old woman, recent right hip pathologic fracture due to plasmacytoma status post open reduction and internal fixation on 10/03/17 and then rehab here, was at home, she had been on Levaquin for pneumonia which she was taking each day. Then for 2 days she had noticed bilateral leg swelling and then right leg redness, tenderness and more severe swelling. The incisions from her hip surgery were intact without any drainage. She came to the hospital on , she was started on vancomycin which she is tolerating well. She is keeping her legs elevated in bed. The swelling and redness are much improved, the pain is there but better. She has had no fevers, chills, or sweats. She has had no fever overnight. Her appetite is good. PAST MEDICAL HISTORY: 1. COPD. 2. Hyperparathyroidism, status post parathyroidectomy. 3. Depression. 4. Osteoarthritis. 5. 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 MEDICATIONS: 1. Albuterol. 2. Calcium carbonate. 3. Cholecalciferol. 4. Vitamin B12. 5. Duloxetine. 6. Enoxaparin. 7. Vicodin. 8. Vancomycin. 9. Levaquin 500 mg by mouth daily. ALLERGIES: No known drug allergies. FAMILY HISTORY: No recurrent infections. SOCIAL HISTORY: She lives outside of [place]. Her daughter is staying with her. No sick contacts. REVIEW OF SYSTEMS: All negative to a 14-point review of systems except as noted above. PHYSICAL EXAMINATION: Vital Signs: Temperature 36.3, heart rate 80, respiratory rate 16, blood pressure 124/67, oxygen saturation is 97% on room air. In general, she is awake, not in distress. Neurologic: She is oriented x3. Follows all commands. HEENT: There is no conjunctival hemorrhage. Oropharynx is without lesions. Neck: Supple. Lymph nodes: There is no inguinal lymphadenopathy. Heart has regular rate and rhythm without murmurs, rubs, or gallops. Lungs: Clear to auscultation bilaterally. Abdomen: Soft, nontender, nondistended. There are bowel sounds present. Skin: There is no rash or splinter hemorrhages. Musculoskeletal: No spine tenderness to palpation. There is right greater than left nonpitting diffuse edema. To the right leg, there is mild warmth, trace erythema. There is no fluctuance, tenderness, or crepitus. LABORATORY DATA: White blood cell count 44, hemoglobin 7, platelets 56,000, 40 % lymphocytes, 2% neutrophils, 2% monocytes they are a little low. Please see impression and recommendations outlined above, which I have discussed with Paty Munguia NP. Thank you for asking me to see Ms. Junior in consultation. [id number]/CPS #: [id number] [facility]aran
[2017-10-30] MEDS ORDERED: Vancomycin Trough Check NOTE FOLLOW UP ONE (03:30)
[2017-10-30] MEDS: HYDROcodone/ACETAMIN 5-325 MG* 1 TAB PO PRN ×2 (06:51→13:43)
[2017-10-30] MEDS: Cholecalciferol TAB* 1000 UNITS PO SCH (09:05)
[2017-10-30] MEDS: DULoxetine DR CAP* 60 MG CAP.DR PO SCH (09:05)
[2017-10-30] MEDS: Calcium Carbonate TAB* 1250 MG (CALCIUM 500 MG) PO SCH (09:05)
[2017-10-30] MEDS: Clindamycin CAP* 150 MG PO SCH ×3 (09:05→22:54)
[2017-10-30] MEDS: Montelukast Sodium TAB* 10 MG PO SCH (09:05)
[2017-10-30] MEDS: Cyanocobalamin TAB* 500 MCG PO SCH (09:05)
--- NOTE | 2017-10-30 15:38 | PN ---
Subjective Date of Service: 10/30/17 Interval History: Feels weak feels legs are improving has pain below breasts in a band across worse when using walker Objective Active Medications: Hydrocodone Bitart/Acetaminophen ([place] 5-325 Tab*) 1 tab PO Q4H PRN PRN Reason: PAIN - MILD TO MODERATE Last Admin: 10/29/17 08:49 Dose: 1 tab Hydrocodone Bitart/Acetaminophen ([place] 5-325 Tab*) 2 tab PO Q4H PRN PRN Reason: PAIN - MODERATE TO SEVERE Last Admin: 10/30/17 13:43 Dose: 2 tab Albuterol (Ventolin Hfa Inhaler*) 1 puff INH Q4HR PRN PRN Reason: SOB/WHEEZING Calcium Carbonate (Calcium Carbonate Tab*) 1,250 mg PO DAILY [facility] Last Admin: 10/30/17 09:05 Dose: 1,250 mg Cholecalciferol (Vitamin D Tab*) 1,000 units PO DAILY [facility] Last Admin: 10/30/17 09:05 Dose: 1,000 units Clindamycin HCl (Cleocin Cap*) 150 mg PO TID [facility] Last Admin: 10/30/17 13:40 Dose: 150 mg Cyanocobalamin (Vitamin B12 Tab*) 1,000 mcg PO DAILY [facility] Last Admin: 10/30/17 09:05 Dose: 1,000 mcg Duloxetine HCl (Cymbalta Cap*) 60 mg PO DAILY [facility] Last Admin: 10/30/17 09:05 Dose: 60 mg Montelukast Sodium (Singulair Tab*) 10 mg PO DAILY [facility] Last Admin: 10/30/17 09:05 Dose: 10 mg Vital Signs - 8 hr 10/30/17 10/30/17 10/30/17 09:01 09:20 11:59 Temperature Pulse Rate 88 Respiratory 16 18 16 Rate Blood Pressure 132/73 (mmHg) O2 Sat by Pulse 97 Oximetry 10/30/17 10/30/17 10/30/17 12:21 13:43 14:20 Temperature 97.5 F Pulse Rate Respiratory 18 16 Rate Blood Pressure (mmHg) O2 Sat by Pulse Oximetry Oxygen Devices in Use Now: None Appearance: older than stated age, NAD Eyes: No Scleral Icterus, PERRLA Ears/Nose/Mouth/Throat: NL Teeth, Lips, Gums, Clear Oropharnyx, Mucous Membranes Moist Neck: NL Appearance and Movements; NL JVP, Trachea Midline Respiratory: Symmetrical Chest Expansion and Respiratory Effort, Clear to Auscultation, - - decreased breath sounds Cardiovascular: RRR Abdominal: NL Sounds; No Tenderness; No Distention, No Hepatosplenomegaly Lymphatic: No Cervical Adenopathy Extremities: - - 2+ RLE up to thigh Neurological: Alert and Oriented x 3 Result Diagrams: 10/29/17 06:21 10/29/17 06:21 Additional Lab and Data: Lab Results 10/28/17 10/28/17 10/28/17 Range/Units 15:26 15:26 15:26 WBC 50.9 H (3.5-10.8) 10^3/ul RBC 2.44 L (4.0-5.4) 10^6/ul Hgb 7.2 L (12.0-16.0) g/dl Hct 22 L (35-47) % MCV 91 (80-97) fL MCH 29 (27-31) pg MCHC 32 (31-36) g/dl RDW 19 H (10.5-15) % Plt Count 65 L (150-450) 10^3/ul MPV 7 L (7.4-10.4) um3 Neut % (Auto) 12.8 L (38-83) % Lymph % (Auto) 16.8 L (25-47) % [place] % (Auto) 70.0 H (1-9) % Eos % (Auto) 0.4 (0-6) % Baso % (Auto) 0 (0-2) % Absolute Neuts (auto) 6.5 (1.5-7.7) 10^3/ul Absolute Lymphs (auto) 8.6 H (1.0-4.8) 10^3/ul Absolute Monos (auto) 35.6 H (0-0.8) 10^3/ul Absolute Eos (auto) 0.2 (0-0.6) 10^3/ul Absolute Basos (auto) 0 (0-0.2) 10^3/ul Absolute Nucleated RBC 0.1 10^3/ul Immature Gran % 4 (0-9) % Neutrophils % 2 L (38-83) % Band Neutrophils % 4 (0-8) % Lymphocytes % 36 (25-47) % Reactive Lymphs % 52 H D (0-6) % Monocytes % 6 (0-13) % Eosinophils % 0 (0-6) % Basophils % 0 (0-2) % Nucleated RBC % 0.1 Abs Neuts (Manual) 1.0 L (1.5-7.7) 10^3/ul Abs Lymphs (Manual) 18.3 H (1.0-4.8) 10^3/ul Abs Monocytes (Manual) 3.1 H (0-0.8) 10^3/ul Absolute Eos (Manual) 0 (0-0.6) 10^3/ul Abs Basophils (Manual) 0 (0-0.2) 10^3/ul Normal RBC Morphology Not Reportable Hypochromasia 2+ Anisocytosis 2+ Hem Pathologist Commnt Pending INR (Anticoag Therapy) 1.25 H (0.77-1.02) Sodium 134 (133-145) mmol/L Potassium 4.2 (3.5-5.0) mmol/L Chloride 102 (101-111) mmol/L Carbon Dioxide 22 (22-32) mmol/L Anion Gap 10 (2-11) mmol/L BUN 7 (6-24) mg/dL Creatinine 0.90 (0.51-0.95) mg/dL Est GFR ( Amer) 80.8 (>60) Est GFR (Non-Af Amer) 62.8 (>60) BUN/Creatinine Ratio 7.8 L (8-20) Glucose 87 (70-100) mg/dL Lactic Acid (0.5-2.0) mmol/L Calcium 8.5 L (8.6-10.3) mg/dL Total Bilirubin 0.50 (0.2-1.0) mg/dL AST 15 (13-39) U/L ALT 9 (7-52) U/L Alkaline Phosphatase 123 H (34-104) U/L Troponin I 0.01 (<0.04) ng/mL C-Reactive Protein 3.85 (< 5.00) mg/L B-Natriuretic Peptide ( - 100) pg/mL Total Protein 9.1 H (6.4-8.9) g/dL Albumin 2.6 L (3.2-5.2) g/dL Globulin 6.5 H (2-4) g/dL Albumin/Globulin Ratio 0.4 L (1-3) Monoscreen Cancelled 10/28/17 10/28/17 Range/Units 15:26 15:26 WBC (3.5-10.8) 10^3/ul RBC (4.0-5.4) 10^6/ul Hgb (12.0-16.0) g/dl Hct (35-47) % MCV (80-97) fL MCH (27-31) pg MCHC (31-36) g/dl RDW (10.5-15) % Plt Count (150-450) 10^3/ul MPV (7.4-10.4) um3 Neut % (Auto) (38-83) % Lymph % (Auto) (25-47) % [place] % (Auto) (1-9) % Eos % (Auto) (0-6) % Baso % (Auto) (0-2) % Absolute Neuts (auto) (1.5-7.7) 10^3/ul Absolute Lymphs (auto) (1.0-4.8) 10^3/ul Absolute Monos (auto) (0-0.8) 10^3/ul Absolute Eos (auto) (0-0.6) 10^3/ul Absolute Basos (auto) (0-0.2) 10^3/ul Absolute Nucleated RBC 10^3/ul Immature Gran % (0-9) % Neutrophils % (38-83) % Band Neutrophils % (0-8) % Lymphocytes % (25-47) % Reactive Lymphs % (0-6) % Monocytes % (0-13) % Eosinophils % (0-6) % Basophils % (0-2) % Nucleated RBC % Abs Neuts (Manual) (1.5-7.7) 10^3/ul Abs Lymphs (Manual) (1.0-4.8) 10^3/ul Abs Monocytes (Manual) (0-0.8) 10^3/ul Absolute Eos (Manual) (0-0.6) 10^3/ul Abs Basophils (Manual) (0-0.2) 10^3/ul Normal RBC Morphology Hypochromasia Anisocytosis Hem Pathologist Commnt INR (Anticoag Therapy) (0.77-1.02) Sodium (133-145) mmol/L Potassium (3.5-5.0) mmol/L Chloride (101-111) mmol/L Carbon Dioxide (22-32) mmol/L Anion Gap (2-11) mmol/L BUN (6-24) mg/dL Creatinine (0.51-0.95) mg/dL Est GFR ( Amer) (>60) Est GFR (Non-Af Amer) (>60) BUN/Creatinine Ratio (8-20) Glucose (70-100) mg/dL Lactic Acid 1.0 (0.5-2.0) mmol/L Calcium (8.6-10.3) mg/dL Total Bilirubin (0.2-1.0) mg/dL AST (13-39) U/L ALT (7-52) U/L Alkaline Phosphatase (34-104) U/L Troponin I (<0.04) ng/mL C-Reactive Protein (< 5.00) mg/L B-Natriuretic Peptide 589 H ( - 100) pg/mL Total Protein (6.4-8.9) g/dL Albumin (3.2-5.2) g/dL Globulin (2-4) g/dL Albumin/Globulin Ratio (1-3) Monoscreen Diagnostic Imaging: Patient: AFRICA SEGUNDO [facility] Rec#: [id number] : 1950 Date: 10/29/2017 Age: 67y Height: 152.4 cm / 60.0 in Weight: 69.85 kg / 153.9 lbs Sex: F BSA: 1.67 Room#: [facility] Admit Date#: 10/28/2017 Type: Inpatient Referring: Padmini Donoavn MD Reading: Abhijit Orosco MD [employer] Finisher: Katlyn Monge RDCS CC: Anne Wisdom MD Transthoracic Echocardiogram Indication: CHF/ Edema BP: 126/66 HR: 104 Rhythm: Tachycardia Findings History: Multiple Myeloma,SOB,PALMER,plasma cell dyscrasia,COPD,depression, systolic murmur,edema. Technical Comments: The study quality is good. Completed at 1630. Left Ventricle: The left ventricular chamber size is normal. The estimated ejection fraction is 55-60%. Mild increase in LVOT velocity to 1.8 mps at rest and 2.1 mps with valsalva; consider mild dynamic LVOT obstruction. Normal left ventricular diastolic filling is observed. Left Atrium: The left atrium is moderately dilated. Right Ventricle: The right ventricular cavity size is normal. The right ventricular global systolic function is normal. Right Atrium: The right atrium is moderately dilated. Aortic Valve: The aortic valve is trileaflet. There is no evidence of aortic valve thickening. There is no evidence of aortic regurgitation. There is no evidence of aortic stenosis. Mitral Valve: The mitral valve leaflets are moderately thickened. There is mild to moderate mitral regurgitation. There is no evidence of mitral stenosis. Tricuspid Valve: The tricuspid valve leaflets are normal. There is moderate tricuspid regurgitation. There is evidence of moderate to severe pulmonary hypertension. There is no tricuspid stenosis. Pulmonic Valve: The pulmonic valve appears normal. There is no evidence of pulmonic regurgitation. There is no pulmonic stenosis. Pericardium: The pericardium appears normal. Aorta: There is no dilatation of the ascending aorta. There is no dilatation of the aortic arch. There is no dilation of the aortic root. Pulmonary Artery: The main pulmonary artery appears normal. Venous: The inferior vena cava is dilated. There is less than 50% respiratory change in the inferior vena cava dimension. Summary: There was not any prior study for comparison. Conclusions The left ventricular chamber size is normal. The estimated ejection fraction is 55-60%. Mild increase in LVOT velocity to 1.8 mps at rest and 2.1 mps with valsalva; consider mild dynamic LVOT obstruction. The left atrium is moderately dilated. The right atrium is moderately dilated. The mitral valve leaflets are moderately thickened. There is mild to moderate mitral regurgitation. There is moderate tricuspid regurgitation. US DOPPLER Patient Name: AFRICA SEGUNDO Medical Record#: [id number] Ordering Physician: Waylon Michele MD Acct.#: [id number] : 1950 Age: 67 Sex: F Location: EMERGENCY DEPARTMENT Exam Date: 10/28/17 170 ADM Status: REG ER Order Information: VL LOWER EXT VEINS BILATERAL Accession Number: [id number] CPT: 22899 Indication: Bilateral leg edema. Duplex Doppler sonography of the deep venous system of both lower extremities was performed. Bilaterally the common femoral veins, proximal greater saphenous veins, proximal deep femoral veins, femoral veins, popliteal veins, posterior tibial veins and peroneal veins appear patent and compressible. IMPRESSION: NO EVIDENCE OF DEEP VENOUS THROMBOSIS OF EITHER LOWER EXTREMITY IS PRESENT. <Electronically signed by Tiarra Vides MD in OV> 10/28/171810 Dictated By: Tiarra Vides MD Dictated Date/Time: 10/28/171810 Transcribed Date/Time: 10/28/171810 Copy to: CC:Anne Wisdom MD; Waylon Michele MD Imaging - [facility] - [facility] [address] [place] [address] ph [phone]) ph ([phone]) ph ([phone]) 1 of 1 Assess/Plan/Problems-Billing Assessment: This is a 67 year old female with hx of bone marrow disease and recent right hip ORIF that presents with bilateral LE edema, with RLE cellulitis and fluid/ volume overload. - Patient Problems (1) Cellulitis Comment: - Received vanco and clinda now on PO clinda since 10/29 (2) Closed right hip fracture Comment: - S/P mecha fall and ORIF in September - Stable (3) Edema extremities Comment: - Right LE with increasing dependent edema likely 2/2 recent surgery. Improving with compression stockings -dynamic outflow obstruction on TTE may be contributing (4) Hyperparathyroidism Comment: - s/p parathyroidectomy - Daily calcium replacement (5) Multiple myeloma Comment: repeat CBC and transfuse for Hb<7 or Plts <20 - Continued work up with heme-onc (6) Thrombocytopenia Comment: - Follow PLTs - 2/2 MM and underlying disorder - hold lovenox Status and Disposition: Remain inpatient.
[2017-10-30 16:56] LABS: Hematocrit 20 % (35-47); Hemoglobin 6.7 g/dl (12.0-16.0); Mean Corpuscular HGB Conc 33 g/dl (31-36); Mean Corpuscular Hemoglobin 29 pg (27-31); Mean Corpuscular Volume 90 fL (80-97); Mean Platelet Volume 7 um3 (7.4-10.4); Platelet Count 45 10^3/ul (150-450); Red Blood Count 2.26 10^6/ul (4.0-5.4); Red Cell Distribution Width 19 % (10.5-15); White Blood Count 52.4 10^3/ul (3.5-10.8)
[2017-10-31] MEDS: HYDROcodone/ACETAMIN 5-325 MG* 1 TAB PO PRN ×2 (06:04→14:33)
[2017-10-31] MEDS: Calcium Carbonate TAB* 1250 MG (CALCIUM 500 MG) PO SCH (08:06)
[2017-10-31] MEDS: Montelukast Sodium TAB* 10 MG PO SCH (08:06)
[2017-10-31] MEDS: Cholecalciferol TAB* 1000 UNITS PO SCH (08:07)
[2017-10-31] MEDS: DULoxetine DR CAP* 60 MG CAP.DR PO SCH (08:07)
[2017-10-31] MEDS: Cyanocobalamin TAB* 500 MCG PO SCH (08:07)
[2017-10-31] MEDS: Clindamycin CAP* 150 MG PO SCH ×3 (08:08→18:59)
[2017-10-31 09:08] LABS: Hematocrit 23 % (35-47); Hemoglobin 7.5 g/dl (12.0-16.0); Mean Corpuscular HGB Conc 33 g/dl (31-36); Mean Corpuscular Hemoglobin 30 pg (27-31); Mean Corpuscular Volume 90 fL (80-97); Mean Platelet Volume 7 um3 (7.4-10.4); Platelet Count 42 10^3/ul (150-450); Red Blood Count 2.52 10^6/ul (4.0-5.4); Red Cell Distribution Width 18 % (10.5-15); White Blood Count 51.2 10^3/ul (3.5-10.8)
[2017-10-31 09:19] LABS: EGFR Non-African American 65.3 (>60)
[2017-10-31 09:45] LABS: Monocytes % 5 % (0-13)
[2017-10-31 17:49] VITALS: BP 126/64
--- NOTE | 2017-11-01 00:43 | DS ---
CC: Anne Wisdom MD; Jacky Quesada MD * DISCHARGE SUMMARY: DATE OF ADMISSION: 10/28/17 DATE OF DISCHARGE: 10/31/17 PRIMARY CARE PROVIDER: Anne Wisdom MD PRIMARY DIAGNOSES: 1. Right lower extremity cellulitis. 2. Bilateral lower extremity edema. 3. Plasma dyscrasia. 4. Suspected multiple myeloma. SECONDARY DIAGNOSES: Include: 1. Chronic obstructive pulmonary disease. 2. Hyperparathyroidism status post parathyroidectomy. 3. History of depression. MEDICATIONS ON DISCHARGE: Include: 1. Hydrocodone with acetaminophen 5/325 two tabs every 4 hours as needed. 2. Albuterol 1 puff every 4 hours as needed. 3. [place]-3 fatty acids 1 cap daily. 4. Calcium carbonate 1200 mg daily. 5. Montelukast [address] 6. Dulox[address] 60 mg daily. 7. Vitamin B12, 1000 mcg daily. 8. Cholecalciferol 1000 units daily. 9. Clindamycin 300 mg 3 time daily for 4 additional days. PERTINENT IMAGING STUDIES: Transthoracic echocardiogram, impression: Estimated LVEF is 55% to 60%. Mild increase in LVOT velocity to 1.8 meters per second at rest and 2.1 meters per second with Valsalva. Consider mild dynamic LVOT obstruction. Left atrium is moderately dilated. The right atrium is moderately dilated. Mitral valves appear moderately thickened. Mild to moderate MR, moderate TR. PERTINENT LABORATORY DATA: White blood cell count on discharge 51.2, hemoglobin was 7.5 prior to receipt of blood transfusion on the day of discharge , and platelets 42,000. HISTORY OF PRESENT ILLNESS AND HOSPITAL COURSE: This 67-year-old female currently under the care of the oncology team for workup of multiple myeloma or plasma cell leukemia who had a recent right hip pathological fracture with repair, presented to the hospital with bilateral lower extremity swelling greater on the right with associated cellulitis. She was treated with IV antibiotics, clindamycin, then transferred to p.o. antibiotics the day prior to discharge. Her cellulitis largely improved, she will be continued for 4 additional days after her discharge. Her lower extremity swelling improved specifically with compression stockings and elevation. She received a total of 3 units packed red blood cells prior to her discharge and fell back to baseline on the day of discharge. Followup please; 1. Follow CBC for trending of hemoglobin, hematocrit, and platelets. 2. Follow right lower extremity for continued resolution of cellulitis. 3. No other specific labs or vitals that need followup. Reasons to return to the hospital included but not limited to recurrent and worsening symptoms including fevers, chills, night sweats, chest pain, shortness of breath, nausea, vomiting, loss of consciousness, increasing redness in either of her legs, inability to obtain or tolerate medications were discussed with the patient. TIME SPENT: Greater than 45 minutes were spent on the discharge of the patient , greater than half was spent [id number] with the patient. [id number]/[facility] #: [id number] MTDD
== END 2017-10-31 19:05 | disposition home or self-care (01) | DRG 603 ==
LOC: ED 12:57 → MED 18:01
PROVIDERS: ADMIT Internal Medicine; ATTEND Internal Medicine
PROC: 30233N1 Transfusion of Nonautologous Red Blood Cells into Peripheral Vein, Percutaneous Approach (ICD-10-PCS; principal; 2017-10-30)
DX: L03.115 Cellulitis of right lower limb (principal); C90.00 Multiple myeloma not having achieved remission; D69.6 Thrombocytopenia, unspecified; I08.1 Rheumatic disorders of both mitral and tricuspid valves; E87.70 Fluid overload, unspecified; J44.9 Chronic obstructive pulmonary disease, unspecified; D75.89 Other specified diseases of blood and blood-forming organs; E89.2 Postprocedural hypoparathyroidism; R60.0 Localized edema; F32.9 Major depressive disorder, single episode, unspecified; M19.90 Unspecified osteoarthritis, unspecified site; Z96.641 Presence of right artificial hip joint; Z80.51 Family history of malignant neoplasm of kidney; Z80.3 Family history of malignant neoplasm of breast; Z83.79 Family history of other diseases of the digestive system; Z87.891 Personal history of nicotine dependence; D64.9 Anemia, unspecified; D72.829 Elevated white blood cell count, unspecified; M81.0 Age-related osteoporosis without current pathological fracture; F41.0 Panic disorder [episodic paroxysmal anxiety]; Z98.51 Tubal ligation status; Z82.5 Family history of asthma and other chronic lower respiratory diseases; R40.2412 Glasgow coma scale score 13-15, at arrival to emergency department
CPT/HCPCS: 36415; 71045; 80048; 80053; 81003; 81015; 83605; 83880; 84484; 85025; 85027; 85060; 85610; 86140; 86308; 86850; 86900; 86901; 86922; 87040; 93306; 93970; 99284; A9270-GY; J1650; J1940; J2270; J2405; J3370; P9040

== ENCOUNTER 2017-12-01 22:58 | Inpatient (IN) | payer MEDICARE, OTHER ==
[2017-12-01] MEDS ORDERED: Ondansetron INJ* 2 MG/ML VIAL IV ONE (23:18)
[2017-12-01] MEDS ORDERED: Morphine INJ* 10 MG/ML 1 ML CARPUJECT IV ONE (23:18)
[2017-12-01] MEDS ORDERED: NS 0.9% 1000 ML* 2,000 ML IV ONE (23:18)
[2017-12-01] MEDS ORDERED: Hydrocortisone INJ* 100 MG VIAL IV ONE (23:21)
[2017-12-02 00:02] LABS: EGFR Non-African American 52.6 (>60)
[2017-12-02 00:26] LABS: Monocytes % 37 % (0-13)
[2017-12-02 00:27] LABS: ABS Basophils 0 10^3/ul (0-0.2); ABS Eosinophils 0 10^3/ul (0-0.6); ABS Lymphocytes 0.2 10^3/ul (1.0-4.8); ABS Neutrophils 2.2 10^3/ul (1.5-7.7); ABS Nucleated RBC 0.1 10^3/ul; Eosinophil % 0.4 % (0-6); Hematocrit 22 % (35-47); Hemoglobin 7.4 g/dl (12.0-16.0); Lymphocyte % 4.3 % (25-47); Mean Corpuscular HGB Conc 35 g/dl (31-36); Mean Corpuscular Hemoglobin 31 pg (27-31); Mean Corpuscular Volume 90 fL (80-97); Mean Platelet Volume 9 um3 (7.4-10.4); Nucleated Red Blood Cells % 1.5; Platelet Count 31 10^3/ul (150-450); Red Blood Count 2.38 10^6/ul (4.0-5.4); Red Cell Distribution Width 20 % (10.5-15); White Blood Count 4.4 10^3/ul (3.5-10.8)
[2017-12-02] MEDS ORDERED: metroNIDAZOLE TAB* 250 MG PO ONE (01:29)
[2017-12-02] MEDS ORDERED: Levofloxacin 500 MG IVPREMIX(* 500 MG/100 ML BAG IVPB ONE ×2 (01:29→01:48)
[2017-12-02] MEDS ORDERED: NS 0.9% 1000 ML* 1,000 ML IV ONE ×2 (01:40→06:32)
[2017-12-02 01:44] LABS: INR 1.57 (0.77-1.02)
[2017-12-02] MEDS ORDERED: Lidocaine 2% JELLY* 6 ML JELLY TOPICAL ONE (01:52)
--- NOTE | 2017-12-02 02:16 | ED ---
Maggy Shepherd Julia, scribed for Marlon Dupont MD on 12/01/17 at 2354 . Abdominal Pain/Female - HPI Summary HPI Summary: This patient is a 67 year old F BIB[facility] to [facility] accompanied by her family with a chief complaint of N/V/D, lower abdominal pain, and general weakness for the past two days. Patient reports dehydration, bloating, and phlegmy stool. Patient denies fever. The patient rates the pain 7/10 in severity. Symptoms aggravated by palpation to abdomen. Patient was diagnosed with multiple myeloma in September 2017. Patient broke her R hip, requiring surgery in September 2017. Dr. Quesada is the patients oncologist. Medications reviewed with family - History of Current Complaint Stated Complaint: LOW BP Time Seen by Provider: 12/01/17 23:06 Hx Obtained From: Patient, Family/[employer] Symbol Stamper Hx Last Menstrual Period: post menopausal Onset/Duration: Lasting Days, Still Present Timing: Constant Pain Intensity: 7 Pain Scale Used: 0-10 Numeric Location: Diffuse - lower abdomen Character: Other: - bloating Aggravating Factor(s): Other: - palpitaion Associated Signs and Symptoms: Positive: Nausea, Vomiting, Diarrhea, Other: - dehydration Allergies/Adverse Reactions: Allergies Allergy/AdvReac Type Severity Reaction Status Date / Time No Known Allergies Allergy Verified 11/09/17 15:49 PMH/Surg Hx/FS Hx/Imm Hx Endocrine/Hematology History: Reports: Hx Thyroid Disease, Hx Anemia Denies: Hx Diabetes Cardiovascular History: Reports: Hx Hypertension, Other Cardiovascular Problems/ Disorders - cath without stents Denies: Hx Pacemaker/ICD Respiratory History: Reports: Hx Asthma, Hx Chronic Obstructive Pulmonary Disease (COPD) GI History: Denies: Hx Ulcer Musculoskeletal History: Reports: Hx Arthritis, Hx Osteoporosis Sensory History: Denies: Hx Contacts or Glasses, Hx Hearing Aid, Hx Hearing Problem Opthamlomology History: Denies: Hx Contacts or Glasses Psychiatric History: Reports: Hx Anxiety, Hx Depression, Hx Panic Disorder - GETS ANXIETY AT TIMES - Cancer History Cancer Type, Location and Year: multiple myeloma, September 2017 Hx Chemotherapy: Yes Hx Radiation Therapy: No - Surgical History Surgery Procedure, Year, and Place: TUBAL LIGATION,PARATHYROID, L HAND SURGERY IN [employer], CARDIAC CATH WITHOUT STENTS Hx Anesthesia Reactions: No Infectious Disease History: No Infectious Disease History: Denies: Hx Hepatitis, Hx Human Immunodeficiency Virus (HIV), Hx of Known/ Suspected MRSA, Hx Shingles, Hx Tuberculosis, Hx Known/Suspected VRE, Hx Known/ Suspected VRSA, Traveled Outside the [place] in Last 30 Days - Family History Family History: COPD and Kidney cancer - Social History Alcohol Use: None Substance Use Type: Reports: None Hx Tobacco Use: Yes Smoking Status (MU): Former Smoker Type: Cigarettes Length of Time of Smoking/Using Tobacco: 45-50 years Have You Smoked in the Last Year: Yes Review of Systems Positive: Other - dehydration. Negative: Fever Positive: Abdominal Pain, Vomiting, Diarrhea, Nausea Positive: Weakness - general All Other Systems Reviewed And Are Negative: Yes Physical Exam - Summary Physical Exam Summary: VITAL SIGNS: Reviewed. GENERAL: Patient is a well-developed and nourished female who is lying comfortable in the stretcher. Patient is not in any acute respiratory distress. HEAD AND FACE: No signs of trauma. No ecchymosis, hematomas or skull depressions. No sinus tenderness. EYES: PERRLA, EOMI x 2, No injected conjunctiva, no nystagmus. EARS: Hearing grossly intact. Ear canals and tympanic membranes are within normal limits. MOUTH: Oropharynx within normal limits. NECK: Supple, trachea is midline, no adenopathy, no JVD, no carotid bruit, no c- spine tenderness, neck with full ROM. CHEST: Symmetric, no tenderness at palpation LUNGS: Clear to auscultation bilaterally. No wheezing or crackles. CVS: Regular rate and rhythm, S1 and S2 present, no murmurs or gallops appreciated. ABDOMEN: Diffuse abdominal tenderness with distention. No rebound no guarding, and no masses palpated. Bowel sounds are normal. EXTREMITIES: FROM in all major joints, bilateral pitting edema, no cyanosis or clubbing. NEURO: Alert and oriented x 3. No acute neurological deficits. Speech is normal and follows commands. SKIN: Dry and warm, pallor Triage Information Reviewed: Yes Vital Signs On Initial Exam: Initial Vitals Temp Pulse Resp BP Pulse Ox 36.8 C 92 15 87/56 94 12/01/17 23:18 12/01/17 23:18 12/01/17 23:18 12/01/17 23:18 12/01/17 23:18 Vital Signs Reviewed: Yes Diagnostics - Vital Signs Vital Signs Temp Pulse Resp BP Pulse Ox 12/02/17 02:06 96 16 91/72 12/02/17 01:02 90 15 86/54 95 12/02/17 00:17 91 15 88/51 93 12/01/17 23:52 16 12/01/17 23:18 36.8 C 92 15 87/56 94 - Laboratory Lab Results: Lab Results 12/01/17 12/01/17 12/01/17 Range/Units 23:36 23:36 23:36 WBC 4.4 (3.5-10.8) 10^3/ul RBC 2.38 L (4.0-5.4) 10^6/ul Hgb 7.4 L (12.0-16.0) g/dl Hct 22 L (35-47) % MCV 90 (80-97) fL MCH 31 (27-31) pg MCHC 35 (31-36) g/dl RDW 20 H (10.5-15) % Plt Count 31 L (150-450) 10^3/ul MPV 9 (7.4-10.4) um3 Neut % (Auto) 49.5 (38-83) % Lymph % (Auto) 4.3 L (25-47) % [place] % (Auto) 45.6 H (1-9) % Eos % (Auto) 0.4 (0-6) % Baso % (Auto) 0.2 (0-2) % Absolute Neuts (auto) 2.2 (1.5-7.7) 10^3/ul Absolute Lymphs (auto) 0.2 L (1.0-4.8) 10^3/ul Absolute Monos (auto) 2.0 H (0-0.8) 10^3/ul Absolute Eos (auto) 0 (0-0.6) 10^3/ul Absolute Basos (auto) 0 (0-0.2) 10^3/ul Absolute Nucleated RBC 0.1 10^3/ul Immature Gran % 5 (0-9) % Neutrophils % 49 (38-83) % Band Neutrophils % 5 (0-8) % Lymphocytes % 8 L (25-47) % Reactive Lymphs % 1 (0-6) % Monocytes % 37 H (0-13) % Nucleated RBC % 1.5 Nucleated RBCs/100 WBC 1 H (0-0) Normal RBC Morphology Not Reportable Hypochromasia 1+ Hem Pathologist Commnt Pending INR (Anticoag Therapy) (0.77-1.02) APTT (26.0-36.3) seconds Sodium 122 L (133-145) mmol/L Potassium 3.9 (3.5-5.0) mmol/L Chloride 94 L (101-111) mmol/L Carbon Dioxide 19 L (22-32) mmol/L Anion Gap 9 (2-11) mmol/L BUN 35 H (6-24) mg/dL Creatinine 1.05 H (0.51-0.95) mg/dL Est GFR ( Amer) 67.6 (>60) Est GFR (Non-Af Amer) 52.6 (>60) BUN/Creatinine Ratio 33.3 H (8-20) Glucose 109 H (70-100) mg/dL Lactic Acid 0.9 (0.5-2.0) mmol/L Calcium 7.0 L (8.6-10.3) mg/dL Magnesium 1.6 L (1.9-2.7) mg/dL Total Bilirubin 1.10 H (0.2-1.0) mg/dL AST 6 L (13-39) U/L ALT 11 (7-52) U/L Alkaline Phosphatase 100 (34-104) U/L C-Reactive Protein 156.40 H (< 5.00) mg/L Total Protein 5.9 L (6.4-8.9) g/dL Albumin 2.6 L (3.2-5.2) g/dL Globulin 3.3 (2-4) g/dL Albumin/Globulin Ratio 0.8 L (1-3) Amylase < 10 L (29-103) U/L Lipase < 10 L (11.0-82.0) U/L Blood Type Antibody Screen 12/01/17 12/02/17 Range/Units 23:36 01:21 WBC (3.5-10.8) 10^3/ul RBC (4.0-5.4) 10^6/ul Hgb (12.0-16.0) g/dl Hct (35-47) % MCV (80-97) fL MCH (27-31) pg MCHC (31-36) g/dl RDW (10.5-15) % Plt Count (150-450) 10^3/ul MPV (7.4-10.4) um3 Neut % (Auto) (38-83) % Lymph % (Auto) (25-47) % [place] % (Auto) (1-9) % Eos % (Auto) (0-6) % Baso % (Auto) (0-2) % Absolute Neuts (auto) (1.5-7.7) 10^3/ul Absolute Lymphs (auto) (1.0-4.8) 10^3/ul Absolute Monos (auto) (0-0.8) 10^3/ul Absolute Eos (auto) (0-0.6) 10^3/ul Absolute Basos (auto) (0-0.2) 10^3/ul Absolute Nucleated RBC 10^3/ul Immature Gran % (0-9) % Neutrophils % (38-83) % Band Neutrophils % (0-8) % Lymphocytes % (25-47) % Reactive Lymphs % (0-6) % Monocytes % (0-13) % Nucleated RBC % Nucleated RBCs/100 WBC (0-0) Normal RBC Morphology Hypochromasia Hem Pathologist Commnt INR (Anticoag Therapy) 1.57 H (0.77-1.02) APTT 30.7 (26.0-36.3) seconds Sodium (133-145) mmol/L Potassium (3.5-5.0) mmol/L Chloride (101-111) mmol/L Carbon Dioxide (22-32) mmol/L Anion Gap (2-11) mmol/L BUN (6-24) mg/dL Creatinine (0.51-0.95) mg/dL Est GFR ( Amer) (>60) Est GFR (Non-Af Amer) (>60) BUN/Creatinine Ratio (8-20) Glucose (70-100) mg/dL Lactic Acid (0.5-2.0) mmol/L Calcium (8.6-10.3) mg/dL Magnesium (1.9-2.7) mg/dL Total Bilirubin (0.2-1.0) mg/dL AST (13-39) U/L ALT (7-52) U/L Alkaline Phosphatase (34-104) U/L C-Reactive Protein (< 5.00) mg/L Total Protein (6.4-8.9) g/dL Albumin (3.2-5.2) g/dL Globulin (2-4) g/dL Albumin/Globulin Ratio (1-3) Amylase (29-103) U/L Lipase (11.0-82.0) U/L Blood Type A Positive Antibody Screen Negative Result Diagrams: 12/01/17 23:36 12/01/17 23:36 Lab Statement: Any lab studies that have been ordered have been reviewed, and results considered in the medical decision making process. - CT A/P CT Interpretation Completed By: Radiologist - Colonic distention could represtn severe ileus or toxic megacolon. Small amount of ascites. Possible anasarca. Small reight pleural effusion with comprehensive atelecatsis and/pr pneumonia. Trace pericardial effusion. ED Physician has reviewed this report. Abdominal Pain Fem Course/Dx - Course Course Of Treatment: Patient presents with N/V/D, lower abdominal pain, and general weakness for the past two days. Patient reports dehydration, bloating, and phlegmy stool. Patient was diagnosed with multiple myeloma in September 2017. Medications reviewed with family. CT A/P reveals colonic distention, ascites, pleural effustion and PNA. Pt is given Levofloxacin, Hydrocortosine, Flagyl, Zofran, Morphine, and IV fluids. Lab results are unremarkable with slight abnormalities Dr. Grissom recommends a rectal tube and antibiotics. Dr. Donovan agrees to admit patient at 01:48. - Diagnoses Provider Diagnoses: Gastroenteritis, Toxic megacolon, Multiple myeloma, possible clostridium difficile - Provider Notifications Discussed Care Of Patient With: Anival Grissom - GI Time Discussed With Above Provider: 01:37 Instructed by Provider To: Other - recommends rectal tube and antibiotics. Discharge - Discharge Plan Condition: Fair Disposition: ADMITTED TO [facility] Referrals: Anne Villarreal MD [Primary Care Provider] - The documentation as recorded by the Maggy hardy Julia accurately reflects the service I personally performed and the decisions made by , Marlon Dupont MD.
[2017-12-02] MEDS ORDERED: Lidocaine 2% JELLY* 10 ML JELLY TOPICAL ONE (02:21)
[2017-12-02] MEDS ORDERED: Ondansetron INJ* 2 MG/ML VIAL IV PRN (02:38)
[2017-12-02] MEDS ORDERED: Albuterol/Ipratropium NEB.SOL* Albuterol 2.5 MG/Ipratropium 0.5 MG 3 ML INH PRN (02:38)
[2017-12-02] MEDS ORDERED: PROCHLORPERAZINE INJ 5 MG/ML 2 ML VIAL IM PRN (03:16)
[2017-12-02] MEDS: NS 0.9% 1000 ML* 1,000 ML IV SCH ×3 (03:30→21:51)
[2017-12-02] MEDS ORDERED: Magnesium Sulfate 1 GM IV* 1 GM/100 ML BAG IV ONE (04:03)
[2017-12-02] MEDS: Ciprofloxacin 400MG IVPREMIX(* 400 MG/200 ML BAG IVPB SCH ×2 (04:37→15:40)
[2017-12-02 05:37] LABS: INR 1.49 (0.77-1.02)
[2017-12-02 06:05] LABS: Urine Appearance Clear; Urine Blood Negative (Negative); Urine Color Yellow; Urine Ketones Negative (Negative); Urine Protein Negative (Negative); Urine Specific Gravity 1.015 (1.010-1.030); Urine Urobilinogen Negative (Negative)
[2017-12-02 06:08] LABS: ABS Basophils 0 10^3/ul (0-0.2); ABS Eosinophils 0 10^3/ul (0-0.6); ABS Lymphocytes 0.2 10^3/ul (1.0-4.8); ABS Monocytes 1.6 10^3/ul (0-0.8); ABS Neutrophils 2.3 10^3/ul (1.5-7.7); ABS Nucleated RBC 0.1 10^3/ul; Eosinophil % 0.2 % (0-6); Hematocrit 21 % (35-47); Lymphocyte % 3.9 % (25-47); Mean Corpuscular HGB Conc 34 g/dl (31-36); Mean Corpuscular Hemoglobin 31 pg (27-31); Mean Corpuscular Volume 92 fL (80-97); Mean Platelet Volume 9 um3 (7.4-10.4); Nucleated Red Blood Cells % 1.7; Platelet Count 30 10^3/ul (150-450); Red Blood Count 2.25 10^6/ul (4.0-5.4); Red Cell Distribution Width 20 % (10.5-15)
[2017-12-02 06:11] LABS: INR 1.54 (0.77-1.02)
[2017-12-02 06:22] LABS: EGFR Non-African American 62.8 (>60)
[2017-12-02] MEDS ORDERED: Calcium CHLORIDE 10% SYRINGE* 1 GM/10 ML IV ONE (06:32)
--- NOTE | 2017-12-02 07:24 | RAD ---
INDICATION: Abdominal pain. COMPARISON: Comparison is made with a prior study from October 01, 2017. TECHNIQUE: A CT scan of the abdomen and pelvis was performed without intravenous or oral contrast. Contiguous axial sections were obtained from the lung bases through the symphysis pubis. Images were reconstructed in the coronal and sagittal planes. FINDINGS: There is a small right pleural effusion and small dependent right lower lobe infiltrate most consistent with atelectasis. The heart is moderately enlarged. There is a trace pericardial effusion. The liver is mildly enlarged without significant focal abnormality on this noncontrast study. No calcified gallstones are seen. The spleen is within normal limits in size. The pancreas appears to be within normal limits. There is mild thickening of the adrenal glands suggesting the possibility of adrenal gland hyperplasia. The kidneys are normal in size. No renal calculi or hydronephrosis is seen. The abdominal aorta is normal in caliber. There is moderate to severe calcific plaque present. There is a retroaortic left renal vein present. No significant enlarged retroperitoneal lymph nodes are seen. The stomach and small bowel appear nondistended. The appendix is within normal limits. The colon is diffusely distended measuring up to 8.7 cm in diameter with suggestion of mild wall thickening suggestive of toxic megacolon or paralytic ileus. Recommend clinical correlation. No free intraperitoneal air is seen. There is a small amount of free intraperineal fluid present. The uterus is anteverted and normal in size. The patient is status post operative reduction and internal fixation of an intertrochanteric fracture of the right femur which is incompletely healed. There is diffuse body wall edema. IMPRESSION: 1. SMALL RIGHT PLEURAL EFFUSION. 2. CARDIOMEGALY AND TRACE PERICARDIAL EFFUSION. 3. DIFFUSE DISTENTION OF THE COLON SUGGESTIVE OF TOXIC MEGACOLON OR A PARALYTIC ILEUS. RECOMMEND CLINICAL CORRELATION. 4. SMALL AMOUNT OF ASCITES. 5. POSSIBLE ANASARCA. 6. STATUS POST OPERATIVE REDUCTION INTERNAL FIXATION OF A FRACTURE OF THE PROXIMAL RIGHT FEMUR, INCOMPLETELY HEALED.
--- NOTE | 2017-12-02 09:10 | PN ---
Date of Service: 12/02/17 - [facility] note Critical Care Services: Pt seen and examined at bedside. Case discussed with admitting physician. Admission records and pat records reviewed. Pt presents for evaluation of N,V, diarrhea, abd pain for 2 days. Pt was recently hospitalized for cellulitis of Rt LE and was treated with Clindamycin. She was d/gabby on po Clindamycin to complete 7 day course. 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 She has been following with Dr Quesada. She had pathological fracture of Rt hip, had open reduction and internal fixation on 10/03. She was d/gabby to rehab subsequently, she was also treated for PNA with Levaquin in September. She has been at home since her d/c on on 10/31/17 after being treated for cellulitis. She was found to be hypotensive on evaluation in ED. She had signficantly elevated WBC during recent hospitalization, now with leucopenia. She has chronic anemia, was transfused with 2 units of pRBC on 10/31/17 prior to d/c. Her H&H is stable currently. She also has trombocytopenia, has received platelet transfusion. She didnot have elevated lactate. Evidence of normal anion gap metabolic acidosis noted. CT abdomen showed diffuse distention of colon with suggestion of toxic megacolon versus ileus. She was noted to have low calcium. She was started on fluid resuscitation, received 3 L normal saline so far and is receiving IVF at 200cc/hr. She was also started on Cipro and Flagyl IV. She was admitted to ICU for close monitoring of hemodynamic status. ROS: Patient reports feeling slightly better this am. Reports dry mouth. Denies N, V, abd distention noted, mild tenderness in RLQ. No further episodes of diarrhea, reports having dark stools at home. Slight discomfort at Martinez site. LE swelling and tenderness to palpation. Denies pain in RLE, was not able to ambulate much since fracture. Denies headaches, neck stiffness. Denies SOB, chest pain, cough PMHx, PSHx, FHx, ALL, Social Hx were reviewed and unchanged from admission Vital Signs: Temp Pulse Resp BP SpO2 FiO2 97.2 F 84 14 94/62 97 12/02/17 07:01 12/02/17 07:01 12/02/17 07:49 12/02/17 07:00 02/18/18 07:01 Physical Exam: Gen: Obese f in bed, in NAD, alert, awake HEENT:PERRLA, No JVD Lungs:Diminished air entry at bases, No wheeze Cardiac: S1, S2+, regular Abdomen:Distended, mild tenderness in RLQ, no gaurding or rebound Extremities: Edema generalized, RLE significantly swollen Neuro: Alert, awake, oriented x3, normal affect, no focal defecits Skin: No petechiae, no rash IV access: 2 peripherals in UE Fluid Balance (Past 24 Hours): I= 1717 O= 550 Net 1167 Intake & Output 11/30/17 12/01/17 12/02/17 12/03/17 06:59 06:59 06:59 06:59 Intake Total 1717 996 Output Total 550 Balance 1167 996 Weight 169 lb 8.568 oz Intake: IV Fluids 1400 996 NS 397 996 NS carrier 3 IVPB 317 NS 109 NS carrier 208 Output: Martinez 550 Labs: Laboratory Results - last 24 hr 12/02/17 12/02/17 12/02/17 05:10 05:10 05:27 WBC RBC Hgb Hct MCV MCH MCHC RDW Plt Count MPV Neut % (Auto) Lymph % (Auto) [place] % (Auto) Eos % (Auto) Baso % (Auto) Absolute Neuts (auto) Absolute Lymphs (auto) Absolute Monos (auto) Absolute Eos (auto) Absolute Basos (auto) Absolute Nucleated RBC Nucleated RBC % INR (Anticoag Therapy) 1.49 H Sodium Potassium Chloride Carbon Dioxide Anion Gap BUN Creatinine Est GFR ( Amer) Est GFR (Non-Af Amer) BUN/Creatinine Ratio Glucose Lactic Acid 1.3 Calcium Total Bilirubin AST ALT Alkaline Phosphatase Total Protein Albumin Globulin Albumin/Globulin Ratio Urine Color Urine Appearance Urine pH Ur Specific [place] Urine Protein Urine Ketones Urine Blood Urine Nitrate Urine Bilirubin Urine Urobilinogen Ur Leukocyte Esterase Urine Glucose Influenza A (Rapid) Negative Influenza B (Rapid) Negative 12/02/17 12/02/17 12/02/17 05:30 05:55 05:55 WBC 4.0 RBC 2.25 L Hgb 7.0 L Hct 21 L MCV 92 MCH 31 MCHC 34 RDW 20 H Plt Count 30 L MPV 9 Neut % (Auto) 56.2 Lymph % (Auto) 3.9 L Dawson % (Auto) 39.6 H Eos % (Auto) 0.2 Baso % (Auto) 0.1 Absolute Neuts (auto) 2.3 Absolute Lymphs (auto) 0.2 L Absolute Monos (auto) 1.6 H Absolute Eos (auto) 0 Absolute Basos (auto) 0 Absolute Nucleated RBC 0.1 Nucleated RBC % 1.7 INR (Anticoag Therapy) Sodium 124 L Potassium 4.0 Chloride 98 L Carbon Dioxide 17 L Anion Gap 9 BUN 31 H Creatinine 0.90 Est GFR ( Amer) 80.8 Est GFR (Non-Af Amer) 62.8 BUN/Creatinine Ratio 34.4 H Glucose 151 H Lactic Acid Calcium 6.3 L* Total Bilirubin 0.90 AST 6 L ALT 11 Alkaline Phosphatase 92 Total Protein 5.5 L Albumin 2.5 L Globulin 3.0 Albumin/Globulin Ratio 0.8 L Urine Color Yellow Urine Appearance Clear Urine pH 5.0 Ur Specific [place] 1.015 Urine Protein Negative Urine Ketones Negative Urine Blood Negative Urine Nitrate Negative Urine Bilirubin Negative Urine Urobilinogen Negative Ur Leukocyte Esterase Negative Urine Glucose Negative Influenza A (Rapid) Influenza B (Rapid) 12/02/17 12/02/17 05:55 05:55 WBC RBC Hgb Hct MCV MCH MCHC RDW Plt Count MPV Neut % (Auto) Lymph % (Auto) Dawson % (Auto) Eos % (Auto) Baso % (Auto) Absolute Neuts (auto) Absolute Lymphs (auto) Absolute Monos (auto) Absolute Eos (auto) Absolute Basos (auto) Absolute Nucleated RBC Nucleated RBC % INR (Anticoag Therapy) 1.54 H Sodium Potassium Chloride Carbon Dioxide Anion Gap BUN Creatinine Est GFR ( Amer) Est GFR (Non-Af Amer) BUN/Creatinine Ratio Glucose Lactic Acid 1.4 Calcium Total Bilirubin AST ALT Alkaline Phosphatase Total Protein Albumin Globulin Albumin/Globulin Ratio Urine Color Urine Appearance Urine pH Ur Specific [place] Urine Protein Urine Ketones Urine Blood Urine Nitrate Urine Bilirubin Urine Urobilinogen Ur Leukocyte Esterase Urine Glucose Influenza A (Rapid) Influenza B (Rapid) Studies: CT abdomen: Evidence of distended colon, generalized anasarca, small rt pleural effusion, small pericardial effusion Nutrition: NPO given concern with ileus versus toxic megacolon Impression: 67 y o f with recently dx plasmacell dyscrasia, recent pathological fracture of rt hip s/p internal fixation, recent admission for cellulitis of RLE treated with Clindamycin with N, V, diarrhea, abd pain, distention, hypotension, leucopenia, thrombocytopenia, possibility of toxic megacolon, no perforation 1. Colon distention- Toxic megacolon versus ileus 2. Hypotension- Dehydration versus septic shock 3. Hypovolemic shock 4. Metabolic acidosis 5. Hypocalcemia 6. Anemia 7.Thrombocytopenia 8. Anasarca, likely nutritional sec to hypoalbuminemia 9. LE edema, R/o DVT on RLE 10. Small pleural effusion on rt 11. Recent pathological Rt hip fracture 12. Plasmacell dyscrasia 13. Hyponatremia 14. Relative leucopenia Plan: 1. Neuro: No acute issues. Pt is mentating well inspite of hypotension. Fall precautions. Keep head of bed elevated at 30 2.CVS: Hypotension, hypovolemia likely given poor oral intake recently with GI issues and third spacing from anasarca. Responded well to fluid boluses, not needing pressors at this time. Will c/w normal saline at 200cc/hr. Monitor closely for signs of fluid overload. Not tachycardic. Small pericardial effusion noted on CT likely sec to hypoalbuminemia and low oncotic pressure, will obtain ECHO 3. ID: Dilated colon on CT abdomen- ileus versus toxic megacolon, no perforation. Has been on abx recently with concern for c.diff, didnot have BM since admission, couldnot check for c.diff. Is on emperic coverage with Cipro and Flagyl. Will consult ID. Lactate within normal limits 4.GI: NPO for now given dilated colon, rectal tube placed. GI and surgery were consulted. No stools noted since admission. Abd is disteneded and slightly tender to palpation however with no guarding or rebound. Denies further episodes of N, V 5.Resp: H/o COPD, stable currently, c/w bronchodilators, small pl effusion sec to hypoalbuminemia. Will monitor closely for fluid overload. On RA with O2 sat high 90`s 6.Endo: Glucose elevated slightly, will watch for now, will start SS insulin if continues to remain elevated 7. Haem/ONc: Anemia, thrombocytopenia and relative leucopenia- Stable, no active bleeding. Plama cell dyscrasia followed by Dr Quesada. Not on anticoagulation due to thrombocytopenia. Couldnot use venodynes sec to signficant edema of LE. Will obtain LE dopplers to r/o DVT. If negative, will order venodynes 8. Musculoskletal: Recent pathological fracture of rt hip, anasarca sec to low oncotic pressure. Frequent positioning to avoid skin break down 9. Renal: No UTI, has dark urine, martinez catheter placed due to bedridden status and close monitoring of fluid status. Hyponatremia sec to dehydration. Will monitor closely. Hypocalcemia sec to sepsis, acidosis and hypoalbuminemia. Received replacement. Will monitor closely 10. Psychosocial: Pt understands current illness. Daughter is HCP. Will update daughter when she arrives 11. Supportive and preventive care as ordered IV access: Peripheral IVs currently, will need PICC line for fluids, abx and anticipated need for vasopressors if not responsive to fluid resuscitation Critical Care Time: 40 min
[2017-12-02] MEDS: metroNIDAZOLE IV 500 MG/100ML* 500 MG/100 ML BAG IVPB SCH ×2 (10:02→17:18)
[2017-12-02] MEDS ORDERED: Dexamethasone IV* 4 MG/ML 1 ML (4 MG) IV SLOW PU ONE (10:59)
[2017-12-02] MEDS ORDERED: D5W IVPB ONE (12:00)
[2017-12-02] MEDS ORDERED: DEXAMETHASONE IVPB ONE (12:00)
--- NOTE | 2017-12-02 13:00 | HP ---
CC: Dr. Quesada; Dr. Wisdom * HISTORY AND PHYSICAL: DATE OF ADMISSION: 12/02/17 TIME OF ADMISSION: 2:45 a.m. CHIEF COMPLAINT: Nausea, vomiting, and diarrhea. HISTORY OF PRESENT ILLNESS: This is a 67-year-old female with history of multiple myeloma, currently undergoing chemotherapy, who presents from home with her family after 2 days of nausea, vomiting, and diarrhea. She has trouble quantifying the vomiting and diarrhea because they have been so profuse. She believe she has had about 20 episodes of diarrhea in the last 48 hours and 20 episodes of emesis. The diarrhea is reported as watery and green. She has seen no blood in the diarrhea and emesis is bilious. She also cite some abdominal pain located in the middle of her abdomen without radiation and abdominal distention and bloating. Prior to the beginning of these symptoms 2 days ago, she had been having normal bowel movements, which for her is 1 every 2 to 3 days. Otherwise, she has been feeling well and denies any recent illness with no cough, fevers, chills, diarrhea, or sick contacts. Regarding her oncologic history, she is currently being treated by Dr. Quesada for a plasma cell leukemia. She is receiving Revlimid, which she last got on , Zometa, which she gets once a month and Velcade, which she last got on 11/26/17 and gets 3 weeks on and 1 week off. This coming week is her "week off. " She has also been receiving intermittent platelet transfusions and last received platelets on , 2 days ago. PAST MEDICAL HISTORY: COPD; hyperparathyroidism, status post parathyroidectomy ; depression; multiple myeloma. Her last hospital admission was in October for right lower extremity cellulitis , which she and her family states it has improved markedly. She has not been in any outside hospital since this time. HOME MEDICATIONS: Please note this is from her last discharge summary in combination with her family's recollection. Medication reconciliation has not yet been completed. 1. [place] 5/325 mg 2 tabs q.4 p.r.n. pain. 2. Albuterol 1 puff q.4 p.r.n. 3. [place]-3 fatty acids 1 cap daily. 4. Calcium carbonate 1200 mg daily. 5. Singulair 10 mg daily. 6. Duloxetine 60 mg daily. 7. Vitamin B12 1000 mcg daily. 8. Cholecalciferol 1000 units daily. 9. KCl unknown dose. 10. Compazine and Zofran p.r.n. nausea. FAMILY HISTORY: Renal cell carcinoma and cirrhosis. SOCIAL HISTORY: She does live alone; however, her daughter, Paris is staying with her and helping to care for her while she is undergoing chemotherapy. She is a former smoker. PHYSICAL EXAMINATION GENERAL: Alert, ill-appearing female, in no distress. She is drowsy, but awakens to voice and answers all of my questions appropriately. She is oriented x3. VITAL SIGNS: Temperature 98.3, heart rate 92, respiratory rate 15, pulse ox 94 % on room air, blood pressure 87/56. HEENT: Pupils are equal, round and reactive to light with no conjunctival injection. Oral mucosa is extremely dry with a few subungual petechiae. No pharyngeal exudates or erythema. NECK: No cervical lymphadenopathy. No JVP. LUNGS: Clear bilaterally. CHEST: Regular rate and rhythm with no murmurs and PMI is nondisplaced. ABDOMEN: Distended and firm. Bowel sounds are very hypoactive. She is tender to deep palpation with voluntary guarding and no rebound. Her liver is not palpable. She has some striae and skin hyperpigmentation in both lower quadrants. Elliott's sign is negative. EXTREMITIES: 2+ pitting edema bilaterally with shiny skin on her shins and a healing plaque on the right lower extremity. Scattered petechiae on bilateral lower extremities. LABORATORY DATA: Sodium 122, potassium 3.9, chloride 94, bicarb 19, anion gap 9, BUN 35, creatinine 1.09, glucose 109, alkaline phosphatase 100, mag 1.6, lactate 0.9, bilirubin 1.1. INR 1.57. White blood cells 4.4 with 50% neutrophils and 4% lymphocytes, hemoglobin 7.4, and platelets 31. IMAGING: A CT abdomen and pelvis shows colonic distention, which could represent severe ileus or toxic megacolon with a small amount of ascites and possible anasarca. A small right pleural effusion with compressive atelectasis and/or pneumonia and a trace pericardial effusion. Please note, this is the [facility] read. ASSESSMENT AND PLAN: This is a 67-year-old female with history of plasma cell leukemia, currently undergoing chemotherapy, who presents with 2 days of profuse nausea, vomiting, and diarrhea and is found to have concerns for toxic megacolon on CT scan. 1. Toxic megacolon. It should be noted that this is a [facility] read and we will await the formal radiology read; however, in the meantime we will treat as such. Check Clostridium difficile and stool culture. Continue rectal tube for decompression as placed in the emergency department. Continue broad-spectrum antibiotics. I am consulting both GI and Surgery, and we will ask them to see her in the morning. She should have strict bowel rest and volume repletion. I am admitting her to the ICU given her hypotension and possible need for pressor support. She should have serial abdominal examinations. She has no history of inflammatory bowel disease and her lactate is normal thereby ruling out ischemia as the etiology; therefore, I believe infectious sources are most likely. 2. Pancytopenia, chronic and related to myeloma and chemotherapy. She does have some oozing of blood around her IV sites and some petechiae on her legs. Her platelet count is 31, which it was also on 215, but she received platelets that day. Her hemoglobin is 1 g below where it was on the 15th. I will discuss these findings with Oncology. No emergent need for transfusion at this time, but she should keep an active type and screen. 3. Hyponatremia likely related to severe volume depletion. Continue resuscitation with saline. 4. Acute renal failure. Given her recent history, I suspect this is prerenal in etiology. Continue IV fluid resuscitation as above and monitor urine output. 5. Chronic obstructive pulmonary disease. She has no evidence of exacerbation at this time. Continue p.r.n. nebulizers. 6. Multiple myeloma. She is not due for chemotherapy this week, but is currently receiving Velcade, Zometa, and Revlimid. I will consult Oncology and run medication side effect check to be sure none of these medications can cause these symptoms. 7. DVT prophylaxis contraindicated due to thrombocytopenia. 8. Diet. Strict n.p.o. 9. Disposition. Admit to the ICU for hemodynamic monitoring. 10. Code status. She is full code. [id number]/[facility] #: [id number] MTDD
[2017-12-02] MEDS: Morphine INJ* 2 MG/ML 1 ML CARPUJECT IV PRN ×2 (13:55→23:02)
--- NOTE | 2017-12-02 15:20 | CONS ---
CC: Dr. Wisdom; Dr. Quesada * CONSULTATION REPORT: DATE OF CONSULT: 12/02/17 REQUESTING PHYSICIAN: Padmini Donovan DO INDICATION: Nausea, vomiting, and diarrhea. NARRATIVE: Ms. Junior is a pleasant 67-year-old female who was recently diagnosed with multiple myeloma. She has been receiving bortezomib on 11/23/17 and the 11/26/17 for her multiple myeloma. She states that she was doing well up until Sunday. Two to three days ago, she developed nausea, vomiting, diarrhea and this continued to worse and she became very weak and called EMS and was brought to the emergency room last night. In the emergency room, she was found to have abdominal distention, had a CT which was read as diffuse distention of the colon suggestive of toxic megacolon versus paralytic ileus, small amount of ascites. The patient did have antibiotics in the past as she broke her hip and received the antibiotics for that. She does have sick contacts over the past few days. No blood in the vomitus or diarrhea. She did have fevers and chills. She states that this morning she does feel little bit better than last night. She is very sleepy. She describes mild diffuse abdominal tenderness. "It feel sore." She has never had symptoms like this before. PAST MEDICAL HISTORY: Significant for: 1. COPD. 2. Hyperparathyroidism. 3. Depression. 4. Osteoarthritis. PAST SURGICAL HISTORY: Include: 1. Hip repair. 2. Parathyroidectomy. 3. Tubal ligation. MEDICATIONS: Include: 1. Albuterol. 2. Duloxetine. 3. Singulair. FAMILY HISTORY: Renal cell carcinoma, breast cancer. REVIEW OF SYSTEMS: Twelve systems were reviewed, other than that mentioned in the HPI were unremarkable. PHYSICAL EXAM: Temperature is 97.2, blood pressure is 94/62, pulse is 84. General: Sleepy patient, alert and oriented, in no apparent distress. Does not appear toxic at this point. HEENT: Mucous membranes are moist without lesions, ulcers, or exudates. Neck is supple. Trachea is midline. Head is normocephalic, atraumatic. Heart: Regular rate and rhythm. Lungs: Decreased breath sounds bilaterally. Abdomen: Softly distended. She has hypoactive bowel sounds and some high-pitched bowel sounds. She is tender throughout more on the left than the right. She does have voluntary guarding; however, no rebound. Her skin is warm, dry and intact. LABORATORY DATA: Of note, sodium is 124, BUN 31, creatinine 0.9, lactate 1.4, bilirubin 0.9. AST is 6, INR is 1.54. White count is 4, hemoglobin 7, platelets of 30. CT abdomen and pelvis, please see the HPI. ASSESSMENT AND PLAN: This is a 67-year-old female with multiple myeloma who is on bortezomib, admitted with nausea, vomiting, diarrhea and a CT showing a dilated colon with concerns of either toxic megacolon versus ileus. At this point, her abdomen is not a surgical abdomen. She does need frequent abdominal checks and very close monitoring. Toxic megacolon could be precipitated by an infectious colitis. She does have stool studies including Clostridium difficile that are pending. I would also recommend a CMV PCR given her immunosuppressed status. She has been started on Cipro and Flagyl empirically. There is also concern about her bortezomib causing a paralytic ileus. This is a known complication. At this point, we need to support her very closely in the intensive care unit, fluids, pain control, minimizing narcotics. She does have a surgical consultation and oncology consultation pending. We will continue to follow along very closely. [id number]/[facility] #: [id number] SHONNA
[2017-12-02] MEDS ORDERED: Famotidine IV * 20 MG in NS 0.9% 100 ML* 100 ML IVPB ONE (15:25)
[2017-12-02] MEDS ORDERED: Albumin Human 25%* 25 GM/100 ML BTL IV ONE (15:30)
[2017-12-02] MEDS ORDERED: Famotidine IV* 10 MG/ML 2 ML (20 mg) IV SLOW PU ONE (16:00)
[2017-12-02] MEDS: Magic Mouth Was-BEN/MAAL/LIDO SWISH SPIT SCH ×2 (17:41→21:03)
--- NOTE | 2017-12-02 18:13 | CONS ---
MEDICAL ONCOLOGY CONSULTATION NOTE: DATE OF CONSULT: 12/02/17 REASON FOR CONSULTATION: Paralytic ileus and the patient being treated for plasma cell leukemia. HISTORY OF PRESENT ILLNESS: Betzy Junior is a 67-year-old female, well known to myself in to our office, having originally been seen in September 2017. She was found to have an elevated M-spike and elevated white count in August 2017. Her white count was 18,000, hematocrit was 24 with a normal platelet count. She had had a significant weight loss of about 20 pounds. Her M-spike was 3.1 g/dL with polymerase monoclonal clone of IgA kappa. Decision was made for the patient to undergo a bone marrow aspirate and biopsy with a high suspicion for myeloma. Before this was able to be obtained, the patient fell and fractured her hip and had surgery with Dr. Clemens for the right hip fracture and then was on rehab for a significant period of time. During this period of time, her bone marrow from the hip did show elevated number of plasma cells and the patient had a blood work done since she had plasma cells in the peripheral smear. 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 Even in the peripheral smear, she had as high as 80% plasma cells at one point of a total white count of 100,000. This was on 11/15/17. Her white count had continued rising between September and 11/15/17 from 20,000s to 50,000s to 90,000 to 108,000. Associated with this , she stayed quite anemic after her hip surgery with hemoglobins typically ranging in the 6 to 8 range and did require multiple transfusions. The patient' s therapy for myeloma was again delayed when she had infectious complications even before starting therapy. She was admitted to the hospital here from through 10/31/17. She had started to undergo a course of antibiotics for question of respiratory infection and then presented with bilateral lower extremity swelling, right greater than left with right-sided cellulitis. She was initially treated with vancomycin after having completed a course of Levaquin and then following ID consult, was switched over to clindamycin. She completed the clindamycin orally at home on 11/04/17 and as best as she remembers and her daughter remembers, she has not had any antibiotics since that period of time. When she was recovered from the cellulitis, she was able to be started on chemotherapy for her plasma cell leukemia/multiple myeloma, which was rapidly progressive as discussed above with the blood counts. She has been treated with RVD, Revlimid at 25 mg daily, 14 days on and 7 days off; Velcade at a dose of 1.3 mg/m2 days 1, 4, 8, and 11, having most recently received chemotherapy on day 11 of the first cycle on 11/26/17 and is currently on her off week. She was also on her off week for the Revlimid. She receives Decadron 40 mg weekly and her daughter reports that this typically has been occurring on Mondays, she would next be due on 12/03/17. She tolerated her chemotherapy reasonably well through the several days after receiving day 11 of cycle 1. The patient and daughter both reports that she has had significant increase in nausea and vomiting along with diarrhea since 3 days ago on evening. This progressed through Sunday and I was notified yesterday by the daughter that she was taking variable by mouth, had significant nausea and vomiting and also developed some marked increase in her amount of diarrhea. I advised trying to keep her hydrated and if this was not able to be successful, her to be brought into the emergency room. Over the course of the day yesterday, she did develop hypotension at home with blood pressure in the 70s and 80s. On arrival to the emergency room, she was hypotensive as well and has remained hypotensive since. She has required several transfusions, most recently having received platelets for a platelet count of 6000 several days ago with subsequent platelet count of 31,000 and has remained in that level since. She has not had any fevers, drenching sweats, or shaking chills or other signs of active infection. In the emergency room, she did have a CT scan of the abdomen and pelvis, which revealed diffuse distention of the colon with question of toxic megacolon versus paralytic ileus. In addition was a small amount of ascites, there appeared to be anasarca and there appeared to be incomplete healing of the previous fixation of the fracture of the proximal right femur. She has a small right pleural effusion and a trace pericardial effusion as well likely related to the anasarca. Since arrival here in the ICU, she is feeling somewhat better with boluses of IV fluids, not needing any pressors and continuing being n.p.o. with a rectal tube and a Burgess catheter in place. PAST MEDICAL HISTORY: Parathyroidectomy 2/4 glands in 1999, status post tubal ligation, status post hand surgery because of crush injury as a child, mild asthma. MEDICATIONS: At the time of admission include: 1. Decadron 40 mg weekly on Mondays. 2. Revlimid 25 mg 2 weeks on, 1 week off, but currently during her off week. 3. Valacyclovir 1000 mg b.i.d. 4. Hydrocodone with APAP p.r.n. FAMILY HISTORY: Father in the 60s with cirrhosis. Mother at the age 73 with kidney cancer, diagnosed at age 66. Four daughters, 2 with breast cancer, 1 diagnosed at age 25 and is currently 43 and another with breast cancer at 49 and currently 50. No other family history of malignancies. SOCIAL HISTORY: The patient is a for the past 23 years, lives alone. Retired from the past 3 years. Former smoker, 1 pack per day, starting at age 14, quit in July 2017 for a 55-pack year history. REVIEW OF SYSTEMS: Denies any fevers, sweats, or chills and does report a significant dry mouth, significant nausea and vomiting, very weak and fatigued up until 3 days ago. Per her daughter, was walking reasonably well at home with a walker, much less over the last couple of days. Appetite has been markedly diminished, having multiple episodes of diarrhea, may be 10 times per day in the last couple of days and significant nausea and vomiting. Mild abdominal pain, especially on the right. Some discomfort in the right leg and marked swelling of the right leg. No rashes. No neurologic symptoms specifically. LABORATORY STUDIES: Include a CBC with a white count of 4000, H and H 21/7.0, platelet count 30,000. Differential includes whereas reported 40% monocytes, although many of these may be plasma cells in the blood stream, but although this could also be recovery of the bone marrow from her recent chemotherapy. ANC is a little over 1999. Chemistry studies: Sodium 124, potassium 4.0, chloride 98, bicarb 17, BUN 31, creatinine 0.9, glucose 151, lactic acid 1.4, calcium low at 6.3 but with an albumin of 2.5. Given a corrected calcium in the 7s. Liver function tests are normal. INR 1.54 similar to multiple values over the past 2 months, not on anticoagulation at home. IMPRESSION: 1. A 67-year-old female with multiple myeloma and in fact plasma cell leukemia , status post for recycle of RVD (Revlimid, Velcade, Decadron) chemotherapy with a marked improvement in her blood counts with a white count dropping from over 100,000 down to 4000 with many plasma cells in the peripheral smear and at the present time stable platelet count at 30 having been 6000 before transfusion last week and having been even before starting chemotherapy 40,000. H and H has required multiple transfusions over time and is currently in a similar range where she has been since after her hip surgery in September. She now presents with paralytic ileus/toxic megacolon. This is a known, but rare complication of Velcade occurring more commonly with IV and less commonly with a subcutaneous formulation that she has been receiving. On review of the literature, this appears to be a complication occurring less than 1 in a 1000 patients. It is on the basis of neuropathy, autonomic gammopathy in the bowel. Other possibility for her megacolon would be that this is infectious. She has had received antibiotics including broad- spectrum antibiotics as recently as 1 month ago, both for respiratory infections and for cellulitis. She has currently been started on Flagyl and Cipro for this possibility. She has been seen by Gastroenterology by the facilities supervisor and will be seen by Surgery and we will allow follow along expectantly and carefully. Hopefully, she will not need surgery. There does not appear to be any reason for surgery at the present time. Her blood pressure remains in the 90s on IV fluids without pressors. Situations were discussed with daughter, who understands that this situation can potentially be fatal. 2. Anticoagulation with a platelet count of 30,000, she would not be on anticoagulation at this time. Assuming she does not have a DVT, then use of sequential compression devices would be reasonable. 3. Right leg edema. Doppler studies are pending. Likely related to a previous cellulitis and hip surgery on that side. 4. Gastrointestinal tract, currently n.p.o. given the dilated colon with a rectal tube in place and there is no longer having diarrhea. Antiemetics will be given as needed. Abdomen is slightly tender on the right side, but no guarding or rebound. Bowel sounds are present, but are hypoactive and high- pitched. 5. Anasarca. Situation discussed with the facilities supervisor service and may benefit from use of albumin. 6. Ongoing steroid use. She typically would be given 40 mg of p.o. Decadron tomorrow. We will give her a 40 mg of IV today and place on a stress dose of steroids at the present time. 7. Hyponatremia, likely secondary to dehydration, thus will be followed along carefully. 8. Hypocalcemia, being replaced. [id number]/[facility] #: [id number] [facility]
--- NOTE | 2017-12-02 19:32 | RAD ---
INDICATION: Bilateral lower extremity edema. COMPARISON: Comparison is made with a prior study from October 28, 2017. TECHNIQUE: Multiple real-time, color flow and Doppler tracings of both lower extremities were obtained. The exam is slightly limited due to edema. FINDINGS: The common femoral, femoral, profunda femoral and popliteal veins all demonstrate normal compressibility, augmentation with compression and phasic response with respiration. The posterior tibial and peroneal veins demonstrate normal compressibility and augmentation with compression. IMPRESSION: SLIGHTLY LIMITED EXAM, NO EVIDENCE FOR DEEP VENOUS THROMBOSIS.
[2017-12-03] MEDS: metroNIDAZOLE IV 500 MG/100ML* 500 MG/100 ML BAG IVPB SCH ×3 (01:24→17:30)
[2017-12-03] MEDS: Ciprofloxacin 400MG IVPREMIX(* 400 MG/200 ML BAG IVPB SCH ×2 (04:10→16:22)
[2017-12-03] MEDS: NS 0.9% 1000 ML* 1,000 ML IV SCH (05:29)
[2017-12-03 05:50] LABS: EGFR Non-African American 85.4 (>60)
[2017-12-03 06:00] LABS: Monocytes % 41 % (0-13)
[2017-12-03 06:15] LABS: ABS Nucleated RBC 0.1 10^3/ul; Hematocrit 22 % (35-47); Hemoglobin 7.2 g/dl (12.0-16.0); Mean Corpuscular HGB Conc 34 g/dl (31-36); Mean Corpuscular Hemoglobin 31 pg (27-31); Mean Corpuscular Volume 91 fL (80-97); Mean Platelet Volume 9 um3 (7.4-10.4); Nucleated Red Blood Cells % 1.5; Platelet Count 48 10^3/ul (150-450); Red Blood Count 2.37 10^6/ul (4.0-5.4); Red Cell Distribution Width 21 % (10.5-15); White Blood Count 3.6 10^3/ul (3.5-10.8)
[2017-12-03] MEDS: Magic Mouth Was-BEN/MAAL/LIDO SWISH SPIT SCH ×4 (09:00→23:55)
[2017-12-03] MEDS ORDERED: Potassium Chloride LIQUID* 20 MEQ PACKET PO ONE (10:04)
--- NOTE | 2017-12-03 10:06 | PN ---
Progress Note - Progress Note Date of Service: 12/03/17 Note: Progress Note Critical Care 24 hour events/significant events: -admitted to icu yesterday; no further n/v. no bowel movements -pt states abd feels less tense and big -no fevers/sob/cp. -as per nursing and family, some confusion still; but patient answering all my questiosn appropriately now Tele: nsr Vitals: Vital Signs Temp 98.4 F 12/03/17 07:47 Pulse 88 12/03/17 07:01 Resp 19 12/03/17 07:52 BP 109/76 12/03/17 06:01 Pulse Ox 97 12/03/17 07:01 Intake & Output 12/02/17 12/03/17 12/03/17 18:59 06:59 18:59 Intake Total 2739 2815 Output Total 550 650 Balance 2189 2165 Weight 165 lb 9.074 oz Intake: IV Fluids 2364 1425 NS 2355 1425 NS carrier 9 IVPB 105 1390 ABX - CIPROFLOXACIN 0 ABX - FLAGYL 105 NS 1390 Medicated IV 270 Calcium Chloride 100 Decadron 70 GEN - Albumin 100 Output: Burgess 550 650 O2/Vent: RA Infusions: NS 200cc/hr Medications: Albuterol/Ipratropium (Duoneb (Albuterol 2.5 Mg/Ipratropium 0.5 Mg)) 1 neb INH [id number] AWAKE PRN PRN Reason: sob/wheexing Last Admin: 12/02/17 14:58 Dose: 1 neb Ciprofloxacin/Dextrose (Cipro 400 Mg Ivpremix(*)) 400 mg in 200 mls @ 200 mls/ hr IVPB Q12H [facility] Last Admin: 12/03/17 04:10 Dose: 200 mls/hr Metronidazole/Sodium Chloride (Flagyl 500 Mg Ivpb*) 500 mg in 100 mls @ 100 mls /hr IVPB Q8H [facility] Last Admin: 12/03/17 01:24 Dose: 100 mls/hr Potassium Chloride 20 meq/ (Sodium Chloride) 110 mls @ 55 mls/hr IVPB ONCE ONE Stop: 12/03/17 12:59 Morphine Sulfate (Morphine Inj (Syringe)*) 4 mg IV Q4H PRN PRN Reason: PAIN Last Admin: 12/02/17 23:02 Dose: 4 mg Multi-Ingredient Mouthwash/Gargle (Magic Mouth Was-Juan/Maal/Lido*) 5 ml SWISH SPIT QID ANGELICA Last Admin: 12/03/17 09:00 Dose: 5 ml Ondansetron HCl (Zofran Inj*) 4 mg IV Q4H PRN PRN Reason: NAUSEA/VOMITING Prochlorperazine Edisylate (Compazine Inj*) 5 mg IM Q6H PRN PRN Reason: NAUSEA Physical Exam: General: awake, alert, no distress, no diaphoresis Head: normocephalic, atraumatic HEENT: no pallor, no icterus, moist mucous membranes Neck: soft, supple, no jvd, no stridor CVS: normal rate, regular, no murmur Resp: bilateral air entry, no rhales, no wheeze, no rhonchi, no acc muscle use Abdomen: soft, tender more on right and right lower quad, mild distension, bs+ Ext: pulses+, warm, edema+, anasarca+ Skin: intact, no breakdown, no dryness Neuro: awake, alert, orientedx3, moving all extremities, no gross focal deficit Labs: 12/01/17 12/01/17 12/01/17 23:36 23:36 23:36 WBC 4.4 RBC 2.38 L Hgb 7.4 L Hct 22 L MCV 90 MCH 31 MCHC 35 RDW 20 H Plt Count 31 L MPV 9 Neut % (Auto) 49.5 Lymph % (Auto) 4.3 L [place] % (Auto) 45.6 H Eos % (Auto) 0.4 Baso % (Auto) 0.2 Absolute Neuts (auto) 2.2 Absolute Lymphs (auto) 0.2 L Absolute Monos (auto) 2.0 H Absolute Eos (auto) 0 Absolute Basos (auto) 0 Absolute Nucleated RBC 0.1 Immature Gran % 5 Neutrophils % 49 Band Neutrophils % 5 Lymphocytes % 8 L Reactive Lymphs % 1 Monocytes % 37 H Nucleated RBC % 1.5 Nucleated RBCs/100 WBC 1 H Toxic Granulation Normal RBC Morphology Not Reportable Hypochromasia 1+ Hem Pathologist Commnt INR (Anticoag Therapy) APTT Sodium 122 L Potassium 3.9 Chloride 94 L Carbon Dioxide 19 L Anion Gap 9 BUN 35 H Creatinine 1.05 H Est GFR ( Amer) 67.6 Est GFR (Non-Af Amer) 52.6 BUN/Creatinine Ratio 33.3 H Glucose 109 H Lactic Acid 0.9 Calcium 7.0 L Magnesium 1.6 L Total Bilirubin 1.10 H AST 6 L ALT 11 Alkaline Phosphatase 100 C-Reactive Protein 156.40 H Total Protein 5.9 L Albumin 2.6 L Globulin 3.3 Albumin/Globulin Ratio 0.8 L Amylase < 10 L Lipase < 10 L Urine Color Urine Appearance Urine pH Ur Specific [place] Urine Protein Urine Ketones Urine Blood Urine Nitrate Urine Bilirubin Urine Urobilinogen Ur Leukocyte Esterase Urine Glucose Influenza A (Rapid) Influenza B (Rapid) Blood Type Antibody Screen 12/01/17 12/02/17 12/02/17 23:36 01:21 05:10 WBC RBC Hgb Hct MCV MCH MCHC RDW Plt Count MPV Neut % (Auto) Lymph % (Auto) [place] % (Auto) Eos % (Auto) Baso % (Auto) Absolute Neuts (auto) Absolute Lymphs (auto) Absolute Monos (auto) Absolute Eos (auto) Absolute Basos (auto) Absolute Nucleated RBC Immature Gran % Neutrophils % Band Neutrophils % Lymphocytes % Reactive Lymphs % Monocytes % Nucleated RBC % Nucleated RBCs/100 WBC Toxic Granulation Normal RBC Morphology Hypochromasia Hem Pathologist Commnt INR (Anticoag Therapy) 1.57 H APTT 30.7 Sodium Potassium Chloride Carbon Dioxide Anion Gap BUN Creatinine Est GFR ( Amer) Est GFR (Non-Af Amer) BUN/Creatinine Ratio Glucose Lactic Acid 1.3 Calcium Magnesium Total Bilirubin AST ALT Alkaline Phosphatase C-Reactive Protein Total Protein Albumin Globulin Albumin/Globulin Ratio Amylase Lipase Urine Color Urine Appearance Urine pH Ur Specific [place] Urine Protein Urine Ketones Urine Blood Urine Nitrate Urine Bilirubin Urine Urobilinogen Ur Leukocyte Esterase Urine Glucose Influenza A (Rapid) Influenza B (Rapid) Blood Type A Positive Antibody Screen Negative 12/02/17 12/02/17 12/02/17 05:10 05:27 05:30 WBC RBC Hgb Hct MCV MCH MCHC RDW Plt Count MPV Neut % (Auto) Lymph % (Auto) [place] % (Auto) Eos % (Auto) Baso % (Auto) Absolute Neuts (auto) Absolute Lymphs (auto) Absolute Monos (auto) Absolute Eos (auto) Absolute Basos (auto) Absolute Nucleated RBC Immature Gran % Neutrophils % Band Neutrophils % Lymphocytes % Reactive Lymphs % Monocytes % Nucleated RBC % Nucleated RBCs/100 WBC Toxic Granulation Normal RBC Morphology Hypochromasia Hem Pathologist Commnt INR (Anticoag Therapy) 1.49 H APTT Sodium Potassium Chloride Carbon Dioxide Anion Gap BUN Creatinine Est GFR ( Amer) Est GFR (Non-Af Amer) BUN/Creatinine Ratio Glucose Lactic Acid Calcium Magnesium Total Bilirubin AST ALT Alkaline Phosphatase C-Reactive Protein Total Protein Albumin Globulin Albumin/Globulin Ratio Amylase Lipase Urine Color Yellow Urine Appearance Clear Urine pH 5.0 Ur Specific [place] 1.015 Urine Protein Negative Urine Ketones Negative Urine Blood Negative Urine Nitrate Negative Urine Bilirubin Negative Urine Urobilinogen Negative Ur Leukocyte Esterase Negative Urine Glucose Negative Influenza A (Rapid) Negative Influenza B (Rapid) Negative Blood Type Antibody Screen 12/02/17 12/02/17 12/02/17 05:55 05:55 05:55 WBC 4.0 RBC 2.25 L Hgb 7.0 L Hct 21 L MCV 92 MCH 31 MCHC 34 RDW 20 H Plt Count 30 L MPV 9 Neut % (Auto) 56.2 Lymph % (Auto) 3.9 L [place] % (Auto) 39.6 H Eos % (Auto) 0.2 Baso % (Auto) 0.1 Absolute Neuts (auto) 2.3 Absolute Lymphs (auto) 0.2 L Absolute Monos (auto) 1.6 H Absolute Eos (auto) 0 Absolute Basos (auto) 0 Absolute Nucleated RBC 0.1 Immature Gran % Neutrophils % Band Neutrophils % Lymphocytes % Reactive Lymphs % Monocytes % Nucleated RBC % 1.7 Nucleated RBCs/100 WBC Toxic Granulation Normal RBC Morphology Hypochromasia Hem Pathologist Commnt INR (Anticoag Therapy) 1.54 H APTT Sodium 124 L Potassium 4.0 Chloride 98 L Carbon Dioxide 17 L Anion Gap 9 BUN 31 H Creatinine 0.90 Est GFR ( Amer) 80.8 Est GFR (Non-Af Amer) 62.8 BUN/Creatinine Ratio 34.4 H Glucose 151 H Lactic Acid Calcium 6.3 L* Magnesium Total Bilirubin 0.90 AST 6 L ALT 11 Alkaline Phosphatase 92 C-Reactive Protein Total Protein 5.5 L Albumin 2.5 L Globulin 3.0 Albumin/Globulin Ratio 0.8 L Amylase Lipase Urine Color Urine Appearance Urine pH Ur Specific [place] Urine Protein Urine Ketones Urine Blood Urine Nitrate Urine Bilirubin Urine Urobilinogen Ur Leukocyte Esterase Urine Glucose Influenza A (Rapid) Influenza B (Rapid) Blood Type Antibody Screen 12/02/17 12/03/17 12/03/17 05:55 05:10 05:10 WBC 3.6 RBC 2.37 L Hgb 7.2 L Hct 22 L MCV 91 MCH 31 MCHC 34 RDW 21 H Plt Count 48 L D MPV 9 Neut % (Auto) Lymph % (Auto) [place] % (Auto) Eos % (Auto) Baso % (Auto) Absolute Neuts (auto) Absolute Lymphs (auto) Absolute Monos (auto) Absolute Eos (auto) Absolute Basos (auto) Absolute Nucleated RBC 0.1 Immature Gran % 4 Neutrophils % 53 Band Neutrophils % 4 Lymphocytes % 2 L Reactive Lymphs % Monocytes % 41 H Nucleated RBC % 1.5 Nucleated RBCs/100 WBC Toxic Granulation 1+ Normal RBC Morphology Not Reportable Hypochromasia 1+ Hem Pathologist Commnt INR (Anticoag Therapy) APTT Sodium 125 L Potassium 3.8 Chloride 101 Carbon Dioxide 16 L Anion Gap 8 BUN 26 H Creatinine 0.69 Est GFR ( Amer) 109.8 Est GFR (Non-Af Amer) 85.4 BUN/Creatinine Ratio 37.7 H Glucose 157 H Lactic Acid 1.4 Calcium 6.5 L Magnesium Total Bilirubin AST ALT Alkaline Phosphatase C-Reactive Protein Total Protein Albumin Globulin Albumin/Globulin Ratio Amylase Lipase Urine Color Urine Appearance Urine pH Ur Specific [place] Urine Protein Urine Ketones Urine Blood Urine Nitrate Urine Bilirubin Urine Urobilinogen Ur Leukocyte Esterase Urine Glucose Influenza A (Rapid) Influenza B (Rapid) Blood Type Antibody Screen Imaging: CT abd/pelvis reviewed Assessment: 67y F w/pmhx of Multiple Myeloma (diag 09/2017) (started chemo 2017), HTN, COPD/asthma, former smoker; recent hospitalization for cellulitus of Right LE and tx with clindamycin for 7 days 10/2017. Recent Right hip fracture with ORIF 09/2017, rehab d/c and tx for pneumonia with Levaquin. Brought to ER for nausea/vomiting, diarrhea+, abd pain+, weakness+ for 2 days. In ER, BP 87/56, tachycardic >90, found to have nongap metabolic acidosis, hyponatremia/hypokalemia. CT abd/pelvis with colonic distension. -Severe Sepsis -Hypovolemia -Colitis, suspect C.diff -non-gap metabolic acidosis -hypocalcemia -Anemia -Thrombocytopenia -Plasma cell dyscrasia Plan: Neuro- some confusion, likely delirium at times. hold opiates. likely metabolic/ toxic etiology. deliriium prec. CVS- hemodyn stable. nsr. BP improved with NS infusion. change to LR infusion 50cc/hour. IV abx for colitis. Resp- RA, no distress ID- afebrile now. WBC 3-4. she is s/p chemo and recent clinda/levaquin use in 2 months. Check c.diff when sample available. hemodyn improved. Cont Cipro (day#2 ) and flagyl (day#2). Hold Vanco for now. she is stable and not worsening. GI- colitis+, no n/v/diarrhea. send c.diff if abailable. cont flagyl/cipro. start liquid diet. zofran prn. Renal- Cr okay. Na and K improved. Cl improved. change NS to LR now. KCL po and IV for hypokalemia. Metabolic acidosis still present, nongap likely from GI losses still. Heme- pancytopenia. stable hg. plt stable. no transfusion indicated. s/p chemo for MM. Endo- fingersticks as needed Musculsk- pt/ot. ambulate with assistance only. oob to chair. Wounds- none Nutrition- clear liquid for now DVT prophylaxis: scds GI prophylaxis: - Central Line: - Arterial Line: - Burgess Cathetor: yes, d/c today Disposition: ICU Code Status: full code Alistair Beltran MD [employer] (Electronically Signed)
--- NOTE | 2017-12-03 10:15 | ECHO ---
Patient: AFRICA SEGUNDO [facility] Rec#: [id number] : 1950 Date: 12/03/2017 Age: 67y Height: 152.4 cm / 60.0 in Weight: 76.66 kg / 169.0 lbs Sex: F BSA: 1.74 Room#: [facility]8 Admit Date#: 12/03/2017 Type: Inpatient Referring: ANUEL RICARDO Reading: Hu [place] MD Pattern Scratcher: Kia Aden RDCS CC: Anne Wisdom MD Transthoracic Echocardiogram Indication: Hypotension BP: 94/62 HR: 98 Rhythm: NSR with PVCs Findings History: Multiple myeloma, thyroid disease, anemia, HTN, COPD, former smoker. Technical Comments: The study quality is good. Completed at 0820. Left Ventricle: The left ventricular chamber size is normal. There is no left ventricular hypertrophy. There is mildly decreased left ventricular systolic function. The estimated ejection fraction is 45-50%. There is septal flattening of the interventricular septum consistent with right ventricular volume or pressure overload. Abnormal left ventricular diastolic function is observed. The left ventricular diastolic filling pattern is consistent with pseudonormalization. Left Atrium: The left atrium is moderately dilated. Right Ventricle: Moderator Band present. The right ventricle is mildly dilated. The right ventricular global systolic function is low normal. Right Atrium: The right atrium is moderate to severely dilated. Aortic Valve: The aortic valve is trileaflet. The aortic valve leaflets are mildly thickened. There is no evidence of aortic regurgitation. There is no evidence of aortic stenosis. Mitral Valve: There is mitral annular calcification. The mitral valve leaflets are moderately thickened. There is mild mitral regurgitation. Tricuspid Valve: The tricuspid valve leaflets are mildly thickened. There is moderate tricuspid regurgitation. The right ventricular systolic pressure is estimated at 46 mmHg. There is evidence of moderate pulmonary hypertension. There is no tricuspid stenosis. Pulmonic Valve: The pulmonic valve appears normal. There is a trace pulmonic regurgitation. There is no pulmonic stenosis. Pericardium: There is no significant pericardial effusion. Aorta: There is mild dilatation of the ascending aorta. There is no dilatation of the aortic arch. The aortic root is normal in size. Pulmonary Artery: The main pulmonary artery appears normal. Venous: The inferior vena cava is dilated. There is less than 50% respiratory change in the inferior vena cava dimension. Conclusions There is mildly decreased left ventricular systolic function. The estimated ejection fraction is 45-50%. There is septal flattening of the interventricular septum consistent with right ventricular volume or pressure overload. Abnormal left ventricular diastolic function is observed. The right ventricular global systolic function is low normal. There is no evidence of aortic regurgitation. There is no evidence of aortic stenosis. There is mild mitral regurgitation. There is moderate tricuspid regurgitation. There is evidence of moderate pulmonary hypertension. There is no significant pericardial effusion. Compared to study of 10/29/17, the LV funtion is slightly lower. Valve function is the same Measurements Name Value Normal Range RVIDd (AP) 2D 3.8 cm (0.9 - 2.6) RVDdMajor (2D) 4.4 cm (2.2 - 4.4) RAd ISD 4CH 6.2 cm (3.4 - 4.9) RA (A4C)W 6.6 cm (2.9 - 4.6) IVSd (2D) 0.7 cm (0.6 - 1) LVPWd (2D) 0.9 cm (0.6 - 1) LVIDd (2D) 5.2 cm (3.6 - 5.4) LVIDs (2D) 4.5 cm - LV FS (2D) 15 % (25 - 45) EF Teichholz (2D) 31 % - Aortic Annulus 2 cm (1.4 - 2.6) Ao root diameter (2D) 3.1 cm (2.1 - 3.5) Ascending Ao 3.6 cm (2.1 - 3.4) Aortic arch 2.5 cm (1.8 - 3.4) LA dimension (AP) 2D 4 cm (2.3 - 3.8) LAd ISD 4CH 5.7 cm (2.9 - 5.3) LA ISD 4CH W 4.7 cm (2.5 - 4.5) Name Value Normal Range LA ESV SP 4CH (A/L) 83 ml - LA ESV SP 2CH (A/L) 80 ml - LA ESV BP (A/L) 86 ml - LA ESV BP (A/L) index 49 ml/m2 - LA ESV SP 4CH (MOD) 74 ml - LA ESV SP 2CH (MOD) 75 ml - Name Value Normal Range MV E-wave Vmax 1.1 m/sec - MV deceleration time 142.9 msec - MV A-wave Vmax 1.21 m/sec - MV E:A ratio 0.94 ratio - LV septal e' Vmax 0.07 m/sec - LV lateral e' Vmax 0.09 m/sec - LV E:e' septal ratio 15.7 ratio - LV E:e' lateral ratio 12.2 ratio - Name Value Normal Range AV Vmax 1.6 m/sec - AV VTI 31.8 cm - AV peak gradient 9.83 mmHg - AV mean gradient 5.4 mmHg - LVOT Vmax 1.55 m/sec - LVOT VTI 30.06 cm - LVOT peak gradient 9.64 mmHg - LVOT mean gradient 4.69 mmHg - TRENT Vmax 0.75 m/sec - Name Value Normal Range MV Vmax 1.39 m/sec - MV VTI 29.46 cm - MV peak gradient 7.73 mmHg - MV mean gradient 4.14 mmHg - MV PHT 45.16 msec - MR Vmax 4.71 m/sec - MR VTI 155.7 cm - MR flow (PISA) 36.11 ml/sec - MR ERO 0.08 cm2 - MR PISA radius 0.3 cm - MR alias Vmax 55 cm/sec - MVA (PHT) 4.87 cm2 - Name Value Normal Range TR Vmax 2.8 m/sec - TR peak gradient 31 mmHg - RAP 15 mmHg - RVSP 46 mmHg - IVC diameter 2.6 cm - Name Value Normal Range PV Vmax 0.71 m/sec - PV peak gradient 2.04 mmHg - AZ end-diastolic Vmax 1.72 m/sec -
[2017-12-03] MEDS ORDERED: NS 0.9% 100 ML* 100 ML ONE (10:46)
[2017-12-03] MEDS ORDERED: Potassium Chloride IV* 20 MEQ in NS 0.9% 100 ML* 100 ML IVPB ONE (11:00)
[2017-12-03] MEDS ORDERED: KCL 10 MEQ/50 ML IVPREMIX* 10 MEQ/50 ML BAG IV SCH (11:00)
--- NOTE | 2017-12-03 15:56 | RAD ---
INDICATION: Colonic distention COMPARISON: CT December 02, 2017 TECHNIQUE: Erect and supine views of the abdomen are submitted. FINDINGS: Bones: There are no acute bony findings. Soft tissues: The soft tissues appear normal. The psoas margins are sharp. Bowel gas pattern: The colon is air-filled and distended similar to the earlier CT. There are small bowel loops which are also air-filled but which are not distended. There is no plain radiographic evidence of free air. Calcifications: There are no abnormal calcifications. Other: None IMPRESSION: PERSISTENT COLONIC DISTENTION WITHOUT INTERVAL CHANGE.
[2017-12-03] MEDS: Acetaminophen TAB* 325 MG PO PRN (20:30)
[2017-12-04] MEDS: Ondansetron INJ* 2 MG/ML VIAL IV PRN ×2 (00:32→05:05)
[2017-12-04] MEDS: Acetaminophen TAB* 325 MG PO PRN ×4 (00:42→20:18)
[2017-12-04] MEDS: Ciprofloxacin 400MG IVPREMIX(* 400 MG/200 ML BAG IVPB SCH (03:58)
[2017-12-04 06:27] LABS: EGFR Non-African American 75.2 (>60)
[2017-12-04 06:53] LABS: ABS Basophils 0 10^3/ul (0-0.2); ABS Eosinophils 0 10^3/ul (0-0.6); ABS Lymphocytes 0.2 10^3/ul (1.0-4.8); ABS Monocytes 2.3 10^3/ul (0-0.8); ABS Neutrophils 1.1 10^3/ul (1.5-7.7); ABS Nucleated RBC 0.1 10^3/ul; Eosinophil % 0 % (0-6); Hematocrit 22 % (35-47); Hemoglobin 7.3 g/dl (12.0-16.0); Lymphocyte % 4.3 % (25-47); Mean Corpuscular HGB Conc 33 g/dl (31-36); Mean Corpuscular Hemoglobin 30 pg (27-31); Mean Corpuscular Volume 92 fL (80-97); Mean Platelet Volume 9 um3 (7.4-10.4); Nucleated Red Blood Cells % 1.9; Platelet Count 83 10^3/ul (150-450); Red Blood Count 2.43 10^6/ul (4.0-5.4); Red Cell Distribution Width 21 % (10.5-15); White Blood Count 3.5 10^3/ul (3.5-10.8)
[2017-12-04] MEDS ORDERED: metroNIDAZOLE TAB* 250 MG PO SCH (09:00)
[2017-12-04] MEDS ORDERED: KCL 10 MEQ/50 ML IVPREMIX* 10 MEQ/50 ML BAG IV SCH (10:00)
[2017-12-04] MEDS ORDERED: Potassium Chloride IV* 30 MEQ in NS 0.9% 250 ML* 250 ML IVPB ONE (10:30)
[2017-12-04] MEDS: Magic Mouth Was-BEN/MAAL/LIDO SWISH SPIT SCH ×4 (10:44→20:19)
--- NOTE | 2017-12-04 11:01 | PN ---
Progress Note - Progress Note Date of Service: 12/04/17 Note: Progress Note Critical Care 24 hour events/significant events: -overnight stable, given additional 1 L NS bolus -mild abd pain only, no n/v/diarrhea. no bowel movements -no cp/sob, no fever/chills. -c.diff positive overnight, placed on contact precautions. Tele: nsr Vitals: Vital Signs Temp 98.1 F 12/04/17 07:59 Pulse 98 12/04/17 10:00 Resp 18 12/04/17 10:00 BP 82/56 12/04/17 10:00 Pulse Ox 98 12/04/17 10:00 Intake & Output 12/03/17 12/04/17 12/04/17 18:59 06:59 18:59 Intake Total 1741 1123 1100 Output Total 400 Balance 1341 1123 1100 Weight 181 lb 14.102 oz Intake: IV Fluids 1741 615 980 LR 615 980 NS carrier 1741 IVPB 208 ABX - CIPROFLOXACIN 208 Oral 300 120 Output: Martinez 400 Other: Estimated Void Medium O2/Vent: RA Infusions: NS 100cc/hr Medications: Acetaminophen (Tylenol Tab*) 650 mg PO Q4H PRN PRN Reason: PAIN Last Admin: 12/04/17 05:25 Dose: 650 mg Albuterol/Ipratropium (Duoneb (Albuterol 2.5 Mg/Ipratropium 0.5 Mg)) 1 neb INH [id number] AWAKE PRN PRN Reason: sob/wheexing Last Admin: 12/02/17 14:58 Dose: 1 neb Heparin Sodium (Porcine) (Heparin Vial(*)) 5,000 units SUBCUT Q8HR ANGELICA Lactated Ringer's (Lactated Ringers 1000 Ml Bag*) 1,000 mls @ 0 mls/hr IV WIDE OPEN ANGELICA PRN Reason: Wide Open Stop: 12/04/17 23:59 Last Admin: 12/04/17 06:13 Dose: 1,000 mls/hr Lactated Ringer's (Lactated Ringers 1000 Ml Bag*) 1,000 mls @ 100 mls/hr IV PER RATE ANGELICA Last Admin: 12/04/17 07:15 Dose: 100 mls/hr Potassium Chloride 30 meq/ (Sodium Chloride) 265 mls @ 88.333 mls/hr IVPB ONCE ONE Stop: 12/04/17 13:29 Metronidazole (Flagyl Tab*) 500 mg PO TID [facility] Last Admin: 12/04/17 09:31 Dose: 500 mg Morphine Sulfate (Morphine Inj (Syringe)*) 4 mg IV Q4H PRN PRN Reason: PAIN Last Admin: 12/02/17 23:02 Dose: 4 mg Multi-Ingredient Mouthwash/Gargle (Magic Mouth Was-Juan/Maal/Lido*) 5 ml SWISH SPIT QID [facility] Last Admin: 12/04/17 10:44 Dose: 5 ml Ondansetron HCl (Zofran Inj*) 4 mg IV Q4H PRN PRN Reason: NAUSEA/VOMITING Last Admin: 12/04/17 05:05 Dose: 4 mg Sodium Bicarbonate (Sodium Bicarbonate (Antacid)*) 650 mg PO Q6HR [facility] Vancomycin HCl (Vancomycin Cap*) 125 mg PO QID [facility] Physical Exam: General: awake, alert, no distress, no diaphoresis Head: normocephalic, atraumatic HEENT: no pallor, no icterus, moist mucous membranes Neck: soft, supple, no jvd, no stridor CVS: normal rate, regular, no murmur Resp: bilateral air entry, no rhales, no wheeze, no rhonchi, no acc muscle use Abdomen: soft, tenderness improved, no change in distension/mild only, bs diminished Ext: pulses+, warm, edema+, anasarca+ 2/3+ Skin: intact, no breakdown, no dryness Neuro: awake, alert, orientedx3, moving all extremities, no gross focal deficit Labs: Laboratory Results - last 24 hr 12/04/17 12/04/17 05:55 05:55 WBC 3.5 RBC 2.43 L Hgb 7.3 L Hct 22 L MCV 92 MCH 30 MCHC 33 RDW 21 H Plt Count 83 L D MPV 9 Neut % (Auto) 31.0 L Lymph % (Auto) 4.3 L [place] % (Auto) 64.5 H Eos % (Auto) 0 Baso % (Auto) 0.2 Absolute Neuts (auto) 1.1 L Absolute Lymphs (auto) 0.2 L Absolute Monos (auto) 2.3 H Absolute Eos (auto) 0 Absolute Basos (auto) 0 Absolute Nucleated RBC 0.1 Nucleated RBC % 1.9 Sodium 129 L Potassium 3.7 Chloride 104 Carbon Dioxide 16 L Anion Gap 9 BUN 31 H Creatinine 0.77 Est GFR ( Amer) 96.8 Est GFR (Non-Af Amer) 75.2 BUN/Creatinine Ratio 40.3 H Glucose 133 H Calcium 6.8 L Imaging: CT abd/pelvis reviewed abx xr 12/03 - distended bowel loops+ Assessment: 67y F w/pmhx of Multiple Myeloma (diag 09/2017) (started chemo 2017), HTN, COPD/asthma, former smoker; recent hospitalization for cellulitus of Right LE and tx with clindamycin for 7 days 10/2017. Recent Right hip fracture with ORIF 09/2017, rehab d/c and tx for pneumonia with Levaquin. Brought to ER for nausea/vomiting, diarrhea+, abd pain+, weakness+ for 2 days. In ER, BP 87/56, tachycardic >90, found to have nongap metabolic acidosis, hyponatremia/hypokalemia. CT abd/pelvis with colonic distension. -Hypovolemia -not meeting all sepsis criteria, not severe sepsis -toxic megacolon 2/2 to c.diff colitis -non-gap metabolic acidosis -hypocalcemia -Anemia -Thrombocytopenia -Plasma cell dyscrasia Plan: Neuro- some confusion, likely delirium, but better/similar as yesterday. hold opiates. likely metabolic/toxic etiology. deliriium prec. CVS- hemodyn stable. nsr. BP soft 80-90s, warm ext, LA normal. LR infusion 100cc/hour continued. Abx for colitis. intermiitent hypotension to 80s but clinically stable, will monitor, cont iv fluids. Resp- RA, no distress ID- afebrile now. WBC 3. she is s/p chemo and recent clinda/levaquin use in 2 months. C.diff positive/toxic megacolon. Improving. Cont Flagyl 500 tid (day#3) , start vanco 125mg po q6h (day#1). D/C cipro. GI- c,.diff colitis+, no n/v/diarrhea. cont flagyl/vanco po. zofran prn. limit morphine. Renal- Cr okay. hyponatremia and hypochloremia improving. Replete K IV. Metabolix acidosis, nongap likely from GI losses. start po bicarb. cont LR infusion. Heme- pancytopenia. wbc 3s. stable hg. plt stable. no transfusion indicated. s/ p chemo for MM. Endo- fingersticks as needed Musculsk- pt/ot. ambulate with assistance only. oob to chair. Wounds- none Nutrition- advance diet as tolerated DVT prophylaxis: scds GI prophylaxis: - Central Line: - Arterial Line: - Martinez Cathetor: no martinze Disposition: ICU Code Status: full code Total Critical Care time 30 min, not including procedures/teaching. Alistair Beltran MD Yoga Coordinator (Electronically Signed)
[2017-12-04] MEDS: Sodium Bicarbonate (ANTACID)* 650 MG TAB PO SCH ×2 (11:43→17:35)
[2017-12-04] MEDS: Vancomycin CAP* 125 MG CAP PO SCH ×3 (14:11→20:14)
[2017-12-04] MEDS: Heparin VIAL(*) 5000 UNITS/ML VIAL (FIVE THOUSAND) SUBCUT SCH ×2 (14:12→20:20)
[2017-12-04] MEDS: metroNIDAZOLE IV 500 MG/100ML* 500 MG/100 ML BAG IVPB SCH (17:32)
[2017-12-05] MEDS: Acetaminophen TAB* 325 MG PO PRN ×2 (01:01→05:32)
[2017-12-05] MEDS: Sodium Bicarbonate (ANTACID)* 650 MG TAB PO SCH ×5 (01:01→23:56)
[2017-12-05] MEDS: metroNIDAZOLE IV 500 MG/100ML* 500 MG/100 ML BAG IVPB SCH ×3 (01:02→18:02)
[2017-12-05 05:16] LABS: Hematocrit 22 % (35-47); Hemoglobin 7.3 g/dl (12.0-16.0); Mean Corpuscular HGB Conc 34 g/dl (31-36); Mean Corpuscular Hemoglobin 30 pg (27-31); Mean Corpuscular Volume 90 fL (80-97); Mean Platelet Volume 9 um3 (7.4-10.4); Platelet Count 75 10^3/ul (150-450); Red Blood Count 2.41 10^6/ul (4.0-5.4); Red Cell Distribution Width 22 % (10.5-15); White Blood Count 7.1 10^3/ul (3.5-10.8)
[2017-12-05 05:19] LABS: EGFR Non-African American 94.8 (>60)
[2017-12-05] MEDS: Heparin VIAL(*) 5000 UNITS/ML VIAL (FIVE THOUSAND) SUBCUT SCH ×3 (05:31→21:40)
[2017-12-05 06:33] LABS: ABS Neutrophils 2.9 10^3/ul (1.5-7.7); Monocytes % 50 % (0-13)
[2017-12-05] MEDS: Magic Mouth Was-BEN/MAAL/LIDO SWISH SPIT SCH ×4 (07:54→20:00)
[2017-12-05] MEDS: Vancomycin CAP* 125 MG CAP PO SCH ×4 (09:34→21:40)
--- NOTE | 2017-12-05 09:35 | PN ---
Progress Note - Progress Note Date of Service: 12/05/17 Note: Progress Note Critical Care 24 hour events/significant events: -in chair, non distress. stable overnight. taking po intake. -afebrile. -ivf infusing -she feels okay, 1 bowel movement yesterday. no abd pain/n/v. Tele: nsr Vitals: Vital Signs Temp 98.2 F 12/05/17 08:00 Pulse 72 12/05/17 07:02 Resp 20 12/05/17 08:00 BP 71/47 12/05/17 07:02 Pulse Ox 97 12/05/17 07:02 Intake & Output 12/04/17 12/05/17 12/05/17 18:59 06:59 18:59 Intake Total 2501 2182 Output Total 750 Balance 1751 2182 Weight 189 lb 9.561 oz Intake: IV Fluids 1206 1262 IV K 226 LR 980 1262 IVPB 220 LR 220 Oral 1295 700 Output: Urine 250 Liquid Stool 500 Other: Estimated Void Medium Estimated Stool Amount Large O2/Vent: RA Infusions: LR 100cc/hr Medications: Acetaminophen (Tylenol Tab*) 650 mg PO Q4H PRN PRN Reason: PAIN Last Admin: 12/05/17 05:32 Dose: 650 mg Albuterol/Ipratropium (Duoneb (Albuterol 2.5 Mg/Ipratropium 0.5 Mg)) 1 neb INH [id number] AWAKE PRN PRN Reason: sob/wheexing Last Admin: 12/02/17 14:58 Dose: 1 neb Heparin Sodium (Porcine) (Heparin Vial(*)) 5,000 units SUBCUT Q8HR [facility] Last Admin: 12/05/17 05:31 Dose: 5,000 units Lactated Ringer's (Lactated Ringers 1000 Ml Bag*) 1,000 mls @ 100 mls/hr IV PER RATE [facility] Last Admin: 12/05/17 05:32 Dose: 100 mls/hr Metronidazole/Sodium Chloride (Flagyl 500 Mg Ivpb*) 500 mg in 100 mls @ 100 mls /hr IVPB Q8H [facility] Last Admin: 12/05/17 01:02 Dose: 100 mls/hr Midodrine (Midodrine (Nf)) 10 mg PO Q8H [facility] PRN Reason: Protocol Morphine Sulfate (Morphine Inj (Syringe)*) 4 mg IV Q4H PRN PRN Reason: PAIN Last Admin: 12/02/17 23:02 Dose: 4 mg Multi-Ingredient Mouthwash/Gargle (Magic Mouth Was-Juan/Maal/Lido*) 5 ml SWISH SPIT QID [facility] Last Admin: 12/05/17 07:54 Dose: 5 ml Ondansetron HCl (Zofran Inj*) 4 mg IV Q4H PRN PRN Reason: NAUSEA/VOMITING Last Admin: 12/04/17 05:05 Dose: 4 mg Sodium Bicarbonate (Sodium Bicarbonate (Antacid)*) 650 mg PO Q6HR [facility] Last Admin: 12/05/17 05:32 Dose: 650 mg Vancomycin HCl (Vancomycin Cap*) 125 mg PO QID [facility] Last Admin: 12/04/17 20:14 Dose: 125 mg Physical Exam: General: awake, alert, no distress, no diaphoresis Head: normocephalic, atraumatic HEENT: no pallor, no icterus, moist mucous membranes Neck: soft, supple, no jvd, no stridor CVS: normal rate, regular, no murmur Resp: bilateral air entry, no rhales, no wheeze, no rhonchi, no acc muscle use Abdomen: soft, tenderness improved, no change in distension/mild only, bs decreased Ext: pulses+, warm, edema+, anasarca+ 2/3+ Skin: intact, no breakdown, no dryness Neuro: awake, alert, orientedx3, moving all extremities, no gross focal deficit Labs: Laboratory Results - last 24 hr 12/03/17 12/03/17 12/05/17 05:10 05:10 04:53 WBC RBC Hgb Hct MCV MCH MCHC RDW Plt Count MPV Absolute Neuts (auto) Immature Gran % Neutrophils % Band Neutrophils % Lymphocytes % Monocytes % Eosinophils % Basophils % Metamyelocytes % Promyelocytes % Abs Neuts (Manual) Abs Monocytes (Manual) Absolute Eos (Manual) Abs Basophils (Manual) Toxic Granulation Normal RBC Morphology Sodium 130 L Potassium 4.0 Chloride 105 Carbon Dioxide 19 L Anion Gap 6 BUN 27 H Creatinine 0.63 Est GFR ( Amer) 122.0 Est GFR (Non-Af Amer) 94.8 BUN/Creatinine Ratio 42.9 H Glucose 113 H Calcium 6.9 L IgG 95 L IgA 1500 H IgM <5 L CMV DNA Detection Undetected 12/05/17 04:53 WBC 7.1 RBC 2.41 L Hgb 7.3 L Hct 22 L MCV 90 MCH 30 MCHC 34 RDW 22 H Plt Count 75 L MPV 9 Absolute Neuts (auto) 2.9 Immature Gran % 6 Neutrophils % 39 Band Neutrophils % 4 Lymphocytes % 5 L Monocytes % 50 H Eosinophils % 0 Basophils % 0 Metamyelocytes % 1 Promyelocytes % 1 Abs Neuts (Manual) 2.8 Abs Monocytes (Manual) 3.6 H Absolute Eos (Manual) 0 Abs Basophils (Manual) 0 Toxic Granulation 1+ Normal RBC Morphology Not Reportable Sodium Potassium Chloride Carbon Dioxide Anion Gap BUN Creatinine Est GFR ( Amer) Est GFR (Non-Af Amer) BUN/Creatinine Ratio Glucose Calcium IgG IgA IgM CMV DNA Detection Imaging: CT abd/pelvis reviewed abx xr 12/03 - distended bowel loops+ Assessment: 67y F w/pmhx of Multiple Myeloma (diag 09/2017) (started chemo 2017), HTN, COPD/asthma, former smoker; recent hospitalization for cellulitus of Right LE and tx with clindamycin for 7 days 10/2017. Recent Right hip fracture with ORIF 09/2017, rehab d/c and tx for pneumonia with Levaquin. Brought to ER for nausea/vomiting, diarrhea+, abd pain+, weakness+ for 2 days. In ER, BP 87/56, tachycardic >90, found to have nongap metabolic acidosis, hyponatremia/hypokalemia. CT abd/pelvis with colonic distension. -Hypovolemia -not meeting all sepsis criteria, not severe sepsis -toxic megacolon 2/2 to c.diff colitis -non-gap metabolic acidosis -hypocalcemia -Anemia -Thrombocytopenia -Plasma cell dyscrasia Plan: Neuro- confusion better. likely metabolic/toxic etiology. delirium prec. CVS- hemodyn stable. nsr. BP fluctuates, 80s, but awake alert. on IVF LR 100, dec to 75. LE edema+. making urine. warm ext, LA normal. Abx for colitis. check cortisol level. will add midodrine 10mg po tid for now to increase BP. clinically not toxic or lethargic, mentating well adn comfortable appearing. Resp- RA, no distress ID- afebrile now. WBC 7 she is s/p chemo and recent clinda/levaquin use in 2 months. C.diff positive/toxic megacolon. Improving. Cont Flagyl 500 tid (day#4) , vanco 125mg po q6h (day#2). GI- c.diff colitis+, no n/v/diarrhea. cont flagyl/vanco po. zofran prn. limit morphine. Renal- Cr okay. hyponatremia and hypochloremia improving. Replete K PO as needed. Metabolic acidosis/nongap, better with PO bicarb tabs, continue. Cont LR infusion. will need lasix for LE edema once better BPs Heme- WBC better. stable hg, anemia 7s. plt stable. no transfusion indicated. s/ p chemo for MM. Endo- fingersticks as needed Musculsk- pt/ot. ambulate with assistance only. oob to chair. Wounds- none Nutrition- advance diet as tolerated DVT prophylaxis: scds, heparin sq GI prophylaxis: - Central Line: - Arterial Line: - Martinez Cathetor: no martinez Disposition: can transfer to medical floor. Code Status: full code Alistair Beltran MD Engraver Block (Electronically Signed)
[2017-12-05] MEDS: CMC: Midodrine (NF) 5 MG TAB PO SCH ×3 (12:33→23:55)
[2017-12-05] MEDS: Ondansetron INJ* 2 MG/ML VIAL IV PRN (18:23)
[2017-12-05] MEDS: CMCS Melatonin (NF) 3 MG TAB PO PRN (21:41)
[2017-12-06] MEDS: metroNIDAZOLE IV 500 MG/100ML* 500 MG/100 ML BAG IVPB SCH ×3 (02:10→17:58)
[2017-12-06] MEDS: Heparin VIAL(*) 5000 UNITS/ML VIAL (FIVE THOUSAND) SUBCUT SCH ×3 (05:41→21:56)
[2017-12-06] MEDS: Sodium Bicarbonate (ANTACID)* 650 MG TAB PO SCH ×3 (05:50→17:59)
[2017-12-06 06:18] LABS: Hematocrit 23 % (35-47); Hemoglobin 7.8 g/dl (12.0-16.0); Mean Corpuscular HGB Conc 35 g/dl (31-36); Mean Corpuscular Hemoglobin 31 pg (27-31); Mean Corpuscular Volume 90 fL (80-97); Mean Platelet Volume 10 um3 (7.4-10.4); Platelet Count 108 10^3/ul (150-450); Red Blood Count 2.51 10^6/ul (4.0-5.4); Red Cell Distribution Width 21 % (10.5-15); White Blood Count 8.6 10^3/ul (3.5-10.8)
[2017-12-06 06:34] LABS: EGFR Non-African American 108.6 (>60)
[2017-12-06 06:52] LABS: ABS Basophils 0 10^3/ul (0-0.2); ABS Eosinophils 0 10^3/ul (0-0.6); ABS Lymphocytes 0.6 10^3/ul (1.0-4.8); ABS Monocytes 2.6 10^3/ul (0-0.8); ABS Neutrophils 5.4 10^3/ul (1.5-7.7); ABS Nucleated RBC 0 10^3/ul; Eosinophil % 0.3 % (0-6); Nucleated Red Blood Cells % 0.3
[2017-12-06] MEDS: CMC: Midodrine (NF) 5 MG TAB PO SCH ×2 (07:53→16:35)
[2017-12-06] MEDS: Vancomycin CAP* 125 MG CAP PO SCH ×4 (07:53→21:56)
[2017-12-06] MEDS: Magic Mouth Was-BEN/MAAL/LIDO SWISH SPIT SCH ×4 (07:54→21:56)
[2017-12-06] MEDS: Ondansetron INJ* 2 MG/ML VIAL IV PRN (08:01)
[2017-12-06] MEDS ORDERED: Potassium Chloride LIQUID* 20 MEQ PACKET PO ONE (09:05)
[2017-12-06] MEDS ORDERED: Furosemide IV* 10 MG/ML 2 ML VIAL (20 MG) IV SLOW PU ONE (09:06)
--- NOTE | 2017-12-06 09:21 | PN ---
Progress Note - Progress Note Date of Service: 12/06/17 Note: Progress Note Critical Care 24 hour events/significant events: -no distress; was acutely confused so held in ICU -BP good overnight after midodrine started -edema+ -alert, oriented today, no distress -bowel movements+, no fever/n/v Tele: nsr Vitals: Vital Signs Temp 98.1 F 12/06/17 08:00 Pulse 67 12/06/17 06:30 Resp 18 12/06/17 06:30 BP 111/64 12/06/17 06:30 Pulse Ox 97 12/06/17 06:30 Intake & Output 12/05/17 12/06/17 12/06/17 18:59 06:59 18:59 Intake Total 1808 1514 Output Total 700 300 Balance 1108 1214 Intake: IV Fluids 988 964 LR 988 669 NS carrier 295 IVPB 220 100 ABX - FLAGYL 220 100 Oral 600 450 Output: Urine 700 300 Other: Estimated Void Medium Date of Last Bowel 12/05/17 Movement # Bowel Movements 1 Estimated Stool Amount Small # Voids 1 O2/Vent: RA Infusions: LR 50cc/hr Medications: Acetaminophen (Tylenol Tab*) 650 mg PO Q4H PRN PRN Reason: PAIN Last Admin: 12/05/17 05:32 Dose: 650 mg Albuterol/Ipratropium (Duoneb (Albuterol 2.5 Mg/Ipratropium 0.5 Mg)) 1 neb INH [id number] AWAKE PRN PRN Reason: sob/wheexing Last Admin: 12/02/17 14:58 Dose: 1 neb Furosemide (Lasix Iv*) 20 mg IV SLOW PU DAILY [facility] Heparin Sodium (Porcine) (Heparin Vial(*)) 5,000 units SUBCUT Q8HR [facility] Last Admin: 12/06/17 05:41 Dose: 5,000 units Metronidazole/Sodium Chloride (Flagyl 500 Mg Ivpb*) 500 mg in 100 mls @ 100 mls /hr IVPB Q8H [facility] Last Admin: 12/06/17 02:10 Dose: 100 mls/hr Lactated Ringer's (Lactated Ringers 1000 Ml Bag*) 1,000 mls @ 50 mls/hr IV PER RATE [facility] Melatonin (Melatonin (Nf)) 3 mg PO BEDTIME PRN; Protocol PRN Reason: SLEEP Last Admin: 12/05/17 21:41 Dose: 3 mg Midodrine (Midodrine (Nf)) 10 mg PO 0000,0800,1600 [facility] PRN Reason: Protocol Last Admin: 12/06/17 07:53 Dose: 10 mg Morphine Sulfate (Morphine Inj (Syringe)*) 4 mg IV Q4H PRN PRN Reason: PAIN Last Admin: 12/02/17 23:02 Dose: 4 mg Multi-Ingredient Mouthwash/Gargle (Magic Mouth Was-Juan/Maal/Lido*) 5 ml SWISH SPIT QID [facility] Last Admin: 12/06/17 07:54 Dose: 5 ml Ondansetron HCl (Zofran Inj*) 4 mg IV Q4H PRN PRN Reason: NAUSEA/VOMITING Last Admin: 12/06/17 08:01 Dose: 4 mg Sodium Bicarbonate (Sodium Bicarbonate (Antacid)*) 650 mg PO Q6HR [facility] Last Admin: 12/06/17 05:50 Dose: Not Given Vancomycin HCl (Vancomycin Cap*) 125 mg PO QID [facility] Last Admin: 12/06/17 07:53 Dose: 125 mg Physical Exam: General: awake, alert, no distress, no diaphoresis Head: normocephalic, atraumatic HEENT: no pallor, no icterus, moist mucous membranes Neck: soft, supple, no jvd, no stridor CVS: normal rate, regular, no murmur Resp: bilateral air entry, no rhales, no wheeze, no rhonchi, no acc muscle use Abdomen: soft, tenderness improved, mild distension+, bs improved Ext: pulses+, warm, edema+, anasarca+ 3+ Skin: intact, no breakdown, no dryness Neuro: awake, alert, orientedx3, moving all extremities, no gross focal deficit Labs: Laboratory Results - last 24 hr 12/03/17 12/05/17 12/05/17 05:10 04:53 04:53 WBC RBC Hgb Hct MCV MCH MCHC RDW Plt Count MPV Neut % (Auto) Lymph % (Auto) [place] % (Auto) Eos % (Auto) Baso % (Auto) Absolute Neuts (auto) Absolute Lymphs (auto) Absolute Monos (auto) Absolute Eos (auto) Absolute Basos (auto) Absolute Nucleated RBC Nucleated RBC % Hem Pathologist Commnt Sodium 130 L Potassium 4.0 Chloride 105 Carbon Dioxide 19 L Anion Gap 6 BUN 27 H Creatinine 0.63 Est GFR ( Amer) 122.0 Est GFR (Non-Af Amer) 94.8 BUN/Creatinine Ratio 42.9 H Glucose 113 H Calcium 6.9 L Total Protein (PEP) 5.7 L Albumin (PEP) 2.6 L Albumin/Globulin (PEP) 0.83 Yarqg-1-Hnqrghgau 0.4 H Szuhy-3-Fxsvitatt 0.8 Nkwn-5-Sdpobtdw 0.8 Gamma Globulins 1.2 M-Alec Not Reportable M-Alec 2 0.9 PEP Impression See comment Cortisol 31.59 12/06/17 12/06/17 05:50 05:50 WBC 8.6 RBC 2.51 L Hgb 7.8 L Hct 23 L MCV 90 MCH 31 MCHC 35 RDW 21 H Plt Count 108 L MPV 10 Neut % (Auto) 62.6 Lymph % (Auto) 7.0 L [place] % (Auto) 30.0 H Eos % (Auto) 0.3 Baso % (Auto) 0.1 Absolute Neuts (auto) 5.4 Absolute Lymphs (auto) 0.6 L Absolute Monos (auto) 2.6 H Absolute Eos (auto) 0 Absolute Basos (auto) 0 Absolute Nucleated RBC 0 Nucleated RBC % 0.3 Hem Pathologist Commnt Sodium 130 L Potassium 3.7 Chloride 103 Carbon Dioxide 22 Anion Gap 5 BUN 19 Creatinine 0.56 Est GFR ( Amer) 139.7 Est GFR (Non-Af Amer) 108.6 BUN/Creatinine Ratio 33.9 H Glucose 94 Calcium 6.8 L Total Protein (PEP) Albumin (PEP) Albumin/Globulin (PEP) Uhcvu-6-Gmslxwoxu Swmgt-5-Dnjyozhvk Agdt-7-Pcacpclg Gamma Globulins M-Alec M-Alec 2 PEP Impression Cortisol Imaging: CT abd/pelvis reviewed abx xr 12/03 - distended bowel loops+ Assessment: 67y F w/pmhx of Multiple Myeloma (diag 09/2017) (started chemo 2017), HTN, COPD/asthma, former smoker; recent hospitalization for cellulitus of Right LE and tx with clindamycin for 7 days 10/2017. Recent Right hip fracture with ORIF 09/2017, rehab d/c and tx for pneumonia with Levaquin. Brought to ER for nausea/vomiting, diarrhea+, abd pain+, weakness+ for 2 days. In ER, BP 87/56, tachycardic >90, found to have nongap metabolic acidosis, hyponatremia/hypokalemia. CT abd/pelvis with colonic distension. -Hypovolemia -not meeting all sepsis criteria, not severe sepsis -toxic megacolon 2/2 to c.diff colitis -non-gap metabolic acidosis -hypocalcemia -Anemia -Thrombocytopenia -Plasma cell dyscrasia Plan: Neuro- confusion better today. likely metabolic/toxic etiology. delirium prec. CVS- hemodyn stable. nsr. BP more steady >100. cont midodrine, as BP improves, can decreased further to 5mg q8h and further lower. LR 50cc/hour. Replete K po 40meq. Edema++ in LE, weights increased. start lasix 20mg iv daily. can wean off LR if tolerating PO intake. Abx for colitis. Resp- RA, no distress ID- afebrile now. WBC 8. she is s/p chemo and recent clinda/levaquin use in 2 months. C.diff positive/toxic megacolon. Improving. Cont Flagyl 500 tid (day#5/ 14), vanco 125mg po q6h (day#3/14). GI- c.diff colitis+, no n/v/diarrhea. cont flagyl/vanco po. zofran prn. limit morphine. Renal- Cr okay. hyponatremia and hypochloremia improving. Replete K PO 40meq today. Metabolic acidosis/nongap, improved with PO bicarb tabs. Edema++, start lasix 20mg iv dialy. cont LR 50cc/hr for now. Heme- stable hg, anemia 7s. plt stable. no transfusion indicated. s/p chemo for MM. Endo- fingersticks as needed Musculsk- pt/ot. ambulate with assistance only. oob to chair. Wounds- none Nutrition- advance diet as tolerated DVT prophylaxis: scds, heparin sq GI prophylaxis: - Central Line: - Arterial Line: - Martinez Cathetor: no martinez Disposition: can transfer to medical floor. Code Status: full code Alistair Beltran MD Financial Investment Manager (Electronically Signed)
--- NOTE | 2017-12-06 09:59 | RAD ---
Indication: Follow-up toxic megacolon. Flat plate of the abdomen demonstrates no free air. Previously dilated colon is no longer present. Mildly distended transverse colon is noted. IMPRESSION: Previously identified enlarged distended colon has decreased.
[2017-12-06] MEDS: DULoxetine DR CAP* 60 MG CAP.DR PO SCH (11:55)
[2017-12-06] MEDS: Acetaminophen TAB* 325 MG PO PRN ×2 (12:47→16:35)
--- NOTE | 2017-12-06 14:45 | PN ---
GASTROENTEROLOGY FOLLOWUP NOTE: DATE OF FOLLOWUP: 12/05/17. SUBJECTIVE: Ms. Junior is sitting up in her chair. She is positive for C. diff and is on vancomycin p.o. as well as IV Flagyl. The patient did have a bowel movement yesterday and perhaps this morning. She states that her abdomen is slightly improved. She did have abdominal x-ray on the prior to her bowel movement. At that point, there was persistent colonic distension without significant change from admission on 12/01/17. OBJECTIVE: On exam, pulse is 88, O2 sat on room air is 95%, blood pressure 99/ 61. Abdomen is soft, still distended. Bowel sounds are present. There is no significant tenderness noted. PERTINENT LABORATORY STUDIES: Reveal a hematocrit of 22, which is unchanged from admission. There have been no signs of bleeding. IMPRESSION: Ms. Junior has what appears to be toxic megacolon with C. difficile and possibly related to her chemo-therapy. I will order a KUB for tomorrow to assess the degree of colonic distension in comparison to December 03. Despite the C. diff, the patient may benefit from daily mineral oil enema and possibly rectal tube insertion for 2 to 3 hours per day if she does not continue moving her bowels. We will follow with you. [id number]/[facility] #: [id number] SHONNA
[2017-12-07] MEDS: metroNIDAZOLE IV 500 MG/100ML* 500 MG/100 ML BAG IVPB SCH ×2 (01:12→09:23)
[2017-12-07] MEDS: CMCS Melatonin (NF) 3 MG TAB PO PRN (01:16)
[2017-12-07] MEDS: Sodium Bicarbonate (ANTACID)* 650 MG TAB PO SCH ×4 (01:16→18:00)
[2017-12-07] MEDS: CMC: Midodrine (NF) 5 MG TAB PO SCH ×3 (01:28→14:52)
[2017-12-07] MEDS: Acetaminophen TAB* 325 MG PO PRN ×2 (05:12→09:23)
[2017-12-07] MEDS: Heparin VIAL(*) 5000 UNITS/ML VIAL (FIVE THOUSAND) SUBCUT SCH ×3 (05:13→21:55)
[2017-12-07] MEDS ORDERED: Furosemide IV* 10 MG/ML 2 ML VIAL (20 MG) IV SLOW PU SCH (09:00)
[2017-12-07] MEDS: Magic Mouth Was-BEN/MAAL/LIDO SWISH SPIT SCH ×4 (09:22→22:30)
[2017-12-07] MEDS: Vancomycin CAP* 125 MG CAP PO SCH ×4 (09:23→21:55)
[2017-12-07] MEDS: DULoxetine DR CAP* 60 MG CAP.DR PO SCH (09:23)
--- NOTE | 2017-12-07 10:38 | PN ---
Progress Note - Progress Note Date of Service: 12/07/17 SOAP: Subjective: []Feeling poorly. Still with abdominal pain, having BM. Eating but only very little. has pain in feet, hard to stand or walk. No vomiting but does not want it to come back. Breathing fine, no fever or chills. Acetaminophen (Tylenol Tab*) 650 mg PO Q4H PRN PRN Reason: PAIN Last Admin: 12/07/17 09:23 Dose: 650 mg Albuterol/Ipratropium (Duoneb (Albuterol 2.5 Mg/Ipratropium 0.5 Mg)) 1 neb INH [id number] AWAKE PRN PRN Reason: sob/wheexing Last Admin: 12/02/17 14:58 Dose: 1 neb Duloxetine HCl (Cymbalta Cap*) 60 mg PO DAILY [facility] Last Admin: 12/07/17 09:23 Dose: 60 mg Furosemide (Lasix Iv*) 20 mg IV SLOW PU DAILY [facility] Last Admin: 12/07/17 09:23 Dose: 20 mg Heparin Sodium (Porcine) (Heparin Vial(*)) 5,000 units SUBCUT Q8HR [facility] Last Admin: 12/07/17 05:13 Dose: 5,000 units Metronidazole/Sodium Chloride (Flagyl 500 Mg Ivpb*) 500 mg in 100 mls @ 100 mls /hr IVPB Q8H [facility] Last Admin: 12/07/17 09:23 Dose: 100 mls/hr Lactated Ringer's (Lactated Ringers 1000 Ml Bag*) 1,000 mls @ 50 mls/hr IV PER RATE [facility] Last Admin: 12/06/17 12:58 Dose: 50 mls/hr Melatonin (Melatonin (Nf)) 3 mg PO BEDTIME PRN; Protocol PRN Reason: SLEEP Last Admin: 12/07/17 01:16 Dose: 3 mg Midodrine (Midodrine (Nf)) 10 mg PO 0000,0800,1600 [facility] PRN Reason: Protocol Last Admin: 12/07/17 09:23 Dose: 10 mg Morphine Sulfate (Morphine Inj (Syringe)*) 4 mg IV Q4H PRN PRN Reason: PAIN Last Admin: 12/02/17 23:02 Dose: 4 mg Multi-Ingredient Mouthwash/Gargle (Magic Mouth Was-Juan/Maal/Lido*) 5 ml SWISH SPIT QID [facility] Last Admin: 12/07/17 09:22 Dose: 5 ml Ondansetron HCl (Zofran Inj*) 4 mg IV Q4H PRN PRN Reason: NAUSEA/VOMITING Last Admin: 12/06/17 08:01 Dose: 4 mg Sodium Bicarbonate (Sodium Bicarbonate (Antacid)*) 650 mg PO Q6HR [facility] Last Admin: 12/07/17 05:13 Dose: 650 mg Vancomycin HCl (Vancomycin Cap*) 125 mg PO QID [facility] Last Admin: 12/07/17 09:23 Dose: 125 mg Objective: [] Vital Signs Temp Pulse Resp BP Pulse Ox 98.4 F 67 20 94/50 98 12/07/17 07:45 12/07/17 07:45 12/07/17 08:00 12/07/17 07:45 12/07/17 07:45 HEENT - no oral lesions, mucosa moist CTA RRR S1S2 Abed obese, diffuse tenderness, +BS, no rebound Ext +2 edema, no infection. Soles of feet are red, tender, no skin breakdown Neuro AAOx3 Assessment: []67 year old with MM and serologic response. Admitted with toxic colon and C. Diff colitis. Slow improvement today. Plan: []1. She is on fluids and lasix, will stop both. Follow CMP and Mg 2. Flagyl day 03/28, will go to oral. Continue Vanco day 01/26 3. Encouraged taking small meals 4. Continue PT/OT 5. Foot pain may be from chemotherapy, lotion is ok but no other intervention and will follow.
[2017-12-07] MEDS: metroNIDAZOLE TAB* 250 MG PO SCH ×3 (14:52→21:55)
[2017-12-07] MEDS ORDERED: Torsemide TAB* 20 MG PO ONE (17:08)
--- NOTE | 2017-12-07 17:18 | PN ---
Subjective Date of Service: 12/07/17 Interval History: C/O marked discomfort/pain both legs, feet, toes from her edema. She feels he edema is worse than yesterday. Eats fair. No more diarrhea Objective Active Medications: Acetaminophen (Tylenol Tab*) 650 mg PO Q4H PRN PRN Reason: PAIN Last Admin: 12/07/17 09:23 Dose: 650 mg Albuterol/Ipratropium (Duoneb (Albuterol 2.5 Mg/Ipratropium 0.5 Mg)) 1 neb INH [id number] AWAKE PRN PRN Reason: sob/wheexing Last Admin: 12/02/17 14:58 Dose: 1 neb Duloxetine HCl (Cymbalta Cap*) 60 mg PO DAILY [facility] Last Admin: 12/07/17 09:23 Dose: 60 mg Heparin Sodium (Porcine) (Heparin Vial(*)) 5,000 units SUBCUT Q8HR [facility] Last Admin: 12/07/17 14:52 Dose: 5,000 units Melatonin (Melatonin (Nf)) 3 mg PO BEDTIME PRN; Protocol PRN Reason: SLEEP Last Admin: 12/07/17 01:16 Dose: 3 mg Metronidazole (Flagyl Tab*) 500 mg PO QID [facility] Last Admin: 12/07/17 14:52 Dose: 500 mg Midodrine (Midodrine (Nf)) 10 mg PO 0000,0800,1600 [facility] PRN Reason: Protocol Last Admin: 12/07/17 14:52 Dose: 10 mg Morphine Sulfate (Morphine Inj (Syringe)*) 4 mg IV Q4H PRN PRN Reason: PAIN Last Admin: 12/02/17 23:02 Dose: 4 mg Multi-Ingredient Mouthwash/Gargle (Magic Mouth Was-Juan/Maal/Lido*) 5 ml SWISH SPIT QID [facility] Last Admin: 12/07/17 14:52 Dose: 5 ml Ondansetron HCl (Zofran Inj*) 4 mg IV Q4H PRN PRN Reason: NAUSEA/VOMITING Last Admin: 12/06/17 08:01 Dose: 4 mg Sodium Bicarbonate (Sodium Bicarbonate (Antacid)*) 650 mg PO Q6HR [facility] Last Admin: 12/07/17 14:52 Dose: 650 mg Torsemide (Demadex*) 40 mg PO ONCE ONE Stop: 12/07/17 17:09 Vancomycin HCl (Vancomycin Cap*) 125 mg PO QID [facility] Last Admin: 12/07/17 14:52 Dose: 125 mg Vital Signs - 8 hr 12/07/17 11:49 Temperature 97.9 F Pulse Rate 66 Respiratory 16 Rate Blood Pressure 104/58 (mmHg) O2 Sat by Pulse 100 Oximetry Oxygen Devices in Use Now: None Appearance: Alert, supine in bed. In fair spirits. Looks comfortable. Eyes: No Scleral Icterus Neck: NL Appearance and Movements; NL JVP, No Thyroid Enlargement, Masses Respiratory: Symmetrical Chest Expansion and Respiratory Effort, Clear to Auscultation, Clear to Percussion Cardiovascular: NL Sounds; No Murmurs; No JVD, RRR, No Edema, - Extremities: No Clubbing, Cyanosis, - - 3+ edema to knees BL Skin: No Rash or Ulcers, No Nodules or Sclerosis Neurological: Alert and Oriented x 3, NL Sensation Result Diagrams: 12/06/17 05:50 12/06/17 05:50 Additional Lab and Data: Lab Results 12/01/17 12/01/17 12/01/17 Range/Units 23:36 23:36 23:36 WBC 4.4 (3.5-10.8) 10^3/ul RBC 2.38 L (4.0-5.4) 10^6/ul Hgb 7.4 L (12.0-16.0) g/dl Hct 22 L (35-47) % MCV 90 (80-97) fL MCH 31 (27-31) pg MCHC 35 (31-36) g/dl RDW 20 H (10.5-15) % Plt Count 31 L (150-450) 10^3/ul MPV 9 (7.4-10.4) um3 Neut % (Auto) 49.5 (38-83) % Lymph % (Auto) 4.3 L (25-47) % [place] % (Auto) 45.6 H (1-9) % Eos % (Auto) 0.4 (0-6) % Baso % (Auto) 0.2 (0-2) % Absolute Neuts (auto) 2.2 (1.5-7.7) 10^3/ul Absolute Lymphs (auto) 0.2 L (1.0-4.8) 10^3/ul Absolute Monos (auto) 2.0 H (0-0.8) 10^3/ul Absolute Eos (auto) 0 (0-0.6) 10^3/ul Absolute Basos (auto) 0 (0-0.2) 10^3/ul Absolute Nucleated RBC 0.1 10^3/ul Immature Gran % 5 (0-9) % Neutrophils % 49 (38-83) % Band Neutrophils % 5 (0-8) % Lymphocytes % 8 L (25-47) % Reactive Lymphs % 1 (0-6) % Monocytes % 37 H (0-13) % Nucleated RBC % 1.5 Nucleated RBCs/100 WBC 1 H (0-0) Normal RBC Morphology Not Reportable Hypochromasia 1+ Hem Pathologist Commnt Pending INR (Anticoag Therapy) (0.77-1.02) APTT (26.0-36.3) seconds Sodium 122 L (133-145) mmol/L Potassium 3.9 (3.5-5.0) mmol/L Chloride 94 L (101-111) mmol/L Carbon Dioxide 19 L (22-32) mmol/L Anion Gap 9 (2-11) mmol/L BUN 35 H (6-24) mg/dL Creatinine 1.05 H (0.51-0.95) mg/dL Est GFR ( Amer) 67.6 (>60) Est GFR (Non-Af Amer) 52.6 (>60) BUN/Creatinine Ratio 33.3 H (8-20) Glucose 109 H (70-100) mg/dL Lactic Acid 0.9 (0.5-2.0) mmol/L Calcium 7.0 L (8.6-10.3) mg/dL Magnesium 1.6 L (1.9-2.7) mg/dL Total Bilirubin 1.10 H (0.2-1.0) mg/dL AST 6 L (13-39) U/L ALT 11 (7-52) U/L Alkaline Phosphatase 100 (34-104) U/L C-Reactive Protein 156.40 H (< 5.00) mg/L Total Protein 5.9 L (6.4-8.9) g/dL Albumin 2.6 L (3.2-5.2) g/dL Globulin 3.3 (2-4) g/dL Albumin/Globulin Ratio 0.8 L (1-3) Amylase < 10 L (29-103) U/L Lipase < 10 L (11.0-82.0) U/L Blood Type Antibody Screen 12/01/17 12/02/17 Range/Units 23:36 01:21 WBC (3.5-10.8) 10^3/ul RBC (4.0-5.4) 10^6/ul Hgb (12.0-16.0) g/dl Hct (35-47) % MCV (80-97) fL MCH (27-31) pg MCHC (31-36) g/dl RDW (10.5-15) % Plt Count (150-450) 10^3/ul MPV (7.4-10.4) um3 Neut % (Auto) (38-83) % Lymph % (Auto) (25-47) % [place] % (Auto) (1-9) % Eos % (Auto) (0-6) % Baso % (Auto) (0-2) % Absolute Neuts (auto) (1.5-7.7) 10^3/ul Absolute Lymphs (auto) (1.0-4.8) 10^3/ul Absolute Monos (auto) (0-0.8) 10^3/ul Absolute Eos (auto) (0-0.6) 10^3/ul Absolute Basos (auto) (0-0.2) 10^3/ul Absolute Nucleated RBC 10^3/ul Immature Gran % (0-9) % Neutrophils % (38-83) % Band Neutrophils % (0-8) % Lymphocytes % (25-47) % Reactive Lymphs % (0-6) % Monocytes % (0-13) % Nucleated RBC % Nucleated RBCs/100 WBC (0-0) Normal RBC Morphology Hypochromasia Hem Pathologist Commnt INR (Anticoag Therapy) 1.57 H (0.77-1.02) APTT 30.7 (26.0-36.3) seconds Sodium (133-145) mmol/L Potassium (3.5-5.0) mmol/L Chloride (101-111) mmol/L Carbon Dioxide (22-32) mmol/L Anion Gap (2-11) mmol/L BUN (6-24) mg/dL Creatinine (0.51-0.95) mg/dL Est GFR ( Amer) (>60) Est GFR (Non-Af Amer) (>60) BUN/Creatinine Ratio (8-20) Glucose (70-100) mg/dL Lactic Acid (0.5-2.0) mmol/L Calcium (8.6-10.3) mg/dL Magnesium (1.9-2.7) mg/dL Total Bilirubin (0.2-1.0) mg/dL AST (13-39) U/L ALT (7-52) U/L Alkaline Phosphatase (34-104) U/L C-Reactive Protein (< 5.00) mg/L Total Protein (6.4-8.9) g/dL Albumin (3.2-5.2) g/dL Globulin (2-4) g/dL Albumin/Globulin Ratio (1-3) Amylase (29-103) U/L Lipase (11.0-82.0) U/L Blood Type A Positive Antibody Screen Negative Microbiology and Other Data: Microbiology 12/07/17 00:54 Stool Gross Appearance - Final Stool 12/03/17 23:02 Stool Gross Appearance - Final Stool C. difficile DNA Amplification - Final 027 Presumptive NEGATIVE Toxigenic C.diff POSITIVE Stool Lactoferrin - Final Stool Occult Blood (BIPIN) - Final 12/02/17 03:45 Nasal Screen MRSA (PCR)(BIPIN) - Final Nasal Mrsa Not Detected 12/02/17 03:45 Influenza Types A,B Antigen (BIPIN) - Final Nasopharyngeal Specimen received for Influenza A/B Molecular testing Assess/Plan/Problems-Billing Assessment: - Patient Problems (1) C. difficile diarrhea Current Visit: Yes Status: Acute Code(s): A04.72 - ENTEROCOLITIS D/T CLOSTRIDIUM DIFFICILE, NOT SPCF RECUR SNOMED Code(s): 3542112290744 Comment: Continue planned course of oral vanco, metro. Responding well. (2) Multiple myeloma Current Visit: No Status: Acute Code(s): C90.00 - MULTIPLE MYELOMA NOT HAVING ACHIEVED REMISSION SNOMED Code(s): 686709484 Comment: Dx'd at time of hip fracture 09/2017, had 1 14 day course of chemo so far. Manage per Dr. Bael. (3) Edema extremities Current Visit: No Status: Acute Code(s): R60.0 - LOCALIZED EDEMA SNOMED Code(s): 285718259 Comment: Torsemide 40 mg po once 12/07 5:30 PM. Prealbumin ordered for 12/08. (4) Hypomagnesemia Current Visit: Yes Status: Acute Code(s): E83.42 - HYPOMAGNESEMIA SNOMED Code(s): 934285609 Comment: Mag oxide 400 mg bid to start 12/07 PM. (5) Depression Current Visit: No Status: Chronic Code(s): F32.9 - MAJOR DEPRESSIVE DISORDER , SINGLE EPISODE, UNSPECIFIED SNOMED Code(s): 97358784 Comment: Continue duloxetine.
[2017-12-07] MEDS: Ondansetron INJ* 2 MG/ML VIAL IV PRN (18:15)
[2017-12-07] MEDS: Magnesium Oxide TAB* 400 MG PO SCH (21:55)
[2017-12-07] MEDS: oxyCODONE/Acetamin 5/325 MG* TAB PO PRN (21:56)
[2017-12-08] MEDS: CMC: Midodrine (NF) 5 MG TAB PO SCH ×3 (00:03→16:31)
[2017-12-08] MEDS: Sodium Bicarbonate (ANTACID)* 650 MG TAB PO SCH ×4 (04:20→17:56)
[2017-12-08] MEDS: Heparin VIAL(*) 5000 UNITS/ML VIAL (FIVE THOUSAND) SUBCUT SCH ×3 (05:39→22:01)
[2017-12-08 07:52] LABS: Hematocrit 24 % (35-47); Hemoglobin 7.9 g/dl (12.0-16.0); Mean Corpuscular HGB Conc 33 g/dl (31-36); Mean Corpuscular Hemoglobin 30 pg (27-31); Mean Corpuscular Volume 91 fL (80-97); Mean Platelet Volume 9 um3 (7.4-10.4); Platelet Count 189 10^3/ul (150-450); Red Blood Count 2.63 10^6/ul (4.0-5.4); Red Cell Distribution Width 21 % (10.5-15); White Blood Count 11.4 10^3/ul (3.5-10.8)
[2017-12-08 08:03] LABS: EGFR Non-African American 102.3 (>60)
[2017-12-08 08:32] LABS: Monocytes % 10 % (0-7)
[2017-12-08] MEDS: Magic Mouth Was-BEN/MAAL/LIDO SWISH SPIT SCH ×4 (09:42→22:00)
[2017-12-08] MEDS: Vancomycin CAP* 125 MG CAP PO SCH ×4 (09:43→22:01)
[2017-12-08] MEDS: metroNIDAZOLE TAB* 250 MG PO SCH ×4 (09:43→22:01)
[2017-12-08] MEDS: Magnesium Oxide TAB* 400 MG PO SCH (09:43)
[2017-12-08] MEDS: DULoxetine DR CAP* 60 MG CAP.DR PO SCH (10:07)
[2017-12-08] MEDS ORDERED: Furosemide IV* 10 MG/ML 2 ML VIAL (20 MG) IV ONE (10:12)
--- NOTE | 2017-12-08 10:18 | PN ---
Progress Note - Progress Note Date of Service: 12/08/17 SOAP: Subjective: []Better. eating more and feet less soar but they still hurt. some abdominal pain. Still feeling weak. No fevers. Moving bowls, solid stool. Acetaminophen (Tylenol Tab*) 650 mg PO Q4H PRN PRN Reason: PAIN Last Admin: 12/07/17 09:23 Dose: 650 mg Albuterol/Ipratropium (Duoneb (Albuterol 2.5 Mg/Ipratropium 0.5 Mg)) 1 neb INH [id number] AWAKE PRN PRN Reason: sob/wheexing Last Admin: 12/02/17 14:58 Dose: 1 neb Duloxetine HCl (Cymbalta Cap*) 60 mg PO DAILY [facility] Last Admin: 12/08/17 10:07 Dose: 60 mg Furosemide (Lasix Iv*) 20 mg IV ONCE ONE Stop: 12/08/17 10:13 Heparin Sodium (Porcine) (Heparin Vial(*)) 5,000 units SUBCUT Q8HR [facility] Last Admin: 12/08/17 05:39 Dose: 5,000 units Melatonin (Melatonin (Nf)) 3 mg PO BEDTIME PRN; Protocol PRN Reason: SLEEP Last Admin: 12/07/17 01:16 Dose: 3 mg Metronidazole (Flagyl Tab*) 500 mg PO QID [facility] Last Admin: 12/08/17 09:43 Dose: 500 mg Midodrine (Midodrine (Nf)) 10 mg PO 0000,0800,1600 [facility] PRN Reason: Protocol Last Admin: 12/08/17 09:43 Dose: Not Given Morphine Sulfate (Morphine Inj (Syringe)*) 4 mg IV Q4H PRN PRN Reason: PAIN Last Admin: 12/02/17 23:02 Dose: 4 mg Multi-Ingredient Mouthwash/Gargle (Magic Mouth Was-Juan/Maal/Lido*) 5 ml SWISH SPIT QID [facility] Last Admin: 12/08/17 09:42 Dose: 5 ml Ondansetron HCl (Zofran Inj*) 4 mg IV Q4H PRN PRN Reason: NAUSEA/VOMITING Last Admin: 12/07/17 18:15 Dose: 4 mg Oxycodone/Acetaminophen (Percocet 5/325 Tab*) 1 tab PO Q4H PRN PRN Reason: PAIN Last Admin: 12/07/17 21:56 Dose: 1 tab Potassium Chloride (Klor Con Er Tab*) 20 meq PO BID [facility] Stop: 12/10/17 20:59 Sodium Bicarbonate (Sodium Bicarbonate (Antacid)*) 650 mg PO Q6HR [facility] Last Admin: 12/08/17 05:43 Dose: Not Given Vancomycin HCl (Vancomycin Cap*) 125 mg PO QID [facility] Last Admin: 12/08/17 09:43 Dose: 125 mg Objective: [] Vital Signs Temp Pulse Resp BP Pulse Ox 98.4 F 73 18 97/52 97 12/08/17 07:59 12/08/17 07:59 12/08/17 07:59 12/08/17 07:59 12/08/17 07:59 HEENT - no oral lesions, mucosa moist CTA RRR S1S2 Abed obese, diffuse tenderness, +BS, no rebound Ext +2 edema, no infection. Soles of feet are red, tender, no skin breakdown Neuro AAOx3 Assessment: []67 year old with MM and serologic response. Admitted with toxic colon and C. Diff colitis. Slow improvement today. Plan: []1. Collitis. Improving and eating more. - Flagyl day 03/28, will go to oral. Continue Vanco day 01/26 - Encouraged taking small meals 2. FEN. Will continue IV lasix today. Replet K orally but hold Mag for upset stomach and re-check. IV Mag if needed. 3. Depression. Discussed with patient and daughter. Has strong family support but lives alone. Social work on Sunday, may benefit from CRC. 4. Disp. Discussed with daughter. Will plan discharge home on Sunday. 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
[2017-12-08] MEDS: Ondansetron INJ* 2 MG/ML VIAL IV PRN (13:54)
[2017-12-08] MEDS: Potassium Chlor TAB* 20 MEQ TAB.ER PO SCH (22:01)
[2017-12-09] MEDS: CMC: Midodrine (NF) 5 MG TAB PO SCH ×4 (01:40→23:50)
[2017-12-09] MEDS: Sodium Bicarbonate (ANTACID)* 650 MG TAB PO SCH ×5 (01:40→23:50)
[2017-12-09] MEDS: Heparin VIAL(*) 5000 UNITS/ML VIAL (FIVE THOUSAND) SUBCUT SCH ×3 (05:51→21:16)
[2017-12-09 06:16] LABS: Hematocrit 24 % (35-47); Hemoglobin 7.9 g/dl (12.0-16.0); Mean Corpuscular HGB Conc 33 g/dl (31-36); Mean Corpuscular Hemoglobin 30 pg (27-31); Mean Corpuscular Volume 90 fL (80-97); Mean Platelet Volume 9 um3 (7.4-10.4); Platelet Count 259 10^3/ul (150-450); Red Blood Count 2.61 10^6/ul (4.0-5.4); Red Cell Distribution Width 21 % (10.5-15); White Blood Count 9.5 10^3/ul (3.5-10.8)
[2017-12-09 07:17] LABS: Monocytes % 9 % (0-7)
[2017-12-09] MEDS: Vancomycin CAP* 125 MG CAP PO SCH ×4 (09:07→21:15)
[2017-12-09] MEDS: Magic Mouth Was-BEN/MAAL/LIDO SWISH SPIT SCH ×4 (09:07→21:18)
[2017-12-09] MEDS: DULoxetine DR CAP* 60 MG CAP.DR PO SCH (09:07)
[2017-12-09] MEDS: metroNIDAZOLE TAB* 250 MG PO SCH ×4 (09:07→21:12)
[2017-12-09] MEDS: Potassium Chlor TAB* 20 MEQ TAB.ER PO SCH ×2 (09:08→21:11)
--- NOTE | 2017-12-09 09:13 | PN ---
Progress Note - Progress Note Date of Service: 12/09/17 SOAP: Subjective: []A little better each day. Still not eating well, no diarrhea. Has continued pain in feet and some in hands. Tingling and feeling like walking on something. Acetaminophen (Tylenol Tab*) 650 mg PO Q4H PRN PRN Reason: PAIN Last Admin: 12/07/17 09:23 Dose: 650 mg Albuterol/Ipratropium (Duoneb (Albuterol 2.5 Mg/Ipratropium 0.5 Mg)) 1 neb INH [id number] AWAKE PRN PRN Reason: sob/wheexing Last Admin: 12/02/17 14:58 Dose: 1 neb Duloxetine HCl (Cymbalta Cap*) 60 mg PO DAILY [facility] Last Admin: 12/09/17 09:07 Dose: 60 mg Heparin Sodium (Porcine) (Heparin Vial(*)) 5,000 units SUBCUT Q8HR [facility] Last Admin: 12/09/17 05:51 Dose: 5,000 units Melatonin (Melatonin (Nf)) 3 mg PO BEDTIME PRN; Protocol PRN Reason: SLEEP Last Admin: 12/07/17 01:16 Dose: 3 mg Metronidazole (Flagyl Tab*) 500 mg PO QID [facility] Last Admin: 12/09/17 09:07 Dose: 500 mg Midodrine (Midodrine (Nf)) 10 mg PO 0000,0800,1600 [facility] PRN Reason: Protocol Last Admin: 12/09/17 09:04 Dose: Not Given Multi-Ingredient Mouthwash/Gargle (Magic Mouth Was-Juan/Maal/Lido*) 5 ml SWISH SPIT QID [facility] Last Admin: 12/09/17 09:07 Dose: 5 ml Ondansetron HCl (Zofran Inj*) 4 mg IV Q4H PRN PRN Reason: NAUSEA/VOMITING Last Admin: 12/08/17 13:54 Dose: 4 mg Oxycodone/Acetaminophen (Percocet 5/325 Tab*) 1 tab PO Q4H PRN PRN Reason: PAIN Last Admin: 12/07/17 21:56 Dose: 1 tab Potassium Chloride (Klor Con Er Tab*) 20 meq PO BID [facility] Stop: 12/10/17 20:59 Last Admin: 02/25/18 09:08 Dose: 20 meq Sodium Bicarbonate (Sodium Bicarbonate (Antacid)*) 650 mg PO Q6HR [facility] Last Admin: 12/09/17 06:04 Dose: Not Given Vancomycin HCl (Vancomycin Cap*) 125 mg PO QID [facility] Last Admin: 12/09/17 09:07 Dose: 125 mg Objective: [] Vital Signs Temp Pulse Resp BP Pulse Ox 98.0 F 69 16 100/48 96 12/09/17 06:54 12/09/17 06:54 12/09/17 06:54 12/09/17 06:54 12/09/17 06:54 HEENT - no oral lesions, mucosa moist CTA RRR S1S2 Abed obese, non tender, +BS, no rebound Ext +2 edema, no infection. Neuro AAOx3 Assessment: []67 year old with MM and serologic response. Admitted with toxic colon and C. Diff colitis. Slow improvement daily Plan: []1. Collitis. Improving and eating more. - Flagyl day 04/27, will go to oral. Continue Vanco day 02/25 - Encouraged taking small meals 2. FEN. Will continue IV lasix today. - chemistries pending - Continue oral K - IV Mg today, 4 gm 3. Depression. Discussed with patient and daughter. Has strong family support but lives alone. Social work on Sunday, may benefit from CRC. 4. Neuropathy. Start Neurontin 300 mg po bid. Follow. 4. Disp. Discussed with daughter and patient. Will plan discharge home tomorrow. 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
[2017-12-09] MEDS ORDERED: Furosemide IV* 10 MG/ML 2 ML VIAL (20 MG) IV ONE (09:14)
[2017-12-09] MEDS ORDERED: Magnesium Sulf 4 GM/100 ML IV* 4,000 MG/100 ML BAG IVPB ONE (09:30)
[2017-12-09 10:09] LABS: EGFR Non-African American 123.8 (>60)
[2017-12-09] MEDS: CMCS Melatonin (NF) 3 MG TAB PO PRN (21:15)
[2017-12-10] MEDS: Sodium Bicarbonate (ANTACID)* 650 MG TAB PO SCH ×3 (04:55→15:59)
[2017-12-10] MEDS: Heparin VIAL(*) 5000 UNITS/ML VIAL (FIVE THOUSAND) SUBCUT SCH ×3 (04:58→22:35)
[2017-12-10] MEDS: Magic Mouth Was-BEN/MAAL/LIDO SWISH SPIT SCH ×4 (08:27→20:05)
[2017-12-10] MEDS: Potassium Chlor TAB* 20 MEQ TAB.ER PO SCH (08:27)
[2017-12-10] MEDS: Vancomycin CAP* 125 MG CAP PO SCH ×4 (08:28→20:01)
[2017-12-10] MEDS: DULoxetine DR CAP* 60 MG CAP.DR PO SCH (08:28)
[2017-12-10] MEDS: CMC: Midodrine (NF) 5 MG TAB PO SCH ×2 (08:28→14:59)
[2017-12-10] MEDS: metroNIDAZOLE TAB* 250 MG PO SCH ×4 (08:28→20:04)
[2017-12-10 09:00] LABS: Hematocrit 24 % (35-47); Hemoglobin 8.3 g/dl (12.0-16.0); Mean Corpuscular HGB Conc 34 g/dl (31-36); Mean Corpuscular Hemoglobin 31 pg (27-31); Mean Corpuscular Volume 90 fL (80-97); Mean Platelet Volume 9 um3 (7.4-10.4); Platelet Count 335 10^3/ul (150-450); Red Blood Count 2.69 10^6/ul (4.0-5.4); Red Cell Distribution Width 21 % (10.5-15); White Blood Count 9.2 10^3/ul (3.5-10.8)
[2017-12-10] MEDS ORDERED: Magnesium Sulf 4 GM/100 ML IV* 4,000 MG/100 ML BAG IVPB ONE (09:00)
[2017-12-10 09:38] LABS: Monocytes % 13 % (0-7)
--- NOTE | 2017-12-10 10:26 | PN ---
Progress Note - Progress Note Date of Service: 12/10/17 SOAP: Subjective: []not doing well. Still not eating much. legs hurt. significant abdominal pain. she is moving bowls. Acetaminophen (Tylenol Tab*) 650 mg PO Q4H PRN PRN Reason: PAIN Last Admin: 12/07/17 09:23 Dose: 650 mg Albuterol/Ipratropium (Duoneb (Albuterol 2.5 Mg/Ipratropium 0.5 Mg)) 1 neb INH [id number] AWAKE PRN PRN Reason: sob/wheexing Last Admin: 12/02/17 14:58 Dose: 1 neb Duloxetine HCl (Cymbalta Cap*) 60 mg PO DAILY [facility] Last Admin: 12/10/17 08:28 Dose: 60 mg Heparin Sodium (Porcine) (Heparin Vial(*)) 5,000 units SUBCUT Q8HR [facility] Last Admin: 12/10/17 04:58 Dose: 5,000 units Melatonin (Melatonin (Nf)) 3 mg PO BEDTIME PRN; Protocol PRN Reason: SLEEP Last Admin: 12/09/17 21:15 Dose: 3 mg Metronidazole (Flagyl Tab*) 500 mg PO QID [facility] Last Admin: 12/10/17 08:28 Dose: 500 mg Midodrine (Midodrine (Nf)) 10 mg PO 0000,0800,1600 [facility] PRN Reason: Protocol Last Admin: 12/10/17 08:28 Dose: 10 mg Multi-Ingredient Mouthwash/Gargle (Magic Mouth Was-Juan/Maal/Lido*) 5 ml SWISH SPIT QID [facility] Last Admin: 12/10/17 08:27 Dose: 5 ml Ondansetron HCl (Zofran Inj*) 4 mg IV Q4H PRN PRN Reason: NAUSEA/VOMITING Last Admin: 12/08/17 13:54 Dose: 4 mg Oxycodone/Acetaminophen (Percocet 5/325 Tab*) 1 tab PO Q4H PRN PRN Reason: PAIN Last Admin: 12/07/17 21:56 Dose: 1 tab Potassium Chloride (Klor Con Er Tab*) 20 meq PO BID [facility] Stop: 12/10/17 20:59 Last Admin: 12/10/17 08:27 Dose: 20 meq Sodium Bicarbonate (Sodium Bicarbonate (Antacid)*) 650 mg PO Q6HR [facility] Last Admin: 12/10/17 04:55 Dose: Not Given Vancomycin HCl (Vancomycin Cap*) 125 mg PO QID [facility] Last Admin: 12/10/17 08:28 Dose: 125 mg Objective: [] Vital Signs Temp Pulse Resp BP Pulse Ox 98.0 F 73 18 143/111 97 12/10/17 08:04 12/10/17 08:04 12/10/17 08:38 12/10/17 08:04 12/10/17 08:04 HEENT - no oral lesions, mucosa moist CTA RRR S1S2 Abed obese, non tender, +BS, no rebound Ext +2 edema, no infection. Neuro AAOx3, she is more sedated today. Assessment: []67 year old with MM and serologic response. Admitted with toxic colon and C. Diff colitis. Slow improvement daily but not feeling well. She is resistant to going home. Plan: []1. Collitis. Improving and eating more. - Flagyl day 05/28, will go to oral. Continue Vanco day 03/28 - Encouraged taking small meals - Alb 2.5, Nutrition consult before discharge. 2. FEN. Will continue IV lasix today for TAO. - chemistries pending - Continue oral K - Mg stable 3. Depression. Discussed with patient and daughter. Has strong family support but lives alone. Social work on Sunday, may benefit from CRC. 4. Neuropathy. More sedated this am on Neurontin 300 mg po bid. Follow for now. Pain not improved. 4. Disp. Will hold on D/C today, goal of tomorrow. Continue PT/OT in hospital and at home. 5. Meyloma. 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
--- NOTE | 2017-12-10 14:06 | RAD ---
Indication: Bilateral hand numbness and tingling. Mental status change. Comparison: October 01, 2017 CT. Technique: Noncontrast CT vertex of skull through foramen magnum. Report: Mild prominence of the cerebral sulci and cerebellar fissures. Patent basal cisterns. Negative for torres matter white matter obscuration, intra or extra-axial hemorrhage, or mass effect. Unremarkable orbital contents. No suspicious calvarial or skull base lesion evident. Clear visualized paranasal sinuses. RIGHT greater than LEFT mastoid effusions new compared with the October 01, 2017 CT. Unremarkable scalp. IMPRESSION: 1. No acute CT abnormality of the brain evident. 2. Mild involutional change. 3. RIGHT greater than LEFT mastoid effusions new compared with the October 01, 2017 CT. Correlate for potential mastoiditis.
[2017-12-10] MEDS: Acetaminophen TAB* 325 MG PO PRN ×2 (15:31→20:02)
[2017-12-10 16:50] LABS: EGFR Non-African American 118.3 (>60)
--- NOTE | 2017-12-10 19:52 | PN ---
Progress Note - Progress Note Date of Service: 12/10/17 SOAP: ADDENDUM: Mid morning developed mental status change, lethargy. CT head negative. Improved in afternoon but still not feeling well. More fatigue, weak and cannot get up. Has continued pain in hands and feet. Today dry mouth, some pain with swallowing. Ddx: infection UTI vs pnemoinia, new evaluation of GI track disease , primary [employer] event TIA or seizure, delirium. Follow up exam: VSS, has some increased LE distension and pain, edema both legs the same, diffusely tender. Plan: 1. Bladder scan and Burgess if > 250 cc 2. UA, CXR 3. Family has concerns about communication in hospital and going back to start of treatment in office. Discuss with Dr. Quesada in am.
--- NOTE | 2017-12-10 21:07 | RAD ---
Indication: Mental status change. COPD. Possible pneumonia. History of multiple myeloma. Comparison: October 28, 2017 Technique: Upright AP 2045 hours Report: Cardiomegaly. Mild prominence of the central pulmonary vasculature. Mild linear subsegmental atelectasis at the LEFT mid to lower lung zone. Grossly clear pleural spaces. Negative for pneumothorax. Negative for free air beneath the diaphragm. IMPRESSION: Cardiomegaly with suggestion of mild pulmonary vascular congestion. Mild LEFT lower lung zone atelectasis. No radiographic evidence for pneumonia.
[2017-12-10 22:30] LABS: Urine Appearance Clear; Urine Blood Negative (Negative); Urine Color Amber; Urine Ketones Trace (Negative); Urine Protein Negative (Negative); Urine Urobilinogen Negative (Negative)
[2017-12-11] MEDS: Sodium Bicarbonate (ANTACID)* 650 MG TAB PO SCH ×2 (00:10→05:16)
[2017-12-11] MEDS: Heparin VIAL(*) 5000 UNITS/ML VIAL (FIVE THOUSAND) SUBCUT SCH ×3 (05:16→20:58)
[2017-12-11 06:44] LABS: Hematocrit 22 % (35-47); Hemoglobin 7.5 g/dl (12.0-16.0); Mean Corpuscular HGB Conc 35 g/dl (31-36); Mean Corpuscular Hemoglobin 31 pg (27-31); Mean Corpuscular Volume 89 fL (80-97); Mean Platelet Volume 9 um3 (7.4-10.4); Platelet Count 371 10^3/ul (150-450); Red Blood Count 2.45 10^6/ul (4.0-5.4); Red Cell Distribution Width 21 % (10.5-15); White Blood Count 7.6 10^3/ul (3.5-10.8)
[2017-12-11 07:11] LABS: EGFR Non-African American 129.8 (>60)
[2017-12-11 07:21] LABS: Monocytes % 7 % (0-7)
[2017-12-11] MEDS: metroNIDAZOLE TAB* 250 MG PO SCH ×2 (08:31→13:00)
[2017-12-11] MEDS: Vancomycin CAP* 125 MG CAP PO SCH ×4 (08:31→20:15)
[2017-12-11] MEDS: Magic Mouth Was-BEN/MAAL/LIDO SWISH SPIT SCH ×4 (08:31→20:14)
[2017-12-11] MEDS: DULoxetine DR CAP* 60 MG CAP.DR PO SCH (08:31)
[2017-12-11] MEDS ORDERED: KCL 20 MEQ/100 ML IVPREMIX* 20 MEQ/100 ML BAG IV SCH (11:00)
[2017-12-11] MEDS ORDERED: Potassium Chloride IV* 40 MEQ in NS 0.9% 250 ML* 250 ML IVPB ONE (11:00)
--- NOTE | 2017-12-11 12:48 | RAD ---
INDICATION: Ileus COMPARISON: December 04, 2017 TECHNIQUE: Erect and supine views of the abdomen are submitted. FINDINGS: Bones: There are no acute bony findings. There is right femoral nailing Soft tissues: The soft tissues appear normal. The psoas margins are sharp. Bowel gas pattern: Normal Calcifications: There are no abnormal calcifications. Other: None IMPRESSION: NO ACUTE DIAGNOSTIC FINDINGS
--- NOTE | 2017-12-11 21:19 | CONS ---
CONSULTATION REPORT: DATE OF CONSULT: 12/11/17 REQUESTING PHYSICIAN: Dr. Quesada. CONSULTING SERVICE: Infectious Disease. REASON FOR CONSULT: C. diff colitis. IMPRESSION: 1. Admitted with severe Clostridium difficile colitis with megacolon, just resolving, now having 2 to 3 loose stools a day. 2. Severe sepsis was present on admission, resolved. 3. Encephalopathy present on admission, resolved. 4. Multiple myeloma, undergoing current chemotherapy treatment, initially Revlimid, Zometa, and Velcade. 5. 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 She also has urinary retention. No spine tenderness to suggest spinal cord infection. RECOMMENDATION: Continue vancomycin. We will stop Flagyl which is associated with neuropathy, but usually not after this short of a course. Because of the severity of her C. difficile infection, we will plan on tapering course of vancomycin and eventually switch her over to 3 times a day for 2 more weeks. HISTORY OF PRESENT ILLNESS: This is a 67-year-old woman with multiple myeloma admitted with severe sepsis due to C. difficile colitis, which was complicated by a megacolon. She had a few days of multiple explosive liquid stools before she came in. Her C. diff testing was positive. She was on IV Flagyl and oral vancomycin. She has had improvement in her abdominal distention and pain as well as in the number of bowel movements which is down to 3 to 6 a day, which are a kind of loose and soft. Her appetite is slowly improving. Over the last few days, she has noticed tingling and numbness in her finger tips and toes and inability to urinate on her own. She is being straight catheterized. A urinalysis done on 12/10/17 showed no white cells. PAST MEDICAL HISTORY: 1. Multiple myeloma, diagnosed in August 2017, treated with Revlimid, Velcade , Decadron. 2. Left hip fracture, status post open reduction internal fixation. 3. Status post parathyroidectomy. 4. Status post tubal ligation. 5. Status post hand surgery. 6. Asthma. MEDICATIONS: 1. Flagyl 500 mg by mouth 4 times a day. 2. Tylenol. 3. Albuterol. 4. Duloxetine. 5. Heparin subcutaneous injection. 6. Vancomycin 125 mg by mouth 4 times a day. ALLERGIES: No known drug allergies. FAMILY HISTORY: Renal cell carcinoma and cirrhosis. SOCIAL HISTORY: She lives with her daughter. She is a past smoker. REVIEW OF SYSTEMS: A 14-point review of systems was negative except as noted above. PHYSICAL EXAM: Vital Signs: Temperature is 37, heart rate is 74, respiratory rate 18, blood pressure 111/60, oxygen saturation 99% on room air. General: She is awake, not in distress. Neurologic: She is oriented x3. Follows all commands. She has decreased sensation to light touch in the finger tips and toes. She has decreased proprioception of the toes bilaterally. HEENT: There is no conjunctival hemorrhage. Oropharynx without lesions. Neck: Supple without nuchal rigidity. Lymph Nodes: There is no inguinal, axillary, or epitrochlear lymphadenopathy. Heart: Regular rate and rhythm without murmurs, rubs, or gallops. Lungs: Clear to auscultation bilaterally. Abdomen: Soft, nontender, and nondistended. There are bowel sounds present. Skin: There are no rashes or splinter hemorrhages. Musculoskeletal: There is no spine tenderness to palpation or joint synovitis. LABORATORY DATA: White blood cell count 7, hemoglobin 7, and platelets 371. Creatinine 0.4. Blood cultures on admission were negative. Please see impressions and recommendations outlined above. Thank you for asking me to see Ms. Junior in consultation. [id number]/[facility] #: [id number] SHONNA
[2017-12-12] MEDS: Heparin VIAL(*) 5000 UNITS/ML VIAL (FIVE THOUSAND) SUBCUT SCH ×3 (05:54→21:07)
[2017-12-12] MEDS: DULoxetine DR CAP* 60 MG CAP.DR PO SCH (08:00)
[2017-12-12] MEDS: Vancomycin CAP* 125 MG CAP PO SCH ×4 (08:00→20:57)
[2017-12-12] MEDS: Magic Mouth Was-BEN/MAAL/LIDO SWISH SPIT SCH ×4 (08:00→20:56)
[2017-12-12 08:03] LABS: Hematocrit 24 % (35-47); Mean Corpuscular HGB Conc 34 g/dl (31-36); Mean Corpuscular Hemoglobin 30 pg (27-31); Mean Corpuscular Volume 90 fL (80-97); Mean Platelet Volume 8 um3 (7.4-10.4); Platelet Count 438 10^3/ul (150-450); Red Blood Count 2.65 10^6/ul (4.0-5.4); Red Cell Distribution Width 21 % (10.5-15); White Blood Count 7.9 10^3/ul (3.5-10.8)
[2017-12-12 08:12] LABS: EGFR Non-African American 151.4 (>60)
--- NOTE | 2017-12-12 08:22 | PN ---
Progress Note - Progress Note Date of Service: 12/12/17 SOAP: Subjective: diarrhea certainly getting better. only one BM this am and 4 total yesterday. urinating ok this am. neuropathy still very bothersome Objective: Vital Signs Temp Pulse Resp BP Pulse Ox 98.2 F 84 16 107/55 97 12/11/17 23:52 12/11/17 23:52 12/11/17 23:52 12/11/17 23:52 12/11/17 23:52 sitting up in nad perr eomi op moist cta bl s1 s2 nl soft nt +Bs 3+ LE edema L>R A+O x 3, grossly nonfocal but did not ambulate Laboratory Results - last 24 hr 12/12/17 12/12/17 07:27 07:28 WBC 7.9 RBC 2.65 L Hgb 8.0 L Hct 24 L MCV 90 MCH 30 MCHC 34 RDW 21 H Plt Count 438 MPV 8 Sodium 132 L Potassium 3.2 L Chloride 98 L Carbon Dioxide 27 Anion Gap 7 BUN 4 L Creatinine 0.42 L Est GFR ( Amer) 194.7 Est GFR (Non-Af Amer) 151.4 BUN/Creatinine Ratio 9.5 Glucose 94 Calcium 7.5 L Acetaminophen (Tylenol Tab*) 650 mg PO Q4H PRN PRN Reason: PAIN Last Admin: 12/10/17 20:02 Dose: 650 mg Albuterol/Ipratropium (Duoneb (Albuterol 2.5 Mg/Ipratropium 0.5 Mg)) 1 neb INH [id number] AWAKE PRN PRN Reason: sob/wheexing Last Admin: 12/02/17 14:58 Dose: 1 neb Duloxetine HCl (Cymbalta Cap*) 60 mg PO DAILY [facility] Last Admin: 12/12/17 08:00 Dose: 60 mg Heparin Sodium (Porcine) (Heparin Vial(*)) 5,000 units SUBCUT Q8HR [facility] Last Admin: 12/12/17 05:54 Dose: 5,000 units Melatonin (Melatonin (Nf)) 3 mg PO BEDTIME PRN; Protocol PRN Reason: SLEEP Last Admin: 12/09/17 21:15 Dose: 3 mg Multi-Ingredient Mouthwash/Gargle (Magic Mouth Was-Juan/Maal/Lido*) 5 ml SWISH SPIT QID [facility] Last Admin: 12/12/17 08:00 Dose: 5 ml Ondansetron HCl (Zofran Inj*) 4 mg IV Q4H PRN PRN Reason: NAUSEA/VOMITING Last Admin: 12/08/17 13:54 Dose: 4 mg Oxycodone/Acetaminophen (Percocet 5/325 Tab*) 1 tab PO Q4H PRN PRN Reason: PAIN Last Admin: 12/07/17 21:56 Dose: 1 tab Vancomycin HCl (Vancomycin Cap*) 125 mg PO QID [facility] Last Admin: 12/12/17 08:00 Dose: 125 mg Assessment: 67 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 Currently improving. Appreciate ID consultation. Neuropathy felt likely 2/2 flagyl which was stopped yesterday. Unclear what prognosis is from this. will add gabapentin tid for tingling sensation today. Plan: Neuropathy: stop flagyl add neurontin tid (will start low dose) c diff: cont po vanco, improving, appreciate GI consultation hypokalemia: from diarrhea add oral to IV repletion dvt prophylaxis: heparin
[2017-12-12 08:57] LABS: Monocytes % 6 % (0-7)
[2017-12-12] MEDS ORDERED: KCL 20 MEQ/100 ML IVPREMIX* 20 MEQ/100 ML BAG IV SCH (09:00)
[2017-12-12] MEDS ORDERED: NS 0.9% 100 ML* 100 ML ONE (09:34)
[2017-12-12] MEDS: Gabapentin CAP(*) 100 MG PO SCH ×3 (09:43→20:56)
[2017-12-12] MEDS: Potassium Chlor TAB* 20 MEQ TAB.ER PO SCH ×2 (09:44→20:57)
[2017-12-12] MEDS: Potassium Chloride IV* 20 MEQ in NS 0.9% 100 ML* 100 ML IVPB SCH ×2 (11:14→15:17)
[2017-12-13] MEDS: Heparin VIAL(*) 5000 UNITS/ML VIAL (FIVE THOUSAND) SUBCUT SCH ×3 (05:58→22:39)
[2017-12-13 06:26] LABS: Hematocrit 22 % (35-47); Hemoglobin 7.4 g/dl (12.0-16.0); Mean Corpuscular HGB Conc 34 g/dl (31-36); Mean Corpuscular Hemoglobin 31 pg (27-31); Mean Corpuscular Volume 90 fL (80-97); Mean Platelet Volume 8 um3 (7.4-10.4); Platelet Count 379 10^3/ul (150-450); Red Blood Count 2.43 10^6/ul (4.0-5.4); Red Cell Distribution Width 21 % (10.5-15); White Blood Count 6.3 10^3/ul (3.5-10.8)
[2017-12-13] MEDS ORDERED: LORazepam TAB(*) 1 MG PO ONE (08:01)
[2017-12-13] MEDS: Magic Mouth Was-BEN/MAAL/LIDO SWISH SPIT SCH ×4 (08:18→22:47)
[2017-12-13] MEDS: Vancomycin CAP* 125 MG CAP PO SCH ×4 (08:18→22:40)
[2017-12-13] MEDS: Potassium Chlor TAB* 20 MEQ TAB.ER PO SCH ×2 (08:18→22:40)
[2017-12-13] MEDS: Gabapentin CAP(*) 100 MG PO SCH ×3 (08:18→22:39)
[2017-12-13] MEDS: Acetaminophen TAB* 325 MG PO PRN ×4 (08:18→22:47)
[2017-12-13] MEDS: DULoxetine DR CAP* 60 MG CAP.DR PO SCH (08:19)
[2017-12-13 08:42] LABS: Monocytes % 7 % (0-7)
--- NOTE | 2017-12-13 09:48 | PN ---
Progress Note - Progress Note Date of Service: 12/13/17 SOAP: Subjective: miserable today because she feels so weak. slid to the ground yesterday while trying to (2 person assist) go to the bathroom. right hip hurting since then. can not feel finger tips or feet, but tingling better. much less stools. no nausea. Objective: Vital Signs Temp Pulse Resp BP Pulse Ox 98.5 F 86 16 133/60 98 12/13/17 06:01 12/13/17 06:01 12/13/17 08:19 12/13/17 06:01 12/12/17 23:48 perr eomi op moist cta bl s1 s2 nl soft nt +Bs anasarcic right hip incision site clean and intact very unsteady gait, falls back to seated position easily Laboratory Results - last 24 hr 12/13/17 12/13/17 06:11 06:11 WBC 6.3 RBC 2.43 L Hgb 7.4 L Hct 22 L MCV 90 MCH 31 MCHC 34 RDW 21 H Plt Count 379 MPV 8 Neut % (Auto) Not Reportable Lymph % (Auto) Not Reportable [place] % (Auto) Not Reportable Eos % (Auto) Not Reportable Baso % (Auto) Not Reportable Absolute Neuts (auto) Not Reportable Absolute Lymphs (auto) Not Reportable Absolute Monos (auto) Not Reportable Absolute Eos (auto) Not Reportable Absolute Basos (auto) Not Reportable Absolute Nucleated RBC Not Reportable Immature Gran % 4 Neutrophils % 82 Lymphocytes % 7 L Monocytes % 7 Eosinophils % 0 Basophils % 0 Metamyelocytes % 1 Myelocytes % 3 H Nucleated RBC % Not Reportable Abs Neuts (Manual) 5.2 Abs Monocytes (Manual) 0.4 Absolute Eos (Manual) 0 Abs Basophils (Manual) 0 Normal RBC Morphology Not Reportable Polychromasia 1+ Anisocytosis 3+ Elliptocytes 1+ Sodium 135 Potassium 3.7 Chloride 102 Carbon Dioxide 27 Anion Gap 6 BUN 4 L Creatinine 0.47 L Est GFR ( Amer) 171.0 Est GFR (Non-Af Amer) 133.0 BUN/Creatinine Ratio 8.5 Glucose 95 Calcium 7.7 L Magnesium 1.9 CK-MB (CK-2) 0.9 Acetaminophen (Tylenol Tab*) 650 mg PO Q4H PRN PRN Reason: PAIN Last Admin: 12/13/17 08:18 Dose: 650 mg Albuterol/Ipratropium (Duoneb (Albuterol 2.5 Mg/Ipratropium 0.5 Mg)) 1 neb INH [id number] AWAKE PRN PRN Reason: sob/wheexing Last Admin: 12/02/17 14:58 Dose: 1 neb Duloxetine HCl (Cymbalta Cap*) 60 mg PO DAILY [facility] Last Admin: 12/13/17 08:19 Dose: 60 mg Gabapentin (Neurontin Cap(*)) 200 mg PO TID [facility] Last Admin: 12/13/17 08:18 Dose: 200 mg Heparin Sodium (Porcine) (Heparin Vial(*)) 5,000 units SUBCUT Q8HR [facility] Last Admin: 12/13/17 05:58 Dose: 5,000 units Melatonin (Melatonin (Nf)) 3 mg PO BEDTIME PRN; Protocol PRN Reason: SLEEP Last Admin: 12/09/17 21:15 Dose: 3 mg Multi-Ingredient Mouthwash/Gargle (Magic Mouth Was-Juan/Maal/Lido*) 5 ml SWISH SPIT QID [facility] Last Admin: 12/13/17 08:18 Dose: 5 ml Ondansetron HCl (Zofran Inj*) 4 mg IV Q4H PRN PRN Reason: NAUSEA/VOMITING Last Admin: 12/08/17 13:54 Dose: 4 mg Oxycodone/Acetaminophen (Percocet 5/325 Tab*) 1 tab PO Q4H PRN PRN Reason: PAIN Last Admin: 12/07/17 21:56 Dose: 1 tab Potassium Chloride (Klor Con Er Tab*) 20 meq PO BID [facility] Last Admin: 12/13/17 08:18 Dose: 20 meq Vancomycin HCl (Vancomycin Cap*) 125 mg PO QID [facility] Last Admin: 12/13/17 08:18 Dose: 125 mg Assessment: 67 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 Currently much improved from diarrhea standpoint but globally deconditioned plus neuropathy making her unsafe for discharge to home. I discussed this at length with Betzy and her two daughters. She is a two person assist at this point to even get to bedside commode. she is not strong enough to participate in acute rehab. Therefore the only reasonable discharge option would be to a nursing facility with subacute rehab. Her daughters are in agreement, however she is not. We will see if she would be able to continue revlimid there (which she could resume in another 1-2 weeks once c diff more treated). plan: Neuropathy: neurontin tid (will start low dose) c diff: cont po vanco, improving hypokalemia: from diarrhea cont oral repletion anemia: cancer induced transfuse today dvt prophylaxis: heparin
--- NOTE | 2017-12-13 11:13 | RAD ---
INDICATION: Fall. Right hip pain COMPARISON: Right hip October 01, 2017; CT December 02, 2017 TECHNIQUE: An AP view of the pelvis and AP views of the hip in neutral and abducted position were obtained FINDINGS: Bones: There are no acute bony findings. There is right femoral nailing. There is no evidence of hardware failure. There is partial interval healing of the subtrochanteric fracture. Joint spaces: The hips articulate normally. The joint spaces are preserved. SI joints/symphysis: The SI joints and symphysis are intact. Other: None IMPRESSION: RIGHT FEMORAL NAILING WITH PARTIAL INTERVAL HEALING AND NO EVIDENCE OF HARDWARE FAILURE.
[2017-12-14] MEDS: oxyCODONE/Acetamin 5/325 MG* TAB PO PRN (02:57)
[2017-12-14] MEDS: Heparin VIAL(*) 5000 UNITS/ML VIAL (FIVE THOUSAND) SUBCUT SCH ×3 (05:44→22:07)
[2017-12-14 08:59] LABS: Hematocrit 26 % (35-47); Hemoglobin 8.6 g/dl (12.0-16.0); Mean Corpuscular HGB Conc 34 g/dl (31-36); Mean Corpuscular Hemoglobin 30 pg (27-31); Mean Corpuscular Volume 89 fL (80-97); Mean Platelet Volume 8 um3 (7.4-10.4); Platelet Count 377 10^3/ul (150-450); Red Blood Count 2.88 10^6/ul (4.0-5.4); Red Cell Distribution Width 20 % (10.5-15)
[2017-12-14 09:08] LABS: EGFR Non-African American 139.8 (>60)
[2017-12-14] MEDS: Gabapentin CAP(*) 100 MG PO SCH ×3 (09:20→22:00)
[2017-12-14] MEDS: DULoxetine DR CAP* 60 MG CAP.DR PO SCH (09:20)
[2017-12-14] MEDS: Magic Mouth Was-BEN/MAAL/LIDO SWISH SPIT SCH ×4 (09:21→22:07)
[2017-12-14] MEDS: Vancomycin CAP* 125 MG CAP PO SCH ×4 (09:21→22:00)
[2017-12-14] MEDS: Potassium Chlor TAB* 20 MEQ TAB.ER PO SCH (09:21)
[2017-12-14] MEDS: Acetaminophen TAB* 325 MG PO PRN (09:32)
[2017-12-14 09:41] LABS: ABS Basophils 0.1 10^3/ul (0-0.2); ABS Eosinophils 0.1 10^3/ul (0-0.6); ABS Lymphocytes 0.7 10^3/ul (1.0-4.8); ABS Monocytes 0.5 10^3/ul (0-0.8); ABS Neutrophils 3.7 10^3/ul (1.5-7.7); ABS Nucleated RBC 0 10^3/ul; Eosinophil % 1.5 % (0-6); Lymphocyte % 13.1 % (25-47); Nucleated Red Blood Cells % 0
[2017-12-14] MEDS ORDERED: Magnesium Sulf 4 GM/100 ML IV* 4,000 MG/100 ML BAG IVPB ONE (09:43)
[2017-12-14] MEDS: Furosemide IV* 10 MG/ML 2 ML VIAL (20 MG) IV SCH (13:03)
--- NOTE | 2017-12-14 15:51 | PN ---
Progress Note - Progress Note Date of Service: 12/14/17 SOAP: Subjective: [This is a 67 yo female with plasma cell leukemia who is admitted with Cdiff resulting in toxic megacolon. Patient's course has been complicated by profound weakness and neuropathy. Patient reports the frequency of her diarrhea has slowed to 3-4 times daily. No further n/v. She still feels extremely weak. She reports the numbness sensation is now effecting her abd in addition to her legs, feet, distal arms and hands. ] Objective: Laboratory Results - last 24 hr 12/13/17 12/14/17 12/14/17 06:08 08:28 08:28 WBC 5.0 RBC 2.88 L Hgb 8.6 L Hct 26 L MCV 89 MCH 30 MCHC 34 RDW 20 H Plt Count 377 MPV 8 Neut % (Auto) 73.4 Lymph % (Auto) 13.1 L [place] % (Auto) 9.4 H Eos % (Auto) 1.5 Baso % (Auto) 2.6 H Absolute Neuts (auto) 3.7 Absolute Lymphs (auto) 0.7 L Absolute Monos (auto) 0.5 Absolute Eos (auto) 0.1 Absolute Basos (auto) 0.1 Absolute Nucleated RBC 0 Nucleated RBC % 0 Polychromasia 1+ Anisocytosis 2+ Elliptocytes 1+ Sodium 136 Potassium 3.4 L Chloride 104 Carbon Dioxide 27 Anion Gap 5 BUN 4 L Creatinine 0.45 L Est GFR ( Amer) 179.8 Est GFR (Non-Af Amer) 139.8 BUN/Creatinine Ratio 8.9 Glucose 90 Calcium 7.5 L Magnesium 1.7 L Blood Type A Positive Antibody Screen Negative Crossmatch See Detail Vital Signs Temp Pulse Resp BP Pulse Ox 98.3 F 85 20 117/69 99 12/14/17 07:24 12/14/17 07:24 12/14/17 14:09 12/14/17 07:24 12/14/17 07:24 Acetaminophen (Tylenol Tab*) 650 mg PO Q4H PRN PRN Reason: PAIN Last Admin: 12/14/17 09:32 Dose: 650 mg Albuterol/Ipratropium (Duoneb (Albuterol 2.5 Mg/Ipratropium 0.5 Mg)) 1 neb INH [id number] AWAKE PRN PRN Reason: sob/wheexing Last Admin: 12/02/17 14:58 Dose: 1 neb Duloxetine HCl (Cymbalta Cap*) 60 mg PO DAILY [facility] Last Admin: 12/14/17 09:20 Dose: 60 mg Furosemide (Lasix Iv*) 20 mg IV DAILY [facility] Last Admin: 12/14/17 13:03 Dose: 20 mg Gabapentin (Neurontin Cap(*)) 200 mg PO TID [facility] Last Admin: 12/14/17 13:09 Dose: 200 mg Heparin Sodium (Porcine) (Heparin Vial(*)) 5,000 units SUBCUT Q8HR [facility] Last Admin: 12/14/17 14:10 Dose: 5,000 units Melatonin (Melatonin (Nf)) 3 mg PO BEDTIME PRN; Protocol PRN Reason: SLEEP Last Admin: 12/09/17 21:15 Dose: 3 mg Multi-Ingredient Mouthwash/Gargle (Magic Mouth Was-Juan/Maal/Lido*) 5 ml SWISH SPIT QID [facility] Last Admin: 12/14/17 14:10 Dose: 5 ml Ondansetron HCl (Zofran Inj*) 4 mg IV Q4H PRN PRN Reason: NAUSEA/VOMITING Last Admin: 12/08/17 13:54 Dose: 4 mg Oxycodone/Acetaminophen (Percocet 5/325 Tab*) 1 tab PO Q4H PRN PRN Reason: PAIN Last Admin: 12/14/17 02:57 Dose: 1 tab Potassium Chloride (Klor Con Er Tab*) 40 meq PO BID [facility] Vancomycin HCl (Vancomycin Cap*) 125 mg PO QID [facility] Last Admin: 12/14/17 13:10 Dose: 125 mg [Gen: Chronically ill appearing 67 yo in NAD HEENT: NCAT, MMM, no lesions CV: RRR, no m/r/g Resp: Lungs CTA, no w/c/r Abd: mildly distended, nonTTP, bowel sounds quiet Skin: No rash Neuro: inspector returned materials grossly intact, strength globally 4-5/5, reports decreased sensation over skin distal to the elbow and from the xiphoid process distally through the things and lower legs and feet Ext: 2+ pitting edema of the LE, mild edema of the abdomen] Assessment: [This is a 67 yo female with plasma cell leukemia who is admitted with Cdiff resulting in toxic megacolon. Patient's course has been complicated by profound weakness and neuropathy.] Plan: [1. Cdiff with toxic megacolon - Cont oral vanco, clinically improving. Flagyl has been stopped d/t neuropathy development 2. Neuropathy - symptoms appear to be progressing even after discontinuation of Flagyl. Requested neurology consultation 3. Deconditioning - Patient is grossly deconditioned, currently a 2 assist, she will require MIL[place] at discharge and chemo has been held until active infection and functional status improves. 4. Mucositis - resolved 5. Hypokalemia/hypomagnesemia - continue to monitor and replete as necessary. Ordered 4g IV Mg and increased oral KCl supplementation 6. Plasma cell leukemia - Nl WBCs, chemo held at this time]
[2017-12-14 19:17] LABS: INR 1.02 (0.77-1.02)
[2017-12-14] MEDS ORDERED: Potassium Chlor TAB* 20 MEQ TAB.ER PO SCH (21:00)
--- NOTE | 2017-12-14 22:42 | CONS ---
NEUROLOGY CONSULTATION: DATE OF CONSULT: 12/14/17 LOCATION: The patient is an inpatient. REQUESTING PROVIDER: THALIA Spivey REASON FOR CONSULT: Acute onset neuropathy. HISTORY OF PRESENT ILLNESS: Betzy Junior is a 67-year-old woman with a history of plasma cell leukem ia diagnosed in September, treated with 1 round of Velcade, Revlimid, and Decadron. She also has a hi story of COPD and hyperparathyroidism, status post parathyroidectomy. She came into the hospital on 12/02/17 after experiencing about 1 to 2 days of profuse vomiting and diarrhea associated with nausea . Ultimately, she was diagnosed with C. diff colitis and has associated toxic megacolon. She was t reated with Flagyl initially as well as Cipro. About a week ago, she began reporting numbness and ti ngling in her hands and feet, which she says developed simultaneously. Over the course of the week, it sounds like this has progressed up her legs and up her arms and more recently, over the past day o r two, she has been reporting some numbness of her abdomen as well. It was thought that the Flagyl c ould have caused the neuropathy and this was discontinued a couple of days ago; however, she continue s to report progression of her symptoms and Neurology involvement was requested. With respect to her chemotherapy, she has been off of those medications for about 2 weeks and as ment ioned, had received one round. She reports that she was eating relatively well prior to her onset of C. diff diarrhea, but her daughters do say that when she was receiving chemotherapy, her appetite wa s decreased and some days she would eat only sherbet. She does take supplements including calcium, v itamin D, B12 and fish oil prior to admission. She is not an alcohol drinker. To me, she reports th at her biggest issue is with numbness and she has been having some difficulty managing utensils and a lso has dropped cups because she cannot feel them in her hand. She does still have some burning asso ciated with her symptoms, but more so describes a lack of feeling. She also feels that she has weakn ess associated with the sensory changes. PAST MEDICAL HISTORY: Plasma cell leukemia, COPD, hyperparathyroidism, status post parathyroidectomy , depression, right lower extremity cellulitis, right hip surgery. HOME MEDICATIONS: 1. [place] 3 fatty acids. 2. Calcium carbonate 1200 mg daily. 3. Singulair 10 mg daily. 4. Duloxetine 60 mg daily. 5. Vitamin B12 1000 mcg daily. 6. Cholecalciferol 1000 units daily. 7. [place] as needed. 8. Potassium chloride. 9. Albuterol as needed. 10. Compazine and Zofran as needed for nausea. FAMILY HISTORY: There is no known family history of neuropathies. There is a history of heart dise ase. There is a history of renal cell carcinoma as well as cirrhosis. SOCIAL HISTORY: She is a former smoker. She does not drink alcohol. She lives alone, but one of he r daughters was staying with her prior to her admission. REVIEW OF SYSTEMS: As per the HPI. She also reports significant weight gain secondary to edema sinc e she has been here in the hospital. She is not having any breathing difficulties or vision difficul ties. She is having some troubles with swallowing pills and has been taking them in apple sauce. Isaura ilnder continues to have abdominal pain and distention. No bladder difficulties. PHYSICAL EXAMINATION: Vital Signs: Temperature 98.3, blood pressure 117/69, heart rate 76, and oxyg en saturation 99% on room air. On general examination, she is sitting in her hospital bed, in no acute distress. She was finishing l unch when I came into the room and was noted to be manipulating the fork with her right hand, though she did not take a bite while I was in the room. Her overall exam is notable for significant lower e xtremity edema, which is worse in the left leg. She has pitting edema up to her thighs. There was n o obvious pitting edema of the abdomen. The left hand is swollen as well. Her heart is in a regular rate and rhythm with no obvious murmurs. The lungs were clear to auscultation. There was no erythe ma of her skin or her joints. On neurologic exam, she is fully awake, alert, and oriented. Pupils are equal, round and reactive fr om 3 to 2 mm bilaterally. Versions are full without nystagmus. Talbert are full to confrontation. F acial sensation is intact to light touch, but she endorsed diminished sensation to pinprick bilateral ly in the V2 and V3 distributions. Her facial musculature is full and symmetric. Hearing is intact to voice. The palate elevates symmetrically and the tongue is midline. On motor examination, she ap pears to have normal muscle bulk in the upper and lower extremities with normal tone. She required a good deal of encouragement on strength testing and it was still somewhat difficult to interpret, but she appeared to have a mildly weak shoulder abductors, approximately grade 4 biceps and triceps bila terally, grade 4 wrist extensors and flexors, 4- finger extensors and intrinsic hand muscles. Seated at the edge of the bed with her legs hanging over the side, she was barely able to lift either leg a t the hip, but again she has significant edema. However, her knee flexors and extensors felt nearly full. She has reduced range of motion secondary to her edema at her ankles and the toe dorsiflexors were difficult to interpret secondary to give away. Sensory testing was notable for diminished light touch to the elbows bilaterally and to the mid thighs bilaterally. Sensation to pinprick cause dyses thesias in the hands and the feet, but then was reduced in the upper extremities up to the shoulder a nd up to the hip in the lower extremities. Her proprioception in her great toes and fingers did seem to be impaired, but not completely absent. Sensation to vibration in the hands was approximately 11 seconds at the DIP. Vibration was reduced to trace at the great toes. Reflexes were absent at the biceps, 1+ brachioradialis and 2+ triceps bilaterally. Knees and ankles were not able to be elicited , but possibly secondary to edema. The toes were mute. [id number] was without ataxia. I did no t ambulate her. DIAGNOSTIC STUDIES/LAB DATA: Recent CMP is notable for potassium of 3.4, creatinine of 0.45, BUN of 4, calcium 7.5, magnesium 1.7. AST and ALT have been low. Her prealbumin is low at 2 and total prot ein low at 4.5 and albumin low at 2.4. She had a recent SPEP, which did not show any monoclonal gamm opathy. Her CBC is notable for a white count of 5, hematocrit of 26, hemoglobin of 8.6 and platelets of 377. Her coagulation studies have not been repeated recently; but on 12/02/17, INR was 1.54. He r C. diff in the stool was positive on 12/03/17. A B12 level from September was just over 500. IMPRESSION AND PLAN: Betzy Junior is a 67-year-old woman with a history of plasma cell leukemia, on Velcade, Revlimid, and Decadron recently who is admitted with toxic megacolon secondary to C. diff in fection and has developed symptoms of a sensory neuropathy as well as weakness, which appears to be p rogressing over the past week. Her exam is challenging secondary to her significant edema as well as her somewhat challenging responses to certain aspects of the sensory exam, but I do think that there is a neuropathy here. Potential etiologies would include toxic secondary in particular to the Revli mid, which can be associated with neuropathy in a non-dose dependent fashion. Less likely considerin g the length of time that she was on it is the Flagyl as neuropathy secondary to Flagyl is usually as sociated with a course longer than 4 weeks. I would also consider nutritional contributions given he r current nutritional status as evidenced by her blood work as well as the profuse vomiting and diarr hea that she has had. Finally, I would also consider POEMS syndrome in the differential. I recommen d checking B12 level, vitamin B1, vitamin E, B6 as well as copper. Unfortunately, we were not able t o get nerve conduction studies on her prior to the end of the day today. At this point, she is on ga bapentin for symptomatic relief and I would continue to work with that medication and titrate it to h er comfort. Dr. Fuentes will be taking over this weekend and I will discuss the patient with her. David linder will see what we can do about getting some neurophysiologic studies done prior to her possible disc harge to rehab early next week. [id number]/[facility] #: [id number]
[2017-12-15] MEDS: Acetaminophen TAB* 325 MG PO PRN ×2 (04:01→20:07)
[2017-12-15 06:53] LABS: ABS Basophils 0.1 10^3/ul (0-0.2); ABS Eosinophils 0.1 10^3/ul (0-0.6); ABS Lymphocytes 0.7 10^3/ul (1.0-4.8); ABS Monocytes 0.5 10^3/ul (0-0.8); ABS Neutrophils 5.5 10^3/ul (1.5-7.7); ABS Nucleated RBC 0 10^3/ul; Hematocrit 26 % (35-47); Hemoglobin 8.8 g/dl (12.0-16.0); Lymphocyte % 9.7 % (25-47); Mean Corpuscular HGB Conc 34 g/dl (31-36); Mean Corpuscular Hemoglobin 31 pg (27-31); Mean Corpuscular Volume 90 fL (80-97); Mean Platelet Volume 8 um3 (7.4-10.4); Nucleated Red Blood Cells % 0; Platelet Count 368 10^3/ul (150-450); Red Blood Count 2.84 10^6/ul (4.0-5.4); Red Cell Distribution Width 19 % (10.5-15); White Blood Count 6.9 10^3/ul (3.5-10.8)
[2017-12-15 07:04] LABS: EGFR Non-African American 129.8 (>60)
[2017-12-15] MEDS: Heparin VIAL(*) 5000 UNITS/ML VIAL (FIVE THOUSAND) SUBCUT SCH ×3 (07:08→20:13)
--- NOTE | 2017-12-15 08:17 | PN ---
Progress Note - Progress Note Date of Service: 12/15/17 SOAP: Subjective: seen by neurology yesterday. still w significant numbness. diarrhea much better (stools with some "hard stuff" now but still some liquid, much less frequne) Objective: Vital Signs Temp Pulse Resp BP Pulse Ox 97.9 F 89 22 121/66 98 12/15/17 07:36 12/15/17 07:36 12/15/17 07:36 12/15/17 07:36 12/15/17 07:36 lying flat in nad perr eomi op moist cta anteriorly, could not sit up s1 s2 nl soft nt obese +bs 3+ le edema to abdomen 2/5 strength LE 4/5 UE Laboratory Results - last 24 hr 12/14/17 12/14/17 12/14/17 08:28 08:28 18:53 WBC 5.0 RBC 2.88 L Hgb 8.6 L Hct 26 L MCV 89 MCH 30 MCHC 34 RDW 20 H Plt Count 377 MPV 8 Neut % (Auto) 73.4 Lymph % (Auto) 13.1 L Esmeralda % (Auto) 9.4 H Eos % (Auto) 1.5 Baso % (Auto) 2.6 H Absolute Neuts (auto) 3.7 Absolute Lymphs (auto) 0.7 L Absolute Monos (auto) 0.5 Absolute Eos (auto) 0.1 Absolute Basos (auto) 0.1 Absolute Nucleated RBC 0 Nucleated RBC % 0 Polychromasia 1+ Anisocytosis 2+ Elliptocytes 1+ INR (Anticoag Therapy) 1.02 Sodium 136 Potassium 3.4 L Chloride 104 Carbon Dioxide 27 Anion Gap 5 BUN 4 L Creatinine 0.45 L Est GFR ( Amer) 179.8 Est GFR (Non-Af Amer) 139.8 BUN/Creatinine Ratio 8.9 Glucose 90 Calcium 7.5 L Magnesium 1.7 L Vitamin B12 Folate 12/14/17 12/15/17 12/15/17 18:53 06:29 06:29 WBC 6.9 RBC 2.84 L Hgb 8.8 L Hct 26 L MCV 90 MCH 31 MCHC 34 RDW 19 H Plt Count 368 MPV 8 Neut % (Auto) 80.5 Lymph % (Auto) 9.7 L Esmeralda % (Auto) 6.8 Eos % (Auto) 1.0 Baso % (Auto) 2.0 Absolute Neuts (auto) 5.5 Absolute Lymphs (auto) 0.7 L Absolute Monos (auto) 0.5 Absolute Eos (auto) 0.1 Absolute Basos (auto) 0.1 Absolute Nucleated RBC 0 Nucleated RBC % 0 Polychromasia Anisocytosis Elliptocytes INR (Anticoag Therapy) Sodium 135 Potassium 3.4 L Chloride 102 Carbon Dioxide 26 Anion Gap 7 BUN 4 L Creatinine 0.48 L Est GFR ( Amer) 166.9 Est GFR (Non-Af Amer) 129.8 BUN/Creatinine Ratio 8.3 Glucose 104 H Calcium 7.7 L Magnesium 1.9 Vitamin B12 1163 H Folate 6.17 Acetaminophen (Tylenol Tab*) 650 mg PO Q4H PRN PRN Reason: PAIN Last Admin: 12/15/17 04:01 Dose: 650 mg Albuterol/Ipratropium (Duoneb (Albuterol 2.5 Mg/Ipratropium 0.5 Mg)) 1 neb INH [id number] AWAKE PRN PRN Reason: sob/wheexing Last Admin: 12/02/17 14:58 Dose: 1 neb Duloxetine HCl (Cymbalta Cap*) 60 mg PO DAILY [facility] Last Admin: 12/14/17 09:20 Dose: 60 mg Furosemide (Lasix Iv*) 20 mg IV DAILY [facility] Last Admin: 12/14/17 13:03 Dose: 20 mg Gabapentin (Neurontin Cap(*)) 200 mg PO TID [facility] Last Admin: 12/14/17 22:00 Dose: 200 mg Heparin Sodium (Porcine) (Heparin Vial(*)) 5,000 units SUBCUT Q8HR [facility] Last Admin: 12/15/17 07:08 Dose: 5,000 units Melatonin (Melatonin (Nf)) 3 mg PO BEDTIME PRN; Protocol PRN Reason: SLEEP Last Admin: 12/09/17 21:15 Dose: 3 mg Multi-Ingredient Mouthwash/Gargle (Magic Mouth Was-Juan/Maal/Lido*) 5 ml SWISH SPIT QID [facility] Last Admin: 12/14/17 22:07 Dose: 5 ml Ondansetron HCl (Zofran Inj*) 4 mg IV Q4H PRN PRN Reason: NAUSEA/VOMITING Last Admin: 12/08/17 13:54 Dose: 4 mg Potassium Chloride (Klor Con Er Tab*) 40 meq PO TID ANGELICA Vancomycin HCl (Vancomycin Cap*) 125 mg PO QID ANGELICA Last Admin: 12/14/17 22:00 Dose: 125 mg Assessment: 67 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 Currently much improved from diarrhea standpoint but globally deconditioned plus neuropathy making her unsafe for discharge to home. appreciate neurology consultation. I personally think it is unlikely that one cycle of revlimid/velcade would cause this degree of neuropathy. I do question a paraneoplastic process and will discuss with Dr. Fuentes today. plan: Neuropathy: neurontin tid ?EMG testing Sunday prior to rehab discharge or as outpt c diff: cont po vanco, improving hypokalemia: from diarrhea and lasix cont oral repletion, increased today anasarca: cont IV lasix anemia: cancer induced dvt prophylaxis: heparin
[2017-12-15] MEDS: Magic Mouth Was-BEN/MAAL/LIDO SWISH SPIT SCH ×4 (08:23→20:12)
[2017-12-15] MEDS: Furosemide IV* 10 MG/ML 2 ML VIAL (20 MG) IV SCH (08:23)
[2017-12-15] MEDS: Potassium Chlor TAB* 20 MEQ TAB.ER PO SCH ×3 (08:24→20:06)
[2017-12-15] MEDS: Gabapentin CAP(*) 100 MG PO SCH ×3 (08:24→20:09)
[2017-12-15] MEDS: DULoxetine DR CAP* 60 MG CAP.DR PO SCH (08:25)
[2017-12-15] MEDS: Vancomycin CAP* 125 MG CAP PO SCH ×4 (08:25→20:09)
[2017-12-16] MEDS: Acetaminophen TAB* 325 MG PO PRN (03:29)
[2017-12-16] MEDS: Heparin VIAL(*) 5000 UNITS/ML VIAL (FIVE THOUSAND) SUBCUT SCH ×3 (05:45→22:07)
[2017-12-16 06:08] LABS: ABS Basophils 0.2 10^3/ul (0-0.2); ABS Eosinophils 0.1 10^3/ul (0-0.6); ABS Lymphocytes 0.6 10^3/ul (1.0-4.8); ABS Monocytes 0.3 10^3/ul (0-0.8); ABS Neutrophils 3.7 10^3/ul (1.5-7.7); ABS Nucleated RBC 0 10^3/ul; Eosinophil % 1.6 % (0-6); Hematocrit 24 % (35-47); Hemoglobin 8.1 g/dl (12.0-16.0); Lymphocyte % 12.3 % (25-47); Mean Corpuscular HGB Conc 34 g/dl (31-36); Mean Corpuscular Hemoglobin 30 pg (27-31); Mean Corpuscular Volume 90 fL (80-97); Mean Platelet Volume 7 um3 (7.4-10.4); Nucleated Red Blood Cells % 0; Platelet Count 336 10^3/ul (150-450); Red Cell Distribution Width 19 % (10.5-15); White Blood Count 4.8 10^3/ul (3.5-10.8)
[2017-12-16] MEDS ORDERED: Magnesium Sulf 4 GM/100 ML IV* 4,000 MG/100 ML BAG IVPB ONE (08:15)
--- NOTE | 2017-12-16 08:15 | PN ---
Progress Note - Progress Note Date of Service: 12/16/17 SOAP: Subjective: reports 6 BMs overnight, though this is not documented by nursing. one semi- formed stool this am. abdominal pain increased this am. should be noted that she was able to get to commode with 1 person assist for the first time in days. Objective: Vital Signs Temp Pulse Resp BP Pulse Ox 97.2 F 97 16 127/72 98 12/16/17 03:55 12/16/17 03:55 12/16/17 03:55 12/16/17 03:55 12/16/17 03:55 lying flat, uncomfortable appearing perr eomi op moist dec bs bases diffuse mild ttp, more so over LLQ 3+LE edema 2/5 LE strength 4-5/5 UE A+Ox3 Laboratory Results - last 24 hr 12/16/17 12/16/17 05:52 05:52 WBC 4.8 RBC 2.70 L Hgb 8.1 L Hct 24 L MCV 90 MCH 30 MCHC 34 RDW 19 H Plt Count 336 MPV 7 L Neut % (Auto) 75.8 Lymph % (Auto) 12.3 L [place] % (Auto) 7.2 H Eos % (Auto) 1.6 Baso % (Auto) 3.1 H Absolute Neuts (auto) 3.7 Absolute Lymphs (auto) 0.6 L Absolute Monos (auto) 0.3 Absolute Eos (auto) 0.1 Absolute Basos (auto) 0.2 Absolute Nucleated RBC 0 Nucleated RBC % 0 Sodium 135 Potassium 3.7 Chloride 103 Carbon Dioxide 27 Anion Gap 5 BUN 5 L Creatinine 0.47 L Est GFR ( Amer) 171.0 Est GFR (Non-Af Amer) 133.0 BUN/Creatinine Ratio 10.6 Glucose 94 Calcium 7.8 L Magnesium 1.7 L Assessment: 67 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 Her diarrhea by her report is worse, though this is not documented on I+Os or in nursing note. she is more tender this am. I would like to repeat KUB. plan: Neuropathy: neurontin tid ?EMG testing Sunday DDX: meds vs. paraneoplastic appreciate neurology consultation ?need for LP c diff: cont po vanco XRAY this am hypokalemia: from diarrhea and lasix cont oral repletion, increased today anasarca: cont IV lasix, increase today, suspect this is contributing to LE weakness as legs VERY heavy anemia: cancer induced dvt prophylaxis: heparin
[2017-12-16] MEDS: Furosemide IV* 10 MG/ML VIAL (40 MG) IV SCH (08:49)
[2017-12-16] MEDS: DULoxetine DR CAP* 60 MG CAP.DR PO SCH (08:50)
[2017-12-16] MEDS: Potassium Chlor TAB* 20 MEQ TAB.ER PO SCH ×3 (08:50→22:02)
[2017-12-16] MEDS: Magic Mouth Was-BEN/MAAL/LIDO SWISH SPIT SCH ×4 (08:50→22:12)
[2017-12-16] MEDS: Gabapentin CAP(*) 100 MG PO SCH ×3 (08:50→22:02)
[2017-12-16] MEDS: Vancomycin CAP* 125 MG CAP PO SCH ×4 (08:50→22:02)
--- NOTE | 2017-12-16 10:45 | RAD ---
INDICATION: Abdominal pain COMPARISON: December 11, 2017 TECHNIQUE: A single view of the abdomen is submitted. FINDINGS: Bones: There are no acute bony findings. There is right femoral rodding Soft tissues: The soft tissues appear normal. The psoas margins are sharp. Bowel gas pattern: Nonspecific Calcifications: There are no abnormal calcifications. Other: None IMPRESSION: NO ACUTE DIAGNOSTIC FINDINGS
--- NOTE | 2017-12-17 00:35 | PN ---
FOLLOWUP NOTE: DATE OF FOLLOWUP: 12/16/2017. HISTORY: Overnight, Betzy Junior indicates she was up frequently to go to the bathroom. Her appetite has been better. She continues to complain of numbness of her hands and feet and when I asked further about what symptoms she is having in her legs, she says there is prickling to the knee. PHYSICAL EXAMINATION: On examination today, her most recent temperature was 97.2 degrees Fahrenheit, heart rate was 97 and regular, respiratory rate 16, saturation 98%, and blood pressure 127/72. She had a regular cardiac rhythm. Her lungs were clear to auscultation. There was evidence of peripheral edema that was quite extensive in the lower extremities; however, improved from yesterday with some loosening of the skin noted in the thighs. She continued to have variable vibration in the upper extremities, close to normal on some testing. In the lower extremities, she could now feel some vibration at the knee which she could not feel yesterday. Her reflexes continued to be 2+ in the upper extremities, absent in the lower extremities. Sharp sensation was decreased to the ankle. Cold sensation was felt in all limbs including distally. MEDICATIONS: Medication list was reviewed. LABORATORY DATA: Includes CBC with normal white count. Hemoglobin and hematocrit of 8.1 and 24, platelets of 336. Her metabolic panel showed a low BUN and low creatinine. Her calcium was low at 7.8, magnesium was low at 1.7. IMPRESSION: A 67-year-old woman with history of plasma cell leukemia, treated with Velcade, Revlimid, Decadron, and complicated by megacolon and C. difficile with nausea, vomiting, diarrhea, low protein and albumin, and anasarca. In this setting, she developed a discomfort in her arms and legs which she described as pain and numbness. The question is raised on whether there is a superimposed neuropathy in addition to the anasarca causing discomfort. I am pleased to see that she is getting better, and I suspect that some of her improvement is due to decreasing edema, questions raised on whether there is an underlying neuropathy, what type, and what severity. She indicates that she is scheduled to leave hospital shortly, perhaps tomorrow. To proceed in evaluation she needs EMG/NCS. I have asked my EMG tech to come in so we can proceed with studies of her upper extremities. Her lower extremities will be difficult to study. According to results, further input will be directed. Her electrolytes may be changing in the setting of diuresis as well as continued bowel movements and I will defer to her oncologist for repletion. TIME SPENT: Over 30 minutes were spent in direct [id number] patient care. Over 50% of the time was spent in education and counseling and we will do further followup with and after EMG nerve conduction studies. [id number]/[facility] #: [id number] SHONNA
--- NOTE | 2017-12-17 01:58 | PN ---
FOLLOWUP NOTE: DATE OF FOLLOWUP: DATE OF DICTATION: 12/16/2017. 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 Sensory responses could not be obtained in the upper extremities with exception of a low right radial sensory response. . Motor responses showed some slight changes. There was no evidence of demyelination. There was no conduction block noted in the motor responses and no prolongation of the F-waves. No denervation was noted in the upper extremities. Exam was limited because of lower extremities and edema. In review, the timing of her symptoms, she received subcutaneous Velcade with the last dose on the 11/26/17 and the admission on the 12/02/17. She had developed nausea and vomiting that particularly was bad in the days prior to admission. Dr. Quesada's note refers to paralytic ileus as a rare complication of Velcade on the basis of neuropathy. She was started on Flagyl starting on admission date on 12/02/17 and through the 12/11/17, it was somewhere approximately 12/04/17 to 12/07/17 that she had symptoms of acute onset of numbness in hands and feet occurring all at the same time. Given this timing, I am highly suspicious that her symptoms are because of Velcade causing a life threatening neuropathy with autonomic involvement including her bowel and potentially hypotension as her blood pressure was noted to be quite low on admission, as well as profound sensory involvement and possibly some motor. It is unclear how much Flagyl may be playing a role. There is no clear history to suggest a neuropathy prior to Velcade. She does have a risk factor in the setting of having a bone marrow process. There is no evidence of demyelination on her nerve conduction studies to suggest Guillain-[place] syndrome. 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 If she has progression, I would re-check EMG nerve conduction studies for acute denervation would support this diagnosis. Given the improvement I have seen in the last 2 days; however, I find this less likely. For differential, we will request an anti GD1b antibody from [facility]. For differential diagnosis of sensory neuropathy, we will also check an MARIUM, sed rate, SSA, SSB, c-ANCA, p-ANCA albeit less likely etiologies of sensory neuropathy given presentation. I have also suggested checking a paraneoplastic panel for differential diagnosis. If she had an underlying paraneoplastic neuropathy or neuropathy secondary to bone marrow process, this might make her more susceptible to peripheral neuropathy in the setting of chemotherapy. I would not expect a paraneoplastic process to start so quickly, and therefore is unlikely to represent new acute symptoms in hospital. All of the above was reviewed with Betzy Junior and her daughters. In addition , a call was placed to Megan, her healthcare proxy to try to discuss the above information and I have asked her to call back for discussion at patient's request. TIME SPENT: Additional 20 minutes was spent in [id number] care, another 20 minutes researching medications and gathering further details to support the differential diagnosis and diagnoses for a total of 40 minutes of the patient's care. Over 50% of the time was spent in education in addition to half-hour followup this morning and EMG. [id number]/[facility] #: [id number] MTDD
[2017-12-17] MEDS: Heparin VIAL(*) 5000 UNITS/ML VIAL (FIVE THOUSAND) SUBCUT SCH ×3 (04:56→22:12)
[2017-12-17 06:19] LABS: ABS Basophils 0.1 10^3/ul (0-0.2); ABS Eosinophils 0.1 10^3/ul (0-0.6); ABS Lymphocytes 0.7 10^3/ul (1.0-4.8); ABS Monocytes 0.5 10^3/ul (0-0.8); ABS Neutrophils 3.8 10^3/ul (1.5-7.7); ABS Nucleated RBC 0 10^3/ul; Eosinophil % 2.1 % (0-6); Hematocrit 26 % (35-47); Hemoglobin 8.8 g/dl (12.0-16.0); Lymphocyte % 12.5 % (25-47); Mean Corpuscular HGB Conc 33 g/dl (31-36); Mean Corpuscular Hemoglobin 30 pg (27-31); Mean Corpuscular Volume 90 fL (80-97); Mean Platelet Volume 7 um3 (7.4-10.4); Nucleated Red Blood Cells % 0; Platelet Count 344 10^3/ul (150-450); Red Blood Count 2.93 10^6/ul (4.0-5.4); Red Cell Distribution Width 19 % (10.5-15); White Blood Count 5.3 10^3/ul (3.5-10.8)
[2017-12-17 06:34] LABS: EGFR Non-African American 123.8 (>60)
[2017-12-17] MEDS: Furosemide IV* 10 MG/ML VIAL (40 MG) IV SCH (08:11)
[2017-12-17] MEDS: DULoxetine DR CAP* 60 MG CAP.DR PO SCH (08:11)
[2017-12-17] MEDS: Vancomycin CAP* 125 MG CAP PO SCH ×5 (08:12→22:18)
[2017-12-17] MEDS: Gabapentin CAP(*) 100 MG PO SCH ×3 (08:12→22:05)
[2017-12-17] MEDS: Potassium Chlor TAB* 20 MEQ TAB.ER PO SCH ×3 (08:12→22:02)
[2017-12-17] MEDS: Magic Mouth Was-BEN/MAAL/LIDO SWISH SPIT SCH ×4 (08:13→22:19)
[2017-12-17] MEDS: Acetaminophen TAB* 325 MG PO PRN ×2 (08:22→21:57)
--- NOTE | 2017-12-17 09:23 | PN ---
FOLLOWUP NOTE: DATE OF FOLLOWUP: 12/15/17 HISTORY OF PRESENT ILLNESS: Betzy Junior was seen by Dr. Poon for evaluation of peripheral neuropathy yesterday. Since yesterday there has been some improvement. She is up with help. She feels like her numbness has plateaued in the last day or so and the really painful part of the neuropathy that she had had in her hands and feet has improved. Unfortunately, she is continuing to drop things. She feels weak, she is worried about standing up and falling. She continues to feel a lack of sensation in her hands and feet, not knowing where her hands and feet are located. Her symptoms started suddenly in her hands and feet. She estimates it about 2 days after admission, which would be on 12/04/17. The first time I see documentation of the neuropathy symptoms in Dr. Alvarado's note on 12/07/17. PHYSICAL EXAMINATION: On examination today, the most recent temperature was 97.9 degrees Fahrenheit, pulse was 89, respiratory rate 22, saturation 98, blood pressure 121/66. She had regular cardiac rhythm. Her lungs were clear to auscultation. There was significant diffuse edema in the lower extremities including all of the legs with shiny pitting skin that was painful to the touch. She had a question of pronator drift in the left arm. There was variable weakness in the arms with giveaway weakness pretty much throughout the arms. In her lower extremities, hip flexion was difficult: slight raise off the chair on the right 3/5, the left was 2/5. Knee extension was 5-/5; knee flexion 4+ , foot dorsiflexion, however, was 5/5. EHL bilaterally was 5-/5. Vibration sensation was absent in the lower extremities; however, it is also hard to purchase the tuning fork on bone given the edema. In the upper extremities, the DIP was variable on the right. It was decreased by about 30 seconds and on the left by 10 seconds, but interestingly just a joint above on the right was decreased by only 10 seconds. Proprioception could still be felt at the toes. She was able to accurately name which way her toes were being moved. Her reflexes were 1+ in the brachioradialis, 2+ at the triceps, absent in the lower extremities. Toes were flexor response. Cold sensation was felt in the arms, though decreased to mid thighs, albeit felt in the entire leg. Pinprick was okay in the arms, but decreased to the knees. I tried to test abduction and adduction of the hips; however, it was painful for me to have my hands pressing against her thighs in the setting of edema. LABORATORY DATA: Data includes B12, which is 1162; folate at 6.17. Her potassium was slightly low at 3.4 and glucose elevated at 104. Her total protein on the was 4.5 and albumin was 2.3 and her C-reactive protein on the was 156. CURRENT MEDICATIONS: Include: 1. Albuterol nebulizer every 4 hours while awake as needed for shortness of breath/wheezing. 2. Magic Mouthwash swish and spit 4 times a day. 3. Ondansetron 4 mg IV q.4 hours p.r.n. nausea, vomiting. 4. Tylenol 650 mg p.o. q.4 hours p.r.n. pain. 5. Vancomycin 125 mg p.o. 4 times a day. 6. Heparin 5000 units subcu q.8 hours. 7. Melatonin 3 mg p.o. p.r.n. at bedtime for insomnia. 8. Cymbalta 60 mg p.o. q. day. 9. Gabapentin 200 mg p.o. t.i.d. 10. Furosemide 20 mg IV q. day. 11. Potassium chloride 40 mEq p.o. t.i.d. IMPRESSION: Betzy Junior is a 67-year-old woman who has had acute onset of numbness in the setting of plasma cell leukemia, treated with Velcade, Revlimid , Decadron and complicated by megacolon, C. difficile with nausea, vomiting, diarrhea, low protein and albumin and anasarca. Certainly the distribution of her symptoms suggest a neuropathy; however, the confounding factor is the edema. In discussion with her symptoms, there has been plateau of her symptoms and even today reports improvement. She was walking with a walker prior to admission. She indicates she did get on her feet twice with help today; however , is very fearful about falling. She, however, feels the numbness has improved in that the painful part of the numbness is better. She still has the lack of feeling. She also on examination remarked on the fact that she could now feel sharp in her abdomen, which was difficult for her yesterday. This plateauing and improvement of symptoms is more consistent with a toxic exposure of nutritional cause. She is eating more p.o.'s Lab tests are still pending including B1, B6 and vitamin E. B12 was within normal limits. Given the improvement on history and physical examination, for now we will watch and tomorrow according to her clinical course and findings, we will consider further workup. Other acute onset neuropathies could include perineoplastic or autoimmune; however, I would not expect them to be remitting quickly. It is interesting that the pain going up her feet to legs to arms did correspond with the timing of the edema and anasarca and one must raise question of the role of this fluid in her discomfort and symptoms. She is increasing p.o.'s I talked with her about the importance of nutrition and protein and she is on diuretics. TIME SPENT: Education was provided. Over 45 minutes was spent in direct face- to- face patient care. Over 90 minutes was spent in total care with review of chart and communication with caregivers. All questions were answered. [id number]/[facility] #: [id number] SHONNA
--- NOTE | 2017-12-17 09:58 | PN ---
Subjective Date of Service: 12/17/17 Interval History: Chart reviewed and I spoke personally with Dr. Fuentes about her care: She reports no new issues but continues to have significant paresthesias in the hands and legs. She has been ambulating to the bathroom with a belt, walker and 1 assist. She notes numbness and tingling in her feet but burning when she stands on them. Denies any shortness of breath. Occasionally feels food gets stuck but not consistent and not worsening. No changes in her voice. She states that she feels about the same as yesterday. I spoke with Dr. 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 B12/Folate WNL M-spike seen on SPEP: History of Plasma cell Leukemia Paraneoplastic and Inflammatory labs pending Objective Active Medications: Acetaminophen (Tylenol Tab*) 650 mg PO Q4H PRN PRN Reason: PAIN Last Admin: 12/17/17 08:22 Dose: 650 mg Albuterol/Ipratropium (Duoneb (Albuterol 2.5 Mg/Ipratropium 0.5 Mg)) 1 neb INH [id number] AWAKE PRN PRN Reason: sob/wheexing Last Admin: 12/02/17 14:58 Dose: 1 neb Duloxetine HCl (Cymbalta Cap*) 60 mg PO DAILY [facility] Last Admin: 12/17/17 08:11 Dose: 60 mg Furosemide (Lasix Iv*) 40 mg IV DAILY [facility] Last Admin: 12/17/17 08:11 Dose: 40 mg Gabapentin (Neurontin Cap(*)) 200 mg PO TID [facility] Last Admin: 12/17/17 08:12 Dose: 200 mg Heparin Sodium (Porcine) (Heparin Vial(*)) 5,000 units SUBCUT Q8HR [facility] Last Admin: 12/17/17 04:56 Dose: 5,000 units Melatonin (Melatonin (Nf)) 3 mg PO BEDTIME PRN; Protocol PRN Reason: SLEEP Last Admin: 12/09/17 21:15 Dose: 3 mg Multi-Ingredient Mouthwash/Gargle (Magic Mouth Was-Juan/Maal/Lido*) 5 ml SWISH SPIT QID [facility] Last Admin: 12/17/17 08:13 Dose: 5 ml Ondansetron HCl (Zofran Inj*) 4 mg IV Q4H PRN PRN Reason: NAUSEA/VOMITING Last Admin: 12/08/17 13:54 Dose: 4 mg Potassium Chloride (Klor Con Er Tab*) 40 meq PO TID [facility] Last Admin: 12/17/17 08:12 Dose: 40 meq Vancomycin HCl (Vancomycin Cap*) 125 mg PO QID [facility] Last Admin: 12/17/17 08:12 Dose: 125 mg Vital Signs 12/16/17 12/16/17 12/16/17 13:28 15:15 15:31 Temperature 97.7 F Pulse Rate 82 Respiratory 18 18 18 Rate Blood Pressure 109/70 (mmHg) O2 Sat by Pulse 98 Oximetry 12/16/17 12/16/17 12/16/17 16:00 19:48 22:02 Temperature 97.9 F Pulse Rate 87 Respiratory 18 16 18 Rate Blood Pressure 113/61 (mmHg) O2 Sat by Pulse 98 Oximetry 12/16/17 12/17/17 12/17/17 22:15 00:08 00:50 Temperature 98.1 F Pulse Rate 102 Respiratory 18 16 16 Rate Blood Pressure 133/75 (mmHg) O2 Sat by Pulse 98 Oximetry 12/17/17 12/17/17 12/17/17 03:51 08:12 08:26 Temperature 97.8 F 98.1 F Pulse Rate 89 100 Respiratory 16 18 18 Rate Blood Pressure 124/66 127/80 (mmHg) O2 Sat by Pulse 94 98 Oximetry Oxygen Devices in Use Now: None Neurology Exam: General: HEENT: Normocephelic/atraumstic, sclera anicteric, mucous membranes moist Neck: Supple Chest: Clear to auscultation bilaterally Cardiovascular: Regular rate and rhythm without murmurs, rubs, gallops Abdomen: Soft, nontender/nondistended Extremities: Marked edema of the lower extremities, pitting, skin is tight to the mid shins. Pulses difficult to assess. Neurological Findings: Awake, Alert, Oriented x3 Speech: fluent without dysarthria, repetition intact Cranial Nerve: PEERL, EOM intact, VFF, no nystagmus, face symmetric bilaterally , facial sensation intact, hearing intact to finger rub bilaterally, palate elevates symmetrically, tongue midline, SCM and Trapezius 5/5 Motor: 4+/5 proximally and distally in the upper extremities with normal tone. LEs: 4/5 proximally, 4+/5 distally with some giveway. Tone is increased in the lower extremities, normal in the uppers. Sensation: Loss of LT/PP/Proprioception/Vibration to the knees bilaterally with some return of sensation above the knees. Difficult exam secondary to swelling. Loss of all modalities in the hands to just proximal to the wrist. Deep Tendon Reflex: 1+ BC/BR symmetric. Absent at the knees, and ankles. Equivocal Babinksi Finger to nose, rapid alternating movements intact without tremor, no dysdiadochokinesia Did not ambulate Result Diagrams: 12/17/17 05:48 12/17/17 05:47 Additional Lab and Data: Lab Results Microbiology and Other Data: Microbiology Assessment/Plan Assessment: 66 year old with a history of Plasma Cell Leukemia, History of Velcade, toxic megacolon, treated with Flagyl. She has developed an acute neuropathy, thought to be toxic in nature, possibly related to Velcade +/- Flagyl. --Inflammatory/Paraneoplastic labs pending. --Continue supportive care. Gabapentin for pain as necessary. 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 Currently off chemotherapy. Recovery will likely be slow. --Will continue to follow
--- NOTE | 2017-12-17 11:02 | PN ---
Progress Note - Progress Note Date of Service: 12/17/17 SOAP: Subjective: CC: diarrhea HPI: 67 year old woman with sever Cdif colitis; abd less painful and less distended; 4 soft stools today. Appetite fair. No fever, rash or diarrhea. Objective: Vital Signs Temp 36.7 C 12/17/17 08:26 Pulse 100 12/17/17 08:26 Resp 18 12/17/17 10:49 BP 127/80 12/17/17 08:26 Pulse Ox 98 12/17/17 08:26 Intake & Output 12/16/17 12/17/17 12/17/17 18:59 06:59 18:59 Intake Total 1570 640 440 Output Total 600 Balance 1570 40 440 Weight 171 lb 9.6 oz Intake: Oral 1570 640 440 Output: Urine 600 Other: Estimated Void Medium Medium Small # Bowel Movements 1 0 1 Estimated Stool Amount Large Medium Medium # Voids 2 1 2 Gen:awake, no distress HEENT:PERRL, MMM Heart:RRR no murmur Lungs:CTA BL Abd:+BS NTND soft Skin: no rash MSK: no spine tenderness Neuro: sensation decreased light touch fingertips BL Laboratory Results - last 24 hr 12/16/17 12/17/17 12/17/17 05:50 05:47 05:48 WBC 5.3 RBC 2.93 L Hgb 8.8 L Hct 26 L MCV 90 MCH 30 MCHC 33 RDW 19 H Plt Count 344 MPV 7 L Neut % (Auto) 72.4 Lymph % (Auto) 12.5 L Bandera % (Auto) 10.3 H Eos % (Auto) 2.1 Baso % (Auto) 2.7 H Absolute Neuts (auto) 3.8 Absolute Lymphs (auto) 0.7 L Absolute Monos (auto) 0.5 Absolute Eos (auto) 0.1 Absolute Basos (auto) 0.1 Absolute Nucleated RBC 0 Nucleated RBC % 0 ESR 11 Sodium 135 Potassium 4.2 Chloride 102 Carbon Dioxide 28 Anion Gap 5 BUN 5 L Creatinine 0.50 L Est GFR ( Amer) 159.2 Est GFR (Non-Af Amer) 123.8 BUN/Creatinine Ratio 10.0 Glucose 94 Calcium 8.1 L Magnesium 2.2 Total Bilirubin 0.70 AST 8 L ALT 4 L Alkaline Phosphatase 101 Total Protein 5.1 L Albumin 2.9 L Globulin 2.2 Albumin/Globulin Ratio 1.3 Assessment: 1. Cdif colitis, severe, resolving 2. peripheral sensory neuropathy 3. Plasma cell leukemia Plan: 1. continue vancomycin will decr to 125 mg po tid 12/18. Discussed with Dr Alvarado
--- NOTE | 2017-12-17 11:46 | PN ---
Progress Note - Progress Note Date of Service: 12/17/17 SOAP: Subjective: [This is a 67 yo female with plasma cell leukemia admitted with Cdiff causing toxic megacolon. Patient developed a rather rapid onset neuropathy and increased weakness following a fall late last week. She has shown improvement in her strength and mobility over the last couple of days. She reports her appetite is still poor, but she is eating well. She feels bloated, but no abd pain. She denies n/v. Still having ~4 loose stools daily. She complained of increased abd pain yesterday, repeat KUB was unremarkable. No recent fevers. Neuropathy of hands/feet remain, no longer complaining of proximal leg and abd numbness.] Objective: [ Acetaminophen (Tylenol Tab*) 650 mg PO Q4H PRN PRN Reason: PAIN Last Admin: 12/17/17 08:22 Dose: 650 mg Albuterol/Ipratropium (Duoneb (Albuterol 2.5 Mg/Ipratropium 0.5 Mg)) 1 neb INH RT.[id number] AWAKE PRN PRN Reason: sob/wheexing Last Admin: 12/02/17 14:58 Dose: 1 neb Duloxetine HCl (Cymbalta Cap*) 60 mg PO DAILY [facility] Last Admin: 12/17/17 08:11 Dose: 60 mg Furosemide (Lasix Iv*) 40 mg IV DAILY [facility] Last Admin: 12/17/17 08:11 Dose: 40 mg Gabapentin (Neurontin Cap(*)) 200 mg PO TID [facility] Last Admin: 12/17/17 08:12 Dose: 200 mg Heparin Sodium (Porcine) (Heparin Vial(*)) 5,000 units SUBCUT Q8HR [facility] Last Admin: 12/17/17 04:56 Dose: 5,000 units Melatonin (Melatonin (Nf)) 3 mg PO BEDTIME PRN; Protocol PRN Reason: SLEEP Last Admin: 12/09/17 21:15 Dose: 3 mg Multi-Ingredient Mouthwash/Gargle (Magic Mouth Was-Juan/Maal/Lido*) 5 ml SWISH SPIT QID [facility] Last Admin: 12/17/17 08:13 Dose: 5 ml Ondansetron HCl (Zofran Inj*) 4 mg IV Q4H PRN PRN Reason: NAUSEA/VOMITING Last Admin: 12/08/17 13:54 Dose: 4 mg Potassium Chloride (Klor Con Er Tab*) 40 meq PO TID [facility] Last Admin: 12/17/17 08:12 Dose: 40 meq Vancomycin HCl (Vancomycin Cap*) 125 mg PO QID [facility] Stop: 12/17/17 21:00 Last Admin: 12/17/17 08:12 Dose: 125 mg Vancomycin HCl (Vancomycin Cap*) 125 mg PO TID [facility] Vital Signs: Temp Pulse Resp BP Pulse Ox 98.1 F 100 18 127/80 98 12/17/17 08:26 12/17/17 08:26 12/17/17 10:49 12/17/17 08:26 12/17/17 08:26 Laboratory Results - last 24 hr 12/16/17 12/17/17 12/17/17 05:50 05:47 05:48 WBC 5.3 RBC 2.93 L Hgb 8.8 L Hct 26 L MCV 90 MCH 30 MCHC 33 RDW 19 H Plt Count 344 MPV 7 L Neut % (Auto) 72.4 Lymph % (Auto) 12.5 L Eddy % (Auto) 10.3 H Eos % (Auto) 2.1 Baso % (Auto) 2.7 H Absolute Neuts (auto) 3.8 Absolute Lymphs (auto) 0.7 L Absolute Monos (auto) 0.5 Absolute Eos (auto) 0.1 Absolute Basos (auto) 0.1 Absolute Nucleated RBC 0 Nucleated RBC % 0 ESR 11 Sodium 135 Potassium 4.2 Chloride 102 Carbon Dioxide 28 Anion Gap 5 BUN 5 L Creatinine 0.50 L Est GFR ( Amer) 159.2 Est GFR (Non-Af Amer) 123.8 BUN/Creatinine Ratio 10.0 Glucose 94 Calcium 8.1 L Magnesium 2.2 Total Bilirubin 0.70 AST 8 L ALT 4 L Alkaline Phosphatase 101 Total Protein 5.1 L Albumin 2.9 L Globulin 2.2 Albumin/Globulin Ratio 1.3 Gen: 67 yo female who is tearful and frustrated, but in NAD CV: RRR, no m/r/g Resp: lungs CTA, no w/c/r Abd: somewhat bloated, nonTTP Ext: 2+ pitting edema Skin: No rashes Neuro: strength grossly intact, reduced sensation of distal extremities] Assessment: [This is a 67 yo female with plasma cell leukemia who has been admitted with severe Cdiff infection causing toxic megacolon complicated by a peripheral neuropathy.] Plan: [1. Toxic megacolon - still having some diarrhea, no new findings on KUB. Cont oral vanco 2. Peripheral neuropathy - appreciate input from neurology. NCS c/w peripheral neuropathy. Causes are likely drug toxicity v paraneoplastic. Cont gabapentin for pain 3. Hypokalemia/hypomagnesemia - appropriately repleted at this time, cont to monitor 4. Anasarca - cont to diuress with IV Lasix 5. Plasma cell leukemia - chemo has been held at this time until functional status recovers 6. DVT prophylaxis - SQ heparin Dispo - plan for dc to [facility], likely ready in 1-2d. Plan reviewed with pts daughter, Ruthie by phone]
[2017-12-18] MEDS: Heparin VIAL(*) 5000 UNITS/ML VIAL (FIVE THOUSAND) SUBCUT SCH (05:57)
[2017-12-18] MEDS: Furosemide IV* 10 MG/ML VIAL (40 MG) IV SCH (09:38)
[2017-12-18] MEDS: DULoxetine DR CAP* 60 MG CAP.DR PO SCH (09:39)
[2017-12-18] MEDS: Gabapentin CAP(*) 100 MG PO SCH (09:39)
[2017-12-18] MEDS: Potassium Chlor TAB* 20 MEQ TAB.ER PO SCH (09:39)
[2017-12-18] MEDS: Vancomycin CAP* 125 MG CAP PO SCH (09:39)
[2017-12-18] MEDS: Magic Mouth Was-BEN/MAAL/LIDO SWISH SPIT SCH (09:39)
--- NOTE | 2017-12-18 12:32 | DS ---
CC: Dr. Anne Wisdom; [facility] * DISCHARGE SUMMARY DATE OF ADMISSION: 12/02/17 DATE OF DISCHARGE: 12/18/17 CHIEF COMPLAINT: 1. Toxic megacolon. 2. Severe peripheral neuropathy. 3. Plasma cell leukemia. Betzy Junior is a 67-year-old female diagnosed with multiple myeloma and actually plasma cell leukemia in late 2017. The initial ability to give her chemotherapy was delayed by both nonpathologic hip fracture and by multiple infections including cellulitis for which she received ongoing antibiotics. She was treated for her plasma cell leukemia with Velcade, Revlimid and dexamethasone, having been most recently treated on 11/28/17. She was admitted this time with multiple episodes of diarrhea, along with nausea and vomiting, with up to 20 stools per day. On admission she was found to have on her CT scan toxic megacolon/10 cm dilation of her colon. There was a possibility that this could have been due to her chemotherapy with Velcade, but her C. diff did come back positive making it most likely that this was a C. diff induced toxic megacolon/paralytic ileus. At the time of admission she was also in acute renal failure with a creatinine of 1.09, with BUN of 35 up from her baseline. Hyponatremia with a sodium of 122. She had thrombocytopenia from her chemotherapy along with anemia with a hemoglobin of 7.4 and platelet count of 31 ,000. The patient was admitted to the hospital by the Hospitalist Service covering for us and then transferred to our service. Multiple studies were performed in the first several days in the hospital including a venous Doppler, given the peripheral edema, which did not reveal any evidence for deep vein thrombosis. Transthoracic echocardiogram was obtained as well which did not reveal any significant abnormalities, other than mildly decreased ejection fraction of 45% to 50%. During the hospital course she was initially treated with a combination of Flagyl and vancomycin both oral and then switched over to just Flagyl. About skilled nursing through the hospital stay she developed severe neuropathy effecting all 4 extremities with both sensory and motor component. 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 The Flagyl was discontinued and she was maintained on just vancomycin. When she subsequently complained of the neuropathy being worse effecting not just all 4 extremities, but also some numbness in the abdominal region, a Neurology consultation was obtained and Neurology continued to follow the patient. They felt that the neuropathy was most likely due to her chemotherapy with Velcade and Revlimid, although this would have been extremely early for this severe neuropathy from chemotherapy medications. Multiple other etiologies for the neuropathy were considered by Neurology and multiple studies were sent off, most of which are still pending at the time of this discharge. The patient has continued to be severely debilitated by the neuropathy, by ongoing diarrhea though it is improving with now about 4-6 loose stools per day. She continues to have some abdominal pain, although this is mostly after eating and then relieved after having a bowel movement. She is extremely in terms of her ability to care for herself due to the severe neuropathy. Fortunately her myeloma has remained under good control with most recent CBC with a white count of 5300, hematocrit 26, hemoglobin 8.8 and a platelet count 344,000 without any plasma cells on peripheral smear. It should be noted in the past she has had white counts as high as 100,000 with up to 80% plasma cells. At the time of discharge electrolytes include sodium 135, potassium 4.2, chloride 102, bicarb 28, BUN 5, creatinine 0.5 similar to her baseline and calcium level of 8.1. Glucose is 94. Albumin is diminished at 2.9, although this not terribly lower than her baseline of the past several months. PHYSICAL EXAMINATION: At the time of discharge includes vital signs with blood pressure 126/76, although as low as 93/73 in the last 24 hours. Pulse of 93. Afebrile. HEENT: Moist mucous membranes, no thrush. No palpable adenopathy. Heart: Regular rate and rhythm without murmurs, rubs or gallop. Lungs: Clear. Abdomen: Slightly distended. She does complain of some mild tenderness in bilateral lower quadrants without guarding or rebound. Extremities: Still reveal 3+ pitting edema, although her weight is down dramatically since early in the hospitalization, down from 195 pounds early on in the hospitalization to 166, still about 10-15 pounds above baseline. MEDICATIONS AT THE TIME OF DISCHARGE: Include: 1. Vancomycin 250 mg t.i.d. p.o. with a plan to decrease this to 125 t.i.d. p.o. in approximately 3-4 days. 2. Neurontin 200 mg p.o. t.i.d. 3. Duloxetine 60 mg daily. 4. Potassium 20 mEq t.i.d., decreased from 40 t.i.d. as her potassium level has improved. 5. She will be maintained on oral furosemide now at 20 mg a day having previously been on IV at 40 mg a day. DISCHARGE DIAGNOSES: 1. Toxic megacolon with C. difficile diarrhea. 2. Severe sensorimotor neuropathy effecting all 4 extremities. 3. Plasma cell leukemia. 4. Cytopenia significantly improved off of current chemotherapy. 5. History of COPD. 6. Status post parathyroidectomy with hyperparathyroidism. 7. Depression. PLAN: For her to be at the [facility] to receive care for rehab. She will have laboratory studies done in 3-5 days including a CBC and a BMP. She will be seen back in the office in approximately 10-14 days' time. It is clear that she will not be able to receive further RVD chemotherapy and as such will need to be switched to another chemotherapy once the neuropathy improves. Fortunately her plasma cell leukemia/multiple myeloma is under good control at the present time and we are safe to hold off on her therapy until she is improved in terms of her overall status. [id number]/[facility] #: [id number] MTDD
[2017-12-18 12:54] VITALS: BP 131/79
== END 2017-12-18 13:25 | DRG 371 ==
LOC: ED 22:58 → ICU 12-02 02:38 → MED 12-06 11:13
PROVIDERS: ADMIT Internal Medicine; ATTEND Internal Medicine Hematology & Oncology
PROC: 30233N1 Transfusion of Nonautologous Red Blood Cells into Peripheral Vein, Percutaneous Approach (ICD-10-PCS; principal; 2017-12-13)
DX: A04.72 Enterocolitis due to Clostridium difficile, not specified as recurrent (principal); D61.810 Antineoplastic chemotherapy induced pancytopenia; R57.1 Hypovolemic shock; N17.9 Acute kidney failure, unspecified; C90.10 Plasma cell leukemia not having achieved remission; J90 Pleural effusion, not elsewhere classified; I95.9 Hypotension, unspecified; E87.2 Acidosis; C90.00 Multiple myeloma not having achieved remission; E87.1 Hypo-osmolality and hyponatremia; R18.8 Other ascites; D69.59 Other secondary thrombocytopenia; M19.90 Unspecified osteoarthritis, unspecified site; M81.0 Age-related osteoporosis without current pathological fracture; K12.30 Oral mucositis (ulcerative), unspecified; F41.0 Panic disorder [episodic paroxysmal anxiety]; G62.0 Drug-induced polyneuropathy; T45.1X5A Adverse effect of antineoplastic and immunosuppressive drugs, initial encounter; J44.9 Chronic obstructive pulmonary disease, unspecified; E89.2 Postprocedural hypoparathyroidism; D64.9 Anemia, unspecified; E83.51 Hypocalcemia; E87.6 Hypokalemia; E83.42 Hypomagnesemia; R60.1 Generalized edema; F32.9 Major depressive disorder, single episode, unspecified; Z80.51 Family history of malignant neoplasm of kidney; Z83.79 Family history of other diseases of the digestive system; Z87.891 Personal history of nicotine dependence; Z92.21 Personal history of antineoplastic chemotherapy; Z98.51 Tubal ligation status; Z82.5 Family history of asthma and other chronic lower respiratory diseases; Y92.9 Unspecified place or not applicable; Z80.3 Family history of malignant neoplasm of breast
CPT/HCPCS: 36415; 36430; 70450; 71045; 74018; 74019; 74176; 80048; 80053; 81003; 81015; 82150; 82272; 82533; 82542; 82553; 82607; 82746; 82784; 83516; 83519; 83520; 83605; 83630; 83690; 83735; 83921; 84134; 84155; 84165; 84207; 84425; 84446; 85025; 85049; 85060; 85610; 85652; 85730; 86038; 86140; 86235; 86255; 86256; 86850; 86900; 86901; 86922; 87040; 87045; 87046; 87086; 87493; 87497; 87502; 87641; 87899; 93306; 93970; 94640; 95885; 95886; 95911; 99213; 99232; 99233; 99239; 99285; A9270-GY; G0463; J0744; J1100; J1644; J1720; J1940; J1956; J2270; J2405; J3475; J3480; J3490; P9035; P9040; P9047

== ENCOUNTER 2018-02-05 17:33 | Inpatient (IN) | payer MEDICARE, OTHER ==
[2018-02-05] MEDS ORDERED: NS 0.9% 1000 ML* 1,000 ML IV ONE ×2 (17:49→19:09)
[2018-02-05] MEDS ORDERED: Aspirin 81 mg CHEW TAB* 81 MG TAB.CHEW PO ONE (17:50)
[2018-02-05 18:41] LABS: EGFR Non-African American 54.8 (>60)
--- NOTE | 2018-02-05 19:07 | RAD ---
Indication: Chest pain, shortness of breath. Single frontal view of the chest performed at 1835 hours was reviewed. Comparison is made with previous exam dated December 10, 2017. Cardiomegaly is noted. Right basilar airspace disease is noted. No pleural fluid is noted. IMPRESSION: CARDIOMEGALY. RIGHT BASILAR AIRSPACE DISEASE MAY REPRESENT PNEUMONIA.
[2018-02-05 19:14] LABS: Hematocrit 29 % (35-47); Hemoglobin 9.7 g/dl (12.0-16.0); Mean Corpuscular HGB Conc 34 g/dl (31-36); Mean Corpuscular Hemoglobin 29 pg (27-31); Mean Corpuscular Volume 87 fL (80-97); Mean Platelet Volume 7.9 um3 (7.4-10.4); Platelet Count 69 10^3/ul (150-450); Red Cell Distribution Width 16 % (10.5-15); White Blood Count 10.6 10^3/ul (3.5-10.8)
[2018-02-05] MEDS ORDERED: Iodixanol* (CONTRAST) 320 MG/ML 100 ML SDV IV ONE (19:15)
[2018-02-05 19:30] LABS: ABS Basophils 0.1 10^3/ul (0-0.2); ABS Eosinophils 0.3 10^3/ul (0-0.6); ABS Monocytes 2.3 10^3/ul (0-0.8); ABS Neutrophils 5.8 10^3/ul (1.5-7.7); ABS Nucleated RBC 0.1 10^3/ul
--- NOTE | 2018-02-05 19:41 | RAD ---
Indication: Shortness of breath, chest pain and leg swelling. Contrast: Administered 79.1 ml of VISAPAQUE 320 mg/ml CTA of the chest was performed after IV contrast administration. Coronal and sagittal reconstructed images were obtained. The pulmonary arterial tree is well opacified. There is a filling defect in the segmental branch of the left upper lobe artery. There is peripheral airspace disease noted in the anterior right upper lobe. I cannot totally exclude a pulmonary infarct in this area. No other pulmonary embolus is noted. The aorta demonstrates no evidence of aortic dissection or aneurysmal dilatation. The mediastinum demonstrates no evidence of mediastinal or hilar adenopathy. There is a moderate-sized right-sided pleural effusion with compressive atelectasis in the right base. The left lung field appears clear. The abdominal organs demonstrate bilateral adrenal hyperplasia. IMPRESSION: Pulmonary embolus in the anterior segmental branch of the right upper lobe pulmonary artery. There is peripheral airspace disease noted which may be sequela from pulmonary infarct or pneumonia. Moderate size right pleural effusion with compressive atelectasis in the right base. Pneumonia in the right lower lobe cannot be excluded. Bilateral adrenal hyperplasia is present.
[2018-02-05] MEDS ORDERED: Levofloxacin 750 MG IVPREMIX(* 750 MG/150 ML BAG IVPB ONE (19:55)
[2018-02-05] MEDS ORDERED: Enoxaparin(*) 100 MG/ML SYR SUBCUT ONE (19:55)
[2018-02-05 20:08] LABS: Monocytes % 13 % (0-7)
--- NOTE | 2018-02-05 20:08 | ED ---
Dean Shepherd Stephanie, scribed for De Dyer MD on 02/05/18 at 1821 . HPI Chest Pain - HPI Summary HPI Summary: The pt is a 68 y/o F presenting to the ED with c/o CP that began this morning. Symptoms include dry cough, bilateral calf pain, diaphoresis at night and chronic lower back pain. She denies productive cough. The pt was recently dx with bronchitis, tx with zpack which she finished yesterday. Aggravating factors include deep breaths. The pt is a former heavy smoker and quit 8 months ago. The pt usually walks with a walker. 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 Negative: Productive Cough - Additional Pertinent History Primary Care Physician: [id number] - Allergy/Home Medications Allergies/Adverse Reactions: Allergies Allergy/AdvReac Type Severity Reaction Status Date / Time No Known Allergies Allergy Verified 11/09/17 15:49 Home Medications: Home Medications Acetaminophen TAB* [Tylenol TAB*] 650 mg PO Q4H PRN MDD 3000 mg 02/05/18 [ History Confirmed 02/05/18] Albuterol HFA INHALER* [Ventolin HFA Inhaler*] 2 puff INH Q4H PRN 02/05/18 [ History Confirmed 02/05/18] DULoxetine DR CAP* [Cymbalta CAP*] 60 mg PO DAILY 02/05/18 [History Confirmed ] Furosemide TAB* [Lasix TAB*] 20 mg PO DAILY 02/05/18 [History Confirmed 02/05/18 ] Gabapentin CAP(*) [Neurontin 100 mg CAP(*)] 200 mg PO TID 02/05/18 [History Confirmed 02/05/18] Montelukast Sodium TAB* [Singulair TAB*] 10 mg PO DAILY 02/05/18 [History Confirmed 02/05/18] Multivitamins/Minerals TAB* [Theragran/minerals TAB*] 1 tab PO DAILY 02/05/18 [ History Confirmed 02/05/18] Potassium Chlor TAB* [Klor Con ER TAB*] 10 meq PO DAILY 02/05/18 [History Confirmed 02/05/18] oxyCODONE/Acetam5/325MG PREPAK [Percocet 5/325 TAB*] 1 tab PO Q4H PRN 02/05/18 [ History Confirmed 02/05/18] PMH/Surg Hx/FS Hx/Imm Hx Endocrine/Hematology History: Reports: Hx Thyroid Disease, Hx Anemia Denies: Hx Diabetes Cardiovascular History: Reports: Hx Hypertension, Other Cardiovascular Problems/ Disorders - cath without stents Denies: Hx Pacemaker/ICD Respiratory History: Reports: Hx Asthma, Hx Chronic Obstructive Pulmonary Disease (COPD) GI History: Reports: Hx Gastroesophageal Reflux Disease Denies: Hx Ulcer Musculoskeletal History: Reports: Hx Arthritis, Hx Osteoporosis Sensory History: Reports: Hx Contacts or Glasses Denies: Hx Hearing Aid, Hx Hearing Problem Opthamlomology History: Reports: Hx Contacts or Glasses Psychiatric History: Reports: Hx Anxiety, Hx Depression, Hx Panic Disorder - Cancer History Cancer Type, Location and Year: multiple myeloma, September 2017 Hx Chemotherapy: Yes Hx Radiation Therapy: No - Surgical History Surgery Procedure, Year, and Place: TUBAL LIGATION,PARATHYROID, L HAND SURGERY IN [employer], CARDIAC CATH WITHOUT STENTS Hx Anesthesia Reactions: No Infectious Disease History: Denies: Hx Hepatitis, Hx Human Immunodeficiency Virus (HIV), Hx of Known/ Suspected MRSA, Hx Shingles, Hx Tuberculosis, Hx Known/Suspected VRE, Hx Known/ Suspected VRSA - Family History Known Family History: Negative: Renal Disease Family History: COPD and Kidney cancer - Social History Occupation: Retired Lives: With Family Alcohol Use: None Hx Substance Use: No Substance Use Type: Reports: None Hx Tobacco Use: Yes Smoking Status (MU): Former Smoker Type: Cigarettes Length of Time of Smoking/Using Tobacco: 45-50 years Have You Smoked in the Last Year: Yes Review of Systems Positive: Skin Diaphoresis. Negative: Fever Positive: Chest Pain Positive: Cough Positive: Other - bilateral calf pain, chronic lower back pain All Other Systems Reviewed And Are Negative: Yes Physical Exam - Summary Physical Exam Summary: Appearance: Well appearing, no pain distress Skin: warm, dry, reflects adequate perfusion Head/face: normal Eyes: EOMI, JC ENT: normal Neck: supple, non-tender Respiratory: CTA, breath sounds present Cardiovascular: RRR, pulses symmetrical Abdomen: non-tender, soft Bowel Sounds: present Musculoskeletal: strength/ROM intact, pitting edema in R lower leg Neuro: normal, sensory motor intact, A&Ox3 Triage Information Reviewed: Yes Vital Signs On Initial Exam: Initial Vitals Pulse Resp Pulse Ox 101 22 97 02/05/18 17:59 02/05/18 17:59 02/05/18 17:59 Vital Signs Reviewed: Yes Diagnostics - Vital Signs Vital Signs Pulse Resp BP Pulse Ox 02/05/18 19:01 95 29 95 02/05/18 19:00 97 23 103/72 95 02/05/18 18:43 95 02/05/18 18:01 110 27 93 02/05/18 18:00 96 17 103/69 98 02/05/18 17:59 101 22 97 - Laboratory Lab Results: Lab Results 02/05/18 02/05/18 02/05/18 Range/Units 18:16 18:16 18:16 WBC 10.6 (3.5-10.8) 10^3/ul RBC 3.30 L (4.0-5.4) 10^6/ul Hgb 9.7 L (12.0-16.0) g/dl Hct 29 L (35-47) % MCV 87 (80-97) fL MCH 29 (27-31) pg MCHC 34 (31-36) g/dl RDW 16 H (10.5-15) % Plt Count 69 L (150-450) 10^3/ul MPV 7.9 (7.4-10.4) um3 Neut % (Auto) Not Reportable Lymph % (Auto) Not Reportable [place] % (Auto) Not Reportable Eos % (Auto) Not Reportable Baso % (Auto) Not Reportable Absolute Neuts (auto) 5.8 (1.5-7.7) 10^3/ul Absolute Lymphs (auto) 2.0 (1.0-4.8) 10^3/ul Absolute Monos (auto) 2.3 H (0-0.8) 10^3/ul Absolute Eos (auto) 0.3 (0-0.6) 10^3/ul Absolute Basos (auto) 0.1 (0-0.2) 10^3/ul Absolute Nucleated RBC 0.1 10^3/ul Neutrophils % Pending Nucleated RBC % Not Reportable Normal RBC Morphology Pending Sodium 130 L (139-145) mmol/L Potassium 4.6 (3.5-5.0) mmol/L Chloride 92 L (101-111) mmol/L Carbon Dioxide 24 (22-32) mmol/L Anion Gap 14 H (2-11) mmol/L BUN 15 (6-24) mg/dL Creatinine 1.01 H (0.51-0.95) mg/dL Est GFR ( Amer) 70.5 (>60) Est GFR (Non-Af Amer) 54.8 (>60) BUN/Creatinine Ratio 14.9 (8-20) Glucose 103 H (70-100) mg/dL Lactic Acid 2.3 H* (0.5-2.0) mmol/L Calcium 9.9 (8.6-10.3) mg/dL Total Bilirubin 0.60 (0.2-1.0) mg/dL AST 9 L (13-39) U/L ALT 6 L (7-52) U/L Alkaline Phosphatase 87 (34-104) U/L Troponin I 0.01 (<0.04) ng/mL Total Protein 9.3 H (6.4-8.9) g/dL Albumin 3.0 L (3.2-5.2) g/dL Globulin 6.3 H (2-4) g/dL Albumin/Globulin Ratio 0.5 L (1-3) TSH 5.76 H (0.34-5.60) mcIU/mL Result Diagrams: 02/05/18 18:16 02/05/18 18:16 Lab Statement: Any lab studies that have been ordered have been reviewed, and results considered in the medical decision making process. - Radiology CXR Xray Interpretation: Positive (See Comments) Radiology Interpretation Completed By: Radiologist - CARDIOMEGALY. RIGHT BASILAR AIRSPACE DISEASE MAY REPRESENT PNEUMONIA. ED physician reviewed this report. - CT No standard instances CT Interpretation: Positive (See Comments) CT Interpretation Completed By: Radiologist - CTA of the chest: Sizable right basilar effusion with adjacent infiltrate. Possible pulmonary infarct. Also right-sided pulmonary embolism. - EKG 17:38 Cardiac Rate: Tachycardia EKG Rhythm: Sinus Tachycardia - 104 ST Segment: Non-Specific Ectopy: None EKG Interpretation: L axis deviation, QTc of 486 Re-Evaluation - Re-Evaluation First Eval Change: Unchanged - Patient remained stable throughout ER course. Chest Pain Course/Dx - Course Course Of Treatment: Patient with chest pain and history of multiple myeloma with multiple risk factors for PE and pneumonia. There is no wheezing consistent with COPD exacerbation. A chest x-ray shows infiltrate versus atelectasis versus effusion the right base. CT scan was performed and confirms pulmonary embolism in the right side as well as some infiltrate and a large right basilar effusion. She was given IV antibiotics, started on Lovenox and hydrated. DVT scans will be performed to the lower extremities with suspected DVT in the right leg given the asymmetric swelling. I will let the oncologist know and the nighttime hospitalist will admit the patient. - Chest Pain Differential Diagnosis/HQI/PQRI: Acute NV, ACS, CHF, GI Disease, Lower Respiratory Infection, Pulmonary Edema, Pulmonary Embolism - Diagnoses Provider Diagnoses: Pulmonary embolism on right, Pleural effusion on right, Pneumonia involving right lung, Multiple myeloma - Provider Notifications Discussed Care Of Patient With: Jt Lujan - we will admit the patient. Discussed with Dr. Alvarado -- oncology to assume care in am. Instructed by Provider To: Admit As Inpatient - Critical Care Time Critical Care Time: 30-74 min - Critical care time excludes separately billable procedures Discharge - Sign-Out/Discharge Documenting (check all that apply): Discharge/Admit/Transfer - Discharge Plan Condition: Fair Disposition: ADMITTED TO [facility] Referrals: Anne Villarreal MD [Primary Care Provider] - - Billing Disposition and Condition Condition: FAIR [place] [facility] [place] The documentation as recorded by the Dean hardy Stephanie accurately reflects the service I personally performed and the decisions made by , De Dyer MD.
[2018-02-05] MEDS ORDERED: Albuterol 2.5 MG/3 ML NEB.SOL* (0.083%) INH PRN (20:26)
[2018-02-05] MEDS ORDERED: Acetaminophen TAB* 325 MG PO PRN (20:26)
[2018-02-05] MEDS ORDERED: Ondansetron INJ* 2 MG/ML VIAL IV PRN (20:31)
[2018-02-05] MEDS ORDERED: Morphine VIAL* 4 MG/ML VIAL (1 ml vial) IV PRN (20:31)
[2018-02-05] MEDS ORDERED: NS 0.9% 1000 ML* 1,000 ML IV SCH (20:45)
--- NOTE | 2018-02-05 20:59 | RAD ---
Indication: Pulmonary embolus, bilateral leg edema. Duplex Doppler sonography of the deep venous system of both lower extremities was performed. Bilaterally the common femoral veins, proximal greater saphenous veins, proximal deep femoral veins, femoral veins, appear patent and compressible. Echogenic material is noted in the right popliteal vein, gastrocnemius veins, posterior tibial veins and peroneal veins. The left popliteal vein, posterior tibial veins and peroneal veins are patent. IMPRESSION: Deep venous thrombosis involving the right popliteal vein, gastrocnemius veins, posterior tibial veins and peroneal veins.
--- NOTE | 2018-02-05 21:06 | HP ---
H&P (Free Text) History and Physical: PCP: Alma Delia Villarreal MD Oncology: Samantha Quesada MD Date/Time: 02/05/20181944 CC: chest pain, SOB HPI: Mrs Junior is a 68YO female HX COPD, multiple myeloma, & hyperparathyroidism who was admitted [place] [facility] [place]18[place]2017 with discharge diagnoses of toxic megacolon, severe peripheral neuropathy, & plasma cell leukemia who now presents with increased SOB of 2 weeks duration worse over the past 2 days and now associated with sharp chest pain worse with deep inspiration , night sweats, & BLE swelling. She has severe B peripheral neuropathy, but there is a significant increase in LLE calf pain. ED evaluation is most notable for a CTA chest positive for PE with RUL pneumonia vs pulmonary infarct. She has been given SQ enoxaparin 1mg/kg in ED. PMedHx multiple myeloma severe BLE peripheral neuropathy COPD Ambulatory Orders Acetaminophen TAB* [Tylenol TAB*] 650 mg PO Q4H PRN MDD 3000 mg 02/05/18 Albuterol HFA INHALER* [Ventolin HFA Inhaler*] 2 puff INH Q4H PRN 02/05/[address] CAP* [Cymbalta CAP*] 60 mg PO DAILY 02/05/18 Furosemide TAB* [Lasix TAB*] 20 mg PO DAILY 02/05/18 Gabapentin CAP(*) [Neurontin 100 mg CAP(*)] 200 mg PO TID 02/05/18 Montelukast Sodium TAB* [Singulair TAB*] 10 mg PO DAILY 02/05/18 Multivitamins/Minerals TAB* [Theragran/minerals TAB*] 1 tab PO DAILY 02/05/18 Potassium Chlor TAB* [Klor Con ER TAB*] 10 meq PO DAILY 02/05/18 oxyCODONE/Acetam5/325MG PREPAK [Percocet 5/325 TAB*] 1 tab PO Q4H PRN 02/05/18 Allergies morphine Allergy (Verified 02/05/18 22:35) Hallucinations SocHx: former smoker, no significant alcohol, no recreational drugs; lives alone ; full code status FamHx: positive for renal cell CA & cirrhosis ROS: as above, otherwise reviewed and all were negative vitals: Vital Signs Temp 36.8 C 02/05/18 22:25 Pulse 91 02/05/18 22:25 Resp 18 02/06/18 01:43 BP 92/54 02/05/18 22:25 Pulse Ox 98 02/05/18 22:25 Intake & Output 02/05/18 02/05/18 02/06/18 11:59 23:59 11:59 Intake Total 2149 Balance 2149 Weight 59.103 kg Intake: IV Fluids 0 Oral 0 Constitutional: NAD, normally developed, well-nourished white female appearing older than her recorded age HEENM: atraumatic; sclera/conjunctiva: anicteric/clear; hearing: clinically intact; oropharynx: clear, mucosa tacky Neck: soft tissue: non-tender; thyroid: normal Pulmonary: clear to auscultation bilaterally, good aeration, no accessory muscle use CV: RR/RR, normal S1S2, no carotid bruit, no jugular venous distention, 2+ B DP/ PT, 1+RLE/trace LLE edema Abdominal: soft, non-distended, non-tender, no rebound/guarding/rigidity, normoactive bowel sounds, no hepatosplenomegaly or masses, no costovertebral angle tenderness Musculoskeletal: general: grossly intact, tender L>R calf although the edema is R>L Integumental: hemosiderin deposition distal 1/3 BLE Psychiatric orientation: AA&O to PPS affect: flat mood: cooperative eye contact: fair content: reliable responses: timely insight: good Testing: Lab Results 02/05/18 02/05/18 02/05/18 Range/Units 18:16 18:16 18:16 WBC 10.6 (3.5-10.8) 10^3/ul RBC 3.30 L (4.0-5.4) 10^6/ul Hgb 9.7 L (12.0-16.0) g/dl Hct 29 L (35-47) % MCV 87 (80-97) fL MCH 29 (27-31) pg MCHC 34 (31-36) g/dl RDW 16 H (10.5-15) % Plt Count 69 L (150-450) 10^3/ul MPV 7.9 (7.4-10.4) um3 Neut % (Auto) Not Reportable Lymph % (Auto) Not Reportable [place] % (Auto) Not Reportable Eos % (Auto) Not Reportable Baso % (Auto) Not Reportable Absolute Neuts (auto) 5.8 (1.5-7.7) 10^3/ul Absolute Lymphs (auto) 2.0 (1.0-4.8) 10^3/ul Absolute Monos (auto) 2.3 H (0-0.8) 10^3/ul Absolute Eos (auto) 0.3 (0-0.6) 10^3/ul Absolute Basos (auto) 0.1 (0-0.2) 10^3/ul Absolute Nucleated RBC 0.1 10^3/ul Immature Gran % 10 H (0-9) % Neutrophils % 39 (38-83) % Band Neutrophils % 4 (0-8) % Lymphocytes % 23 L (25-47) % Reactive Lymphs % 11 H D (0-6) % Monocytes % 13 H (0-7) % Eosinophils % 4 (0-6) % Basophils % 0 (0-2) % Metamyelocytes % 3 H (0-2) % Myelocytes % 2 H (0-1) % Promyelocytes % 1 % Nucleated RBC % Not Reportable Abs Neuts (Manual) 4.1 (1.5-7.7) 10^3/ul Abs Lymphs (Manual) 2.4 (1.0-4.8) 10^3/ul Abs Monocytes (Manual) 1.4 H (0-0.8) 10^3/ul Absolute Eos (Manual) 0.4 (0-0.6) 10^3/ul Abs Basophils (Manual) 0 (0-0.2) 10^3/ul Nucleated RBCs/100 WBC 1 H (0-0) Normal RBC Morphology Not Reportable Anisocytosis 1+ Hem Pathologist Commnt Pending Sodium 130 L (139-145) mmol/L Potassium 4.6 (3.5-5.0) mmol/L Chloride 92 L (101-111) mmol/L Carbon Dioxide 24 (22-32) mmol/L Anion Gap 14 H (2-11) mmol/L BUN 15 (6-24) mg/dL Creatinine 1.01 H (0.51-0.95) mg/dL Est GFR ( Amer) 70.5 (>60) Est GFR (Non-Af Amer) 54.8 (>60) BUN/Creatinine Ratio 14.9 (8-20) Glucose 103 H (70-100) mg/dL Lactic Acid 2.3 H* (0.5-2.0) mmol/L Calcium 9.9 (8.6-10.3) mg/dL Total Bilirubin 0.60 (0.2-1.0) mg/dL AST 9 L (13-39) U/L ALT 6 L (7-52) U/L Alkaline Phosphatase 87 (34-104) U/L Troponin I 0.01 (<0.04) ng/mL Total Protein 9.3 H (6.4-8.9) g/dL Albumin 3.0 L (3.2-5.2) g/dL Globulin 6.3 H (2-4) g/dL Albumin/Globulin Ratio 0.5 L (1-3) TSH 5.76 H (0.34-5.60) mcIU/mL Urine Color Urine Appearance Urine pH (5-9) Ur Specific [place] (1.010-1.030) Urine Protein (Negative) Urine Ketones (Negative) Urine Blood (Negative) Urine Nitrate (Negative) Urine Bilirubin (Negative) Urine Urobilinogen (Negative) Ur Leukocyte Esterase (Negative) Urine WBC (Auto) (Absent) Urine RBC (Auto) (Absent) Urine Bacteria (Absent) Hyaline Casts (Absent) Urine Glucose (Negative) Influenza A (Rapid) (Negative) Influenza B (Rapid) (Negative) 02/05/18 02/05/18 02/05/18 Range/Units 21:04 22:36 22:41 WBC (3.5-10.8) 10^3/ul RBC (4.0-5.4) 10^6/ul Hgb (12.0-16.0) g/dl Hct (35-47) % MCV (80-97) fL MCH (27-31) pg MCHC (31-36) g/dl RDW (10.5-15) % Plt Count (150-450) 10^3/ul MPV (7.4-10.4) um3 Neut % (Auto) Lymph % (Auto) [place] % (Auto) Eos % (Auto) Baso % (Auto) Absolute Neuts (auto) (1.5-7.7) 10^3/ul Absolute Lymphs (auto) (1.0-4.8) 10^3/ul Absolute Monos (auto) (0-0.8) 10^3/ul Absolute Eos (auto) (0-0.6) 10^3/ul Absolute Basos (auto) (0-0.2) 10^3/ul Absolute Nucleated RBC 10^3/ul Immature Gran % (0-9) % Neutrophils % (38-83) % Band Neutrophils % (0-8) % Lymphocytes % (25-47) % Reactive Lymphs % (0-6) % Monocytes % (0-7) % Eosinophils % (0-6) % Basophils % (0-2) % Metamyelocytes % (0-2) % Myelocytes % (0-1) % Promyelocytes % % Nucleated RBC % Abs Neuts (Manual) (1.5-7.7) 10^3/ul Abs Lymphs (Manual) (1.0-4.8) 10^3/ul Abs Monocytes (Manual) (0-0.8) 10^3/ul Absolute Eos (Manual) (0-0.6) 10^3/ul Abs Basophils (Manual) (0-0.2) 10^3/ul Nucleated RBCs/100 WBC (0-0) Normal RBC Morphology Anisocytosis Hem Pathologist Commnt Sodium (139-145) mmol/L Potassium (3.5-5.0) mmol/L Chloride (101-111) mmol/L Carbon Dioxide (22-32) mmol/L Anion Gap (2-11) mmol/L BUN (6-24) mg/dL Creatinine (0.51-0.95) mg/dL Est GFR ( Amer) (>60) Est GFR (Non-Af Amer) (>60) BUN/Creatinine Ratio (8-20) Glucose (70-100) mg/dL Lactic Acid (0.5-2.0) mmol/L Calcium (8.6-10.3) mg/dL Total Bilirubin (0.2-1.0) mg/dL AST (13-39) U/L ALT (7-52) U/L Alkaline Phosphatase (34-104) U/L Troponin I 0.01 (<0.04) ng/mL Total Protein (6.4-8.9) g/dL Albumin (3.2-5.2) g/dL Globulin (2-4) g/dL Albumin/Globulin Ratio (1-3) TSH (0.34-5.60) mcIU/mL Urine Color Yellow Urine Appearance Clear Urine pH 6.0 (5-9) Ur Specific [place] 1.020 (1.010-1.030) Urine Protein 2+(100 mg/dl) A (Negative) Urine Ketones Negative (Negative) Urine Blood Negative (Negative) Urine Nitrate Negative (Negative) Urine Bilirubin Negative (Negative) Urine Urobilinogen Negative (Negative) Ur Leukocyte Esterase Trace A (Negative) Urine WBC (Auto) Trace(0-5/hpf) (Absent) Urine RBC (Auto) Absent (Absent) Urine Bacteria Absent (Absent) Hyaline Casts Present A (Absent) Urine Glucose Negative (Negative) Influenza A (Rapid) Negative (Negative) Influenza B (Rapid) Negative (Negative) 02/06/18 02/06/18 Range/Units 00:50 00:50 WBC (3.5-10.8) 10^3/ul RBC (4.0-5.4) 10^6/ul Hgb (12.0-16.0) g/dl Hct (35-47) % MCV (80-97) fL MCH (27-31) pg MCHC (31-36) g/dl RDW (10.5-15) % Plt Count (150-450) 10^3/ul MPV (7.4-10.4) um3 Neut % (Auto) Lymph % (Auto) [place] % (Auto) Eos % (Auto) Baso % (Auto) Absolute Neuts (auto) (1.5-7.7) 10^3/ul Absolute Lymphs (auto) (1.0-4.8) 10^3/ul Absolute Monos (auto) (0-0.8) 10^3/ul Absolute Eos (auto) (0-0.6) 10^3/ul Absolute Basos (auto) (0-0.2) 10^3/ul Absolute Nucleated RBC 10^3/ul Immature Gran % (0-9) % Neutrophils % (38-83) % Band Neutrophils % (0-8) % Lymphocytes % (25-47) % Reactive Lymphs % (0-6) % Monocytes % (0-7) % Eosinophils % (0-6) % Basophils % (0-2) % Metamyelocytes % (0-2) % Myelocytes % (0-1) % Promyelocytes % % Nucleated RBC % Abs Neuts (Manual) (1.5-7.7) 10^3/ul Abs Lymphs (Manual) (1.0-4.8) 10^3/ul Abs Monocytes (Manual) (0-0.8) 10^3/ul Absolute Eos (Manual) (0-0.6) 10^3/ul Abs Basophils (Manual) (0-0.2) 10^3/ul Nucleated RBCs/100 WBC (0-0) Normal RBC Morphology Anisocytosis Hem Pathologist Commnt Sodium (139-145) mmol/L Potassium (3.5-5.0) mmol/L Chloride (101-111) mmol/L Carbon Dioxide (22-32) mmol/L Anion Gap (2-11) mmol/L BUN (6-24) mg/dL Creatinine (0.51-0.95) mg/dL Est GFR ( Amer) (>60) Est GFR (Non-Af Amer) (>60) BUN/Creatinine Ratio (8-20) Glucose (70-100) mg/dL Lactic Acid 2.7 H* (0.5-2.0) mmol/L Calcium (8.6-10.3) mg/dL Total Bilirubin (0.2-1.0) mg/dL AST (13-39) U/L ALT (7-52) U/L Alkaline Phosphatase (34-104) U/L Troponin I 0.01 (<0.04) ng/mL Total Protein (6.4-8.9) g/dL Albumin (3.2-5.2) g/dL Globulin (2-4) g/dL Albumin/Globulin Ratio (1-3) TSH (0.34-5.60) mcIU/mL Urine Color Urine Appearance Urine pH (5-9) Ur Specific [place] (1.010-1.030) Urine Protein (Negative) Urine Ketones (Negative) Urine Blood (Negative) Urine Nitrate (Negative) Urine Bilirubin (Negative) Urine Urobilinogen (Negative) Ur Leukocyte Esterase (Negative) Urine WBC (Auto) (Absent) Urine RBC (Auto) (Absent) Urine Bacteria (Absent) Hyaline Casts (Absent) Urine Glucose (Negative) Influenza A (Rapid) (Negative) Influenza B (Rapid) (Negative) ECG, personally reviewed: sinus tachycardia rate 104, no ischemia CXR, personally reviewed: IMPRESSION: CARDIOMEGALY. RIGHT BASILAR AIRSPACE DISEASE MAY REPRESENT PNEUMONIA. CTA chest, personally reviewed: IMPRESSION: Pulmonary embolus in the anterior segmental branch of the right upper lobe pulmonary artery. There is peripheral airspace disease noted which may be sequela from pulmonary infarct or pneumonia. Moderate size right pleural effusion with compressive atelectasis in the right base. Pneumonia in the right lower lobe cannot be excluded. Bilateral adrenal hyperplasia is present. US venous BLE: IMPRESSION: Deep venous thrombosis involving the right popliteal vein, gastrocnemius veins, posterior tibial veins and peroneal veins. Impression: 68F HX COPD, multiple myeloma, & hyperparathyroidism presents with RLE DVT & PE DIAGNOSIS & PLAN Primary RLE DVT & PE : IV enoxaparin 1mg/kg SQ BID : pain control : supplemental oxygen : supportive care favor pulmonary infarct vs RUL pneumonia : blood & sputum CXs : empiric levofloxacin : negative influenza, Legionella, S pneumo Secondary multiple myeloma : management per oncology severe BLE peripheral neuropathy : continue duloxetine, oxycodoneAPAP, & gabapentin COPD : continue albuterol HFA & montelukast recent toxic megacolon : no acute issues Admission Rational: inpatient for initiation of anticoagulation for DVT/PE; inappropriate for outpatient setting DVTp: enoxaparin SQ Code Status: full HCP: daughter, Megan Olivo
[2018-02-05] MEDS ORDERED: Albuterol HFA INHALER* 8 gm MDI INH PRN (22:52)
[2018-02-05 23:14] LABS: Urine Appearance Clear; Urine Blood Negative (Negative); Urine Color Yellow; Urine Ketones Negative (Negative); Urine Protein 2+(100 mg/dL) (Negative); Urine Urobilinogen Negative (Negative)
[2018-02-05] MEDS: Gabapentin CAP(*) 100 MG PO SCH (23:35)
[2018-02-05] MEDS: Docusate CAP* 100 MG PO SCH (23:35)
[2018-02-06] MEDS ORDERED: NS 0.9% 1000 ML* 1,000 ML IV ONE (01:30)
[2018-02-06] MEDS: Omeprazole CAP* 20 MG PO SCH (05:41)
[2018-02-06] MEDS ORDERED: Enoxaparin(*) 100 MG/ML SYR SUBCUT ONE (08:00)
[2018-02-06 08:23] LABS: Hematocrit 26 % (35-47); Hemoglobin 8.9 g/dl (12.0-16.0); Mean Corpuscular HGB Conc 34 g/dl (31-36); Mean Corpuscular Hemoglobin 29 pg (27-31); Mean Corpuscular Volume 87 fL (80-97); Mean Platelet Volume 8.1 um3 (7.4-10.4); Platelet Count 56 10^3/ul (150-450); Red Blood Count 3.04 10^6/ul (4.0-5.4); Red Cell Distribution Width 17 % (10.5-15); White Blood Count 7.9 10^3/ul (3.5-10.8)
[2018-02-06 08:36] LABS: EGFR Non-African American 55.5 (>60)
[2018-02-06 08:40] LABS: ABS Basophils 0.1 10^3/ul (0-0.2); ABS Eosinophils 0.3 10^3/ul (0-0.6); ABS Lymphocytes 1.7 10^3/ul (1.0-4.8); ABS Monocytes 1.5 10^3/ul (0-0.8); ABS Neutrophils 4.3 10^3/ul (1.5-7.7)
--- NOTE | 2018-02-06 08:49 | ECHO ---
Patient: AFRICA SEGUNDO [facility] Rec#: [id number] : 1950 Date: 02/06/2018 Age: 68y Height: 152.4 cm / 60.0 in Weight: 58.97 kg / 130.0 lbs Sex: F BSA: 1.55 Room#: [facility] Admit Date#: 02/05/2018 Type: Inpatient Referring: Jt Lujan MD Reading: Joanna Stanley MD Coat Agent: Kia Aden RDCS CC: Anne Wisdom MD Transthoracic Echocardiogram Indication: Pulmonary embolism. BP: 99/63 HR: 100 Rhythm: Tachycardia Findings History: COPD, multiple myeloma, hyperparathyroidism, severe bilateral lower extremity peripheral neuropathy, former smoker. Technical Comments: The study quality is good. Completed at 0815. Left Ventricle: The left ventricular chamber size is normal. There is no left ventricular hypertrophy. There is global hypokinesis of the left ventricle with minor regional variation. There is severely decreased left ventricular systolic function. The estimated ejection fraction is 25-30%. There is septal flattening of the interventricular septum consistent with right ventricular volume or pressure overload. There is no consistent Doppler evidence of clinically significant diastolic dysfunction. The left ventricular diastolic filling pattern is consistent with elevated left ventricular end-diastolic pressure. Left Atrium: The left atrium is moderate to severely dilated. Right Ventricle: Moderator Band present. The right ventricle is mildly dilated. The right ventricular global systolic function is mildly to moderately reduced. Right Atrium: The right atrial cavity size is severely dilated. Aortic Valve: The aortic valve is trileaflet. The aortic valve leaflets are mildly thickened. There is a trace of aortic regurgitation. There is no evidence of aortic stenosis. Mitral Valve: There is mitral annular calcification. The mitral valve leaflets are moderately thickened. There is mild to moderate mitral regurgitation. There is no evidence of mitral stenosis. Tricuspid Valve: The tricuspid valve leaflets are mildly thickened. There is moderate tricuspid regurgitation. The right ventricular systolic pressure is estimated at 51 mmHg. There is evidence of moderate pulmonary hypertension. There is no tricuspid stenosis. Pulmonic Valve: The pulmonic valve appears normal. There is mild pulmonic regurgitation. There is no pulmonic stenosis. Pericardium: There is no significant pericardial effusion. Aorta: There is no dilatation of the ascending aorta. There is no dilatation of the aortic arch. The aortic root is normal in size. Pulmonary Artery: The main pulmonary artery appears normal. Venous: The inferior vena cava is dilated. There is less than 50% respiratory change in the inferior vena cava dimension. Conclusions There is severely decreased left ventricular systolic function, the estimated ejection fraction is 25-30%. There is global hypokinesis of the left ventricle with septal flattening of the interventricular septum consistent with right ventricular volume or pressure overload. The left ventricular diastolic filling pattern is consistent with elevated left ventricular end-diastolic pressure. The right ventricle is mildly dilated and global systolic function is mildly to moderately reduced. There is a trace of aortic regurgitation. There is mild to moderate mitral regurgitation. There is evidence of moderate pulmonary hypertension: 51 mmHg. The inferior vena cava is dilated. Compared with prior echo of 12/03/17, EF has decreased from 45-50%, RV function has decreased from low normal, prior MR was mild, TR stable, prior PA pressure estimated at 46 mmHg. Measurements Name Value Normal Range RVIDd (AP) 2D 3.5 cm (0.9 - 2.6) RVDdMajor (2D) 4.5 cm (2.2 - 4.4) RAd ISD 4CH 6.7 cm (3.4 - 4.9) RA (A4C)W 6.1 cm (2.9 - 4.6) IVSd (2D) 0.9 cm (0.6 - 1) LVPWd (2D) 0.9 cm (0.6 - 1) LVIDd (2D) 4.8 cm (3.6 - 5.4) LVIDs (2D) 4.3 cm - LV FS (2D) 12 % (25 - 45) Aortic Annulus 1.9 cm (1.4 - 2.6) Ao root diameter (2D) 3.1 cm (2.1 - 3.5) Ascending Ao 3 cm (2.1 - 3.4) Aortic arch 2.1 cm (1.8 - 3.4) LA dimension (AP) 2D 3.9 cm (2.3 - 3.8) LAd ISD 4CH 5.8 cm (2.9 - 5.3) LA ISD 4CH W 4.5 cm (2.5 - 4.5) Name Value Normal Range LA ESV SP 4CH (A/L) 75 ml - LA ESV SP 2CH (A/L) 69 ml - LA ESV BP (A/L) 72 ml - LA ESV BP (A/L) index 46 ml/m2 - LA ESV SP 4CH (MOD) 66 ml - LA ESV SP 2CH (MOD) 67 ml - Name Value Normal Range MV E-wave Vmax 1.28 m/sec - MV deceleration time 127 msec - MV A-wave Vmax 0.94 m/sec - MV E:A ratio 1.35 ratio - LV septal e' Vmax 0.05 m/sec - LV lateral e' Vmax 0.1 m/sec - LV E:e' septal ratio 25.6 ratio - LV E:e' lateral ratio 12.8 ratio - Name Value Normal Range AV Vmax 1.8 m/sec - AV VTI 28.62 cm - AV peak gradient 12.42 mmHg - AV mean gradient 6.77 mmHg - LVOT Vmax 1.53 m/sec - LVOT VTI 26.17 cm - LVOT peak gradient 9.43 mmHg - LVOT mean gradient 5.75 mmHg - TRENT Vmax 0.91 m/sec - Name Value Normal Range MR Vmax 4.45 m/sec - MR VTI 120.43 cm - MR flow (PISA) 37.1 ml/sec - MR ERO 0.08 cm2 - MR PISA radius 0.4 cm - MR alias Vmax 31 cm/sec - Name Value Normal Range TR Vmax 3 m/sec - TR peak gradient 36 mmHg - RAP 15 mmHg - RVSP 51 mmHg - IVC diameter 2.2 cm - Name Value Normal Range PV Vmax 0.74 m/sec - PV peak gradient 2.2 mmHg - WV end-diastolic Vmax 1.5 m/sec -
[2018-02-06] MEDS: Furosemide TAB* 20 MG PO SCH (09:18)
[2018-02-06] MEDS: Gabapentin CAP(*) 100 MG PO SCH ×4 (09:26→21:19)
[2018-02-06] MEDS: DULoxetine DR CAP* 60 MG CAP.DR PO SCH (09:26)
[2018-02-06] MEDS: Potassium Chlor TAB* 10 MEQ TAB.ER PO SCH (09:26)
[2018-02-06] MEDS: Montelukast Sodium TAB* 10 MG PO SCH (09:26)
[2018-02-06] MEDS: Docusate CAP* 100 MG PO SCH ×2 (09:27→21:13)
--- NOTE | 2018-02-06 11:06 | PN ---
Progress Note - Progress Note Date of Service: 02/06/18 SOAP: Subjective: reports that she went home from her SNF ~3 weeks ago. She developed progressive cough and chest pain, failing a course of abx. This prompted her to come in where she was found to have a PE and large right sided DVT. There is also new systolic heart failure with an EF of 25%. She does report SOB with any activity, but is not clear how long this has been going on. she continues to have a performance status of ~3 at home. She got one dose of 1.5mg/kg lovenox at 10 pm last night and another at 9 am this morning despite low platelets. no bleeding noted. Objective: Vital Signs Temp Pulse Resp BP Pulse Ox 97.8 F 102 18 88/49 97 02/06/18 08:11 02/06/18 08:11 02/06/18 09:26 02/06/18 08:11 02/06/18 08:11 sitting up in nad perr eomi op moist dec bs right base ~1/2 way up tachycardic soft nt +bs 2+ LE edema right, trace left 3-4/5 strength bl le did not ambulate flat affect Laboratory Results - last 24 hr 02/05/18 02/05/18 02/05/18 18:16 18:16 18:16 WBC 10.6 RBC 3.30 L Hgb 9.7 L Hct 29 L MCV 87 MCH 29 MCHC 34 RDW 16 H Plt Count 69 L MPV 7.9 Neut % (Auto) Not Reportable Lymph % (Auto) Not Reportable Weakley % (Auto) Not Reportable Eos % (Auto) Not Reportable Baso % (Auto) Not Reportable Absolute Neuts (auto) 5.8 Absolute Lymphs (auto) 2.0 Absolute Monos (auto) 2.3 H Absolute Eos (auto) 0.3 Absolute Basos (auto) 0.1 Absolute Nucleated RBC 0.1 Immature Gran % 10 H Neutrophils % 39 Band Neutrophils % 4 Lymphocytes % 23 L Reactive Lymphs % 11 H D Monocytes % 13 H Eosinophils % 4 Basophils % 0 Metamyelocytes % 3 H Myelocytes % 2 H Promyelocytes % 1 Nucleated RBC % Not Reportable Abs Neuts (Manual) 4.1 Abs Lymphs (Manual) 2.4 Abs Monocytes (Manual) 1.4 H Absolute Eos (Manual) 0.4 Abs Basophils (Manual) 0 Nucleated RBCs/100 WBC 1 H Normal RBC Morphology Not Reportable Anisocytosis 1+ Hem Pathologist Commnt Sodium 130 L Potassium 4.6 Chloride 92 L Carbon Dioxide 24 Anion Gap 14 H BUN 15 Creatinine 1.01 H Est GFR ( Amer) 70.5 Est GFR (Non-Af Amer) 54.8 BUN/Creatinine Ratio 14.9 Glucose 103 H Lactic Acid 2.3 H* Calcium 9.9 Total Bilirubin 0.60 AST 9 L ALT 6 L Alkaline Phosphatase 87 Troponin I 0.01 Total Protein 9.3 H Albumin 3.0 L Globulin 6.3 H Albumin/Globulin Ratio 0.5 L TSH 5.76 H Urine Color Urine Appearance Urine pH Ur Specific [place] Urine Protein Urine Ketones Urine Blood Urine Nitrate Urine Bilirubin Urine Urobilinogen Ur Leukocyte Esterase Urine WBC (Auto) Urine RBC (Auto) Urine Bacteria Hyaline Casts Urine Glucose Influenza A (Rapid) Influenza B (Rapid) 02/05/18 02/05/18 02/05/18 21:04 22:36 22:41 WBC RBC Hgb Hct MCV MCH MCHC RDW Plt Count MPV Neut % (Auto) Lymph % (Auto) Weakley % (Auto) Eos % (Auto) Baso % (Auto) Absolute Neuts (auto) Absolute Lymphs (auto) Absolute Monos (auto) Absolute Eos (auto) Absolute Basos (auto) Absolute Nucleated RBC Immature Gran % Neutrophils % Band Neutrophils % Lymphocytes % Reactive Lymphs % Monocytes % Eosinophils % Basophils % Metamyelocytes % Myelocytes % Promyelocytes % Nucleated RBC % Abs Neuts (Manual) Abs Lymphs (Manual) Abs Monocytes (Manual) Absolute Eos (Manual) Abs Basophils (Manual) Nucleated RBCs/100 WBC Normal RBC Morphology Anisocytosis Hem Pathologist Commnt Sodium Potassium Chloride Carbon Dioxide Anion Gap BUN Creatinine Est GFR ( Amer) Est GFR (Non-Af Amer) BUN/Creatinine Ratio Glucose Lactic Acid Calcium Total Bilirubin AST ALT Alkaline Phosphatase Troponin I 0.01 Total Protein Albumin Globulin Albumin/Globulin Ratio TSH Urine Color Yellow Urine Appearance Clear Urine pH 6.0 Ur Specific [place] 1.020 Urine Protein 2+(100 mg/dl) A Urine Ketones Negative Urine Blood Negative Urine Nitrate Negative Urine Bilirubin Negative Urine Urobilinogen Negative Ur Leukocyte Esterase Trace A Urine WBC (Auto) Trace(0-5/hpf) Urine RBC (Auto) Absent Urine Bacteria Absent Hyaline Casts Present A Urine Glucose Negative Influenza A (Rapid) Negative Influenza B (Rapid) Negative 02/06/18 02/06/18 02/06/18 00:50 00:50 07:59 WBC 7.9 RBC 3.04 L Hgb 8.9 L Hct 26 L MCV 87 MCH 29 MCHC 34 RDW 17 H Plt Count 56 L MPV 8.1 Neut % (Auto) Not Reportable Lymph % (Auto) Not Reportable Weakley % (Auto) Not Reportable Eos % (Auto) Not Reportable Baso % (Auto) Not Reportable Absolute Neuts (auto) 4.3 Absolute Lymphs (auto) 1.7 Absolute Monos (auto) 1.5 H Absolute Eos (auto) 0.3 Absolute Basos (auto) 0.1 Absolute Nucleated RBC Not Reportable Immature Gran % Neutrophils % Band Neutrophils % Lymphocytes % Reactive Lymphs % Monocytes % Eosinophils % Basophils % Metamyelocytes % Myelocytes % Promyelocytes % Nucleated RBC % Not Reportable Abs Neuts (Manual) Abs Lymphs (Manual) Abs Monocytes (Manual) Absolute Eos (Manual) Abs Basophils (Manual) Nucleated RBCs/100 WBC Normal RBC Morphology Anisocytosis Hem Pathologist Commnt Sodium Potassium Chloride Carbon Dioxide Anion Gap BUN Creatinine Est GFR ( Amer) Est GFR (Non-Af Amer) BUN/Creatinine Ratio Glucose Lactic Acid 2.7 H* Calcium Total Bilirubin AST ALT Alkaline Phosphatase Troponin I 0.01 Total Protein Albumin Globulin Albumin/Globulin Ratio TSH Urine Color Urine Appearance Urine pH Ur Specific [place] Urine Protein Urine Ketones Urine Blood Urine Nitrate Urine Bilirubin Urine Urobilinogen Ur Leukocyte Esterase Urine WBC (Auto) Urine RBC (Auto) Urine Bacteria Hyaline Casts Urine Glucose Influenza A (Rapid) Influenza B (Rapid) 02/06/18 02/06/18 07:59 07:59 WBC RBC Hgb Hct MCV MCH MCHC RDW Plt Count MPV Neut % (Auto) Lymph % (Auto) Weakley % (Auto) Eos % (Auto) Baso % (Auto) Absolute Neuts (auto) Absolute Lymphs (auto) Absolute Monos (auto) Absolute Eos (auto) Absolute Basos (auto) Absolute Nucleated RBC Immature Gran % Neutrophils % Band Neutrophils % Lymphocytes % Reactive Lymphs % Monocytes % Eosinophils % Basophils % Metamyelocytes % Myelocytes % Promyelocytes % Nucleated RBC % Abs Neuts (Manual) Abs Lymphs (Manual) Abs Monocytes (Manual) Absolute Eos (Manual) Abs Basophils (Manual) Nucleated RBCs/100 WBC Normal RBC Morphology Anisocytosis Hem Pathologist Commnt Sodium 132 L Potassium 4.2 Chloride 98 L Carbon Dioxide 21 L Anion Gap 13 H BUN 13 Creatinine 1.00 H Est GFR ( Amer) 71.3 Est GFR (Non-Af Amer) 55.5 BUN/Creatinine Ratio 13.0 Glucose 89 Lactic Acid 1.8 Calcium 8.8 Total Bilirubin AST ALT Alkaline Phosphatase Troponin I Total Protein Albumin Globulin Albumin/Globulin Ratio TSH Urine Color Urine Appearance Urine pH Ur Specific [place] Urine Protein Urine Ketones Urine Blood Urine Nitrate Urine Bilirubin Urine Urobilinogen Ur Leukocyte Esterase Urine WBC (Auto) Urine RBC (Auto) Urine Bacteria Hyaline Casts Urine Glucose Influenza A (Rapid) Influenza B (Rapid) Acetaminophen (Tylenol Tab*) 650 mg PO Q6H PRN PRN Reason: FEVER/PAIN Last Admin: 02/05/18 23:37 Dose: 650 mg Albuterol (Ventolin 2.5 Mg/3 Ml Neb.Nataly*) 2.5 mg INH Q2H PRN PRN Reason: SOB/WHEEZING Albuterol (Ventolin Hfa Inhaler*) 2 puff INH Q4H PRN PRN Reason: SOB/WHEEZING Docusate Sodium (Colace Cap*) 200 mg PO BID [facility] Last Admin: 02/06/18 09:27 Dose: 200 mg Duloxetine HCl (Cymbalta Cap*) 60 mg PO DAILY [facility] Last Admin: 02/06/18 09:26 Dose: 60 mg Furosemide (Lasix Tab*) 20 mg PO DAILY [facility] Last Admin: 02/06/18 09:18 Dose: Not Given Gabapentin (Neurontin Cap(*)) 200 mg PO TID [facility] Last Admin: 02/06/18 09:26 Dose: 200 mg Levofloxacin/Dextrose (Levaquin 750 Mg Ivpremix(*)) 750 mg in 150 mls @ 100 mls /hr IVPB Q24H [facility] Montelukast Sodium (Singulair Tab*) 10 mg PO DAILY [facility] Last Admin: 02/06/18 09:26 Dose: 10 mg Morphine Sulfate (Morphine Vial*) 2 mg IV Q4H PRN PRN Reason: PAIN Omeprazole (Prilosec Cap*) 20 mg PO DAILY@0600 [facility] Last Admin: 02/06/18 05:41 Dose: 20 mg Ondansetron HCl (Zofran Inj*) 4 mg IV Q6H PRN PRN Reason: NAUSEA Oxycodone/Acetaminophen (Percocet 5/325 Tab*) 1 tab PO Q4H PRN PRN Reason: PAIN Potassium Chloride (Klor Con Er Tab*) 10 meq PO DAILY [facility] Last Admin: 02/06/18 09:26 Dose: 10 meq Assessment: 68 yo F w multiple medical problems and a complicated health course since July of this year when she was diagnosed with plasma cell leukemia. She has been off treatment x 2 months related to repeat hospitalizations and deteriorating PS. Interestingly her platelets are falling despite not having therapy, and she has circulating plasma cells, suggesting progression of her underlying leukemia. Given the falling platelets, it is likely that we will need to hold her lovenox in the future and so I have consulted surgery for an IVC filter. Unfortunately she was given supratherapeutic doses of lovenox over the last 24 hours and so we will need to wait until tomorrow. We will order a unit of platelets to be given tomorrow with the procedure, and she will start lovenox 60 mg bid after. In terms of her new heart failure, it is possible that this is from her PE, but I think given that it is not a saddle PE and there is not a large clot burden this is less likely. I will check a BNP and stop her IVFs. We will hold her lasix this am, but may need to add back tomorrow, particularly given her acute systolic heart failure. Plan: -hold lovenox until tomorrow, resume at 60 mg BID AFTER IVC filter -consult surgery for IVC filter, can order platelets with procedure -check SPEP -check BNP -full code
[2018-02-06] MEDS: oxyCODONE/Acetamin 5/325 MG* TAB PO PRN (16:25)
[2018-02-06] MEDS ORDERED: Levofloxacin 750 MG IVPREMIX(* 750 MG/150 ML BAG IVPB SCH (20:00)
[2018-02-07] MEDS: Omeprazole CAP* 20 MG PO SCH (05:34)
[2018-02-07] MEDS: oxyCODONE/Acetamin 5/325 MG* TAB PO PRN ×2 (05:53→20:12)
[2018-02-07 05:55] LABS: Hematocrit 27 % (35-47); Hemoglobin 8.9 g/dl (12.0-16.0); Mean Corpuscular HGB Conc 34 g/dl (31-36); Mean Corpuscular Hemoglobin 29 pg (27-31); Mean Corpuscular Volume 87 fL (80-97); Mean Platelet Volume 8.4 um3 (7.4-10.4); Platelet Count 55 10^3/ul (150-450); Red Blood Count 3.06 10^6/ul (4.0-5.4); Red Cell Distribution Width 16 % (10.5-15); White Blood Count 9.3 10^3/ul (3.5-10.8)
[2018-02-07 06:01] LABS: EGFR Non-African American 47.2 (>60)
[2018-02-07 07:28] LABS: ABS Basophils 0.1 10^3/ul (0-0.2); ABS Eosinophils 0.2 10^3/ul (0-0.6); ABS Neutrophils 4.9 10^3/ul (1.5-7.7); ABS Nucleated RBC 0 10^3/ul; Nucleated Red Blood Cells % 0.4
[2018-02-07 07:37] LABS: Monocytes % 13 % (0-7)
[2018-02-07] MEDS: Gabapentin CAP(*) 100 MG PO SCH ×2 (08:25→20:11)
[2018-02-07] MEDS: Furosemide TAB* 20 MG PO SCH (08:35)
[2018-02-07] MEDS: Docusate CAP* 100 MG PO SCH ×2 (08:36→20:12)
[2018-02-07] MEDS: Potassium Chlor TAB* 10 MEQ TAB.ER PO SCH (08:37)
[2018-02-07] MEDS: DULoxetine DR CAP* 60 MG CAP.DR PO SCH (08:37)
[2018-02-07] MEDS: Montelukast Sodium TAB* 10 MG PO SCH (08:37)
[2018-02-07] MEDS: Gabapentin CAP(*) 300 MG PO SCH ×2 (08:39→14:30)
[2018-02-07] MEDS ORDERED: Enoxaparin(*) 100 MG/ML SYR SUBCUT ONE (09:40)
[2018-02-07] MEDS ORDERED: Enoxaparin(*) 60 MG/0.6 ML SYR SUBCUT SCH (10:00)
--- NOTE | 2018-02-07 11:13 | PN ---
Progress Note - Progress Note Date of Service: 02/07/18 SOAP: Subjective: [Patient reports that she is feeling relatively well. Some mild CP and dyspnea , but improved over admission. ] Objective: [ Acetaminophen (Tylenol Tab*) 650 mg PO Q6H PRN PRN Reason: FEVER/PAIN Last Admin: 02/05/18 23:37 Dose: 650 mg Albuterol (Ventolin 2.5 Mg/3 Ml Neb.Nataly*) 2.5 mg INH Q2H PRN PRN Reason: SOB/WHEEZING Albuterol (Ventolin Hfa Inhaler*) 2 puff INH Q4H PRN PRN Reason: SOB/WHEEZING Docusate Sodium (Colace Cap*) 200 mg PO BID [facility] Last Admin: 02/07/18 08:36 Dose: 200 mg Duloxetine HCl (Cymbalta Cap*) 60 mg PO DAILY [facility] Last Admin: 02/07/18 08:37 Dose: 60 mg Enoxaparin Sodium (Lovenox(*)) 60 mg SUBCUT Q12H [facility] Furosemide (Lasix Tab*) 20 mg PO DAILY [facility] Last Admin: 02/07/18 08:35 Dose: Not Given Gabapentin (Neurontin Cap(*)) 300 mg PO 0900,1400 [facility] Last Admin: 02/07/18 08:39 Dose: 300 mg Gabapentin (Neurontin Cap(*)) 500 mg PO 2100 [facility] Last Admin: 02/06/18 21:13 Dose: 500 mg Montelukast Sodium (Singulair Tab*) 10 mg PO DAILY [facility] Last Admin: 02/07/18 08:37 Dose: 10 mg Omeprazole (Prilosec Cap*) 20 mg PO DAILY@0600 [facility] Last Admin: 02/07/18 05:34 Dose: 20 mg Ondansetron HCl (Zofran Inj*) 4 mg IV Q6H PRN PRN Reason: NAUSEA Oxycodone/Acetaminophen (Percocet 5/325 Tab*) 1 tab PO Q4H PRN PRN Reason: PAIN Last Admin: 02/07/18 05:53 Dose: 1 tab Potassium Chloride (Klor Con Er Tab*) 10 meq PO DAILY [facility] Last Admin: 02/07/18 08:37 Dose: 10 meq Vital Signs Temp Pulse Resp BP Pulse Ox 97.8 F 100 16 99/59 99 02/07/18 07:36 02/07/18 07:36 02/07/18 08:39 02/07/18 07:36 02/07/18 07:36 Laboratory Results - last 24 hr 02/06/18 02/07/18 02/07/18 07:55 05:35 05:35 WBC 9.3 RBC 3.06 L Hgb 8.9 L Hct 27 L MCV 87 MCH 29 MCHC 34 RDW 16 H Plt Count 55 L MPV 8.4 Neut % (Auto) Not Reportable Lymph % (Auto) Not Reportable Chambers % (Auto) Not Reportable Eos % (Auto) Not Reportable Baso % (Auto) Not Reportable Absolute Neuts (auto) 4.9 Absolute Lymphs (auto) 2.0 Absolute Monos (auto) 2.0 H Absolute Eos (auto) 0.2 Absolute Basos (auto) 0.1 Absolute Nucleated RBC 0 Immature Gran % 3 Neutrophils % 41 Lymphocytes % 30 Reactive Lymphs % 9 H Monocytes % 13 H Eosinophils % 4 Basophils % 0 Metamyelocytes % 2 Myelocytes % 1 Nucleated RBC % 0.4 Abs Neuts (Manual) 3.8 Abs Lymphs (Manual) 2.8 Abs Monocytes (Manual) 1.2 H Absolute Eos (Manual) 0.4 Abs Basophils (Manual) 0 Normal RBC Morphology Normal Hem Pathologist Commnt Sodium 132 L Potassium 4.7 Chloride 99 L Carbon Dioxide 20 L Anion Gap 13 H BUN 14 Creatinine 1.15 H Est GFR ( Amer) 60.7 Est GFR (Non-Af Amer) 47.2 BUN/Creatinine Ratio 12.2 Glucose 96 Calcium 9.1 Magnesium 1.9 B-Natriuretic Peptide 2206 H Exam: Gen: 68 yo female in NAD, accompanied by her daughter HEENT: MMM CV: RRR Resp: crackles in R lung base, remainder of lung trevino are clear Abd: soft, nonTTP Ext: 1+ RLE edema, trace LLE ] Assessment: [68 yo female with plasma cell leukemia whose treatment has been significantly delayed due to severe C.diff colitis and development of peripheral neuropathy. She presented with CP and SOB found to have DVT/PE with new heart failure.] Plan: [1. DVT/PE - cont Lovenox, receive one dose 1.5 mg/kg/d today and start 1mg/kg bid tomorrow - platelets have recently dropped and hovering between 55-65K - plan for IVC filter placement tomorrow in anticipation of needing to hold anticoagulation in the near future if plts drop further - no hypoxia noted, CP/dyspnea improving - monitor CBC weekly following discharge 2. CHF - new L sided heart failure - may be related to PE, but seems less likely - she is mildly hypotensive at this time, but appears euvolemic - start low dose lisinopril and carvedilol and monitor BP 3. Thrombocytopenia - likely represents progression of plasma cell leukemia 4. Plasma cell leukemia - WBC still normal, but plt count has fallen with atypical lymphs noted - responded very well to initial therapy, but treatment has been held due to significant decline in performance status - if performance status continues to improve, plan to resume treatment under the care of [facility] within the next few weeks Dispo: IVC filter tomorrow am, possible dc home following filter placement]
[2018-02-07] MEDS: Lisinopril TAB* 5 MG PO SCH (11:50)
[2018-02-07] MEDS: Carvedilol TAB* 3.125 MG PO SCH (21:56)
[2018-02-08] MEDS: Omeprazole CAP* 20 MG PO SCH (05:33)
[2018-02-08 06:13] LABS: Hematocrit 26 % (35-47); Hemoglobin 8.7 g/dl (12.0-16.0); Mean Corpuscular HGB Conc 34 g/dl (31-36); Mean Corpuscular Hemoglobin 29 pg (27-31); Mean Corpuscular Volume 87 fL (80-97); Mean Platelet Volume 8.5 um3 (7.4-10.4); Platelet Count 60 10^3/ul (150-450); Red Blood Count 2.97 10^6/ul (4.0-5.4); Red Cell Distribution Width 17 % (10.5-15); White Blood Count 11.3 10^3/ul (3.5-10.8)
[2018-02-08 06:27] LABS: EGFR Non-African American 46.3 (>60)
[2018-02-08 06:41] LABS: Monocytes % 6 % (0-7)
[2018-02-08] MEDS ORDERED: Enoxaparin(*) 60 MG/0.6 ML SYR SUBCUT SCH (09:00)
--- NOTE | 2018-02-08 09:47 | CONSULT ---
Consult Consult: Date of Service: 02/08/18 Reason for Consult: IVC Filter Placement in a woman with +PE and anticipated contraindication to anticoagulation therapy PCP : Alma Delia Villarreal MD Oncology : Samantha Quesada MD (Focused) HPI: Mrs Junior is a 68YO female HX COPD, multiple myeloma, & hyperparathyroidism who was admitted to [facility] 12/02-12/18/2017 with discharge diagnoses of toxic megacolon, severe peripheral neuropathy, & plasma cell leukemia who was more recently admitted with pulmonary embolism. The patient experienced chest pain and shortness of breath that has subsequently resolved. Due to plasma cell leukemia and/or chemotherapy it is anticipated her platelet count will fall which will contraindicate anticoagulation therapy. Therefore an IVC filter is requested. PMedHx multiple myeloma severe BLE peripheral neuropathy COPD Allergies morphine Allergy (Verified 02/05/18 22:35) Hallucinations ROS: Negative other than what was described in HPI. PE: Selected Entries 02/08/18 02/08/18 07:18 08:00 Temperature 97.8 F Temperature Temporal Artery Source Scan Pulse Rate 96 Respiratory 20 Rate Blood Pressure 95/59 (mmHg) Blood Pressure 68 Mean O2 Sat by Pulse 98 Oximetry Patient on Room Yes Air NAD, AAO x 3 Lung CTAB RRR, S1/S2 Abdomen is soft, nontender 2+ pulses at bilateral FLOOR HAND No significant LE edema, pitting or otherwise LE are grossly neuromuscular intact Labs: Laboratory Tests 02/08/18 02/08/18 05:28 05:28 WBC 11.3 H RBC 2.97 L Hgb 8.7 L Hct 26 L Plt Count 60 L BUN 15 Creatinine 1.17 H Est GFR ( Amer) 59.5 Est GFR (Non-Af Amer) 46.3 Imaging: Patient Name: AFRICA JUNIOR Medical Record#: [id number] Ordering Physician: De Dyer MD Acct.#: [id number] : 1950 Age: 68 Sex: F Location: EMERGENCY DEPARTMENT Exam Date: 02/05/181802 ADM Status: REG ER Order Information: CTA CHEST Accession Number: [id number] CPT: 62966 Indication: Shortness of breath, chest pain and leg swelling. Contrast: Administered 79.1 ml of VISAPAQUE 320 mg/ml CTA of the chest was performed after IV contrast administration. Coronal and sagittal reconstructed images were obtained. The pulmonary arterial tree is well opacified. There is a filling defect in the segmental branch of the left upper lobe artery. There is peripheral airspace disease noted in the anterior right upper lobe. I cannot totally exclude a pulmonary infarct in this area. No other pulmonary embolus is noted. The aorta demonstrates no evidence of aortic dissection or aneurysmal dilatation. The mediastinum demonstrates no evidence of mediastinal or hilar adenopathy. There is a moderate-sized right-sided pleural effusion with compressive atelectasis in the right base. The left lung field appears clear. The abdominal organs demonstrate bilateral adrenal hyperplasia. IMPRESSION: Pulmonary embolus in the anterior segmental branch of the right upper lobe pulmonary artery. There is peripheral airspace disease noted which may be sequela from pulmonary infarct or pneumonia. Moderate size right pleural effusion with compressive atelectasis in the right base. Pneumonia in the right lower lobe cannot be excluded. Bilateral adrenal hyperplasia is present. <Electronically signed by Tiarra Vides MD in OV> 02/05/181937 Dictated By: Tiarra Vides MD Dictated Date/Time: 02/05/181937 Transcribed Date/Time: 02/05/181932 Summary: 68 YOF with plasma cell leukemia, borderline low platelets and symptomatic CTA proven PE. It is anticipated that the patient's disease and/or chemotherapy is going to contraindicate anticoagulation therapy and therefore IVC filter is indicated. Plan: 1. Cavography and IVC filter placement. 2. Recommendation is to always administer anticoagulation therapy if it is safe to do so in the presence of an IVC filter. 3. Recommend removing IVC filter promptly when there is no longer an indication.
[2018-02-08] MEDS ORDERED: NS 0.9% 500 ML* 500 ML IV ONE (09:51)
[2018-02-08] MEDS ORDERED: Heparin 2 UNITS/ML IVPREMIX* 1,000 ML IV ONE (10:06)
[2018-02-08] MEDS ORDERED: Lidocaine 1% INJ* 10 MG/ML 30 ML SDV ONE (10:33)
[2018-02-08] MEDS ORDERED: Midazolam* 1 MG/ML 5 ML VIAL (5 MG) ONE (10:34)
[2018-02-08] MEDS ORDERED: fentaNYL* 50 MCG/ML 2 ML VIAL (100 MCG VIAL) ONE (10:34)
[2018-02-08] MEDS ORDERED: Iodixanol* (CONTRAST) 320 MG/ML 100 ML SDV ONE (10:37)
[2018-02-08] MEDS ORDERED: Enoxaparin(*) 100 MG/ML SYR SUBCUT SCH (12:00)
[2018-02-08 12:19] VITALS: BP 96/60
[2018-02-08] MEDS: Potassium Chlor TAB* 10 MEQ TAB.ER PO SCH (12:37)
[2018-02-08] MEDS: Docusate CAP* 100 MG PO SCH (12:37)
[2018-02-08] MEDS: DULoxetine DR CAP* 60 MG CAP.DR PO SCH (12:38)
[2018-02-08] MEDS: Montelukast Sodium TAB* 10 MG PO SCH (12:39)
[2018-02-08] MEDS: Carvedilol TAB* 3.125 MG PO SCH (13:13)
[2018-02-08] MEDS: Furosemide TAB* 20 MG PO SCH (13:15)
[2018-02-08] MEDS: Gabapentin CAP(*) 300 MG PO SCH ×2 (13:33)
[2018-02-08] MEDS: Lisinopril TAB* 5 MG PO SCH (13:34)
--- NOTE | 2018-02-08 15:58 | RAD ---
CPT II Codes: G9500 Procedures performed: 1. Diagnostic inferior vena cavogram. 2. Placement of an infrarenal retrievable IVC filter. Date of service: February 08, 2018 Indication for procedure: Positive pulmonary embolism with contraindication to anticoagulation therapy Comparison: CTA of the chest dated February 05, 2018 that shows positive pulmonary embolism and noncontrast CT of the abdomen dated October 01, 2017 Contrast: 45 mL of Visipaque 320 Fluoroscopy Time: 2.4 minutes Vessels Accessed: Percutaneous access was obtained with ultrasound guidance in the right common femoral vein in the anterograde direction. Catheter venography was performed in the Inferior Vena Cava before and after filter deployment. Anesthesia: Conscious sedation with IV Fentanyl and Versed as well as local 1% lidocaine injected locally at the venotomy site. Conscious sedation time: Timeout: 1059 hours Case end: 1116 hours Total conscious sedation time: 17 minutes Procedure narration and imaging findings: Prior to the procedure the risk, benefits and alternative therapies were carefully explained to the patient and her adult children and informed consent was obtained from the patient. The patient was appropriately positioned on the table in the angiography suite. A formal time out was performed and all members of the team and the patient agreed to the patient, procedure and laterality. Preliminary ultrasound indicated a patent right common femoral vein. The skin overlying the right common femoral vein was prepped and draped in standard sterile fashion. Sterile precautions were employed including use of cap, mask, gown and sterile gloves. The skin overlying the femoral vein was anesthetized with 1% lidocaine. Real time ultrasound imaging shows the femoral vein is patent and determined to be adequate for IVC filter placement. Utilizing real time ultrasound visualization the femoral vein was accessed with an 18 gauge needle. An image was recorded and saved confirming appropriate intraluminal position of the needle tip. Blood return further confirmed position. Under fluoroscopic control a 0.035" wire was advanced to the lower cavoatrial junction. The needle was removed, exchanged for a 6 Chilean access sheath and a 5 Chilean flush catheter was advanced just above the bifurcation of the common iliac veins. The wire was removed and power injector venogram was performed demonstrating a patent IVC and the lower left renal vein at approximately the L3 vertebral body level. There is no duplicated IVC or large anomalous veins identified that would contraindicate single IVC filter placement. The wire was re-inserted and the flush catheter was removed. The filter deployment sheath was advanced to the infrarenal IVC and the filter was then deployed under fluoroscopic control with the retrievable hook approximately at the superior endplate of the L3 vertebral body corresponding to the mid-level left renal vein and the tissue anchors at the L4/L5 intervertebral disc space. Contrast venography through the sheath again demonstrated patency of the IVC, no extravasation and satisfactory alignment of the filter. The sheath was then removed and direct pressure was held on the common femoral vein access site for 10 minutes. The site was dressed with sterile gauze and the patient left the angiography suite in stable condition. SUMMARY OF PROCEDURE, IMAGING FINDINGS AND INTERVENTIONS PERFORMED: 1. Diagnostic studies performed: * Venous access was obtained at the right common femoral vein in the antegrade direction (i.e. towards the heart) with ultrasound guidance. A sonographic image was recorded. * Diagnostic catheter inferior vena cavography (necessary for precise IVC filter deployment) was performed with the flush catheter tip in the inferior-most IVC. 2. Interpretation of diagnostic studies performed: * The IVC is free of gross thrombus and normal in size and morphology. * The left renal vein is slightly lower than normal at the mid-level L3 vertebral body level which mandated placement of the IVC filter immediately above the confluence of the iliac veins so that the retrieval hook was level with the lower left renal vein. 3. Surgical interventions performed: * Uncomplicated placement of an Argon Option Elite IVC filter as described above. 4. Interpretation of interventions performed: * Final inferior vena cavogram demonstrated an appropriately positioned IVC filter with the retrieval hook at the upper half of the L3 vertebral body and the retention anchors at the L4/L5 intervertebral disc space. * There is no venographic evidence of laceration or extravasation. PLAN: 1. WHEN IT IS SAFE TO DO SO RESTARTING ANTICOAGULATION THERAPY IS STRONGLY RECOMMENDED. 2. WHEN THE IVC FILTER IS NO LONGER INDICATED (I.E. ANTICOAGULATION CAN BE SAFELY RESTARTED), IT IS STRONGLY RECOMMENDED THE PATIENT RETURN TO INTERVENTIONAL RADIOLOGY TO HAVE THE FILTER REMOVED. TO SCHEDULE IVC FILTER REMOVAL AN OUTPATIENT PLEASE CALL THE INTERVENTIONAL RADIOLOGY CLINIC AT .
--- NOTE | 2018-02-09 01:21 | DS ---
CC: Dr. Anne Wisdom; Dr. Jacky Quesada; Dr. Mccabe * DISCHARGE SUMMARY: DATE OF ADMISSION: 02/05/18 DATE OF DISCHARGE: 02/08/18 PRIMARY CARE PROVIDER: Dr. Anne Wisdom. ATTENDING PHYSICIAN: Dr. Verito Jacobs.* (DICTATED BY THALIA TORO) PRIMARY ONCOLOGIST: Dr. Jacky Quesada. DISCHARGING PROVIDER: THALIA Toro. PRIMARY DISCHARGE DIAGNOSES: 1. Right lower extremity DVT and right upper lobe PE. 2. New onset left ventricular heart failure that appears to be compensated. 3. 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 4. Plasma cell leukemia, status post 1 cycle of RVD, complicated by severe C. diff and neuropathy with significant decline in performance status, now with treatment delayed for the last couple of months. DISCHARGE MEDICATIONS: 1. Acetaminophen 650 mg p.o. q.4 hours as needed for pain or fever. 2. Albuterol 2 puffs inhaled q.4 hours as needed for shortness of breath. 3. Cymbalta 60 mg p.o. daily. 4. Lovenox 90 mg subcu daily. 5. Lasix 20 mg p.o. daily. 6. Gabapentin 300 mg p.o. 3 times daily. 7. Lisinopril 2.5 mg p.o. daily. 8. Singulair 10 mg p.o. daily. 9. Multivitamin 1 tablet p.o. daily. 10. Percocet 5/325, one tablet p.o. q.4 hours as needed for pain. 11. Potassium chloride 10 mEq p.o. daily. HOSPITAL IMAGIN. Chest x-ray, 02/05/18, shows cardiomegaly with a right basilar airspace disease, possibly representing pneumonia. 2. CTA of the chest demonstrates pulmonary embolism in the anterior segment branch of the right upper lobe artery. There is peripheral airspace disease noted, which may be a sequelae from pulmonary infarct or recent pneumonia. There is some moderate sized right-sided pleural effusion with compressive atelectasis at the right lung base. Pneumonia in the right lung base cannot be excluded. 3. Venous Doppler study shows DVT involving the right popliteal vein, gastrocnemius veins, posterior tibial veins, and peroneal veins. 4. Transthoracic echocardiogram shows severely decreased left ventricular systolic function with estimated EF of 25% to 30%. There is global hypokinesis of the left ventricle with septal flattening consistent with right ventricular overload, evidence of diastolic dysfunction. There is right ventricular dilatation and global systolic function is [id number] reduced. There is moderate pulmonary hypertension measured at 51 mmHg. The inferior vena cava is dilated. There is no significant valvular disease. EF has dropped from prior estimated, 45% to 50%, when compared to echocardiogram from 12/03/17. HOSPITAL COURSE: This is a 68-year-old female with a plasma cell leukemia, who presented with complaints of progressive dyspnea and chest pain. The patient had been seen by her primary care provider a couple of weeks prior and diagnosed with pneumonia and received a course of Levaquin, but when her symptoms were not improving, she presented to the emergency department for further evaluation. Initial labs demonstrated mild anemia with a hemoglobin of 9.7, platelet count of 69,000, normal white blood cells. Her comprehensive metabolic panel was largely unremarkable apart from some mild hyponatremia. Her lactic acid was elevated at 2.3. Troponin of 0.01. Chest x-ray demonstrated an effusion and possible infiltrate at the right lung base. CTA demonstrated a pulmonary embolus in the right upper lobe and subsequent venous Doppler confirmed presence of large clot extending distally from the popliteal vein in the right lower extremity. The patient was not hypoxic or severely tachycardic and subsequently admitted and treated with Lovenox. The patient has been treated for plasma cell leukemia with Dr. Quesada. She received just 1 cycle of RVD and, unfortunately, her treatment has since then interrupted as she developed severe C. diff colitis and associated neuropathy, with significant decline in her performance status. She was discharged from that hospitalization in the beginning of December to subacute rehab at [facility] and returned home within the last couple of weeks. The patient did not experience any complications during her hospitalization. Her complaints of chest pain improved throughout her hospitalization. Of note, however, her echocardiogram demonstrated new onset heart failure with a drop of her left ventricular ejection fraction from 45% to 50% to 25% to 30%. She did have evidence of right ventricular strain. It is possible that her left-sided heart failure could be a result of her recent PE, this may have been present for long enough. Her blood pressure was such that she was unable to tolerate initiation of a beta-stephanie, but she was started on low-dose lisinopril and continued on her usual home dose of Lasix and appeared to be euvolemic throughout her hospitalization. Also of note, the patient was thrombocytopenic, which is a new finding when compared to labs from a couple of weeks ago when she met with Dr. Quesada. Again , she has not had any recent treatment for her plasma cell leukemia and her thrombocytopenia is presumably due to progression of her disease. She had responded incredibly well to her initial treatment, with white blood cell counts greater than 100,000 quickly falling to within normal levels after 1 cycle of treatment. Due to the patient's thrombocytopenia and known plasma cell leukemia, and anticipation that her thrombocytopenia may become worse either due to disease progression or treatment-related toxicities, an IVC filter was placed in the event that her Lovenox needs to be discontinued in the future. DISPOSITION AND FOLLOWUP PLAN: The patient is being discharged to home. She is receiving home nursing services as well as home physical therapy, which will be resumed. She needs to be monitored with weekly CBCs, primarily to watch her platelet counts and Lovenox should be held for platelets of less than 25,000 or evidence of bleeding. At the time of discharge, her platelet count is 60,000 and she has no signs of bleeding. She will follow up with Dr. Quesada in the [facility] on 02/22/18 regarding resuming therapy for her plasma cell leukemia. Recommend outpatient Cardiology followup for her new left-sided heart failure and, as stated above, she has been started on a low-dose lisinopril in that her blood pressure precluded initiation of a beta-stephanie. THALIA TORO [id number]/[facility] #: [id number]
== END 2018-02-08 15:33 | disposition home or self-care (01) | DRG 167 ==
LOC: ED 17:33 → MEDTELE 19:58
PROVIDERS: ADMIT Hospitalist; ATTEND Internal Medicine Hematology & Oncology
PROC: 06H03DZ Insertion of Intraluminal Device into Inferior Vena Cava, Percutaneous Approach (ICD-10-PCS; principal; 2018-02-08 10:00)
DX: I26.99 Other pulmonary embolism without acute cor pulmonale (principal); I50.1 Left ventricular failure, unspecified; C90.10 Plasma cell leukemia not having achieved remission; I82.431 Acute embolism and thrombosis of right popliteal vein; I82.441 Acute embolism and thrombosis of right tibial vein; I82.491 Acute embolism and thrombosis of other specified deep vein of right lower extremity; C90.01 Multiple myeloma in remission; D69.6 Thrombocytopenia, unspecified; I27.20 Pulmonary hypertension, unspecified; D64.9 Anemia, unspecified; J44.9 Chronic obstructive pulmonary disease, unspecified; E21.3 Hyperparathyroidism, unspecified; G62.9 Polyneuropathy, unspecified; R79.1 Abnormal coagulation profile; I11.0 Hypertensive heart disease with heart failure; K21.9 Gastro-esophageal reflux disease without esophagitis; M19.90 Unspecified osteoarthritis, unspecified site; M81.0 Age-related osteoporosis without current pathological fracture; F41.0 Panic disorder [episodic paroxysmal anxiety]; F32.9 Major depressive disorder, single episode, unspecified; Z92.21 Personal history of antineoplastic chemotherapy; Z98.51 Tubal ligation status; Z82.5 Family history of asthma and other chronic lower respiratory diseases; Z79.01 Long term (current) use of anticoagulants; Z88.5 Allergy status to narcotic agent; Z87.891 Personal history of nicotine dependence; Z80.51 Family history of malignant neoplasm of kidney; Z83.79 Family history of other diseases of the digestive system
CPT/HCPCS: 36415; 37191; 71045; 71275; 75825; 76937; 80048; 80053; 81003; 81015; 83605; 83735; 83880; 84155; 84165; 84443; 84484; 85025; 85060; 87040; 87086; 87502; 87899; 93005; 93306; 93970; 99156; 99233; 99239; 99284; A9270-GY; G8978-GP-CK; G8979-GP-CI; J1644; J1650; J2250; J3010; Q9967

== ENCOUNTER 2018-02-11 07:48 | Inpatient (IN) | payer MEDICARE, OTHER ==
[2018-02-11] MEDS ORDERED: Levofloxacin 750 MG IVPREMIX(* 750 MG/150 ML BAG IVPB ONE (08:42)
[2018-02-11 08:45] LABS: ABS Nucleated RBC 0.1 10^3/ul; Hematocrit 26 % (35-47); Hemoglobin 8.7 g/dl (12.0-16.0); Mean Corpuscular HGB Conc 34 g/dl (31-36); Mean Corpuscular Hemoglobin 30 pg (27-31); Mean Corpuscular Volume 87 fL (80-97); Mean Platelet Volume 8.4 um3 (7.4-10.4); Nucleated Red Blood Cells % 0.6; Platelet Count 39 10^3/ul (150-450); Red Blood Count 2.93 10^6/ul (4.0-5.4); Red Cell Distribution Width 17 % (10.5-15); White Blood Count 18.7 10^3/ul (3.5-10.8)
[2018-02-11 08:53] LABS: INR 1.63 (0.77-1.02)
[2018-02-11 08:58] LABS: EGFR Non-African American 16.2 (>60)
--- NOTE | 2018-02-11 09:38 | RAD ---
Indication: Confusion, weakness, sudden onset tremors and nausea. Recent PE and inferior vena cava filter placement. History of multiple myeloma. Comparison: February 05, 2018 CT angiograms chest. Technique: Upright AP 0922 hours Report: Cardiomegaly, prominent mildly ill-defined central pulmonary vasculature and diffuse prominence of interstitial markings with subtle peripheral interlobular septa. Small dependent RIGHT pleural effusion. Negative for pneumothorax. Negative for free air beneath the diaphragm. IMPRESSION: Pulmonary vascular congestion and interstitial edema with small RIGHT pleural effusion.
--- NOTE | 2018-02-11 09:52 | RAD ---
INDICATION: Altered mental status. Multiple myeloma. COMPARISON: December 10, 2017 CT. Technique: Noncontrast CT vertex of skull through foramen magnum. Report: The sulci, ventricles, and basal cisterns are normal for age. Forman matter white matter differentiation is preserved without evidence for edema. No intra or extra axial hemorrhage, mass, or fluid collection detected. Unremarkable visualized orbital contents. No suspicious lesions of the calvarium or skull base evident. Unremarkable scalp. The visualized paranasal sinuses and mastoid air spaces are clear. IMPRESSION: Negative unenhanced head CT. Resolution of previous bilateral mastoid effusions.
[2018-02-11] MEDS ORDERED: Ondansetron INJ* 2 MG/ML VIAL IV PRN ×2 (10:07→15:24)
[2018-02-11] MEDS ORDERED: Acetaminophen TAB* 325 MG PO PRN (10:07)
[2018-02-11] MEDS ORDERED: oxyCODONE/Acetamin 5/325 MG* TAB PO PRN (10:13)
[2018-02-11] MEDS ORDERED: Albuterol HFA INHALER* 8 gm MDI INH PRN (10:13)
[2018-02-11] MEDS ORDERED: NS 0.9% 1000 ML* 1,000 ML IV SCH (10:15)
[2018-02-11] MEDS ORDERED: Enoxaparin(*) 80 MG/0.8 ML SYR SUBCUT SCH ×2 (11:00)
[2018-02-11 11:20] LABS: Monocytes % 7 % (0-7)
[2018-02-11] MEDS ORDERED: Enoxaparin(*) 60 MG/0.6 ML SYR SUBCUT SCH (11:33)
--- NOTE | 2018-02-11 11:42 | ED ---
Robert Shepherd Nilda, scribed for Waylon Michele MD on 02/11/18 at 0815 . Neurological HPI - HPI Summary HPI Summary: LVL 5 Caveat: Hx and PE limited due to pt AMS. This patient is a 68 year old F BIBA with a chief complaint of constant moderate generalized weakness and lightheadedness. The patient rates the pain 0/ 10 in severity. Patient reports chronic diffuse abd pain, N/V, and edema. Symptoms alleviated by vomiting. Pt states 4 days ago she was D/C from [facility] [place] PE treatment with Dr. Quesada. PMHx includes multiple myeloma. - History of Current Complaint Chief Complaint: EDWeakness Stated Complaint: WEAKNESS Time Seen by Provider: 02/11/18 07:59 Hx Obtained From: Patient Hx Last Menstrual Period: post menopausal Onset/Duration: Sudden Onset, Still Present Timing: Constant Neurological Deficit Location: Generalized Pain Intensity: 0 Pain Scale Used: 0-10 Numeric Character: Lightheaded Aggravating: Nothing Alleviating: Other - vomiting Associated Signs and Symptoms: Positive: Nothing - abd pain, N/V - Additional Pertinent History Primary Care Physician: [id number] - Allergy/Home Medications Allergies/Adverse Reactions: Allergies Allergy/AdvReac Type Severity Reaction Status Date / Time morphine Allergy Hallucinati Verified 02/05/18 22:35 ons Home Medications: Home Medications Gabapentin CAP(*) [Neurontin 100 mg CAP(*)] 500 mg PO QPM 02/11/18 [History Confirmed 02/11/18] oxyCODONE/Acetamin 5/325 MG* [Percocet 5/325 TAB*] 1 tab PO Q6H PRN 02/11/18 [ History Confirmed 02/11/18] PMH/Surg Hx/FS Hx/Imm Hx Endocrine/Hematology History: Reports: Hx Thyroid Disease, Hx Anemia Denies: Hx Diabetes Cardiovascular History: Reports: Hx Hypertension, Other Cardiovascular Problems/ Disorders - cath without stents Denies: Hx Pacemaker/ICD Respiratory History: Reports: Hx Asthma, Hx Chronic Obstructive Pulmonary Disease (COPD) GI History: Reports: Hx Gastroesophageal Reflux Disease Denies: Hx Ulcer Musculoskeletal History: Reports: Hx Arthritis, Hx Osteoporosis, Other Musculoskeletal History - right hip fx w/ total hip sx Sensory History: Reports: Hx Contacts or Glasses Denies: Hx Hearing Aid, Hx Hearing Problem Opthamlomology History: Reports: Hx Contacts or Glasses Psychiatric History: Reports: Hx Anxiety, Hx Depression, Hx Panic Disorder - Cancer History Cancer Type, Location and Year: multiple myeloma, September 2017 Hx Chemotherapy: Yes Hx Radiation Therapy: No - Surgical History Surgery Procedure, Year, and Place: TUBAL LIGATION,PARATHYROID, L HAND SURGERY IN [employer], CARDIAC CATH WITHOUT STENTS Hx Anesthesia Reactions: No Infectious Disease History: No Infectious Disease History: Denies: Hx Hepatitis, Hx Human Immunodeficiency Virus (HIV), Hx of Known/ Suspected MRSA, Hx Shingles, Hx Tuberculosis, Hx Known/Suspected VRE, Hx Known/ Suspected VRSA, Traveled Outside the [place] in Last 30 Days - Family History Known Family History: Negative: Renal Disease Family History: COPD and Kidney cancer - Social History Alcohol Use: None Hx Substance Use: No Substance Use Type: Reports: None Hx Tobacco Use: Yes Smoking Status (MU): Former Smoker Type: Cigarettes Length of Time of Smoking/Using Tobacco: 45-50 years Have You Smoked in the Last Year: Yes Review of Systems - ROS Summary Review of Systems Summary: LVL 5 Caveat: Hx and PE limited due to pt AMS. Positive: Abdominal Pain, Vomiting, Nausea Positive: Edema Neurological: Other - lightheadedness Positive: Weakness All Other Systems Reviewed And Are Negative: No Physical Exam - Summary Physical Exam Summary: Appearance: The patient is well-nourished in no acute distress and in no acute pain. Skin: The skin is warm and dry and skin color reflects adequate perfusion. HEENT: The head is normocephalic and atraumatic. The pupils are equal and reactive. The conjunctivae are clear and without drainage. Nares are patent and without drainage. Mouth reveals moist mucous membranes and the throat is without erythema and exudate. The external ears are intact. The ear canals are patent and without drainage. The tympanic membranes are intact. Neck: the neck is supple with full range of motion and non-tender. There are no carotid bruits. There is no neck vein distension. Respiratory: Chest is non-tender. Lungs are clear to auscultation and breath sounds are symmetrical and equal. Cardiovascular: Heart is regular rate and rhythm. There is no murmur or rub auscultated. There is bilat peripheral edema (right worse than left) and pulses are symmetrical and equal. Abdomen: The abdomen is soft and diffusely tender. There are normal bowel sounds heard in all four quadrants and there is no organomegaly palpated. Musculoskeletal: There is no back tenderness noted. Extremities are non-tender with full range of motion. There is good capillary refill. There is bilat peripheral edema (right worse than left). No calf tenderness elicited. Neurological: Pt mentates slowly. Answers simple questions. No focal finding. Psychiatric: The patient has an appropriate affect and does not exhibit any anxiety or depression. Triage Information Reviewed: Yes Vital Signs On Initial Exam: Initial Vitals Temp Pulse Resp BP Pulse Ox 98.9 F 77 20 91/56 97 02/11/18 07:59 02/11/18 07:59 02/11/18 07:59 02/11/18 07:59 02/11/18 07:59 Vital Signs Reviewed: Yes Completion Of Physical Exam Limited Due To: Level 5 - LVL 5 Caveat: Hx and PE limited due to pt AMS. - Damaso Coma Scale Best Eye Response: 4 - Spontaneous Best Motor Response: 6 - Obeys Commands Best Verbal Response: 5 - Oriented Coma Scale Total: 15 Diagnostics - Vital Signs Vital Signs Temp Pulse Resp BP Pulse Ox 02/11/18 07:59 98.9 F 77 20 /56 97 - Laboratory Lab Results: Lab Results 02/11/18 02/11/18 02/11/18 Range/Units 08:25 08:25 08:25 WBC 18.7 H (3.5-10.8) 10^3/ul RBC 2.93 L (4.0-5.4) 10^6/ul Hgb 8.7 L (12.0-16.0) g/dl Hct 26 L (35-47) % MCV 87 (80-97) fL MCH 30 (27-31) pg MCHC 34 (31-36) g/dl RDW 17 H (10.5-15) % Plt Count 39 L (150-450) 10^3/ul MPV 8.4 (7.4-10.4) um3 Neut % (Auto) 45.3 (38-83) % Lymph % (Auto) 15.7 L (25-47) % [place] % (Auto) 35.7 H (0-7) % Eos % (Auto) 3.1 (0-6) % Baso % (Auto) 0.2 (0-2) % Absolute Neuts (auto) 8.5 H (1.5-7.7) 10^3/ul Absolute Lymphs (auto) 2.9 (1.0-4.8) 10^3/ul Absolute Monos (auto) 6.7 H (0-0.8) 10^3/ul Absolute Eos (auto) 0.6 (0-0.6) 10^3/ul Absolute Basos (auto) 0 (0-0.2) 10^3/ul Absolute Nucleated RBC 0.1 10^3/ul Immature Gran % 9 (0-9) % Neutrophils % 30 L (38-83) % Band Neutrophils % 2 (0-8) % Lymphocytes % 25 (25-47) % Reactive Lymphs % 22 H D (0-6) % Monocytes % 7 (0-7) % Eosinophils % 6 (0-6) % Basophils % 1 (0-2) % Metamyelocytes % 4 H (0-2) % Myelocytes % 3 H (0-1) % Nucleated RBC % 0.6 Nucleated RBCs/100 WBC 2 H (0-0) Normal RBC Morphology Not Reportable Rouleaux 1+ Hem Pathologist Commnt Pending INR (Anticoag Therapy) 1.63 H (0.77-1.02) Sodium 127 L (139-145) mmol/L Potassium 5.9 H (3.5-5.0) mmol/L Chloride 95 L (101-111) mmol/L Carbon Dioxide 20 L (22-32) mmol/L Anion Gap 12 H (2-11) mmol/L BUN 26 H (6-24) mg/dL Creatinine 2.90 H (0.51-0.95) mg/dL Est GFR ( Amer) 20.9 (>60) Est GFR (Non-Af Amer) 16.2 (>60) BUN/Creatinine Ratio 9.0 (8-20) Glucose 95 (70-100) mg/dL Lactic Acid (0.5-2.0) mmol/L Calcium 10.2 (8.6-10.3) mg/dL Total Bilirubin 0.30 (0.2-1.0) mg/dL AST 12 L (13-39) U/L ALT 9 (7-52) U/L Alkaline Phosphatase 104 (34-104) U/L Troponin I 0.02 (<0.04) ng/mL C-Reactive Protein 3.88 (< 5.00) mg/L Total Protein 8.9 (6.4-8.9) g/dL Albumin 2.4 L (3.2-5.2) g/dL Globulin 6.5 H (2-4) g/dL Albumin/Globulin Ratio 0.4 L (1-3) Lipase < 10 L (11.0-82.0) U/L Influenza A (Rapid) (Negative) Influenza B (Rapid) (Negative) Blood Type Antibody Screen Crossmatch 02/11/18 02/11/18 02/11/18 Range/Units 08:25 08:25 09:30 WBC (3.5-10.8) 10^3/ul RBC (4.0-5.4) 10^6/ul Hgb (12.0-16.0) g/dl Hct (35-47) % MCV (80-97) fL MCH (27-31) pg MCHC (31-36) g/dl RDW (10.5-15) % Plt Count (150-450) 10^3/ul MPV (7.4-10.4) um3 Neut % (Auto) (38-83) % Lymph % (Auto) (25-47) % [place] % (Auto) (0-7) % Eos % (Auto) (0-6) % Baso % (Auto) (0-2) % Absolute Neuts (auto) (1.5-7.7) 10^3/ul Absolute Lymphs (auto) (1.0-4.8) 10^3/ul Absolute Monos (auto) (0-0.8) 10^3/ul Absolute Eos (auto) (0-0.6) 10^3/ul Absolute Basos (auto) (0-0.2) 10^3/ul Absolute Nucleated RBC 10^3/ul Immature Gran % (0-9) % Neutrophils % (38-83) % Band Neutrophils % (0-8) % Lymphocytes % (25-47) % Reactive Lymphs % (0-6) % Monocytes % (0-7) % Eosinophils % (0-6) % Basophils % (0-2) % Metamyelocytes % (0-2) % Myelocytes % (0-1) % Nucleated RBC % Nucleated RBCs/100 WBC (0-0) Normal RBC Morphology Shemar Hem Pathologist Commnt INR (Anticoag Therapy) (0.77-1.02) Sodium (139-145) mmol/L Potassium (3.5-5.0) mmol/L Chloride (101-111) mmol/L Carbon Dioxide (22-32) mmol/L Anion Gap (2-11) mmol/L BUN (6-24) mg/dL Creatinine (0.51-0.95) mg/dL Est GFR ( Amer) (>60) Est GFR (Non-Af Amer) (>60) BUN/Creatinine Ratio (8-20) Glucose (70-100) mg/dL Lactic Acid 2.8 H* (0.5-2.0) mmol/L Calcium (8.6-10.3) mg/dL Total Bilirubin (0.2-1.0) mg/dL AST (13-39) U/L ALT (7-52) U/L Alkaline Phosphatase (34-104) U/L Troponin I (<0.04) ng/mL C-Reactive Protein (< 5.00) mg/L Total Protein (6.4-8.9) g/dL Albumin (3.2-5.2) g/dL Globulin (2-4) g/dL Albumin/Globulin Ratio (1-3) Lipase (11.0-82.0) U/L Influenza A (Rapid) Negative (Negative) Influenza B (Rapid) Negative (Negative) Blood Type A Positive Antibody Screen Negative Crossmatch See Detail Result Diagrams: 02/11/18 08:25 02/11/18 08:25 Lab Statement: Any lab studies that have been ordered have been reviewed, and results considered in the medical decision making process. - Radiology CXR Radiology Interpretation Completed By: Radiologist - CXR reveals pulmonary vascular congestion and interstitial edema with small RIGHT pleural effusion. Dr. Michele has reviewed this radiology report. - CT Brain CT Interpretation Completed By: Radiologist - Negative unenhanced head CT. Resolution of previous bilateral mastoid effusions. Dr. Michele has reviewed this report. Course/Dx - Course Course Of Treatment: Ms. Junior went home on Sunday after having a filter placed for a PE and DVT. She has gotten steadily worse and is C/O weakness and confusion. She wasn't febrile here but she had a leukocytosis and a possible infiltrate on CXR. She is being treated with antibiotics and IV NS. - Diagnoses Provider Diagnoses: PNA (pneumonia), Weakness - Physician Notifications Discussed Care Of Patient With: Jimy Alvarado - Hematology/Onc Time Discussed With Above Provider: 09:25 Instructed by Provider To: Admit As Inpatient - Critical Care Time Critical Care Time: 30-74 min Discharge - Sign-Out/Discharge Documenting (check all that apply): Discharge/Admit/Transfer - Discharge Plan Condition: Stable Disposition: ADMITTED TO [facility] Referrals: Anne Villarreal MD [Primary Care Provider] - - Billing Disposition and Condition Condition: STABLE Disposition: [facility] The documentation as recorded by the Robert hardy Nilda accurately reflects the service I personally performed and the decisions made by , Waylon Michele MD.
[2018-02-11] MEDS ORDERED: Gabapentin CAP(*) 100 MG PO SCH ×3 (12:00→21:00)
[2018-02-11] MEDS: Omeprazole CAP* 20 MG PO SCH ×2 (12:16→17:00)
[2018-02-11 13:44] LABS: EGFR Non-African American 15.3 (>60)
[2018-02-11] MEDS ORDERED: Levofloxacin 750 MG IVPREMIX(* 750 MG/150 ML BAG IVPB SCH (15:00)
[2018-02-11] MEDS ORDERED: Ondansetron ODT TAB* 4 MG PO PRN (15:26)
[2018-02-11] MEDS ORDERED: PROCHLORPERAZINE INJ 5 MG/ML 2 ML VIAL IV PRN (15:28)
[2018-02-11 16:09] LABS: ABS Neutrophils 7.3 10^3/ul (1.5-7.7)
[2018-02-11 16:10] LABS: ABS Eosinophils 1.1 10^3/ul (0-0.6); ABS Lymphocytes 8.8 10^3/ul (1.0-4.8); ABS Monocytes 1.3 10^3/ul (0-0.8)
[2018-02-11 16:11] LABS: ABS Basophils 0.2 10^3/ul (0-0.2)
[2018-02-11 16:12] LABS: Lymphocyte % 47 % (25-47)
[2018-02-11 16:13] LABS: Eosinophil % 6 % (0-6)
--- NOTE | 2018-02-11 17:31 | HP ---
CC: Dr. Anne Wisdom; Dr. Quesada * ADMISSION HISTORY AND PHYSICAL: DATE OF ADMISSION: 02/11/18. PRIMARY CARE PROVIDER: Dr. Anne Wisdom. PRIMARY ONCOLOGIST: Dr. Jacky Quesada. ATTENDING PHYSICIAN: Dr. Jimy Alvarado.* (DICTATED BY THALIA TORO) ADMITTING PROVIDER: THALIA Toro CHIEF COMPLAINT: Fatigue, malaise, and confusion. HISTORY OF PRESENT ILLNESS: This is a 68-year-old female with plasma cell leukemia, who was recently hospitalized and discharged on 02/08/18 with a PE and DVT. She had an IVC filter placed as she has had thrombocytopenia with a platelet count between 50 and 60,000 and discharged with Lovenox with plans to closely monitor her platelet count and any signs of bleeding. Prior to that hospitalization, she also had newly recognized heart failure this was unclear if it was related to the PE or an additional process. She had previously been on Lasix and statin supplementation, which was continued at the time of discharge and she was also discharged on low-dose lisinopril. The patient has been taking all medications as directed. She lives with one of her daughters who has helped with medication administration. Since returning home on Sunday, she has had some decline in her health that she reports feeling extremely fatigued. She has had nausea, and one episode of diarrhea on Sunday and then she vomited once this morning. She denies any abdominal pain, but reports a significant acid reflux. She is not on a current PPI. Her appetite has been extremely poor. She also reports some muscle twitching and almost tremulous type activity over the last couple of days. She spent most of the day sleeping yesterday. Her daughter reports that she has been intermittently confused. No complaints of cough. No noted fevers. PAST MEDICAL HISTORY: 1. Plasma cell leukemia, under the care of Dr. Jacky Quesada, status post one cycle of RVD, complicated by severe C. diff colitis and peripheral neuropathy. 2. Recent PE and DVT, currently on Lovenox. 3. COPD. HOME MEDICATIONS: 1. Acetaminophen 650 mg p.o. q.4 hours as needed for pain or fever. 2. Albuterol inhaler 2 puffs inhaled every 4 hours as needed for shortness of breath or cough. 3. Cymbalta 60 mg p.o. daily. 4. Lovenox 90 mg subcu daily. 5. Lasix 20 mg p.o. daily. 6. Neurontin 300 mg with breakfast and lunch, 500 mg at bedtime. 7. Lisinopril 2.5 mg p.o. daily. 8. Singulair 10 mg p.o. daily. 9. Multivitamin 1 tablet p.o. daily. 10. Percocet 5/325, one tablet p.o. q.6 hours as needed for pain. 11. Potassium chloride 10 mEq p.o. daily. SOCIAL HISTORY: The patient lives at home with her daughter. She is a former smoker. Denies any significant alcohol intake. REVIEW OF SYSTEMS: As noted above in the HPI. All other systems reviewed and otherwise negative. PHYSICAL EXAMINATION GENERAL: This is a chronically ill and fatigued-appearing 68-year-old female, accompanied by her daughter. VITAL SIGNS: Initial vitals, temperature 98.9 degrees Fahrenheit, pulse 77 beats per minute, respiratory rate 20, oxygen saturation 97% on room air, blood pressure 91/56 mmHg. HEENT: Head is normocephalic, atraumatic. Mucous membranes are pink and moist. NECK: Neck is supple and free of lymphadenopathy. RESPIRATORY: The patient has some mild crackles at lung bases bilaterally. No rhonchi or wheezing appreciated. CARDIOVASCULAR: Heart has a regular rate and rhythm without murmurs, rubs, or gallops. ABDOMEN: Abdomen is soft and nontender to palpation. EXTREMITIES: Trace lower extremity edema bilaterally. PSYCH: The patient is alert. It is difficult to assess orientation specifically there is some confusion upon interview and she is quite fatigued, but easily arousable. SKIN: No rashes or lesions. LABORATORY EVALUATION: CBC shows a total white blood cell count of 18,700 with 35% monocytes, hemoglobin of 8.7 g/dL and a platelet count of 39,000. INR of 1.6. Comprehensive metabolic panel shows sodium of 127 mmol/L, potassium of 5.9, serum bicarb of 20, BUN 26, creatinine 2.9. Lactic acid of 2.8. Transaminases and total bilirubin are unremarkable. Lipase is normal. Influenza testing is negative. IMAGIN. CT of the brain is unremarkable. 2. Chest x-ray shows some interstitial edema and small right-sided pleural effusion essentially unchanged from recent x-rays. ASSESSMENT AND PLAN: This is a 68-year-old female with plasma cell leukemia, who has been unable to tolerate treatments due to severe Clostridium difficile colitis and peripheral neuropathy, who was recently hospitalized with pulmonary embolism and deep vein thrombosis and now returns with complaints of malaise and fatigue, who appears to have a new acute kidney injury of uncertain etiology. 1. Acute kidney injury - the patient has a creatinine of 2.9, last measured at 1.1 on 02/08/18. She was started on lisinopril at the time of discharge, which could be a driving factor, but seems unlikely. She has been complaining of some nausea with poor oral intake, one episode of diarrhea and vomiting. It is unclear if these symptoms are due to the renal failure or perhaps her poor oral intake and other GI effects are due to mild viral gastroenteritis and has thus driven her acute kidney injury. Acute kidney injury is accompanied by hyperkalemia. She has been continuing her potassium supplement at home. Plan at this time will be to stop her Lasix, potassium, and lisinopril. She will receive IV fluids and she will also likely benefit from a unit of packed red blood cells, which will help with volume expansion as well. She does have relatively newly recognized heart failure, appears to be appropriately compensated, but fluid status should be closely monitored. 2. Hyperkalemia as noted above. 3. Hyponatremia secondary to hypovolemia - treat with IV fluids. 4. Recent pulmonary embolism and deep vein thrombosis - the patient has a platelet count of 40,000 without signs of bleeding. We will plan to continue her Lovenox at this time as her pulmonary embolism is relatively recent and monitor her platelet count closely and for any signs of bleeding. Her dose of Lovenox will be adjusted for her decline in renal function to 1 mg/kg every 24 hours, which will be 60 mg subcu daily. She was recently taking 90 mg subcu daily, which is 1.5 mg/kg daily. 5. Chronic systolic heart failure - this is a relatively new diagnosis as of her last hospitalization with an ejection fraction of approximately 25%. She appears to be appropriately compensated at this time. Diuretics will be held. She has outpatient followup with Dr. Mccabe arranged. Monitor closely with IV fluids. 6. Plasma cell leukemia - the patient received just 1 cycle of RVD with significant clinical response, but her treatment was complicated by case of severe Clostridium difficile colitis followed by severe peripheral neuropathy and significant decline is her performance status and she has been unable to receive treatment for the last couple of months. She dose have a noted leukocytosis at the time of admission with anemia and thrombocytopenia. She did have circulating plasma cells noted on her last CBC. Leukocytosis seems to be less likely infectious and more likely a result of progression of her disease. Plan had been for her to follow up with Dr. Quesada in approximately 2 weeks to review performance status to see if treatment can reinitiated. We will discuss plan of care with Dr. Quesada in more detail. 7. DVT prophylaxis. The patient is fully anticoagulated on Lovenox. 8. Healthcare proxy is her daughter, Ruthie. 9. Code status. The patient is full code. DISPOSITION: The patient is being admitted to the hospital under inpatient status with expected length of stay to be greater than 2 midnights. THALIA TORO [id number]/[facility] #: [id number] SHONNA
[2018-02-11] MEDS ORDERED: Gabapentin CAP(*) 400 MG PO SCH (18:00)
--- NOTE | 2018-02-11 18:29 | PN ---
Hospitalist Progress Note 68 yo Plasma Cell Leukemia, recent PE with right heart strain (now on lovenox), thrombocytopenia, new Acute heart failure and now Acute Renal Failure. Lactic Acidosis, Leukocytosis s/p levaquin. CAT call for AMS. SBP 80s, just finished up 1u pRBC. Has gotten 800mg gabapentin in last 5 hours. Pt lethargic. CBC, CMP, Trop, BNP, Lactic Acid, Magnesium, Fibrinogen. Bladder scan with ~210cc CXR AP Urine Na, Urine Comic Writer, Urine Urea Transferring to ICU. stopping gabapentin, restart at renally adjusted doses as able. stopping IVF for now, await labs and imaging. small bolus as needed. Discussed with Daughter, Pt is Full Code.
--- NOTE | 2018-02-11 18:42 | RAD ---
HISTORY: Altered mental status, blood transfusion COMPARISONS: February 11, 2018 at 9:20 AM VIEWS: 1: frontal portable view of the chest at 6:30 PM FINDINGS: LINES AND TUBES: None. CARDIOMEDIASTINAL SILHOUETTE: The cardiomediastinal silhouette is stable. PLEURA: The costophrenic angles are sharp. No pleural abnormalities are noted. LUNG PARENCHYMA: There is a diffuse reticular pattern with indistinct pulmonary vessels. ABDOMEN: The upper abdomen is clear. There is no subphrenic gas. BONES AND SOFT TISSUES: No bone or soft tissue abnormalities are noted. IMPRESSION: MILD CARDIOMEGALY WITH PULMONARY INTERSTITIAL EDEMA, PROGRESSED FROM THE EARLIER EXAMINATION
[2018-02-11 18:46] LABS: Hematocrit 27 % (35-47); Mean Corpuscular HGB Conc 33 g/dl (31-36); Mean Corpuscular Hemoglobin 28 pg (27-31); Mean Corpuscular Volume 87 fL (80-97); Mean Platelet Volume 8.4 um3 (7.4-10.4); Platelet Count 43 10^3/ul (150-450); Red Blood Count 3.16 10^6/ul (4.0-5.4); Red Cell Distribution Width 17 % (10.5-15); White Blood Count 22.9 10^3/ul (3.5-10.8)
[2018-02-11 18:59] LABS: EGFR Non-African American 17.5 (>60)
[2018-02-11] MEDS ORDERED: Magnesium Sulfate 2 GM IV* 2 GM/50 ML BAG IVPB ONE (19:26)
[2018-02-11 23:04] LABS: Urine Appearance Turbid; Urine Blood 1+ (Negative); Urine Color Amber; Urine Ketones Negative (Negative); Urine Protein 2+(100 mg/dL) (Negative); Urine Specific Gravity 1.019 (1.010-1.030); Urine Urobilinogen Negative (Negative)
[2018-02-12 05:45] LABS: Hematocrit 28 % (35-47); Hemoglobin 9.2 g/dl (12.0-16.0); Mean Corpuscular HGB Conc 33 g/dl (31-36); Mean Corpuscular Hemoglobin 29 pg (27-31); Mean Corpuscular Volume 86 fL (80-97); Mean Platelet Volume 8.8 um3 (7.4-10.4); Platelet Count 31 10^3/ul (150-450); Red Blood Count 3.23 10^6/ul (4.0-5.4); Red Cell Distribution Width 17 % (10.5-15); White Blood Count 20.5 10^3/ul (3.5-10.8)
[2018-02-12] MEDS ORDERED: Sodium Polystyrene ORAL.SOL* 15 GM/60 ML BTL NG TUBE ONE (06:31)
[2018-02-12 06:32] LABS: Monocytes % 12 % (0-7)
[2018-02-12] MEDS: Montelukast Sodium TAB* 10 MG PO SCH (07:37)
[2018-02-12] MEDS: Omeprazole CAP* 20 MG PO SCH ×2 (07:37→17:01)
[2018-02-12] MEDS: DULoxetine DR CAP* 30 MG CAP.DR PO SCH (09:33)
[2018-02-13] MEDS ORDERED: Levofloxacin 500 MG IVPREMIX(* 500 MG/100 ML BAG IVPB SCH (09:00)
[2018-02-13] MEDS: Omeprazole CAP* 20 MG PO SCH (10:39)
[2018-02-13] MEDS: Montelukast Sodium TAB* 10 MG PO SCH (10:39)
[2018-02-13] MEDS: DULoxetine DR CAP* 30 MG CAP.DR PO SCH (10:39)
[2018-02-13 10:40] VITALS: BP 88/49
--- NOTE | 2018-02-13 11:19 | PN ---
Progress Note - Progress Note Date of Service: 02/13/18 SOAP: Betzy was seen and examine by Dr. Quesada today with plan for transition to hospice. Her diagnosis of renal failure secondary to plasma cell leukemia has caused significant discomfort requiring frequent repositioning. Her pain and breathing has best been controlled with the head of the bed 30 deg. or higher. The patient requires a semi-electric hospital bed in order to maintain comfort due to her need for repositioning and elevation of the head. It is crucial to her current plan of care and necessary for the above diagnosis. Her needs require a repositioning that an ordinary bed can not provide.
== END 2018-02-13 16:35 | disposition hospice, home (50) | DRG 683 ==
LOC: ED 07:48 → MED 10:07 → ICU 18:43 → MED 02-12 16:22
PROVIDERS: ADMIT Physician Assistant; ATTEND Internal Medicine Hematology & Oncology
PROC: 30233N1 Transfusion of Nonautologous Red Blood Cells into Peripheral Vein, Percutaneous Approach (ICD-10-PCS; principal; 2018-02-11)
DX: N17.9 Acute kidney failure, unspecified (principal); C90.10 Plasma cell leukemia not having achieved remission; A04.72 Enterocolitis due to Clostridium difficile, not specified as recurrent; E87.2 Acidosis; I50.22 Chronic systolic (congestive) heart failure; E87.1 Hypo-osmolality and hyponatremia; G89.29 Other chronic pain; R10.9 Unspecified abdominal pain; J44.9 Chronic obstructive pulmonary disease, unspecified; K21.9 Gastro-esophageal reflux disease without esophagitis; M19.90 Unspecified osteoarthritis, unspecified site; R40.2252 Coma scale, best verbal response, oriented, at arrival to emergency department; R40.2142 Coma scale, eyes open, spontaneous, at arrival to emergency department; F32.9 Major depressive disorder, single episode, unspecified; R40.2362 Coma scale, best motor response, obeys commands, at arrival to emergency department; M81.0 Age-related osteoporosis without current pathological fracture; F41.0 Panic disorder [episodic paroxysmal anxiety]; I11.0 Hypertensive heart disease with heart failure; G62.9 Polyneuropathy, unspecified; E87.5 Hyperkalemia; D69.6 Thrombocytopenia, unspecified; D64.9 Anemia, unspecified; Z66 Do not resuscitate; Z98.51 Tubal ligation status; Z84.1 Family history of disorders of kidney and ureter; Z83.6 Family history of other diseases of the respiratory system; Z87.891 Personal history of nicotine dependence; Z88.5 Allergy status to narcotic agent; Z86.711 Personal history of pulmonary embolism; Z86.718 Personal history of other venous thrombosis and embolism; Z95.828 Presence of other vascular implants and grafts
CPT/HCPCS: 36415; 70450; 71045; 80048; 80053; 81003; 81015; 82570; 83605; 83690; 83735; 83880; 84300; 84484; 84540; 85025; 85060; 85384; 85610; 86140; 86850; 86900; 86901; 86922; 87040; 87502; 93005; 99222; 99233; 99238; 99284; A9270-GY; J0780; J1650; J1956; J2405; J3475; P9040